=== PATIENT | male | born 1945 | race Caucasian/White ===

== ENCOUNTER 2020-08-28 08:05 | Outpatient (REF) | payer BC, SELFPAY ==
[2020-08-28 11:11] LABS: Hematocrit 40.6 % (42-52); Hemoglobin 13.2 g/dl (14.0-18.0); Mean Corpuscular HGB Conc 32.5 g/dl (31.0-36.0); Mean Corpuscular Hemoglobin 28.4 pg (27.0-33.0); Mean Corpuscular Volume 87.5 fL (80-98); Mean Platelet Volume 9.2 fL (9.4-12.4); Platelet Count 320 X10*3/uL (160-400); Red Blood Count 4.64 X10*6/uL (4.60-5.80); Red Cell Distribution Width 13.5 % (11.0-16.0); White Blood Count 12.2 X10*3/uL (4.8-10.8)
[2020-08-28 11:29] LABS: Alanine Aminotransferase 8 U/L (0-40); Alkaline Phosphatase 76 U/L (39-117); Anion Gap 18 (12-20); Aspartate Amino Transferase 10 U/L (5-37); Bilirubin Total 0.2 mg/dL (0.0-1.0); Blood Urea Nitrogen 17 mg/dL (9-16); Calcium 8.7 mg/dL (8.4-10.2); Carbon Dioxide 22 mmol/L (22-29); Chloride 105 mmol/L (96-108); Cholesterol 141 mg/dL; Estimated Glomerular Filt Rate > 60; Glucose Fasting 144 mg/dL (60-99); HDL Cholesterol 42 mg/dL; LDL Cholesterol Calculated 80 mg/dl; Potassium 4.3 mmol/L (3.3-5.1); Sodium 141 mmol/L (135-145); Total Protein 6.6 g/dL (6.5-8.0); Triglycerides 98 mg/dL
[2020-08-28 11:38] LABS: Estimated Average Glucose 117 mg/dL; Hemoglobin A1c % 5.7 %
[2020-08-28 12:14] LABS: Creatinine Urine 129.91 mg/dL; Microalbum/Creatinine Ratio Ur 17.7 ug/mg cr
== END 2020-08-28 08:06 | disposition home or self-care (01) ==
LOC: HO.HMGCLDS 08:05
PROVIDERS: PCP Internal Medicine; Visit Provider Internal Medicine
DX: I10 Essential (primary) hypertension (principal); E78.5 Hyperlipidemia, unspecified; E11.9 Type 2 diabetes mellitus without complications
CPT/HCPCS: 36415; 80053; 80061; 82043; 83036; 85027

== ENCOUNTER 2021-01-08 08:15 | Outpatient (REF) | payer BC, SELFPAY ==
[2021-01-08 11:36] LABS: Estimated Average Glucose 123 mg/dL; Hemoglobin A1c % 5.9 %
[2021-01-08 11:56] LABS: Creatinine Urine 60.65 mg/dL; Microalbum/Creatinine Ratio Ur 69.2 ug/mg cr
[2021-01-08 12:16] LABS: Erythrocyte Sedimentation Rate 3 MM/HR (0-15)
[2021-01-08 12:31] LABS: Alanine Aminotransferase 16 U/L (0-40); Albumin Level 4.2 g/dL (3.5-5.0); Alkaline Phosphatase 49 U/L (39-117); Anion Gap 14 (12-20); Aspartate Amino Transferase 14 U/L (5-37); Bilirubin Total < 0.2 mg/dL (0.0-1.0); Blood Urea Nitrogen 24 mg/dL (9-16); Calcium 9.2 mg/dL (8.4-10.2); Carbon Dioxide 23 mmol/L (22-29); Chloride 109 mmol/L (96-108); Estimated Glomerular Filt Rate 55; Glucose Fasting 112 mg/dL (60-99); Potassium 4.5 mmol/L (3.3-5.1); Sodium 141 mmol/L (135-145); Total Protein 6.7 g/dL (6.5-8.0)
== END 2021-01-08 08:16 | disposition home or self-care (01) ==
LOC: HO.HMGCLDS 08:15
PROVIDERS: PCP Internal Medicine; Visit Provider Internal Medicine
DX: E11.9 Type 2 diabetes mellitus without complications (principal); E78.5 Hyperlipidemia, unspecified; I10 Essential (primary) hypertension
CPT/HCPCS: 36415; 80053; 82043; 83036; 85652

== ENCOUNTER 2021-07-24 07:58 | Outpatient (REF) | payer BC, SELFPAY ==
[2021-07-24 11:44] LABS: Hematocrit 48.9 % (42.0-52.0); Mean Corpuscular HGB Conc 32.7 g/dl (31.0-36.0); Mean Corpuscular Volume 88.6 fL (80.0-98.0); Mean Platelet Volume 9.2 fL (9.4-12.4); Platelet Count 230 X10*3/uL (160-400); Red Blood Count 5.52 X10*6/uL (4.60-5.80); Red Cell Distribution Width 13.2 % (11.0-16.0); White Blood Count 8.2 X10*3/uL (4.8-10.8)
[2021-07-24 11:59] LABS: Estimated Average Glucose 120 mg/dL; Hemoglobin A1c % 5.8 %
[2021-07-24 12:12] LABS: Alanine Aminotransferase 12 U/L (0-40); Albumin Level 4.1 g/dL (3.5-5.0); Alkaline Phosphatase 55 U/L (39-117); Anion Gap 17 (12-20); Aspartate Amino Transferase 14 U/L (5-37); Bilirubin Total 0.5 mg/dL (0.0-1.0); Blood Urea Nitrogen 22 mg/dL (9-16); Carbon Dioxide 19 mmol/L (22-29); Chloride 108 mmol/L (96-108); Cholesterol 145 mg/dL; Estimated Glomerular Filt Rate > 60; Glucose Fasting 107 mg/dL (60-99); HDL Cholesterol 50 mg/dL; LDL Cholesterol Calculated 79 mg/dl; Potassium 4.5 mmol/L (3.3-5.1); Sodium 139 mmol/L (135-145); Total Protein 6.6 g/dL (6.5-8.0); Triglycerides 80 mg/dL
[2021-07-24 12:37] LABS: Creatinine Urine 113.54 mg/dL; Microalbum/Creatinine Ratio Ur 21.1 ug/mg cr
== END 2021-07-24 07:59 | disposition home or self-care (01) ==
LOC: HO.HMGCLDS 07:58
PROVIDERS: PCP Internal Medicine; Visit Provider Internal Medicine
DX: E11.9 Type 2 diabetes mellitus without complications (principal); E78.5 Hyperlipidemia, unspecified; I10 Essential (primary) hypertension
CPT/HCPCS: 36415; 80053; 80061; 82043; 83036; 85027

== ENCOUNTER 2022-01-07 08:46 | Outpatient (REF) | payer BC, SELFPAY ==
[2022-01-07 11:32] LABS: Estimated Average Glucose 117 mg/dL; Hemoglobin A1c % 5.7 %
[2022-01-07 11:43] LABS: Alanine Aminotransferase 15 U/L (0-40); Albumin Level 4.1 g/dL (3.5-5.0); Alkaline Phosphatase 57 U/L (39-117); Anion Gap 16 (12-20); Aspartate Amino Transferase 15 U/L (5-37); Bilirubin Total 0.3 mg/dL (0.0-1.0); Blood Urea Nitrogen 23 mg/dL (9-16); Carbon Dioxide 22 mmol/L (22-29); Chloride 107 mmol/L (96-108); Cholesterol 150 mg/dL; Estimated Glomerular Filt Rate > 60; Glucose Fasting 106 mg/dL (60-99); HDL Cholesterol 45 mg/dL; LDL Cholesterol Calculated 88 mg/dl; Potassium 4.6 mmol/L (3.3-5.1); Sodium 140 mmol/L (135-145); Total Protein 6.6 g/dL (6.5-8.0); Triglycerides 88 mg/dL
== END 2022-01-07 08:47 | disposition home or self-care (01) ==
LOC: HO.HMGCLDS 08:46
PROVIDERS: PCP Internal Medicine; Visit Provider Internal Medicine
DX: I10 Essential (primary) hypertension (principal); E78.5 Hyperlipidemia, unspecified; E11.9 Type 2 diabetes mellitus without complications
CPT/HCPCS: 36415; 80053; 80061; 83036

== ENCOUNTER 2022-07-01 08:35 | Outpatient (REF) | payer BC, SELFPAY ==
[2022-07-01 11:58] LABS: MANUAL DIFF FLAG NO
[2022-07-01 12:16] LABS: Basophils Absolute Auto 0.1 X10*3/uL (0.0-0.2); Eosinophils Absolute Auto 0.5 X10*3/uL (0.0-0.4); Eosinophils Percent Auto 6.6 % (0-4); Hematocrit 48.2 % (42.0-52.0); Imm Gran Abs Auto 0.01 X10*3/uL (0.00-0.03); Imm Gran Pct Auto 0.1 % (0.0-0.4); Lymphocytes Absolute Auto 2.4 X10*3/uL (1.2-4.9); Mean Corpuscular HGB Conc 33.2 g/dl (31.0-36.0); Mean Corpuscular Hemoglobin 29.5 pg (27.0-33.0); Mean Corpuscular Volume 88.9 fL (80.0-98.0); Mean Platelet Volume 9.1 fL (9.4-12.4); Monocytes Absolute Auto 0.7 X10*3/uL (0.1-1.2); Neutrophils Absolute Auto 3.7 x10*3/uL (2.0-8.3); Neutrophils Percent Auto 50.3 % (45-73); Platelet Count 228 X10*3/uL (160-400); Red Blood Count 5.42 X10*6/uL (4.60-5.80); Red Cell Distribution Width 13.1 % (11.0-16.0); White Blood Count 7.3 X10*3/uL (4.8-10.8)
[2022-07-01 12:21] LABS: Estimated Average Glucose 114 mg/dL; Hemoglobin A1c % 5.6 %
[2022-07-01 12:36] LABS: Creatinine Urine 69.43 mg/dL
[2022-07-01 12:49] LABS: Alanine Aminotransferase 13 U/L (0-40); Albumin Level 4.2 g/dL (3.5-5.0); Alkaline Phosphatase 55 U/L (39-117); Anion Gap 14 (12-20); Aspartate Amino Transferase 13 U/L (5-37); Bilirubin Total 0.4 mg/dL (0.0-1.0); Blood Urea Nitrogen 21 mg/dL (9-16); Calcium 9.1 mg/dL (8.4-10.2); Carbon Dioxide 21 mmol/L (22-29); Chloride 111 mmol/L (96-108); Cholesterol 140 mg/dL; Estimated Glomerular Filt Rate 57; Glucose Fasting 124 mg/dL (60-99); HDL Cholesterol 47 mg/dL; LDL Cholesterol Calculated 82 mg/dl; Potassium 4.4 mmol/L (3.3-5.1); Sodium 142 mmol/L (135-145); Total Protein 6.6 g/dL (6.5-8.0); Triglycerides 58 mg/dL
== END 2022-07-01 08:36 | disposition home or self-care (01) ==
LOC: HO.HMGCLDS 08:35
PROVIDERS: Visit Provider Internal Medicine
DX: E11.9 Type 2 diabetes mellitus without complications (principal); I10 Essential (primary) hypertension; E78.5 Hyperlipidemia, unspecified
CPT/HCPCS: 36415; 80053; 80061; 82043; 83036; 85025

== ENCOUNTER 2023-01-20 08:22 | Outpatient (REF) | payer BC, SELFPAY ==
[2023-01-20 12:23] LABS: Alanine Aminotransferase 15 U/L (0-40); Albumin Level 4.2 g/dL (3.5-5.0); Alkaline Phosphatase 54 U/L (39-117); Anion Gap 13 (12-20); Aspartate Amino Transferase 16 U/L (5-37); Bilirubin Total 0.4 mg/dL (0.0-1.0); Blood Urea Nitrogen 25 mg/dL (9-16); Calcium 9.8 mg/dL (8.4-10.2); Carbon Dioxide 24 mmol/L (22-29); Chloride 109 mmol/L (96-108); Cholesterol 127 mg/dL (<200); Estimated Glomerular Filt Rate 54; Glucose Fasting 111 mg/dL (60-99); HDL Cholesterol 48 mg/dL (>40); LDL Cholesterol Calculated 65 mg/dL (<100); Potassium 4.3 mmol/L (3.3-5.1); Sodium 142 mmol/L (135-145); Triglycerides 73 mg/dL (<150)
[2023-01-20 12:45] LABS: Estimated Average Glucose 103 mg/dL; Hemoglobin A1c % 5.2 % (<6.0)
[2023-01-20 12:51] LABS: Creatinine Urine 98.12 mg/dL; Microalbum/Creatinine Ratio Ur 15.2 ug/mg cr (<30)
== END 2023-01-20 08:23 | disposition home or self-care (01) ==
LOC: HO.HMGCLDS 08:22
PROVIDERS: PCP Internal Medicine; Visit Provider Internal Medicine
DX: E11.9 Type 2 diabetes mellitus without complications (principal); I10 Essential (primary) hypertension; E78.5 Hyperlipidemia, unspecified
CPT/HCPCS: 36415; 80053; 80061; 82043; 83036

== ENCOUNTER 2023-02-10 13:24 | Outpatient (AMB) | payer BC, SELFPAY ==
--- NOTE | 2023-02-10 13:28 | A.OFFPC_ITS ---
Vital Signs 02/10/23 13:29 Height 5 ft 11 in Weight 211 lb BMI 29.4 BP 120/62 Blood Pressure Location Lt brachial Position Sitting Pulse 88 Pulse Source Pulse Oximeter Pulse Oximetry (%) 96 Oxygen Delivery Method Room Air Intake Visit Reasons: 6 Month follow up Intake Note: Pt is here today for 6 months follow up visit. Allergies bupropion [From Wellbutrin] Allergy (Unknown, Verified 02/10/23 13:31) n/a hydroxychloroquine [From Plaquenil] Allergy (Unknown, Verified 02/10/23 13:31) n/a indomethacin [Indocin] Allergy (Unknown, Verified 02/10/23 13:31) Abdominal Pain meloxicam [Mobic] Allergy (Unknown, Verified 02/10/23 13:31) n/a Medication List - Last Reconciled 02/10/23 by Armida Canchola MD amlodipine 10 mg PO DAILY Anoro Ellipta 62.5-25 mcg/actuation (umeclidinium-vilanterol) 1 inh inhalation DAILY NS aspirin (Adult Low Dose Aspirin) 81 mg PO DAILY empagliflozin 25 mg PO DAILY golimumab mg subcut indapamide 1.25 mg PO DAILY lisinopril 40 mg PO DAILY metformin 500 mg PO DAILY omeprazole 20 mg PO DAILY oxycodone-acetaminophen 5-325 mg 1 tab PO Q6H pravastatin 10 mg PO BEDTIME varenicline (Chantix Starting Month Box) PO PER PKG DIR varenicline (Chantix Continuing Month Box) 1 mg PO BID Tobacco use date assessed: 02/10/23 Dental Screening Dental Screen Date: 02/10/23 Did you have a dental visit in the last 12 months?: Yes Did you have a dental problem in the last 6 months where you did not have access to dental care?: No Was dental information given to patient?: Patient has dentist HPI 6 Month follow up HPI Details Patient presents for the follow-up of hypertension hyperlipidemia type 2 diabetes stable on current medications. Patient reports intermittent cough and occasional wheezing. He has been smoking 2 packs a day but declined to attend tobacco cessation classes to get approved for lung cancer screening program. [facility] Medical History Foot pain Ear pain, left Colonoscopy refused Ex-smoker Psoriatic arthritis Hyperlipidemia HTN (hypertension) DM type 2 (diabetes mellitus, type 2) Surgical History No pertinent past surgical history Family History Father No problems noted. Mother No problems noted. Son No problems noted. Son No problems noted. Social History Housing: House Patient Tobacco Use Status: Current everyday Tobacco user Tobacco use type: Cigarette Cigarette Packs Per Day: 2 Cigarettes Per Day: 40 e-Cigarette/Vaping Use: Never Used Current occupational status: retired Cognitive needs: No Hearing needs: No Vision needs: Yes Questionnaire Thrive Questionnaire Date Thrive assessed: 07/29/22 MIKE-7 AMB Questionnaire MIKE-7 Date MIKE - 7 assessed: 07/29/22 Source: Developed by Drs. Alec Wade, Araseli Jolly, Loco De Leon and colleagues, with an educational saranya from [employer]. Review of Systems Const All systems reviewed & are unremarkable except as noted in HPI and below Reports no additional complaints Eyes Reports no additional complaints ENT Reports no additional complaints Card Reports no additional complaints Resp Reports no additional complaints GI Reports no additional complaints Reports no additional complaints Physical exam (Primary Care) Vital Signs: Last Vital Signs Pulse 88 02/10/23 13:29 BP 120/62 02/10/23 13:29 Pulse Ox 96 02/10/23 13:29 Oxygen Delivery Method Room Air 02/10/23 13:29 BMI result Body Mass Index 29.4 Tobacco/Smoking Status: Tobacco use Status Tobacco use date assessed 02/10/23 02/10/23 13:34 Patient Tobacco Use Status Current everyday Tobacco 02/10/23 13:28 Tobacco use type Cigarette 02/10/23 13:28 e-Cigarette/Vaping Use Never Used 02/10/23 13:28 Thrive Assessment: Date of Thrive Assessment Date Thrive assessed 07/29/22 02/10/23 13:28 Const General: no acute distress HENTN General nose exam: Normal external nose present Neck Neck: Yes supple Resp Effort & Inspection: normal respiratory effort Auscultation: wheezes and diminished lung sounds Cardio Rhythm: regular rhythm Heart sounds: S1 normal heart sound present and S2 normal heart sound present GI Inspection: Yes normal to inspection Palpation (GI): Soft to palpation Percussion: Yes normal to percussion Auscultation: normal bowel sounds Assessment and Plan Assessment & Plan (1) Cough: Code(s): R05.9 - Cough, unspecified Plan: Check chest x-ray start Anoro and tobacco quitting discussed with the patient he will try Chantix (2) Hyperlipidemia: Code(s): E78.5 - Hyperlipidemia, unspecified Plan: Continue statin (3) HTN (hypertension): Code(s): I10 - Essential (primary) hypertension Plan: Continue current medications (4) DM type 2 (diabetes mellitus, type 2): Code(s): E11.9 - Type 2 diabetes mellitus without complications Plan: A1c is down to 5.2, patient was advised to decrease metformin to 500 mg daily because of chronic kidney disease stage 3. He will continue Jardiance. Patient follow-up in 6 months with a fasting labs Orders: Orders Complete Blood Count Auto Diff 6 Months E11.9 - Type 2 diabetes mellitus without complications, E78.5 - Hyperlipidemia, unspecified, I10 - Essential (primary) hypertension Hemoglobin A1c 6 Months E11.9 - Type 2 diabetes mellitus without complications, E78.5 - Hyperlipidemia, unspecified, I10 - Essential (primary) hypertension Microalbumin, Random (w Creat) 6 Months E11.9 - Type 2 diabetes mellitus without complications, E78.5 - Hyperlipidemia, unspecified, I10 - Essential (primary) hypertension XR chest 1V Today R05.9 - Cough, unspecified Comprehensive [place]. Panel Fast 6 Months E11.9 - Type 2 diabetes mellitus without complications, E78.5 - Hyperlipidemia, unspecified, I10 - Essential (primary) hypertension Lipid Panel 6 Months E11.9 - Type 2 diabetes mellitus without complications, E78.5 - Hyperlipidemia, unspecified, I10 - Essential (primary) hypertension Medications: New varenicline (Chantix Starting Month Box) PO PER PKG DIR 53 ea 0RF varenicline (Chantix Continuing Month Box) 1 mg PO BID 60 tabs 2RF Anoro Ellipta 62.5-25 mcg/actuation (umeclidinium-vilanterol) 1 inh inhalation DAILY 60 ea 6RF NS Changed From metformin 500 mg PO TID 270 tabs 3RF To metformin 500 mg PO DAILY 270 tabs 3RF Coding Level of Care Code Est Pt Level 4 (24443) Diagnoses Cough R05.9 Hyperlipidemia E78.5 HTN (hypertension) I10 DM type 2 (diabetes mellitus, type 2) E11.9
[2023-02-10 13:29] VITALS: BP 120/62; PULSE 88; O2SAT 96; BMI 29.4
== END 2023-02-10 14:06 | disposition home or self-care (01) ==
PROVIDERS: Visit Provider Internal Medicine
DX: R05.9 Cough, unspecified (principal); E78.5 Hyperlipidemia, unspecified; I10 Essential (primary) hypertension; E11.9 Type 2 diabetes mellitus without complications
CPT/HCPCS: 99214

== ENCOUNTER 2023-02-10 14:06 | Outpatient (REF) | payer BC, SELFPAY ==
--- NOTE | ~2023-02-10 | XR_ITS ---
EXAMINATION: XR CHEST CLINICAL INFORMATION: Cough. COMPARISON: Chest x-rays of 04/05/2014, 08/13/2011. TECHNIQUE: 2 views of the chest were obtained. FINDINGS: Cardiomediastinal silhouette is stable and normal. The lungs are symmetrically adequately expanded. No focal consolidation, changes of congestion or pleural effusions are seen. No pneumothorax. Regional skeleton is intact. Visualized upper abdomen is unremarkable. XR/XR chest 2V IMPRESSION: No radiographic evidence of pneumonia. No acute pulmonary process.
== END 2023-02-10 14:07 | disposition home or self-care (01) ==
LOC: HO.HMGCX 14:06
PROVIDERS: PCP Internal Medicine; Visit Provider Internal Medicine
DX: R05.9 Cough, unspecified (principal)
CPT/HCPCS: 71046

== ENCOUNTER 2023-05-21 10:11 | Outpatient (AMB) | payer BC, SELFPAY ==
[2023-05-21 10:37] VITALS: BP 126/60; PULSE 74; O2SAT 96; BMI 27.9
--- NOTE | 2023-05-21 10:37 | A.OFFPC_ITS ---
Vital Signs 05/21/23 10:37 Height 5 ft 11 in Weight 200 lb BMI 27.9 BP 126/60 Blood Pressure Location Lt brachial Position Sitting Pulse 74 Pulse Source Pulse Oximeter Pulse Oximetry (%) 96 Oxygen Delivery Method Room Air Intake Visit Reasons: Cyst On Lower Back Intake Note: Pt is here today for a sick visit. Pt states that he has a cyst on a tailbone. Pt states that his L ear is blocked and hurts at time, pt states that he saw his arthritis doctor and they recommended MRI of his back and he would need open MRI due to being claustrophobic. Allergies bupropion [From Wellbutrin] Allergy (Unknown, Verified 05/21/23 10:42) n/a hydroxychloroquine [From Plaquenil] Allergy (Unknown, Verified 05/21/23 10:42) n/a indomethacin [Indocin] Allergy (Unknown, Verified 05/21/23 10:42) Abdominal Pain meloxicam [Mobic] Allergy (Unknown, Verified 05/21/23 10:42) n/a Medication List - Last Reconciled 05/21/23 by Armida Canchola MD amlodipine 10 mg PO DAILY aspirin (Adult Low Dose Aspirin) 81 mg PO DAILY empagliflozin 25 mg PO DAILY golimumab mg subcut indapamide 1.25 mg PO DAILY lisinopril 40 mg PO DAILY metformin 500 mg PO DAILY omeprazole 20 mg PO DAILY oxycodone-acetaminophen 5-325 mg 1 tab PO Q6H pravastatin 10 mg PO BEDTIME varenicline (Chantix Continuing Month Box) 1 mg PO BID Tobacco use date assessed: 02/10/23 Dental Screening Dental Screen Date: 05/21/23 Did you have a dental visit in the last 12 months?: Yes Did you have a dental problem in the last 6 months where you did not have access to dental care?: No Was dental information given to patient?: Patient has dentist HPI Cyst On Lower Back HPI Details Patient complains of chronic neck and lower back pain worse at the end of the day for a few years. He denies sciatica, lower or upper extremity weakness, change in bladder or bowel function. Patient follows up with baking assistant for psoriatric arthritis. He had a L-spine MRI about 5 years ago and no surgery was recommended. Patient complains of a painful sore between his buttocks with some yellow discharge on the wipe. PFSH Medical History (Updated 05/21/23 @ 11:47 by Armida Canchola MD) Foot pain Ear pain, left Colonoscopy refused Ex-smoker Psoriatic arthritis Hyperlipidemia HTN (hypertension) DM type 2 (diabetes mellitus, type 2) Surgical History No pertinent past surgical history Family History Father No problems noted. Mother No problems noted. Son No problems noted. Son No problems noted. Social History Housing: House Patient Tobacco Use Status: Current everyday Tobacco user Tobacco use type: Cigarette Cigarette Packs Per Day: 2 Cigarettes Per Day: 40 e-Cigarette/Vaping Use: Never Used Current occupational status: retired Cognitive needs: No Hearing needs: No Vision needs: Yes Questionnaire Thrive Questionnaire Date Thrive assessed: 07/29/22 MIKE-7 AMB Questionnaire MIKE-7 Date MIKE - 7 assessed: 07/29/22 Source: Developed by Drs. Alec Wade, Araseli Jolly, Loco De Leon and colleagues, with an educational saranya from [employer]. Review of Systems Const All systems reviewed & are unremarkable except as noted in HPI and below Reports no additional complaints Eyes Reports no additional complaints ENT Reports no additional complaints Card Reports no additional complaints Resp Reports no additional complaints GI Reports no additional complaints Reports no additional complaints Physical exam (Primary Care) Vital Signs: Last Vital Signs Pulse 74 05/21/23 10:37 BP 126/60 05/21/23 10:37 Pulse Ox 96 05/21/23 10:37 Oxygen Delivery Method Room Air 05/21/23 10:37 BMI result Body Mass Index 27.9 Tobacco/Smoking Status: Tobacco use Status Tobacco use date assessed 02/10/23 05/21/23 10:44 Patient Tobacco Use Status Current everyday Tobacco 05/21/23 10:44 Tobacco use type Cigarette 05/21/23 10:44 e-Cigarette/Vaping Use Never Used 05/21/23 10:44 Thrive Assessment: Date of Thrive Assessment Date Thrive assessed 07/29/22 05/21/23 10:44 Const General: no acute distress HENMT Ears: TM's normal bilaterally Neck Other: Decreased range of motion and cervical spine, paraspinal tenderness bilaterally Neck: Yes supple Resp Effort & Inspection: normal respiratory effort Auscultation: clear to auscultation bilaterally Cardio Rhythm: regular rhythm Heart sounds: S1 normal heart sound present and S2 normal heart sound present Assessment and Plan Assessment & Plan (1) Positive colorectal cancer screening using Cologuard test: Code(s): R19.5 - Other fecal abnormalities Plan: referred for colonoscopy (2) Hearing loss: Code(s): H91.90 - Unspecified hearing loss, unspecified ear Plan: check hearing test (3) Chronic neck pain: Code(s): M54.2 - Cervicalgia; G89.29 - Other chronic pain Plan: check XR (4) Chronic lower back pain: Code(s): M54.50 - Low back pain, unspecified; G89.29 - Other chronic pain Plan: check XR ,PT recommended but pt declined Orders: Orders XR cervical spine 2V Today G89.29 - Other chronic pain, M54.2 - Cervicalgia XR lumbar spine 2-3V Today G89.29 - Other chronic pain, M54.50 - Low back pain, unspecified Referrals Speech and Hearing Referral H91.90 - Unspecified hearing loss, unspecified ear Coding Level of Care Code Est Pt Level 4 (35007) Diagnoses Positive colorectal cancer screening using Cologuard test R19.5 Hearing loss H91.90 Chronic neck pain M54.2; G89.29 Chronic lower back pain M54.50; G89.29
== END 2023-05-21 11:52 | disposition home or self-care (01) ==
PROVIDERS: PCP Internal Medicine; Visit Provider Internal Medicine
DX: R19.5 Other fecal abnormalities (principal); H91.90 Unspecified hearing loss, unspecified ear; M54.2 Cervicalgia; G89.29 Other chronic pain; M54.50 Low back pain, unspecified
CPT/HCPCS: 99214

== ENCOUNTER 2023-05-21 11:36 | Outpatient (REF) | payer BC, SELFPAY ==
--- NOTE | ~2023-05-21 | XR_ITS ---
EXAMINATION: XR CERVICAL SPINE CLINICAL INFORMATION: Arthritis. COMPARISON: None available. TECHNIQUE: Frontal, lateral and odontoid views are obtained. FINDINGS: Vertebral body heights and alignment are normal. The disc spaces are well-maintained. No acute fracture or spondylolisthesis is seen. The posterior elements are intact. There is multi-level cervical spondylosis and facet arthropathy. Anterior cervical spondylosis is most pronounced at C4-C5 and C5-C6. Facet arthropathy is most pronounced at C3-C4 and C4-C5. There is no prevertebral soft tissue swelling. The dens and C7-T1 interface are normal. XR/XR lumbar spine 2-3V IMPRESSION: 1. No acute fracture or spondylolisthesis is seen. 2. The cervical disc spaces are well-maintained. 3. There is multi-level cervical spondylosis and facet arthropathy. EXAMINATION: XR LUMBOSACRAL SPINE CLINICAL INFORMATION: Arthritis. COMPARISON: None available. TECHNIQUE: AP and lateral views of the lumbar spine were obtained. Lateral views were obtained in flexion, extension, and neutral positions. FINDINGS: There is bony demineralization. At L2-L3, there is a 4 mm retrolisthesis. At L3-L4, there is a 4 mm retrolisthesis. The remaining disc spaces are relatively well-maintained. No acute fracture or spondylolisthesis is seen. There is multi-level mild to moderate spondylosis. The posterior elements are intact. There is facet arthropathy, most pronounced at L5-S1. There are aortoiliac atherosclerotic calcifications. IMPRESSION: There is multi-level lumbar degenerative disc disease, spondylosis and facet arthropathy. Degenerative disc disease is most pronounced at L2-L3 and L3-L4, where it is mild to moderate.
--- NOTE | ~2023-05-21 | XR_ITS ---
EXAMINATION: XR CERVICAL SPINE CLINICAL INFORMATION: Arthritis. COMPARISON: None available. TECHNIQUE: Frontal, lateral and odontoid views are obtained. FINDINGS: Vertebral body heights and alignment are normal. The disc spaces are well-maintained. No acute fracture or spondylolisthesis is seen. The posterior elements are intact. There is multi-level cervical spondylosis and facet arthropathy. Anterior cervical spondylosis is most pronounced at C4-C5 and C5-C6. Facet arthropathy is most pronounced at C3-C4 and C4-C5. There is no prevertebral soft tissue swelling. The dens and C7-T1 interface are normal. XR/XR cervical spine 2V IMPRESSION: 1. No acute fracture or spondylolisthesis is seen. 2. The cervical disc spaces are well-maintained. 3. There is multi-level cervical spondylosis and facet arthropathy. EXAMINATION: XR LUMBOSACRAL SPINE CLINICAL INFORMATION: Arthritis. COMPARISON: None available. TECHNIQUE: AP and lateral views of the lumbar spine were obtained. Lateral views were obtained in flexion, extension, and neutral positions. FINDINGS: There is bony demineralization. At L2-L3, there is a 4 mm retrolisthesis. At L3-L4, there is a 4 mm retrolisthesis. The remaining disc spaces are relatively well-maintained. No acute fracture or spondylolisthesis is seen. There is multi-level mild to moderate spondylosis. The posterior elements are intact. There is facet arthropathy, most pronounced at L5-S1. There are aortoiliac atherosclerotic calcifications. IMPRESSION: There is multi-level lumbar degenerative disc disease, spondylosis and facet arthropathy. Degenerative disc disease is most pronounced at L2-L3 and L3-L4, where it is mild to moderate.
== END 2023-05-21 11:37 | disposition home or self-care (01) ==
LOC: HO.HMGCX 11:36
PROVIDERS: PCP Internal Medicine; Visit Provider Internal Medicine
DX: M54.2 Cervicalgia (principal); M54.50 Low back pain, unspecified; G89.29 Other chronic pain; R19.5 Other fecal abnormalities
CPT/HCPCS: 72040; 72100

== ENCOUNTER 2023-06-09 07:48 | Outpatient (AMB) | payer BC, SELFPAY ==
--- NOTE | 2023-06-09 08:06 | MHC.OFFVIS ---
Intake Vital Signs 06/09/23 08:07 Height 5 ft 11 in Weight 205 lb BMI 28.6 BP 122/56 L Blood Pressure Location Lt brachial Position Sitting Pulse 80 Intake Visit Reasons: Colonoscopy Screening Intake Note: Patient new consult for 1st pre colonoscopy screening Patient cc: back pain radiating to his abdominal and the food taste lousy. College Tutor Required: No Accompanied by: Spouse Allergies bupropion [From Wellbutrin] Allergy (Unknown, Verified 05/21/23 10:42) n/a hydroxychloroquine [From Plaquenil] Allergy (Unknown, Verified 05/21/23 10:42) n/a indomethacin [Indocin] Allergy (Unknown, Verified 05/21/23 10:42) Abdominal Pain meloxicam [Mobic] Allergy (Unknown, Verified 05/21/23 10:42) n/a HPI Colonoscopy Screening HPI Details 77 year old? male here today for pre colonoscopy screening.? Patient was sent to us by his PCP.? Patient had positive Cologuard. This is his first colonoscopy screening.? Patient denies any gastrointestinal symptoms in the past or at present.? However patient reports that he takes MiraLax on as needed basis. Patient is taking medications for back pain Denies any personal or family history of gastrointestinal disease, colon polyps, or cancer.? Denies history of difficulty with sedation or anesthesia in the past.? Negative for history of sleep apnea.? Denies any history of cardiac, renal, pulmonary, or hepatic disease.?? No history of infectious? diseases like hepatitis A, B, C, HIV or tuberculosis.? Patient is on low-dose aspirin [facility] Medical History Foot pain Ear pain, left Colonoscopy refused Ex-smoker Psoriatic arthritis Hyperlipidemia HTN (hypertension) DM type 2 (diabetes mellitus, type 2) Surgical History No pertinent past surgical history Family History Father No problems noted. Mother No problems noted. Son No problems noted. Son No problems noted. Social History Housing: House Patient Tobacco Use Status: Current everyday Tobacco user Tobacco use type: Cigarette Cigarette Packs Per Day: 2 Cigarettes Per Day: 40 e-Cigarette/Vaping Use: Never Used Current occupational status: retired Cognitive needs: No Hearing needs: No Vision needs: Yes Review of Systems Const Denies weight gain and Denies weight loss ENT Reports no additional complaints, Denies dysphagia and Denies odynophagia Card Reports no additional complaints Resp Reports no additional complaints GI Denies abdominal pain, Denies belching, Denies melena, Denies bloating, Denies change in bowel habits, Reports constipation, Denies dysphagia, Denies excessive flatus, Denies dyspepsia, Denies heartburn, Denies diarrhea, Denies loose stools, Denies nausea, Denies odynophagia and Denies vomiting Reports no additional complaints Musc Reports no additional complaints Neuro Reports no additional complaints Psych Reports no additional complaints Endo Reports no additional complaints Physical Exam Vital Signs: Last Vital Signs Pulse 80 06/09/23 08:07 BP 122/56 L 06/09/23 08:07 BMI result Body Mass Index 28.6 Const General: healthy appearing, no acute distress and well developed Nutritional Appearance: well nourished Orientation/consciousness: patient oriented x3 HEENT Head: Yes normal to inspection, Yes normocephalic and Yes atraumatic Face and sinus: Yes normal facial exam Mouth: Normal oral and palatal mucosa present Throat: Yes posterior oropharynx normal, Yes tonsils normal and Yes uvula midline Eyes General: appearance normal, both eyes and all related structures Neck Neck: Yes normal visual inspection, Yes full ROM and Yes trachea midline Thyroid: Thyroid normal Resp Effort & Inspection: normal respiratory effort, able to speak in complete sentences, no tracheal deviation and symmetric chest movement Auscultation: clear to auscultation bilaterally Cardio Rate: regular rate GI Inspection: Yes normal to inspection and No distended Palpation (GI): Soft to palpation, not firm, nontender and No hepatosplenomegaly present Auscultation: normal bowel sounds General: Yes no CVA tenderness Back/Spine/Pelvis Back: no CVA tenderness Skin General skin exam: elasticity normal, turgor normal and dry skin Neuro General: patient oriented x3 Psych Appearance: grossly normal Mental Status: mental status grossly normal Assessment & Plan Assessment & Plan (1) Positive colorectal cancer screening using Cologuard test: Code(s): R19.5 - Other fecal abnormalities Plan: Patient denies any GI, cardiac or respiratory symptoms.? Patient had positive Cologuard. Reports constipation bowel movements every 2-3 days. Uses MiraLax. Patient was instructed to take MiraLax every day. He Denies any issues with anesthesia in the past.? Denies any history of sleep apnea.? No history infectious diseases in the past or present.? Patient is on low-dose aspirin. No family or personal history of colon cancer or polyps.? Patient denies melena, hematochezia, unintentional weight loss or ribbon like stools.? Discussed at length the pre-procedure,? prep, diet & medications as well as what to expect prior, during and after the procedure.?? Stressed the importance of good bowel prep. ?Recommended the use of Vaseline or Calmoseptine OTC & baby wipes with bowel movements to promote comfort.? ?Patient verbalizes understanding and agrees to plan of care.? He was given the opportunity to ask questions and all questions answered.? We will see him after the procedure.? Medications: New polyethylene glycol 3350 (Miralax) As directed by gastroenterology department at [facility] 238 grams PO ONCE 238 grams 0RF Z12.11 - Encounter for screening for malignant neoplasm of colon bisacodyl (Dulcolax (bisacodyl)) take 4 tabs at noon the day before your colonoscopy 20 mg (4 x 5 mg) PO ONCE 1 day 4 tabs 0RF Z12.11 - Encounter for screening for malignant neoplasm of colon Coding Level of Care Code New Pt Level 3 (43394) Diagnoses Positive colorectal cancer screening using Cologuard test R19.5 Time Spent (min) 40 Comment 30 minutes spent with patient and additional 10 minutes spent reviewing his records
[2023-06-09 08:07] VITALS: BP 122/56; PULSE 80; BMI 28.6
== END 2023-06-09 09:00 | disposition home or self-care (01) ==
PROVIDERS: PCP Internal Medicine; Referring Provider Internal Medicine; Visit Provider Nurse Practitioner Family
DX: R19.5 Other fecal abnormalities (principal)
CPT/HCPCS: 99203

== ENCOUNTER → 2023-06-09 07:48 | Outpatient (BNVA) | payer BC, SELFPAY | PROVIDERS: PCP Internal Medicine; Visit Provider Nurse Practitioner Family ==

== ENCOUNTER 2023-06-16 08:25 | Outpatient (REF) | payer BC, SELFPAY | END 2023-06-16 08:26 | disposition home or self-care (01) | LOC: HO.SH 08:25 | PROVIDERS: Visit Provider Internal Medicine | DX: Z01.118 Encounter for examination of ears and hearing with other abnormal findings (principal); H90.3 Sensorineural hearing loss, bilateral | CPT/HCPCS: 92557; 92567 ==

== ENCOUNTER 2023-07-21 06:04 | Outpatient (REF) | payer BC, SELFPAY ==
[2023-07-21 10:57] LABS: MANUAL DIFF FLAG NO
[2023-07-21 11:06] LABS: Basophils Percent Auto 0.5 % (0-2); Eosinophils Absolute Auto 0.7 X10*3/uL (0.0-0.4); Eosinophils Percent Auto 9.8 % (0-4); Hematocrit 40.2 % (42.0-52.0); Hemoglobin 13.8 g/dl (14.0-18.0); Imm Gran Abs Auto 0.02 X10*3/uL (0.00-0.03); Imm Gran Pct Auto 0.3 % (0.0-0.4); Lymphocytes Absolute Auto 2.2 X10*3/uL (1.2-4.9); Mean Corpuscular HGB Conc 34.3 g/dl (31.0-36.0); Mean Corpuscular Hemoglobin 31.1 pg (27.0-33.0); Mean Corpuscular Volume 90.5 fL (80.0-98.0); Mean Platelet Volume 9.4 fL (9.4-12.4); Monocytes Absolute Auto 0.7 X10*3/uL (0.1-1.2); Monocytes Percent Auto 9.4 % (2-11); Neutrophils Absolute Auto 3.8 x10*3/uL (2.0-8.3); Platelet Count 247 X10*3/uL (160-400); Red Blood Count 4.44 X10*6/uL (4.60-5.80); Red Cell Distribution Width 14.8 % (11.0-16.0); White Blood Count 7.4 X10*3/uL (4.8-10.8)
[2023-07-21 11:16] LABS: Estimated Average Glucose 103 mg/dL; Hemoglobin A1c % 5.2 % (<6.0)
[2023-07-21 11:23] LABS: Alanine Aminotransferase 17 U/L (0-40); Alkaline Phosphatase 52 U/L (39-117); Anion Gap 12 (12-20); Aspartate Amino Transferase 16 U/L (5-37); Bilirubin Total 0.4 mg/dL (0.0-1.0); Blood Urea Nitrogen 21 mg/dL (9-16); Calcium 8.9 mg/dL (8.4-10.2); Carbon Dioxide 23 mmol/L (22-29); Chloride 110 mmol/L (96-108); Cholesterol 134 mg/dL (<200); Estimated Glomerular Filt Rate 55; Glucose Fasting 117 mg/dL (60-99); HDL Cholesterol 46 mg/dL (>40); LDL Cholesterol Calculated 76 mg/dL (<100); Potassium 4.3 mmol/L (3.3-5.1); Sodium 141 mmol/L (135-145); Total Protein 6.6 g/dL (6.5-8.0); Triglycerides 60 mg/dL (<150)
[2023-07-21 11:40] LABS: Creatinine Urine 68.74 mg/dL; Microalbum/Creatinine Ratio Ur 58.1 ug/mg cr (<30)
== END 2023-07-21 06:05 | disposition home or self-care (01) ==
LOC: HO.HMGCLDS 06:04
PROVIDERS: PCP Internal Medicine; Visit Provider Internal Medicine
DX: E78.5 Hyperlipidemia, unspecified (principal); E11.9 Type 2 diabetes mellitus without complications; I10 Essential (primary) hypertension
CPT/HCPCS: 36415; 80053; 80061; 82043; 82570; 83036; 85025

== ENCOUNTER 2023-07-28 08:20 | Outpatient (AMB) | payer BC, SELFPAY ==
[2023-07-28 08:28] VITALS: BP 118/64; PULSE 88; O2SAT 97; BMI 27.3
--- NOTE | 2023-07-28 08:28 | A.OFFPC_ITS ---
Vital Signs 07/28/23 08:28 Height 5 ft 11 in Weight 196 lb BMI 27.3 BP 118/64 Blood Pressure Location Lt brachial Position Sitting Pulse 88 Pulse Source Pulse Oximeter Pulse Oximetry (%) 97 Oxygen Delivery Method Room Air Intake Visit Reasons: Annual PE Intake Note: Pt is here today for PE. Allergies bupropion [From Wellbutrin] Allergy (Unknown, Verified 07/28/23 08:30) n/a hydroxychloroquine [From Plaquenil] Allergy (Unknown, Verified 07/28/23 08:30) n/a indomethacin [Indocin] Allergy (Unknown, Verified 07/28/23 08:30) Abdominal Pain meloxicam [Mobic] Allergy (Unknown, Verified 07/28/23 08:30) n/a Tobacco use date assessed: 07/28/23 Fall risk assessment: No Falls in past year Last assessed Fall Risk: 07/28/23 Dental Screening Dental Screen Date: 07/28/23 Did you have a dental visit in the last 12 months?: Yes Did you have a dental problem in the last 6 months where you did not have access to dental care?: No Was dental information given to patient?: Patient has dentist HPI Annual PE HPI Details Pt presents for PE. DM 2, HTN, hypderlipid, stable on meds. 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 Patient has been taking up to 2 tablets of Percocet a day. He will have a colonoscopy for positive Cologuard. [facility] Medical History (Updated 07/28/23 @ 09:18 by Armida Canchola MD) Foot pain Ear pain, left Colonoscopy refused Ex-smoker Psoriatic arthritis Hyperlipidemia HTN (hypertension) DM type 2 (diabetes mellitus, type 2) Surgical History No pertinent past surgical history Family History Father No problems noted. Mother No problems noted. Son No problems noted. Son No problems noted. Social History Housing: House Patient Tobacco Use Status: Current everyday Tobacco user Tobacco use type: Cigarette Cigarette Packs Per Day: 2 Cigarettes Per Day: 40 e-Cigarette/Vaping Use: Never Used Current occupational status: retired Cognitive needs: No Hearing needs: No Vision needs: Yes Questionnaire PHQ-9 Over the last 2 weeks, how often have you been bothered by any of the following problems? 1. Little interest or pleasure in doing things: not at all 2. Feeling down, depressed, or hopeless: not at all 3. Trouble falling or staying asleep, or sleeping too much: not at all 4. Feeling tired or having little energy: not at all 5. Poor appetite or overeating: not at all 6. Feeling bad about yourself - or that you are a failure or have let yourself or your family down: not at all 7. Trouble concentrating on things, such as reading the newspaper or watching television: not at all 8. Moving or speaking so slowly that other people could have noticed. Or the opposite - being so fidgety or restless that you have been moving around a lot more than usual: not at all 9. Thoughts that you would be better off or of hurting yourself in some way: not at all Total score: 0 Depression Screening Interpretation: Negative Depression Screening Done: Yes Source: Developed by Drs. Alec Wade, Araseli Jolly, Loco De Leon and colleagues, with an educational saranya from [employer]. Thrive Questionnaire Date Thrive assessed: 07/28/23 I am a: Patient What is your living situation today?: I have a steady place to live Within the past 12 months, did the food you bought not last and you didn't have the money to get more?: Never true Within the past 12 months, did you worry whether your food would run out before you got money to buy more?: Never true Do you have trouble paying for medicines?: No Do you have trouble getting transportation to medical appointments?: No Do you have trouble paying your heating and electricity bill?: No Do you have trouble taking care of your child, family member or friend?: No Do you have trouble with day-to-day activities such as bathing, preparing meals, shopping, managing finances, etc.?: No Are you currently unemployed and looking for a job?: No Are you interested in more education?: No Please select the resources that you would like help with: None Currently or been in a relationship where the following occur: no concerns reported THRIVE Score: 0 AUDIT C Alcohol Use Questionnaire (AUDIT-C) 1. How often do you have a drink containing alcohol?: Monthly or less 2. How many drinks containing alcohol do you have on a typical day when you are drinking?: 1 or 2 3. How often do you have six or more drinks on one occasion?: Never Total Score: 1 MIKE-7 AMB Questionnaire MIKE-7 Date MIKE - 7 assessed: 07/28/23 Feeling nervous, anxious, or on edge: 0 = Not at all Not being able to stop or control worryin = Not at all Worrying too much about different things: 0 = Not at all Trouble relaxin = Not at all Being so restless that it is hard to sit still: 0 = Not at all Becoming easily annoyed or irritable: 0 = Not at all Feeling afraid as if something awful might happen: 0 = Not at all Total MIKE-7 score (0-4 normal; 5-9 mild; 10-14 moderate; 15-21 severe): 0 Source: Developed by Drs. Alec Wade, Araseli Jolly, Loco De Leon and colleagues, with an educational saranya from [employer]. Review of Systems Const All systems reviewed & are unremarkable except as noted in HPI and below Reports no additional complaints Eyes Reports no additional complaints ENT Reports no additional complaints Card Reports no additional complaints Resp Reports no additional complaints GI Reports no additional complaints Reports no additional complaints Physical exam (Primary Care) Vital Signs: Last Vital Signs Pulse 88 07/28/23 08:28 BP 118/64 07/28/23 08:28 Pulse Ox 97 07/28/23 08:28 Oxygen Delivery Method Room Air 07/28/23 08:28 BMI result Body Mass Index 27.3 Tobacco/Smoking Status: Tobacco use Status Tobacco use date assessed 07/28/23 07/28/23 08:33 Patient Tobacco Use Status Current everyday Tobacco 07/28/23 08:33 Tobacco use type Cigarette 07/28/23 08:33 e-Cigarette/Vaping Use Never Used 07/28/23 08:33 PHQ-9: PHQ-9 Score PHQ-9: Total score 0 07/28/23 08:33 Depression Screening Interpretation: Negative Thrive Assessment: Date of Thrive Assessment Date Thrive assessed 07/28/23 07/28/23 08:33 Currently or been in a relationship where the following occur: no concerns reported Const General: no acute distress HENMT Head: Yes normal to inspection Ears: hearing grossly normal bilaterally Face and sinus: Yes normal facial exam Mouth: Normal oral and palatal mucosa present Throat: Yes posterior oropharynx normal Eyes General: appearance normal, both eyes and all related structures Neck Neck: Yes no lymphadenopathy and Yes supple Resp Effort & Inspection: normal respiratory effort Auscultation: clear to auscultation bilaterally Cardio Rhythm: regular rhythm Heart sounds: S1 normal heart sound present and S2 normal heart sound present GI Inspection: Yes normal to inspection Palpation (GI): Soft to palpation Percussion: Yes normal to percussion Assessment and Plan Assessment & Plan (1) Anemia: Code(s): D64.9 - Anemia, unspecified Plan: Check iron studies and B12 level (2) Hyperlipidemia: Code(s): E78.5 - Hyperlipidemia, unspecified Plan: Continue statin (3) HTN (hypertension): Code(s): I10 - Essential (primary) hypertension Plan: Continue current medications (4) DM type 2 (diabetes mellitus, type 2): Code(s): E11.9 - Type 2 diabetes mellitus without complications Plan: A1c is 5.2, patient will stop metformin and continue Jardiance. Follow-up in 6 months with a fasting labs before (5) Psoriatic arthritis: Comment: f/u rheumatology Code(s): L40.50 - Arthropathic psoriasis, unspecified Plan: f/u with rheumatology on Golimumab (6) Annual physical exam: Code(s): Z00.00 - Encounter for general adult medical examination without abnormal findings Plan: Well-balanced diet regular physical activity discussed with the patient. He will have a colonoscopy for positive Cologuard Orders: Orders IRON PROFILE Today D64.9 - Anemia, unspecified Lipid Panel 6 Months D64.9 - Anemia, unspecified, E11.9 - Type 2 diabetes mellitus without complications, E78.5 - Hyperlipidemia, unspecified, I10 - Essential (primary) hypertension Vitamin B12 and Folate Today D64.9 - Anemia, unspecified Immunofixation Pnl, Serum Today D64.9 - Anemia, unspecified Complete Blood Count Auto Diff 6 Months D64.9 - Anemia, unspecified, E11.9 - Type 2 diabetes mellitus without complications, E78.5 - Hyperlipidemia, unspecified, I10 - Essential (primary) hypertension Hemoglobin A1c 6 Months D64.9 - Anemia, unspecified, E11.9 - Type 2 diabetes mellitus without complications, E78.5 - Hyperlipidemia, unspecified, I10 - Essential (primary) hypertension Microalbumin, Random (w Creat) 6 Months D64.9 - Anemia, unspecified, E11.9 - Type 2 diabetes mellitus without complications, E78.5 - Hyperlipidemia, unspecified, I10 - Essential (primary) hypertension Comprehensive [place]. Panel Fast 6 Months D64.9 - Anemia, unspecified, E11.9 - Type 2 diabetes mellitus without complications, E78.5 - Hyperlipidemia, unspecified, I10 - Essential (primary) hypertension Medications: Discontinued metformin Discontinued Reason: Doctor's Order 500 mg PO DAILY 270 tabs 3RF Coding Level of Care Code Est Pt Prev Care >65y(29825) Diagnoses Anemia D64.9 Hyperlipidemia E78.5 HTN (hypertension) I10 DM type 2 (diabetes mellitus, type 2) E11.9 Psoriatic arthritis L40.50 Annual physical exam Z00.00
== END 2023-07-28 09:21 | disposition home or self-care (01) ==
PROVIDERS: PCP Internal Medicine; Visit Provider Internal Medicine
DX: Z00.00 Encounter for general adult medical examination without abnormal findings (principal); E11.9 Type 2 diabetes mellitus without complications; L40.50 Arthropathic psoriasis, unspecified; D64.9 Anemia, unspecified; E78.5 Hyperlipidemia, unspecified; I10 Essential (primary) hypertension
CPT/HCPCS: 99397

== ENCOUNTER 2023-07-28 09:02 | Outpatient (REF) | payer BC, SELFPAY ==
[2023-07-28 12:07] LABS: Iron 70 mcg/dL (45-160); Percent Iron Saturation 25 % (15-50); Total Iron Binding Capacity 276 mcg/dL (228-428); Unsaturated Iron Binding 206 ug/dL
[2023-07-28 13:25] LABS: Folate 8.9 ng/mL (> or = 4.0); Vitamin B12 552 pg/mL (200-900)
[2023-07-31 08:29] LABS: IgA 114 mg/dL (70-320); IgG 801 mg/dL (600-1540); IgM 44 mg/dL (50-300)
== END 2023-07-28 09:03 | disposition home or self-care (01) ==
LOC: HO.HMGCLDS 09:02
PROVIDERS: PCP Internal Medicine; Visit Provider Internal Medicine
DX: D64.9 Anemia, unspecified (principal)
CPT/HCPCS: 36415; 82607; 82746; 82784; 83540; 86334

== ENCOUNTER 2023-10-20 07:26 | Day surgery (SDC) | payer BC, SELFPAY ==
--- NOTE | 2023-10-17 12:35 | HO.ANESPROP2 ---
Documented by User: Angie Alford NP 10/17/23 12:35 HPI - Anesthesia Eval Consult details Narrative: 77yo M for Colonoscopy Anesthesia Pre-Procedure Meds Is the patient on any of the following meds?: SGLT2 Inhib PMFSH Active Problems Active Problems: All Active Problems Annual physical exam (Acute) Anemia (Acute) Chronic neck pain (Acute) Chronic lower back pain (Acute) Hearing loss (Acute) Positive colorectal cancer screening using Cologuard test (Acute) Cough (Acute) Foot pain (Acute) Ear pain, left (Acute) Colonoscopy refused (Acute) Ex-smoker (Acute) Psoriatic arthritis (Acute) Hyperlipidemia (Acute) HTN (hypertension) (Acute) DM type 2 (diabetes mellitus, type 2) (Acute) Past Medical History Medical History (Updated 10/20/23 @ 09:03 by Melissa Osorio RN) History of rectal fissure Foot pain Ear pain, left Colonoscopy refused Ex-smoker Psoriatic arthritis Hyperlipidemia HTN (hypertension) DM type 2 (diabetes mellitus, type 2) Family History Family History (Updated 10/20/23 @ 09:02 by Melissa Osorio RN) Father No problems noted. Mother No problems noted. Son No problems noted. Son No problems noted. Other Hx of arthroscopic knee surgery Surgical History Surgical History (Updated 10/20/23 @ 09:02 by Melissa Osorio RN) Hx of arthroscopic knee surgery Social History Social History Housing: House Patient Tobacco Use Status: Current everyday Tobacco user Tobacco use type: Cigarette Cigarette Packs Per Day: 2 Cigarettes Per Day: 40 Smoked in Last 30 Days: Yes e-Cigarette/Vaping Use: Never Used Patient Interested in Nicotine Replacement: No Are you DNR?: No Advance Directives: No Advance Directives Information Provided: Yes Nutrition Risks: No Nutritional Risk Current occupational status: retired Cognitive needs: No Hearing needs: No Vision needs: Yes Meds Allergies Allergy/AdvReac Type Severity Reaction Status Date / Time bupropion [From Wellbutrin] Allergy Unknown n/a Verified 10/20/23 08:10 hydroxychloroquine Allergy Unknown n/a Verified 10/20/23 08:10 [From Plaquenil] indomethacin [Indocin] Allergy Unknown Abdominal Verified 10/20/23 08:10 Pain meloxicam [Mobic] Allergy Unknown n/a Verified 10/20/23 08:10 Home Medications ?Medication ?Instructions ?Recorded ?Confirmed ?Last Taken ?Type aspirin 81 mg tablet,delayed 81 mg PO DAILY 05/29/20 10/20/23 10/17/23 History release (Adult Low Dose Aspirin) omeprazole 20 mg capsule,delayed 20 mg PO DAILY 05/29/20 10/20/23 10/20/23 History release golimumab 50 mg/0.5 mL mg subcut 09/04/20 05/21/23 Unknown History subcutaneous pen injector oxycodone-acetaminophen 5 mg-325 1 tab PO Q6H pain 10/20/23 10/20/23 Unknown History mg tablet Assessment and Plan Assessment Anesthesia Assessment: Chart Reviewed Documented by User: Adi Miller MD 10/20/23 09:28 [facility] Past Medical History Medical History (Updated 10/20/23 @ 09:03 by Melissa Osorio RN) History of rectal fissure Foot pain Ear pain, left Colonoscopy refused Ex-smoker Psoriatic arthritis Hyperlipidemia HTN (hypertension) DM type 2 (diabetes mellitus, type 2) Family History Family History (Updated 10/20/23 @ 09:02 by Melissa Osorio, RN) Father No problems noted. Mother No problems noted. Son No problems noted. Son No problems noted. Other Hx of arthroscopic knee surgery Family history of problems with anesthesia: No Surgical History Surgical History (Updated 10/20/23 @ 09:02 by Melissa Osorio RN) Hx of arthroscopic knee surgery History of Problems with Anesthesia: No Social History Social History Housing: House Patient Tobacco Use Status: Current everyday Tobacco user Tobacco use type: Cigarette Cigarette Packs Per Day: 2 Cigarettes Per Day: 40 Smoked in Last 30 Days: Yes e-Cigarette/Vaping Use: Never Used Patient Interested in Nicotine Replacement: No Are you DNR?: No Advance Directives: No Advance Directives Information Provided: Yes Nutrition Risks: No Nutritional Risk Current occupational status: retired Cognitive needs: No Hearing needs: No Vision needs: Yes Meds Allergies Allergy/AdvReac Type Severity Reaction Status Date / Time bupropion [From Wellbutrin] Allergy Unknown n/a Verified 10/20/23 08:10 hydroxychloroquine Allergy Unknown n/a Verified 10/20/23 08:10 [From Plaquenil] indomethacin [Indocin] Allergy Unknown Abdominal Verified 10/20/23 08:10 Pain meloxicam [Mobic] Allergy Unknown n/a Verified 10/20/23 08:10 Home Medications ?Medication ?Instructions ?Recorded ?Confirmed ?Last Taken ?Type aspirin 81 mg tablet,delayed 81 mg PO DAILY 05/29/20 10/20/23 10/17/23 History release (Adult Low Dose Aspirin) omeprazole 20 mg capsule,delayed 20 mg PO DAILY 05/29/20 10/20/23 10/20/23 History release golimumab 50 mg/0.5 mL mg subcut 09/04/20 05/21/23 Unknown History subcutaneous pen injector oxycodone-acetaminophen 5 mg-325 1 tab PO Q6H pain 10/20/23 10/20/23 Unknown History mg tablet Exam Airway Mallampati Class: II TM Dist: >3cm Neck ROM: Full Loose/Missing/Broken Teeth: No Heart: rrr Lungs: cta Assessment and Plan Assessment Anesthesia Assessment: Anesthesia Plan Discussed Final Anesthetic Review Family History of Problems with Anesthesia: No History of Problems with Anesthesia: No NPO: Yes ASA Class: III Final Preanesthetic Review: No Changes in Pt Med Stat, Meds/Allgs Chart Reviewed, Consent Obtained/Reviewed and Anes Risks/Benef Reviewed Patient Risk: High Procedure Risk: Intermediate Anesthetic Plan Anesthetic Plan: GA Disposition: Standard PACU
--- NOTE | 2023-10-20 06:05 | MHC.SHP ---
Pre-Procedural Eval Section A - 24 Hr Update-Section A only Date of Service: 10/20/23 Section B - Complete if H&P > 30 days Chief Complaint: pos cologuard Relevant Family History (Specify if Yes): No Relevant Social History: Tobacco Use Present Medications: see Short Stay Collaborative assessment Medical History: Significant History (Foot pain Ear pain, left Colonoscopy refused Ex-smoker Psoriatic arthritis Hyperlipidemia HTN (hypertension) DM type 2 (diabetes mellitus, type 2)) History of Previous Operations: No relevant previous surgery Allergies: Allergies Allergy/AdvReac Type Severity Reaction Status Date / Time bupropion [From Wellbutrin] Allergy Unknown n/a Verified 07/28/23 08:30 hydroxychloroquine Allergy Unknown n/a Verified 07/28/23 08:30 [From Plaquenil] indomethacin [Indocin] Allergy Unknown Abdominal Verified 07/28/23 08:30 Pain meloxicam [Mobic] Allergy Unknown n/a Verified 07/28/23 08:30 Review of Systems Sugical H&P ROS: Negative: Constitution, Cardiovascular, Respiratory, Neurological, Psychiatric, Hem-Onc, Allergic/Immunologic, Gastrointestinal, Genitourinary, Musculoskeletal, Integumentary, Endocrine and Eyes/Ears/Nose/Throat Exam Surgical H&P Exam: Normal: HEENT, Normal: Heart, Normal: Lungs, Normal: Extremities, Normal: Abdomen, Normal: Skin and Normal: Neurological Plan Diagnosis/Plan: Unchanged I have reviewed the history and physical and performed a pertinent physical examination on my patient. No changes have occurred unless specified. Time Spent With Patient Time: Total time managing care of this patient today ____ minutes.
[2023-10-20 08:40] VITALS: BMI 27.9
[2023-10-20] MEDS: Lactated Ringers 1,000 ML 100 ML IVCONT (08:53)
[2023-10-20 09:01] VITALS: BP 149/64; PULSE 81; RESP 18; TEMP 36.6; O2SAT 97
[2023-10-20 09:03] LABS: Glucose, Whole Blood 99 mg/dL (60-115)
--- NOTE | 2023-10-20 10:14 | HO.OPN-COLON ---
Colonoscopy Operative Note Operative Note Date of Service: 10/20/23 Narrative: Operative Information Procedure Description: Colonoscopy Indication: pos cologuard Anesthesia: MAC COLONOSCOPY Instrument: Olympus variable stiffness pediatric scope 190L Colonoscopy Monitoring: Vital signs and clinical assessment, continuous EKG monitoring, Pulse oximetry, Carbon Dioxide monitoring and blood pressure monitoring were done throughout the procedure. Colon withdrawal time was 14 minutes. Procedure: The patient was placed in the left lateral decubitis position and pre-procedure medications were administered. After a digital rectal examination of the ano-rectum, the video colonoscope was inserted into the rectum and advanced through the colon to the cecum/TI. The colonoscope was slowly withdrawn in a retrograde panoramic fashion and the colon mucosa was carefully examined including a retroflexed view of the rectum. Findings and interventions are described below. Procedure Difficulty: easy Findings: Terminal Ileum-normal Cecum:normal Ascending Colon: 12 mm laterally spreading granular polyp injected with eleview and removed with cold snare Transverse Colon -normal Descending Colon:normal Sigmoid Colon: normal Rectum: Retroflexion with small internal hemorrhoids seen, grade I, 12 mm sessile polyp removed with cold snare Anorectum - normal Intervention: eleview injection, cold snare (EMR) Colon preparation: [place] Bowel Preparation Scale Right colon; 2 Transverse colon: 2 Left colon; 2 (0 = Unprepared colon segment with mucosa not seen due to solid stool that cannot be cleared. 1 = Portion of mucosa of the colon segment seen, but other areas of the colon segment not well seen due to staining, residual stool and/or opaque liquid. 2 = Minor amount of residual staining, small fragments of stool and/or opaque liquid, but mucosa of colon segment seen well. 3 = Entire mucosa of colon segment seen well with no residual staining, small fragments of stool or opaque liquid) Impression and Post Procedure Diagnosis: colon polyps internal hemorrhoids Plan: High fiber diet leaflet Avoid straining at stool, epsom salts and sitz bath, anusol supps or cream Repeat Colonoscopy in 3 years or earlier if clinically indicated avoid nsaids for 5 days, can restart baby aspirin tomorrow Above findings were reviewed with the patient and relevant handouts were provided if indicated.
[2023-10-20 10:16] VITALS: BP 114/60; PULSE 70; RESP 17; TEMP 36.3; O2SAT 96
[2023-10-20 10:31] VITALS: BP 118/64; PULSE 75; RESP 16; O2SAT 98
[2023-10-20 10:41] VITALS: BP 136/67; PULSE 76; RESP 15; TEMP 36.4; O2SAT 98
== END 2023-10-20 10:56 | disposition home or self-care (01) ==
PROVIDERS: PCP Internal Medicine; Visit Provider Internal Medicine Gastroenterology
PROC: 0DJD8ZZ Inspection of Lower Intestinal Tract, Via Natural or Artificial Opening Endoscopic (ICD-10-PCS; CPT 45378; principal; 2023-10-20 10:00)
DX: R19.5 Other fecal abnormalities (principal); D12.2 Benign neoplasm of ascending colon; K62.1 Rectal polyp; E11.9 Type 2 diabetes mellitus without complications; I10 Essential (primary) hypertension; Z88.8 Allergy status to other drugs, medicaments and biological substances
CPT/HCPCS: 45385; 45381; 82947; 88305; J2704

== ENCOUNTER → 2023-10-20 07:26 | Outpatient (BNV) | payer BC, SELFPAY | PROVIDERS: PCP Internal Medicine; Visit Provider Internal Medicine Gastroenterology | DX: Z12.11 Encounter for screening for malignant neoplasm of colon (principal); R19.5 Other fecal abnormalities; D12.2 Benign neoplasm of ascending colon; K62.1 Rectal polyp | CPT/HCPCS: 45381; 45385 ==

== ENCOUNTER 2023-11-03 07:42 | Outpatient (AMB) | payer BC, SELFPAY ==
--- NOTE | 2023-11-03 07:57 | MHC.OFFVIS ---
Vital Signs 11/03/23 08:00 Height 5 ft 11 in Weight 205 lb 0.478 oz BMI 28.6 BP 151/71 H Blood Pressure Location Lt brachial Position Sitting Pulse 77 Pulse Oximetry (%) 98 Oxygen Delivery Method Room Air Intake Visit Reasons: S/P [place] Intake Note: Benedicto presents in the office as a follow up colonoscopy. CC: He states that he is just here for the results. Technical Lead Required: No Allergies bupropion [From Wellbutrin] Allergy (Unknown, Verified 11/03/23 08:00) n/a hydroxychloroquine [From Plaquenil] Allergy (Unknown, Verified 11/03/23 08:00) n/a indomethacin [Indocin] Allergy (Unknown, Verified 11/03/23 08:00) Abdominal Pain meloxicam [Mobic] Allergy (Unknown, Verified 11/03/23 08:00) n/a HPI HPI S/P [place]: Details: LAST VISIT Positive colorectal cancer screening using Cologuard test Patient denies any GI, cardiac or respiratory symptoms.? Patient had positive Cologuard. Reports constipation bowel movements every 2-3 days. Uses MiraLax. Patient was instructed to take MiraLax every day. He Denies any issues with anesthesia in the past.? Denies any history of sleep apnea.? No history infectious diseases in the past or present.? Patient is on low-dose aspirin. No family or personal history of colon cancer or polyps.? Patient denies melena, hematochezia, unintentional weight loss or ribbon like stools.? Discussed at length the pre-procedure,? prep, diet & medications as well as what to expect prior, during and after the procedure.?? Stressed the importance of good bowel prep. ?Recommended the use of Vaseline or Calmoseptine OTC & baby wipes with bowel movements to promote comfort.? ?Patient verbalizes understanding and agrees to plan of care.? He was given the opportunity to ask questions and all questions answered.? We will see him after the procedure.? Plan Medications New polyethylene glycol 3350 (Miralax) As directed by gastroenterology department at [facility] 238 grams PO ONCE 238 grams 0RF Z12.11 bisacodyl (Dulcolax (bisacodyl)) take 4 tabs at noon the day before your colonoscopy 20 mg (4 x 5 mg) PO ONCE 1 day 4 tabs 0RF Z12.11 COLONOSCOPY Findings: Terminal Ileum-normal Cecum:normal Ascending Colon: 12 mm laterally spreading granular polyp injected with eleview and removed with cold snare Transverse Colon -normal Descending Colon:normal Sigmoid Colon: normal Rectum: Retroflexion with small internal hemorrhoids seen, grade I, 12 mm sessile polyp removed with cold snare Anorectum - normal Intervention: eleview injection, cold snare (EMR) Colon preparation: Pritchett Bowel Preparation Scale Right colon; 2 Transverse colon: 2 Left colon; 2 (0 = Unprepared colon segment with mucosa not seen due to solid stool that cannot be cleared. 1 = Portion of mucosa of the colon segment seen, but other areas of the colon segment not well seen due to staining, residual stool and/or opaque liquid. 2 = Minor amount of residual staining, small fragments of stool and/or opaque liquid, but mucosa of colon segment seen well. 3 = Entire mucosa of colon segment seen well with no residual staining, small fragments of stool or opaque liquid) Impression and Post Procedure Diagnosis: colon polyps internal hemorrhoids Plan: High fiber diet leaflet Avoid straining at stool, epsom salts and sitz bath, anusol supps or cream Repeat Colonoscopy in 3 years or earlier if clinically indicated avoid nsaids for 5 days, can restart baby aspirin tomorrow PATHOLOGY RESULTS Diagnosis A. Colon, ascending, polypectomy: Fragments of tubular adenoma; negative for high-grade dysplasia or carcinoma. B. Rectum, polypectomy: Hyperplastic mucosal polyp TODAY'S VISIT Patient is here for follow-up and to discuss colonoscopy results. Patient denies any ill effects from the prep, anesthesia or procedure itself. Patient reports that he has been feeling well. Denies any GI concerning symptoms at this time. Two polyps found 1 tubular adenoma without high-grade dysplasia or carcinoma was found in ascending colon and hyperplastic mucosal polyp was found in rectum. Colonoscopy was recommended to repeat in 3 years. Patient denies melena or hematochezia. Denies any other GI concerning symptoms. [facility] Medical History (Updated 11/03/23 @ 20:06 by Mirna Escalante [facility]) Tubular adenoma of colon History of rectal fissure Foot pain Ear pain, left Colonoscopy refused Ex-smoker Psoriatic arthritis Hyperlipidemia HTN (hypertension) DM type 2 (diabetes mellitus, type 2) Surgical History (Updated 11/03/23 @ 08:01 by NELI Hull) Hx of colonoscopy Hx of arthroscopic knee surgery Family History Father No problems noted. Mother No problems noted. Son No problems noted. Son No problems noted. Other Hx of arthroscopic knee surgery Social History Housing: House Patient Tobacco Use Status: Current everyday Tobacco user Tobacco use type: Cigarette Cigarette Packs Per Day: 2 Cigarettes Per Day: 40 e-Cigarette/Vaping Use: Never Used Current occupational status: retired Cognitive needs: No Hearing needs: No Vision needs: Yes Review of Systems Const Denies weight gain and Denies weight loss ENT Reports no additional complaints, Denies dysphagia and Denies odynophagia Card Reports no additional complaints Resp Reports no additional complaints GI Denies abdominal pain, Denies belching, Denies melena, Denies bloating, Denies change in bowel habits, Denies dysphagia, Denies excessive flatus, Denies dyspepsia, Denies heartburn, Denies diarrhea, Denies loose stools, Denies nausea, Denies odynophagia and Denies vomiting Reports no additional complaints Musc Reports no additional complaints Neuro Reports no additional complaints Psych Reports no additional complaints Endo Reports no additional complaints Physical Exam Vital Signs: Last Vital Signs Pulse 77 11/03/23 08:00 BP 151/71 H 11/03/23 08:00 Pulse Ox 98 11/03/23 08:00 Oxygen Delivery Method Room Air 11/03/23 08:00 BMI result Body Mass Index 28.6 Const General: healthy appearing, no acute distress and well developed Nutritional Appearance: well nourished Orientation/consciousness: patient oriented x3 Resp Effort & Inspection: normal respiratory effort, able to speak in complete sentences, no tracheal deviation and symmetric chest movement Auscultation: clear to auscultation bilaterally Cardio Rate: regular rate GI Inspection: Yes normal to inspection and No distended Palpation (GI): Soft to palpation, not firm, nontender and No hepatosplenomegaly present Auscultation: normal bowel sounds General: Yes no CVA tenderness Back/Spine/Pelvis Back: no CVA tenderness Skin General skin exam: elasticity normal, turgor normal and dry skin Neuro General: patient oriented x3 Psych Appearance: grossly normal Mental Status: mental status grossly normal Assessment & Plan Assessment & Plan (1) Tubular adenoma of colon: Code(s): D12.6 - Benign neoplasm of colon, unspecified Category: Medical (2) Status post colonoscopy: Code(s): Z98.890 - Other specified postprocedural states Plan Colorectal screening in 3 years, sooner if clinically necessary. As mentioned above in HPI tubular adenoma found in ascending colon without high-grade dysplasia or carcinoma. Hyperplastic polyp in the rectum. Small internal hemorrhoids. High-fiber diet recommended. Follow-up in the office on as needed basis. Patient will call if he will have any GI concerning symptoms. He is agreeable to this plan and verbalizes understanding of instructions. He was given the opportunity to ask questions and all questions answered. Thank you for allowing me to participate in his care Coding Level of Care Code Est Pt Level 3 (61251) Diagnoses Tubular adenoma of colon D12.6 Status post colonoscopy Z98.890 Time Spent (min) 25 Comment 15 minutes spent with patient and additional 10 minutes spent reviewing his records
[2023-11-03 08:00] VITALS: BP 151/71; PULSE 77; O2SAT 98; BMI 28.6
== END 2023-11-03 08:23 | disposition home or self-care (01) ==
PROVIDERS: PCP Internal Medicine; Visit Provider Nurse Practitioner Family
DX: D12.6 Benign neoplasm of colon, unspecified (principal); Z98.890 Other specified postprocedural states
CPT/HCPCS: 99213

== ENCOUNTER → 2023-11-03 07:42 | Outpatient (BNVA) | payer BC, SELFPAY | PROVIDERS: PCP Internal Medicine; Visit Provider Nurse Practitioner Family ==

== ENCOUNTER 2024-02-04 10:14 | Outpatient (REF) | payer BC, SELFPAY ==
[2024-02-04 13:21] LABS: MANUAL DIFF FLAG NO
[2024-02-04 13:36] LABS: Basophils Absolute Auto 0.1 X10*3/uL (0.0-0.2); Basophils Percent Auto 0.5 % (0-2); Eosinophils Absolute Auto 0.5 X10*3/uL (0.0-0.4); Eosinophils Percent Auto 3.9 % (0-4); Hematocrit 44.3 % (42.0-52.0); Hemoglobin 14.8 g/dl (14.0-18.0); Imm Gran Abs Auto 0.05 X10*3/uL (0.00-0.03); Imm Gran Pct Auto 0.4 % (0.0-0.4); Lymphocytes Absolute Auto 2.8 X10*3/uL (1.2-4.9); Lymphocytes Percent Auto 22.6 % (20-40); Mean Corpuscular HGB Conc 33.4 g/dl (31.0-36.0); Mean Corpuscular Hemoglobin 30.5 pg (27.0-33.0); Mean Corpuscular Volume 91.2 fL (80.0-98.0); Mean Platelet Volume 9.2 fL (9.4-12.4); Monocytes Absolute Auto 1.2 X10*3/uL (0.1-1.2); Monocytes Percent Auto 9.6 % (2-11); Neutrophils Absolute Auto 7.9 x10*3/uL (2.0-8.3); Platelet Count 213 X10*3/uL (160-400); Red Blood Count 4.86 X10*6/uL (4.60-5.80); Red Cell Distribution Width 13.3 % (11.0-16.0); White Blood Count 12.5 X10*3/uL (4.8-10.8)
[2024-02-04 13:43] LABS: Estimated Average Glucose 108 mg/dL; Hemoglobin A1c % 5.4 % (<6.0)
[2024-02-04 13:55] LABS: Creatinine Urine 79.73 mg/dL; Microalbum/Creatinine Ratio Ur 107.8 ug/mg cr (<30)
[2024-02-04 13:58] LABS: Alanine Aminotransferase 22 U/L (0-40); Albumin Level 4.1 g/dL (3.5-5.0); Alkaline Phosphatase 54 U/L (39-117); Anion Gap 14 (12-20); Aspartate Amino Transferase 18 U/L (5-37); Bilirubin Total 0.4 mg/dL (0.0-1.0); Blood Urea Nitrogen 33 mg/dL (9-16); Calcium 9.5 mg/dL (8.4-10.2); Carbon Dioxide 23 mmol/L (22-29); Chloride 109 mmol/L (96-108); Cholesterol 135 mg/dL (<200); Estimated Glomerular Filt Rate 50; Glucose Fasting 112 mg/dL (60-99); HDL Cholesterol 51 mg/dL (>40); LDL Cholesterol Calculated 66 mg/dL (<100); Potassium 4.5 mmol/L (3.3-5.1); Sodium 141 mmol/L (135-145); Total Protein 6.9 g/dL (6.5-8.0); Triglycerides 93 mg/dL (<150)
[2024-02-04 14:03] LABS: TSH reflex Free T4 3.14 uIU/mL (0.32-4.0)
== END 2024-02-04 10:15 | disposition home or self-care (01) ==
LOC: HO.HMGCLDS 10:14
PROVIDERS: PCP Internal Medicine; Visit Provider Internal Medicine
DX: E78.5 Hyperlipidemia, unspecified (principal); I10 Essential (primary) hypertension; E11.9 Type 2 diabetes mellitus without complications; D64.9 Anemia, unspecified
CPT/HCPCS: 36415; 80053; 80061; 82043; 82570; 83036; 84443; 85025

== ENCOUNTER 2024-02-09 08:07 | Outpatient (AMB) | payer BC, SELFPAY ==
[2024-02-09 08:09] VITALS: BP 124/66; PULSE 85; O2SAT 96; BMI 30.5
--- NOTE | 2024-02-09 08:09 | MHC.PC.OV ---
Vital Signs 02/09/24 08:09 Height 5 ft 11 in Weight 219 lb BMI 30.5 BP 124/66 Blood Pressure Location Rt brachial Position Sitting Pulse 85 Pulse Source Pulse Oximeter Pulse Oximetry (%) 96 Oxygen Delivery Method Room Air Intake Visit Reasons: 6 month follow up Intake Note: Pt is here today for 6 months follow up visit on labs. Allergies bupropion [From Wellbutrin] Allergy (Unknown, Verified 02/09/24 08:10) n/a hydroxychloroquine [From Plaquenil] Allergy (Unknown, Verified 02/09/24 08:10) n/a indomethacin [Indocin] Allergy (Unknown, Verified 02/09/24 08:10) Abdominal Pain meloxicam [Mobic] Allergy (Unknown, Verified 02/09/24 08:10) n/a Medication List - Last Reconciled 02/09/24 by Armida Canchola MD amlodipine 10 mg PO DAILY aspirin (Adult Low Dose Aspirin) 81 mg PO DAILY empagliflozin 25 mg PO DAILY golimumab mg subcut indapamide 1.25 mg PO DAILY lisinopril 40 mg PO DAILY omeprazole 20 mg PO DAILY oxycodone-acetaminophen 5-325 mg 1 tab PO Q6H pravastatin 10 mg PO BEDTIME Tobacco use date assessed: 02/09/24 Dental Screening Dental Screen Date: 07/28/23 HPI 6 month follow up HPI Details Patient presents for the follow-up on hypertension hyperlipidemia type 2 diabetes stable on current medications. 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 Mother No problems noted. Son No problems noted. Son No problems noted. Other Hx of arthroscopic knee surgery Social History Housing: House Patient Tobacco Use Status: Current everyday Tobacco user Tobacco use type: Cigarette Cigarette Packs Per Day: 2 Cigarettes Per Day: 40 e-Cigarette/Vaping Use: Never Used service: Yes Current occupational status: retired Cognitive needs: No Hearing needs: No Vision needs: Yes Questionnaire PHQ-9 Over the last 2 weeks, how often have you been bothered by any of the following problems? 1. Little interest or pleasure in doing things: not at all 2. Feeling down, depressed, or hopeless: not at all 3. Trouble falling or staying asleep, or sleeping too much: not at all 4. Feeling tired or having little energy: not at all 5. Poor appetite or overeating: not at all 6. Feeling bad about yourself - or that you are a failure or have let yourself or your family down: not at all 7. Trouble concentrating on things, such as reading the newspaper or watching television: not at all 8. Moving or speaking so slowly that other people could have noticed. Or the opposite - being so fidgety or restless that you have been moving around a lot more than usual: not at all 9. Thoughts that you would be better off or of hurting yourself in some way: not at all Total score: 0 Depression Screening Interpretation: Negative Depression Screening Done: Yes 66106 - PHQ-9 Billing: Yes Source: Developed by Drs. Alec Wade, Araseli Jolly, Loco De Leon and colleagues, with an educational saranya from [employer]. Thrive Questionnaire Date Thrive assessed: 02/04/24 I am a: Patient What is your living situation today?: I have a steady place to live Within the past 12 months, did the food you bought not last and you didn't have the money to get more?: Never true Within the past 12 months, did you worry whether your food would run out before you got money to buy more?: Never true Do you have trouble paying for medicines?: No Do you have trouble getting transportation to medical appointments?: No Do you have trouble paying your heating and electricity bill?: No Do you have trouble taking care of your child, family member or friend?: No Do you have trouble with day-to-day activities such as bathing, preparing meals, shopping, managing finances, etc.?: No Are you currently unemployed and looking for a job?: No Are you interested in more education?: No Please select the resources that you would like help with: None Currently or been in a relationship where the following occur: No concerns reported THRIVE Score: 0 AUDIT C Alcohol Use Questionnaire (AUDIT-C) 1. How often do you have a drink containing alcohol?: Never 3. How often do you have six or more drinks on one occasion?: Never Total Score: 0 MIKE-7 AMB Questionnaire MIKE-7 Date MIKE - 7 assessed: 02/09/24 Feeling nervous, anxious, or on edge: 0 = Not at all Not being able to stop or control worryin = Not at all Worrying too much about different things: 0 = Not at all Trouble relaxin = Not at all Being so restless that it is hard to sit still: 0 = Not at all Becoming easily annoyed or irritable: 0 = Not at all Feeling afraid as if something awful might happen: 0 = Not at all Total MIKE-7 score (0-4 normal; 5-9 mild; 10-14 moderate; 15-21 severe): 0 Source: Developed by Drs. Alec Wade, Araseli Jolly, Loco De Leon and colleagues, with an educational saranya from [employer]. MIKE-7 Assessment Billing MIKE-7 Assessment Tool: MIKE-7 Assessment 36553 Review of Systems Const All systems reviewed & are unremarkable except as noted in HPI and below Eyes Reports no additional complaints Card Reports no additional complaints Resp Reports no additional complaints GI Reports no additional complaints Reports no additional complaints Physical exam (Primary Care) Vital Signs: Last Vital Signs Pulse 85 02/09/24 08:09 BP 124/66 02/09/24 08:09 Pulse Ox 96 02/09/24 08:09 Oxygen Delivery Method Room Air 02/09/24 08:09 BMI result Body Mass Index 30.5 Tobacco/Smoking Status: Tobacco use Status Tobacco use date assessed 02/09/24 02/09/24 08:14 Patient Tobacco Use Status Current everyday Tobacco 02/09/24 08:14 Tobacco use type Cigarette 02/09/24 08:14 e-Cigarette/Vaping Use Never Used 02/09/24 08:14 PHQ-9: PHQ-9 Score PHQ-9: Total score 0 02/09/24 08:18 Depression Screening Interpretation: Negative Thrive Assessment: Date of Thrive Assessment Date Thrive assessed 02/04/24 02/09/24 08:14 Currently or been in a relationship where the following occur: No concerns reported Const General: no acute distress HENMT Head: Yes normal to inspection Eyes General: appearance normal, both eyes and all related structures Neck Neck: Yes no lymphadenopathy and Yes supple Resp Effort & Inspection: normal respiratory effort Auscultation: clear to auscultation bilaterally Cardio Rhythm: regular rhythm Heart sounds: S1 normal heart sound present and S2 normal heart sound present GI Inspection: Yes normal to inspection Palpation (GI): Soft to palpation Percussion: Yes normal to percussion Auscultation: normal bowel sounds Assessment and Plan Assessment & Plan (1) DM type 2 (diabetes mellitus, type 2): Code(s): E11.9 - Type 2 diabetes mellitus without complications Plan: A1c is 5.4, continue current medications ADA diet increase physical activity (2) HTN (hypertension): Code(s): I10 - Essential (primary) hypertension Plan: Continue current medications (3) Hyperlipidemia: Code(s): E78.5 - Hyperlipidemia, unspecified Plan: Continue statin (4) Tubular adenoma of colon: Comment: 3 small, colonoscopy 10/2023, repeat 3 yrs Code(s): D12.6 - Benign neoplasm of colon, unspecified Orders: Orders Comprehensive Ava. Panel Fast 6 Months D12.6 - Benign neoplasm of colon, unspecified, E11.9 - Type 2 diabetes mellitus without complications, E78.5 - Hyperlipidemia, unspecified, I10 - Essential (primary) hypertension Complete Blood Count Auto Diff 6 Months D12.6 - Benign neoplasm of colon, unspecified, E11.9 - Type 2 diabetes mellitus without complications, E78.5 - Hyperlipidemia, unspecified, I10 - Essential (primary) hypertension Hemoglobin A1c 6 Months D12.6 - Benign neoplasm of colon, unspecified, E11.9 - Type 2 diabetes mellitus without complications, E78.5 - Hyperlipidemia, unspecified, I10 - Essential (primary) hypertension Lipid Panel 6 Months D12.6 - Benign neoplasm of colon, unspecified, E11.9 - Type 2 diabetes mellitus without complications, E78.5 - Hyperlipidemia, unspecified, I10 - Essential (primary) hypertension Microalbumin, Random (w Creat) 6 Months D12.6 - Benign neoplasm of colon, unspecified, E11.9 - Type 2 diabetes mellitus without complications, E78.5 - Hyperlipidemia, unspecified, I10 - Essential (primary) hypertension Coding Level of Care Code Est Pt Level 4 (22120) Diagnoses DM type 2 (diabetes mellitus, type 2) E11.9 HTN (hypertension) I10 Hyperlipidemia E78.5 Tubular adenoma of colon D12.6 Additional Codes MIKE-7 Assessment Billing - MIKE-7 Assessment Tool: MIKE-7 Assessment 98372 ([id number])
== END 2024-02-09 08:48 | disposition home or self-care (01) ==
PROVIDERS: PCP Internal Medicine; Visit Provider Internal Medicine
DX: E11.69 Type 2 diabetes mellitus with other specified complication (principal); I10 Essential (primary) hypertension; E78.5 Hyperlipidemia, unspecified; D12.6 Benign neoplasm of colon, unspecified
CPT/HCPCS: 99214

== ENCOUNTER 2024-07-26 10:24 | Outpatient (REF) | payer BC, SELFPAY ==
--- OUTSIDE RECORDS SUMMARY | 2024-07-26 11:41 | XMS_ITS ---
Author Name [facility] [place] [facility] [place] Address [address] [place] [id number] Support Name Relationship Address Phone BEVERLY BROWN Next of Kin [address] [place] [address] BEVERLY BROWN Emergency Contact [address], [place] [id number] Insurance Providers: All historical and current Section Date Range: From patient's date of to the date document was created. This section includes the names of all active insurance providers for the patient. Insurance Provider Type of Coverage Plan Name Start of Policy Coverage End of Policy Coverage Group Number Member ID Insurance Provider's Telephone Number Policy Cornell's Name Patient's Relationship to Policy Cornell [facility] Nov 30, 2017 [id number] JAE DAMON PATIENT [place] Jul 28, 2023 DELMY ENCINAS [id number] JAE DAMON PATIENT [place] PRESCRIPT ION [facility] Jun 02, 2022 [id number] JAE DAMON PATIENT [employer] ([id number]) PRESCRIPT ION [id number]* Nov 01, 2007 [id number] JAE DAMON PATIENT Selected Encounter This section includes the information on record at [place] for the Encounter. Date/Time Encounter Type Encounter Description Reason Provider Source Jul 28, 2023 11:00 AM HEARING AID EXAM BOTH EARS AUDIOLOGY ICD-10-CM H90.3 Sensorineural hearing loss, bilateral FAITH MELENDEZ E Encounter Template Text not used by [place] Assessments - Encounter Diagnoses This section includes the primary and secondary diagnoses documented for the Encounter. Date/Time Primary/Secondary Diagnosis Diagnosis Name Provider Source Aug 09, 2023 05:58 AM PRIMARY Sensorineural hearing loss, bilateral FAITH MELENDEZ [facility] Aug 09, 2023 05:58 AM SECONDARY Tinnitus, bilateral FAITH MELENDEZ E [facility] Plan of Treatment: Future Appointments (+ 6 months) and Future Tests (+/- 45 days) The Plan of Treatment section includes future care activities for the patient from all [place] treatmentfacilities. This section includes future appointments and future orders which are active, pending or scheduled. Future Appointments This section includes appointments that were scheduled to occur 6 months from the date of the Encounter, up to a maximum of 20 appointments. The data comes from all [place] treatment facilities. Appointment Date/Time Appointment Type Appointme nt Facility Name Aug 18, 2023 11:00 AM AMBULATORY - REHAB MEDICIN E [facility] Encounter Notes: All associated encounter notes This section contains the clinical notes associated to the Encounter. Date/Time Encounter Note(s) Provider Source Jul 28, 2023 08:48 AM AUDIOLOGY E & M NO TE: [facility] TITLE: AUDIOLOGY CLINIC STANDARD TITLE: AUDIOLOGY E & M NOTE DATE OF NOTE: JUL 28, 2023@08:48 ENTRY DATE: JUL 28, 2023@08:48:25 AUTHOR: FAITH MELENDEZ EXP COSIGNER: URGENCY: STATUS: COMPLETED AUDIOLOGY CLINIC Has ADDENDA Wana was seen 07-28-23 for a hearing evaluation. He reports difficulty hearing conversation and TV at times. He reports intermittent aural fullness left ear for the last three months. He reports pain left ear on a recent trip to a high [facility]. He presents with an audiogram 06-16-23 from [facility] showing asymmetrical mixed hearing loss (worse left ear at 250 Hz and at 500 Hz). He states that hearing seems to be symmetric at this time, but he still feels fullness in the left ear. He has an appointment scheduled with [facility] soon. Wana reports longstanding bilateral tinnitus and denies vertigo. denies past/current hearing aid use. Significant otologic history is reportedly unremarkable. History is reportedly positive for (Mar[place]) noise exposure. Medical history includes: Active problems - Computerized Problem List is the source for the followin. Psoriasis 2. Arthropathy of left shoulder Results are as follow: Otoscopy is WNL for both ears. Pure tone audiometric testing with headphones revealed normal hearing, sloping to a moderately severe / severe sensorineural hearing loss bilaterally. Word recognition scores were good with 80% correct for the right ear and 84% correct for the left ear for recorded speech presented at 85 dB HL (masked). Normal tympanograms were obtained bilaterally. Left ear mixed component seems to have resolved as of today's test. Wana was counseled on today's test results. He will see the ENT as planned in [facility]. He is a candidate for amplification and is eligible for [place] hearing aid services. Binaural rechargeable RICs with domes will be ordered for him in his choice of [employer]. He states he does not have a pacemaker. He measured a 2. RTC order was placed for the fitting, scheduled on 08-18-23 at 11am. /evgeny/ Mayela GRAF, [facility] STAFF SILVER CLEANER Signed: 07/28/2023 16:25 Receipt Acknowledged By: 07/29/2023 07:46 /evgeny/ HOWARD LOPEZ ADVANCED SEAFOOD CLERK 08/06/2023 ADDENDUM STATUS: COMPLETED Hearing aids received and certified, upcoming appointment scheduled on 08/18/2023. /evgeny/ KALEN ROGEL Audiology Health Induction Machine Operator Signed: 08/06/2023 14:30 FAITH MELENDEZ [facility]
--- OUTSIDE RECORDS SUMMARY | 2024-07-26 11:41 | XMS_ITS ---
[facility] Address [address] [place] [address] Care Team Providers Care Shopper'S Aide Name Role Phone Armida Canchola MD Primary Care Provider Fabiana Grossman Unavailable [phone] Allergies Allergen (clinical drug ingredient) Drug/Non Drug Allergy documented on EMR Reaction Allergy Type Onset Date Status colchicine Colchicine can't remember Drug Allergy Active REASON FOR VISIT At Risk Footcare Medications Medication SIG (Take, Route, Frequency, Duration) Notes Start Date End Date Status Extra Depth Diabetic Shoes with 3 Pair Custom heat-molded multi-density innersoles for 1 year Dx: Active Indapamide 1.25 MG 1 tablet in the morn ing Orally Once a day for 30 day(s) Active Pravastatin Sodium 10 MG 2 tablets Orall y Once a day for 30 day(s) Active prednisoLONE Acetate Unknown Percocet 5-325 MG 1 tablet as needed O rally every 6 hrs Unknown Simponi 50 MG/0.5ML as directed Subcutaneous Unknown Chantix Unknown Enbrel 25 MG as directed Subcutaneous Unknown Chantix 1 MG 1 tablet Orally Twic e a day Unknown Nabumetone 750 MG 1 tablet Orally Twic e a day for 30 day(s) 09/02/2016 Unknown metFORMIN HCl 500 MG 1 tablet with meals Orally Twice a day Active Lisinopril Active oxyCODONE-Acetaminophen daily Unknown Jardiance 25 MG 1 tablet Orally Once a day for 30 day(s) Active amLODIPine Besylate Active Omeprazole 20 MG 1 capsule 30 minutes before morning meal Orally Once a day for 30 day(s) Active Social History Tobacco Use: Social History Observation Description Date Details (start date - stop date) Current Smoker NA - NA Tobacco use other than smoking: Question Answer Notes Are you an other tobacco user? No Tobacco Control (Standard) Question Answer Notes Tobacco use: Current smoker AUDIT-C (Standard) Question Answer Notes Did you have a drink contain ing alcohol in the past year? Yes How often did you have six o r more drinks on one occasion in the past year? Less than monthly (1 point) How many drinks did you have on a typical day when you were drinking in the past year? 1 or 2 drinks (0 point) How often did you have a dri nk containing alcohol in the past year? 2 to 4 times a month (2 points) Points 3 Interpretation Negative Vital Signs Height 5 ft 11 in in 06/14/2024 Weight 205 lbs 06/14/2024 BMI 28.59 kg/m2 06/14/2024 Blood pressure systolic 130 mm Hg 06/14/19 25 Blood pressure diastolic 70 mm Hg 025 Procedures Procedure Date Ordered Date Performed Result Body Sit e 89051-NJDFZVI NAIL, 6 OR MORE 06/14/2024 N/A 84950-HXSC SKIN LESIONS, 2 TO 4 06/14/2024 N/A Encounters Encounter Location Date Provider Diagnosis [facility] [address] [address] 06/14/2024 Fabiana Tan Type 2 diabetes mellitus with diabetic polyneuropathy E11.42 and Tinea unguium B35.1 Assessments Encounter Date Diagnosis (ICD Code) Assessment Notes Treatment Notes Treatment Clinical Notes Section Notes 06/14/2024 Type 2 diabetes mellitus with diabetic polyneuropathy (ICD-10 - E11.42) 06/14/2024 Tinea unguium (ICD-10 - B35.1) Plan Of Treatment Pending Test Test Name Order Date 10221-DGHPWMD NAIL, 6 OR MORE 06/14/2024 16864-RJDA SKIN LESIONS, 2 TO 4 06/14/19 25 Next Appt Details Follow Up: 3 Months, Reason: Provider Name:Fabiana kay, 09/06/2024 10:00:00 AM, [address] [place] [address], [id number], Provider Name:Fabiana kay, 11/08/2024 09:00:00 AM, [address] [place], [address], Procedure Notes * Category Sub-Category Detail Notes Debride Nail 6-10 Nail debridement Due to the cl inical pathology outlined in the exam findings, performance of this nail treatment is medically necessary as its management by an unskilled/untrained nonprofessional would put this patients foot and overall health at risk. Therefore, debridement to affected nail(s), as described in exam ( TA, T1, T2, T3, T4, T5, T6, T7, T8, T9, ), was performed exclusively by the physician of record to reduce/remove overall nail length, girth, thickness, subungual debris, and necrotic tissue, by manual and/or electrical means through the use of a nail nipper and/or dremel-type roll grinder, to a more viable healthy nail plate or bed tissue 6-10 nails in total. Silver nitrate was used for any petechial bleeding as necessary. Definitive antifungal treatment options, both pharmaceutical and surgical, have been reviewed and discussed with the patient. The patient solely prefers the use of intermittent/as needed professional debridement services for their nail condition and understands the need for additional periodic treatments to maintain effectiveness in symptomatic relief - 36218 Keratoma Treatment Parring or Cutting o f Benign Hyperkeratotic Lesion(s) (-56) 2-4 Lesions - Due to the at risk nature of the patients medical condition as documented in the exam findings, performance of this keratoderma treatment is medically necessary as its management by an unskilled/untrained nonprofessional would put this patients foot and overall health at risk. Therefore, the benign hyperkeratotic lesions, ( 2 ) in total, locations as stated and described in the exam ( _plantar heels B/L ), were pared, and/or cut utilizing a sterile 15 blade, tissue nippers, and/or power dremel instrumentation by the physician of record - 76264 Progress Notes * JAMIEBenedicto AUDOB: [birth year] (78 yo M)Acc No.[id number]:06/14/2024 Progress Note Patient:?Benedicto BROWN Provider:?Fabiana Tan DPM :1945???Age:78 Y???Sex:Male Juwan e:06/14/2024 Address:[address] [place], [place] [address], [id number] Pcp:Armida Canchola MD Subjective: * Chief Complaints: * ???At Risk Footcare * HPI: ???At Risk footcare:?Pt States Last PCP Visit:?Date?03/16/2024 * ROS:?General/Constitutional:?Nausea?denies.?Vomiting?denies.?Hunger Thirst?denies.?Loss appetite?denies.?Chills?denies.?Fatigue?denies.?Fever?denies.?Night Sweats?denies.?Unexplained weight loss?denies.?Unexplained weight gain?denies.?HEENTM:?Dentures?denies.?Dizziness?denies.?Glasses/contacts?admits.?Retinopathy?de nies.?Blurred/double vision?denies.?TMJ?denies.?Discharge/drainage?denies.?Implants?denies.?Sore throat?denies.?Dental implants?denies.?Hard of hearing ?denies.?Difficulty chewing/swallowing/speaking?denies.?Nose bleeds?denies.?Sore mouth?denies.?Respiratory:?On Oxygen?denies.?Pneumonia/pleurisy?denies.?Bronchitis?denies.?Emphysema?denies.?C oughing?denies.?Cough blood?denies.?Shortness of breath?denies.?Wheezing?denies.?Cardiovascular:?Pacemaker?denies.?MVP?denies.?WPW?denies.?CHF?denies.?Heart attack?denies.?Septal defect?denies.?Rapid beat?denies.?Chest pain ?denies.?Atrial Fib.?denies.?Murmur/Palpitations?denies.?Gastrointestinal:?Hemorrhoids?denies.?Stomach/Abdominal pain?denies.?Dark blood stool?denies.?Irritable bowel ?denies.?Constipation?denies.?Diarrhea?denies.?Hematology:?Swelling?denies.?Clots?denies.?Varicose Veins?denies.?Bruising?denies.?Bleeding problem?denies.?Genitourinary:?Blood urine?denies.?Frequent/Painfu/urination/bladder control?denies.?Kidney stones?denies.?Infection (UTI)?denies.?Nephropathy?denies.?sex trans dis (STD)?denies.?Prostate?denies.?Musculoskeletal:?Hammertoes?denies.?Bunions?denies.?Back Pain?denies.?Muscle Cramps/ Resting?denies.?Muscle cramps / walking?denies.?Generalized aches and pains?denies.?Weakness?denies.?Integ.:?Live?denies.?Scars?denies.?Corns/calluses?denies.?Ingrown nails?denies.?Painful nails?denies.?Open Sores?denies.?Rashes?denies.?Neurologic:?Difficulty sleeping?denies.?Brain disorder?denies.?Numbness?denies.?Balance trouble?denies.?Confusion?denies.?Fainting/blackouts?denies.?Tingling?denies.?Tr emors?denies.? * Medical History:? * Surgical History:?Denies Pas t Surgical History * Hospitalization/Major Diagno stic Procedure:?Denies Past Hospitalization * Family History:?Mother: dece ased, foot problems, diagnosed with Diabetic - NIDDM, Unspecified essential hypertension.?Father: , diagnosed with Unspecified heart disease.?Son(s): alive.? * Social History:?Tobacco Use:?Tobacco use other than smoking?Are you an other tobacco user??No ?Tobacco Control (Standard)?Tobacco use:?Current smoker ???Drugs/Alcohol:?Drugs?Have you used drugs other than those for medical reasons in the past 12 months??No ???Miscellaneous:?Caffeine: yes, frequency:, 2 cups per day. ?Children: yes. ?Exercise: yes, Camp. ?Marital status: . 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 ???Drug/Alcohol:?AUDIT-C (Standard)?Did you have a drink containing alcohol in the past year??Yes ?How often did you have six or more drinks on one occasion in the past year??Less than monthly (1 point) ?How many drinks did you have on a typical day when you were drinking in the past year??1 or 2 drinks (0 point) ?How often did you have a drink containing alcohol in the past year??2 to 4 times a month (2 points) ?Points?3 ?Interpretation?Negative * Medications:?TakingExtra Dep th Diabetic Shoes with 3 Pair Custom heat-molded multi-density innersoles for 1 year Dx: Pravastatin Sodium 10 MG Tablet 2 tablets Orally Once a day Indapamide 1.25 MG Tablet 1 tablet in the morning Orally Once a day Omeprazole 20 MG Capsule Delayed Release 1 capsule 30 minutes before morning meal Orally Once a day Jardiance 25 MG Tablet 1 tablet Orally Once a day amLODIPine Besylate Lisinopril metFORMIN HCl 500 MG Tablet 1 tablet with meals Orally Twice a day Taking Extra Depth Diabetic Shoes with 3 Pair Custom heat-molded multi- density innersoles for 1 year Dx: Taking Pravastatin Sodium 10 MG Tablet 2 tablets Orally Once a day Taking Indapamide 1.25 MG Tablet 1 tablet in the morning Orally Once a day Taking Omeprazole 20 MG Capsule Delayed Release 1 capsule 30 minutes before morning meal Orally Once a day Taking Jardiance 25 MG Tablet 1 tablet Orally Once a day Taking amLODIPine Besylate Taking Lisinopril Taking metFORMIN HCl 500 MG Tablet 1 tablet with meals Orally Twice a day UnknownoxyCODONE-Acetaminophen , Notes to Pharmacist: dailySimponi 50 MG/0.5ML Solution Auto-injector as directed Subcutaneous Enbrel 25 MG Kit as directed Subcutaneous Chantix Nabumetone 750 MG Tablet 1 tablet Orally Twice a day Chantix 1 MG Tablet 1 tablet Orally Twice a day Percocet 5- 325 MG Tablet 1 tablet as needed Orally every 6 hrs prednisoLONE Acetate Medication List reviewed and reconciled with the patientUnknown oxyCODONE-Acetaminophen , Notes to Pharmacist: dailyUnknown Simponi 50 MG/0.5ML Solution Auto-injector as directed Subcutaneous Unknown Enbrel 25 MG Kit as directed Subcutaneous Unknown Chantix Unknown Nabumetone 750 MG Tablet 1 tablet Orally Twice a day Unknown Chantix 1 MG Tablet 1 tablet Orally Twice a day Unknown Percocet 5-325 MG Tablet 1 tablet as needed Orally every 6 hrs Unknown prednisoLONE Acetate Medication List reviewed and reconciled with the patient * Allergies:?Colchicine: can't rememberyes[Allergies Verified] Objective: * Vitals:?Ht: 5 ft 11 in, Wt:2 05, BMI: 28.59, Shoe size:9EEE, BP:130/70mm Hg, BS:not taken, Wt-k.99 kg. * ???Past Orders: ???Lab:HEMOGLOBIN A1C (GLYCO HEMOGLOBIN) (Order Date - 06/23/2023) (Collection Date & Time - 04/02/2023) ? Value Reference Range ?HEMOGLOBIN A1C % (HH) 5.7 ?TOTAL HEMOGLOBIN (HGBA1C) 5.7 * Examination: ???Ophthalmology Referral: ?DIABETES EYE EXAM?Neurological: ?SENSORY:? Neurological exam demonstrates, reduced light touch sensation, reduced sharp/dull pin prick discrimination , B/L, 5.07 monofilament test performed at plantar aspects of 5 varied sites per foot shows sensation, reduced , B/L.?Nails: ?NAILS are:?Elongated, overgrown, dystrophic, lytic, greater than 3mm thick, discolored and friable with crumbly malodorous subungual debris, TA, T1, T2, T3, T4, T5, T6, T7, T8, T9.?Dermatologic: ?SKIN FINDINGS:?Skin exam reveals Keratotic lesion(s) located at plantar heels B/L,.?Vascular: ?DP PULSES (B):?06/05, B/L.?PT PULSES (B):?06/05, B/L.?CAPILLARY FILL TIME:?3 secs. per digit, B/L.?TROPHIC CONDITION-TEXTURE/ELASTICITY/TURGOR/HAIR GROWTH (B):?normal, B/L.?TEMPERTURE GRADIENT (C):?warm to cool, proximal to distal, B/L.?EDEMA (C):?no edema.?Orthopedic: ?MUSCLE STRENGTH:?5/5 all groups in a symmetrical fashion, B/L.?General Examination: ?GENERAL APPEARANCE:?Reveals a pleasant, alert, well nourished, well- developed, well hydrated individual, who demonstrates proper attention to hygiene/body habitus, and is in no acute distress, Pt serves as own historian for office visit today.?ORIENTED:?person, place, and time.? Assessment: * Assessment: 1.?Type 2 diabetes mellitus with diabetic polyneuropathy - E11.42 (Primary)???2.?Tinea unguium - B35.1??? Plan: * Treatment: * Procedures:?Debride Nail 6-10:?Nail debridement?Due to the clinical pathology outlined in the exam findings, performance of this nail treatment is medically necessary as its management by an unskilled/untrained nonprofessional would put this patients foot and overall health at risk. Therefore, debridement to affected nail(s), as described in exam ( TA, T1, T2, T3, T4, T5, T6, T7, T8, T9, ), was performed exclusively by the physician of record to reduce/remove overall nail length, girth, thickness, subungual debris, and necrotic tissue, by manual and/or electrical means through the use of a nail nipper and/or dremel-type roll grinder, to a more viable healthy nail plate or bed tissue 6- 10 nails in total. Silver nitrate was used for any petechial bleeding as necessary. Definitive antifungal treatment options, both pharmaceutical and surgical, have been reviewed and discussed with the patient. The patient solely prefers the use of intermittent/as needed professional debridement services for their nail condition and understands the need for additional periodic treatments to maintain effectiveness in symptomatic relief - 97031.?Keratoma Treatment:?Parring or Cutting of Benign Hyperkeratotic Lesion(s)?(-56) 2-4 Lesions - Due to the at risk nature of the patients medical condition as documented in the exam findings, performance of this keratoderma treatment is medically necessary as its management by an unskilled/untrained nonprofessional would put this patients foot and overall health at risk. Therefore, the benign hyperkeratotic lesions, ( 2 ) in total, locations as stated and described in the exam ( _plantar heels B/L ), were pared, and/or cut utilizing a sterile 15 blade, tissue nippers, and/or power dremel instrumentation by the physician of record - 57001.? * Procedure Codes:?30199 DEBRI DE NAIL, 6 OR MORE, Modifiers: XS 16411 TRIM SKIN LESIONS, 2 TO 4, Modifiers: XS * Follow Up:?3 Months * Images: * Sign off status: Completed true * Provider:?Fabiana Tan DPM Date:?0 06/14/2024 Generated for Kyle cotton/Salvador/Bakari on:?07/26/2024 11:41 AM EST History and Physical Notes * HPI (History of Present Illness) Category Sub-Category Detail Notes Category Not es At Risk footcare Pt States Last PCP Visit: Date: 4 Examination Category Sub-Category Detail Notes Category Not es Neurological SENSORY: Neurological exa m demonstrates, reduced light touch sensation, reduced sharp/dull pin prick discrimination , B/L, 5.07 monofilament test performed at plantar aspects of 5 varied sites per foot shows sensation, reduced , B/L Dermatologic SKIN FINDINGS: Skin exam reveal s Keratotic lesion(s) located at plantar heels B/L, Orthopedic MUSCLE STRENGTH: 5/5 all groups in a symmetrical fashion, B/L General Examination GENERAL APPEARANCE: Reveals a pleasant, alert, well nourished, well-developed, well hydrated individual, who demonstrates proper attention to hygiene/body habitus, and is in no acute distress, Pt serves as own historian for office visit today ORIENTED: person, place, and t mildred Ophthalmology Referral DIABETES EYE EXAM Procedure Perform ed:: No Eye Exam not performed:: No reason speci fied Vascular DP PULSES (B): 1/4, B/L PT PULSES (B): 1/4, B/L CAPILLARY FILL TIME: 3 secs. per digit, B/L TEMPERTURE GRADIENT (C): warm to cool, p roximal to distal, B/L TROPHIC CONDITION-TEXTURE/ELASTICITY/TURGOR/HAIR GROWTH (B): normal, B/L EDEMA (C): no edema Nails NAILS are: Elongated, overg rown, dystrophic, lytic, greater than 3mm thick, discolored and friable with crumbly malodorous subungual debris, TA, T1, T2, T3, T4, T5, T6, T7, T8, T9
--- OUTSIDE RECORDS SUMMARY | 2024-07-26 11:41 | XMS_ITS | Continuity of Care Document ---
Author Name [facility] Organization [facility] Care Team Providers Care Moss Picker Name Role Phone [facility] Unavailable Unavailable Problems Combined list of problems from Department of [facility] and [facility] facilities. It does not include entries that were removed or entered in error. Problem Status Onset Date Problem Type Date of Resolution Comments Source Arthropathy of left shoulder Active Condition [facility] [place] [facility]soriasis [facility] Diagnosis: ICD-10-CM Z46.1 Encounter for fitting and adjustment of hearing aid Active Diagnosis [facility] [place] [facility] Diagnosis: ICD-10-CM H90.3 Sensorineural hearing loss, bilateral Active Diagnosis [facility] Medications Combined list of outpatient medications from Department of Defense and Veterans Affairs facilities.Medications provided include 1) outpatient medications from the last 15 months, and 2) patient-reported medications. Medication Details Route Status Patient Instructions Prescription Expires Prescription Number Last Dispense Date Ordering Provider Order Date Order Qty Source ASPIRIN 81MG TAB,CHEWABL E CHEW ONE TABLET BY MOUTH EVERY DAY ORAL ACTIVE HERMINIACORY ROJAS 2016 [facility] [place] [facility] ETANERCEPT POWDER FOR RECONSTITUT ION INJ,PWDR INJECT 50MGS SUBCUTAN EOUSLY ONCE A WEEK ACTIVE HERMINIA -CORY GONZALEZ 2016 [facility] [place] [facility] [facility] LISINOPRIL 40MG TAB TAKE ONE TABLET BY MOUTH EVERY DAY ORAL ACTIVE HERMINIA -CORY GONZALEZ 2016 [facility] [place] [facility] METFORMIN HCL 500MG TAB TAKE ONE TABLET BY MOUTH TWICE DAILY ORAL ACTIVE HERMINIA -CORY GONZALEZ 2016 [facility] [place] [facility] OXYCODONE HCL 5MG/ACETAMI NOPHEN 325MG TAB TAKE TWO TABLETS BY MOUTH EVERY DAY NEEDED ORAL ACTIVE HERMINIA CORY NORTON 2016 [facility] VARENICLINE 1MG TAB TAKE ONE TABLET BY MOUTH EVERY DAY ORAL ACTIVE HERMINIA CORY [place] 2016 [facility] Immunizations Combined list of available immunizations from the Department of Defense and Veterans Affairs facilities. Immunization Series Date Given Administered By Site Reaction Lot Number CVX Code Drug Psychologist Industrial Organizational Status Comments Source FLU,3 YRS (HISTORICAL) 2015 88 complet ed [facility] Encounters Combined list of: 1) Encounters from Department of Veterans Affairs facilities going backup to the last 18 months, not all [place] inpatient encounters are included; 2) Encounters from the Department of Defense facilities going backup to 280 months. Location Location Details Encounter Type Encounter Number Reason For Visit Attending Provider ADM Date DC Date Status Disposition Source [facility] HEARING AID EXAM BOTH EARS [id number] Diagnos is: ICD-10- CM H90.3 Sensori neural hearing loss, bilater al Juan Antonio MELENDEZ 07[facility]28 [facility] [id number] Diagnos is: ICD-10- CM Z46.1 Encount er for fitting and adjustm ent of hearing aid SENIOR,PRIYANKA Ness 08/17 [facility] Outpatient Encounter [id number] 10/01 [facility] Social History Combined list of available smoking, tobacco, and other social history from Department of Defense and Veterans Affairs facilities. Social History Type Response Date Comment Sourc e Tobacco smoking status NHIS CURRENT SMOKER 08/02/2016 [place] History of tobacco use V1-PT RECEIVES TO BACCO CESS MEDS OUTSIDE 08/02/2016 [place]
--- OUTSIDE RECORDS SUMMARY | 2024-07-26 11:42 | XMS_ITS | Encounter Summary ---
Author Name [facility] Organization [facility] Address [address] [place] [id number] Support Name Relationship Address Phone NARABEVERLY DOTSON Next of Kin [address] [place] [address] BEVERLY BROWN Emergency Contact [address], [place] [phone] Insurance Providers: All historical and current Section Date Range: From patient's date of to the date document was created. This section includes the names of all active insurance providers for the patient. Insurance Provider Type of Coverage Plan Name Start of Policy Coverage End of Policy Coverage Group Number Member ID Insurance Provider's Telephone Number Policy Cornell's Name Patient's Relationship to Policy Cornell [facility] Nov 30, 2017 [id number] JAE DAMON PATIENT [place] [facility] [place] Jul 28, 2023 DELMY ENCINAS [id number] JAE DAMON PATIENT [place] PRESCRIPT ION [place] Jun 02, 2022 [id number] HIRO RosaJAE PATIENT [employer] ([id number]) PRESCRIPT ION L4TA* Nov 01, 2007 [id number] JAE DAMON PATIENT Selected Encounter This section includes the information on record at [place] for the Encounter. Date/Time Encounter Type Encounter Description Reason Provider Source Aug 18, 2023 11:00 AM HEARING SERVICE AUDIOLOGY ICD-10-CM Z46.1 Encounter for fitting and adjustment of hearing aid EV PALMA Grover [facility] Encounter Template Text not used by [place] Assessments - Encounter Diagnoses This section includes the primary and secondary diagnoses documented for the Encounter. Date/Time Primary/Secondary Diagnosis Diagnosis Name Provider Source Aug 18, 2023 11:50 AM PRIMARY Encounter for fitting and adjustment of hearing aid EV PALMA [facility] Aug 18, 2023 11:50 AM SECONDARY Sensorineural hearing loss, bilateral EV PALMA [facility] Encounter Notes: All associated encounter notes This section contains the clinical notes associated to the Encounter. Date/Time Encounter Note(s) Provider Source Aug 18, 2023 07:36 AM AUDIOLOGY E & M NO TE: [facility] TITLE: AUDIOLOGY CLINIC STANDARD TITLE: AUDIOLOGY E & M NOTE DATE OF NOTE: AUG 18, 2023@07:36 ENTRY DATE: AUG 18, 2023@07:36:19 AUTHOR: EV PALMA EXP COSIGNER: URGENCY: STATUS: COMPLETED AUDIOLOGY CLINIC Has ADDENDA Dx CODE: Z46.1- Encounter for Fitting/Programming Hearing Aid(s); H90.3- Sensorineural Hearing Loss, Bilateral APPOINTMENT TYPE: Hearing Aid Fitting SUBJECTIVE (S): The patient was seen for hearing aid fitting and issuance, unaccompanied. He had previously been evaluated and found to exhibit significant hearing loss for which amplification was recommended. [place] is a new hearing aid user. How does the patient best learn? Verbal instruction, demonstration Does the patient have any cultural and denominational beliefs, emotional barriers, physical or cognitive limitations, and communication barriers which may impact his ability to learn? No Desire and motivation to learn? Good OBJECTIVE (O): Physical fit of hearing aids was good. Patient verified comfort. Verification of an appropriate acoustic response was obtained using Real Ear measurements (speech mapping) and NAL-NL2 targets. The patient reported good subjective benefit as well. Feedback manager community development was run. Hearing aids were found to be meeting targets adequately and MPO was not exceeding estimated UCL. Settings stored in [facility]. ASSESSMENT (A): The following devices were issued: Make: OTICON Model: REAL 1 MINIRITE-R Right Serial Number: [id number] Left Serial Number: [id number] Battery size: Rechargeable Warranty ends: 08/28/26 Trial Period ends: 01/26/24 Domes/Wax guards: 8mm tsai double vent, Prowax minifit Annealing Torch Operator:Size 3 85 gain Program(s): Automatic Button(s): Short press= Synced VC via rocker switches Long press= Program Extra-long press= Power on/off Fitting Formula: NAL-NL2 Remote Programming: HAs are capable Bluetooth: [place] does not have a cell phone Counseling was completed throughout todays appointment using a standardized curriculum that includes but is not limited to; realistic expectations with amplification in adverse listening environments, acclimatization to own voice and environmental sounds (following real-ear measurements), the importance of consistent use of amplification, proper insertion/removal, care and maintenance (including wax guards/domes if applicable), signal and alerts of devices, and charging/batteries. The was provided the opportunity to practice in office and reports confidence/understanding in all items reviewed. Time Spent= 20 minutes The patient was informed of and signed/agreed to [place] policy on hearing aid issuance: Yes Users are responsible for the maintenance and security of their devices. Determination of need to replace a hearing aid is made by the [place] orchard hand. Hearing aids will not be replaced in cases of neglect, abuse, or excessive loss. Items issued are for personal use only. Prognosis for successful hearing aid use is good. PLAN (P): 1. Follow-up for programming/adjustments as needed. 2. The International Outcome Inventory-Hearing Aids (IOI-ROSSI) will be mailed to the in four weeks. He was asked to complete and mail back to clinic after completion. Patient Education Education provided on the following topics: Hearing aid use, care, maintenance Education provided to: P Response to Education: INOCENCIA TRIPATHI, PI Quinones Patient P Family F Significant Other SO Verbalizes Understanding VU Returns Demonstration RD Performs Independently PI Lacks Comprehension LC Refused Education RE Not Applicable NA /evgeny/ GIAN HENDERSON, [facility]-A STAFF INFORMATICA Signed: 08/18/2023 11:50 10/02/2023 ADDENDUM STATUS: COMPLETED [place] returned IOI-ROSSI Outcome Measure to the clinic via mail with an overall score of 25 Based on this score: i. No follow-up call is indicated _XX_ ii. Follow-up call is indicated and fitting clinician will be notified __ /evgeny/ KALEN ROGEL [facility] Tetryl Wringer Operator Signed: 10/02/2023 10:02 EV PALMA [facility]
--- OUTSIDE RECORDS SUMMARY | 2024-07-26 11:42 | XMS_ITS ---
Author Organization [facility] Address [address] [place] [address] Care Team Providers Care Director Software Development Name Role Phone Armida Canchola MD Primary Care Provider Fabiana Grossman Unavailable [phone] Neel Lyons [phone] Skelton Encounters Encounter Location Date Provider Diagnosis [address] [address] 03/29/2024 Neel Lyons Plan Of Treatment Next Appt Details Provider Name:Fabiana kay, 09/06/2024 10:00:00 AM, [address] [place] [address], [phone], Provider Name:Fabiana Crissymarie eliza, 11/08/2024 09:00:00 AM, [address] [place] [address], [phone], Progress Notes * Benedicto BROWNDOB: [birth year] (78 yo M)Acc No.[id number]:03/29/2024 Progress Note Patient:?Benedicto BROWN Provider:?Neel Lyons DPM :1945???Age:78 Y???Sex:Male Juwan e:03/29/2024 Address:[address] [place] [phone] Pcp:Armida Canchola MD Subjective: * Chief Complaints: * ???1. Dr Skelton. * Medical History:? Objective: * Vitals:? Assessment: Plan: * Treatment: * Images: * The named appointment provid er may or may not be the originator of this progress note, and it is not deemed complete until electronically signed by the appointment provider. Sign off status: Pending * Provider:Lana Lyons DPM Date:? 024 Generated for Kyle cotton/Salvador/Bakari on:?07/26/2024 11:41 AM EST
--- OUTSIDE RECORDS SUMMARY | 2024-07-26 11:42 | XMS_ITS ---
Author Organization [facility] Address [address] [place] [address] Care Team Providers Care Insurance Account Assistant Name Role Phone Armida Canchola MD Primary Care Provider Fabiana Grossman Unavailable [phone] Neel Lyons Unavailable [phone] Allergies Allergen (clinical drug ingredient) Drug/Non Drug Allergy documented on EMR Reaction Allergy Type Onset Date Status colchicine Colchicine can't remember Drug Allergy Active REASON FOR VISIT Painful nail(s) aggrevated by shoes and causing difficulty standing/walking., Wart(s) Medications Medication SIG (Take, Route, Frequency, Duration) Notes Start Date End Date Status prednisoLONE Acetate Unknown Percocet 5-325 MG 1 tablet as needed O rally every 6 hrs Unknown Chantix 1 MG 1 tablet Orally Twic e a day Unknown Pravastatin Sodium 10 MG 2 tablets Orall y Once a day for 30 day(s) Active Extra Depth Diabetic Shoes with 3 Pair Custom heat-molded multi-density innersoles for 1 year Dx: Active Simponi 50 MG/0.5ML as directed Subcutaneous Unknown oxyCODONE-Acetaminophen daily Unknown Nabumetone 750 MG 1 tablet Orally Twic e a day for 30 day(s) 09/02/2016 Unknown Chantix Unknown Enbrel 25 MG as directed Subcutaneous Unknown Lisinopril Active amLODIPine Besylate Active Jardiance 25 MG 1 tablet Orally Once a day for 30 day(s) Active Omeprazole 20 MG 1 capsule 30 minutes before morning meal Orally Once a day for 30 day(s) Active metFORMIN HCl 500 MG 1 tablet with meals Orally Twice a day Active Indapamide 1.25 MG 1 tablet in the morn ing Orally Once a day for 30 day(s) Active Social History Tobacco Use: Social History Observation Description Date Details (start date - stop date) Current Smoker NA - NA Tobacco Use/Smoking Question Answer Notes Are you a: current smoker How many cigarettes a day do you smoke? 31 or mo re Additional Findings: Tobacco Non-User Current no n-smoker Alcohol Screen Question Answer Notes Did you have a drink contain ing alcohol in the past year? Yes How often did you have a dri nk containing alcohol in the past year? 2 to 4 times a month (2 points) Points 2 Interpretation Negative Tobacco use other than smoking: Question Answer Notes Are you an other tobacco user? No Vital Signs Height 5 ft 11 in in 04/01/2024 Weight 205 lbs 04/01/2024 BMI 28.59 kg/m2 04/01/2024 Encounters Encounter Location Date Provider Diagnosis [facility] [address] [address] 04/01/2024 Neel Lyons Tinea unguium B35.1 ; Other viral warts B07.8 ; Pain in left foot M79.672 ; Pain in right foot M79.671 ; Type 2 diabetes mellitus with diabetic polyneuropathy E11.42 ; Pain in right toe(s) M79.674 and Pain in left toe(s) M79.675 Assessments Encounter Date Diagnosis (ICD Code) Assessment Notes Treatment Notes Treatment Clinical Notes Section Notes 04/01/2024 Tinea unguium (ICD-10 - B35.1) 04/01/2024 Other viral warts (ICD-10 - B07.8) 04/01/2024 Pain in left foot (ICD-10 - M79.672) 04/01/2024 Pain in right foot (ICD-10 - M79.671) 04/01/2024 Type 2 diabetes mellitus with diabetic polyneuropathy (ICD-10 - E11.42) 04/01/2024 Pain in right toe(s) (ICD-10 - M79.674) 04/01/2024 Pain in left toe(s) (ICD-10 - M79.675) Plan Of Treatment Next Appt Details Follow Up: 2 Months, Reason: Provider Name:Fabiana kay, 09/06/2024 10:00:00 AM, [address] [place] [address], [phone], Provider Name:Fabiana Pete eliza, 11/08/2024 09:00:00 AM, [address] [place] [address], [phone], Procedure Notes * Category Sub-Category Detail Notes Wart Treatment Procedure Verrucae(s) were debrided to pin-point bleeding with sterile surgical blade, silver nitrate chemocautery applied, DIABETES: Any more invasive procedure to wart deferred due to diabetes risk Debride Nail 6-10 Nail debridement Nail debridem ent performed extensively to reduce/remove overall nail length and girth, subungual debris, and necrotic tissue, by manual and electrical means with use of a nail nipper and/or dremel, to more viable healthy nail plate or bed tissue 6-10. Silver nitrate used for any petechial bleeding as necessary. Patient chooses, no pharmaceutical tx (73432) Keratoma Treatment Parring or Cutting o f Benign Hyperkeratotic Lesion(s) 35550 ( >4 Lesions) - The Benign hyperkeratotic lesions, as described above were pared, and/or cut utilizing a sterile #15 blade, tissue nippers, and/or dremel Progress Notes * NARABenedicto DOTSONDOB: [birth year] (78 yo M)Acc No.[id number]:04/01/2024 Progress Note Patient:?Benedicto BROWN Provider:?Neel Lyons DPM :1945???Age:78 Y???Sex:Male Juwan e:04/01/2024 Address:[address] [place], [place] [phone] Pcp:Armida Canchola MD Subjective: * Chief Complaints: * ??? Painful nail(s) aggrevat ed by shoes and causing difficulty standing/walking.Wart(s) * HPI: ???Painful Nails:?Pt States Last PCP Visit:?Date:?11/03/2023 ???Foot Pain:?Nature:?aching, tenderness, stiffness.?Location:?Forefoot, B/L.?Duration:?several years.?Onset:?arthritis.?Aggravated:?standing, walking.?Treatments:?change in shoes.?Severity/Quality:?moderate.? * ROS:?General/Constitutional:?Nausea?denies.?Vomiting?denies.?Hunger Thirst?denies.?Loss appetite?denies.?Chills?denies.?Fatigue?denies.?Fever?denies.?Night Sweats?denies.?Unexplained weight loss?denies.?Unexplained [...] heart disease.?Son(s): alive.? * Social History:?Tobacco Use:?Tobacco Use/Smoking?Are you a:?current smoker ?How many cigarettes a day do you smoke??31 or more ?Additional Findings: Tobacco Non-User?Current non-smoker ?Tobacco use other than smoking?Are you an other tobacco user??No ???Drugs/Alcohol:?Drugs?Have you used drugs other than those for medical reasons in the past 12 months??No ?Alcohol Screen?Did you have a drink containing alcohol in the past year??Yes ?How often did you have a drink containing alcohol in the past year??2 to 4 times a month (2 points) ?Points?2 ?Interpretation?Negative ???Miscellaneous:?Caffeine: yes, frequency:, 2 cups per day. ?Children: yes. ?Exercise: yes, Camp. ?Marital status: . 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 * Medications:?TakingExtra Dep th Diabetic Shoes with [...] Objective: * Vitals:?Ht: 5 ft 11 in, Wt: 205, BMI: 28.59, Shoe size: 9EEE, BS: not taken, Wt- k.99 kg. * ???Past Orders: ???Lab:HEMOGLOBIN A1C (GLYCO HEMOGLOBIN) (Order Date - 06/23/2023) (Collection Date & Time - 04/02/2023) ? Value Reference Range ?HEMOGLOBIN A1C % (HH) 5.7 ?TOTAL HEMOGLOBIN (HGBA1C) 5.7 * Examination: ???General Examination: ?GENERAL APPEARANCE:?pleasant, alert, well nourished, well developed, well hydrated, with good attention to hygene/body habitus, and in no acute distress.?ORIENTED:?person,place, and time.?FOOT EXAM:?Neurological: ?SENSORY:? Neurological exam demonstrates, reduced vibration sensation, B/L, at Forefoot, 5.07 monofilament test performed at plantar aspects of 5 varied sites per foot shows sensation, reduced , B/L.?TINEL'S COMPRESSION:?Negative tarsal tunnel, danielle pedis, and medial calcaneal nerves, B/L.?BABINSKI REFLEX:?Absent, B/L.?Vascular: ?DP PULSES (B):?06/05, B/L.?PT PULSES (B):?06/05, B/L.?CAPILLARY FILL TIME:?3 secs. per digit, B/L.?TROPHIC CONDITION-TEXTURE/ELASTICITY/TURGOR/HAIR GROWTH (B):?normal, B/L.?TEMPERTURE GRADIENT (C):?warm to cool, proximal to distal, B/L.?EDEMA (C):?no edema.?Dermatologic: ?SKIN FINDINGS:?Skin exam reveals Keratotic lesion(s) located at, Plantar, TA, T1, T5, T6, SUB MTH (s), 1, 5, B/L, Heel(s), B/L.?VERRUCA:?Reveals a Single , multi-loculated , mosaically patterned, round, raised, flat-topped, petechial bleeding papulae(s), with cauliflower appearance and interrruption of skin lines, pain to lateral compression, and size estimated at __3__ mm diameter, plantar Forefoot, RIGHT.?Orthopedic: ?MUSCLE STRENGTH:?5/5 all groups in a symmetrical fashion B/L.?GAIT ABNORMALITY:?pronated, abducted, B/L.?Nails: ?NAILS are:?Elongated, overgrown, dystrophic, lytic, greater than 3mm thick, discolored and friable with crumbly malodorous subungual debris, with dull to no pain on palpation due to neuropathy, 1-5 B/L.?Ophthalmology Referral: ?DIABETES EYE EXAM? Assessment: * Assessment: 1.?Tinea unguium - B35.1 (Pr imary)???2.?Other viral warts - B07.8???3.?Pain in left foot - M79.672???4.?Pain in right foot - M79.671???5.?Type 2 diabetes mellitus with diabetic polyneuropathy - E11.42?? 6.?Pain in right toe(s) - M79.674???7.?Pain in left toe(s) - M79.675??? Plan: * Treatment: * Procedures:?Debride Nail 6-10:?Nail debridement?Nail debridement performed extensively to reduce/remove overall nail length and girth, subungual debris, and necrotic tissue, by manual and electrical means with use of a nail nipper and/or dremel, to more viable healthy nail plate or bed tissue 6-10. Silver nitrate used for any petechial bleeding as necessary. Patient chooses, no pharmaceutical tx (91181).?Keratoma Treatment:?Parring or Cutting of Benign Hyperkeratotic Lesion(s)?17380 ( >4 Lesions) - The Benign hyperkeratotic lesions, as described above were pared, and/or cut utilizing a sterile #15 blade, tissue nippers, and/or dremel.?Wart Treatment:?Procedure?Verrucae(s) were debrided to pin-point bleeding with sterile surgical blade, silver nitrate chemocautery applied, DIABETES: Any more invasive procedure to wart deferred due to diabetes risk.? * Procedure Codes:?54292 DEBRI DE NAIL, 6 OR MORE, Modifiers: XS 45451 Wart Destruction, 1-14, Modifiers: XS 28713 TRIM SKIN LESIONS, OVER 4, Modifiers: XS * Follow Up:?2 Months * Images: * Sign off status: Completed true * Provider:?Neel Lyons DPM Date:? 024 Generated for Kyle cotton/Faxing/eTransmitting on:?07/26/2024 11:41 AM EST History and Physical Notes * HPI (History of Present Illness) Category Sub-Category Detail Notes Category Not es Painful Nails Pt States Last PCP Visit: Date:: 11/03/2023 Foot Pain Nature: aching, tenderness, stiffnes s Location: Forefoot, B/L Duration: several years Onset: arthritis Aggravated: standing, walking Treatments: change in shoes Severity/Quality: moderate Examination Category Sub-Category Detail Notes Category Not es Neurological SENSORY: Neurological exa m demonstrates, reduced vibration sensation, B/L, at Forefoot, 5.07 monofilament test performed at plantar aspects of 5 varied sites per foot shows sensation, reduced , B/L BABINSKI REFLEX: Absent, B/L TINEL'S COMPRESSION: Negative tarsal vandana rubina, danielle pedis, and medial calcaneal nerves, B/L Dermatologic SKIN FINDINGS: Skin exam reveal s Keratotic lesion(s) located at, Plantar, TA, T1, T5, T6, SUB MTH (s), 1, 5, B/L, Heel(s), B/L VERRUCA: Reveals a Single , m ulti-loculated , mosaically patterned, round, raised, flat-topped, petechial bleeding papulae(s), with cauliflower appearance and interrruption of skin lines, pain to lateral compression, and size estimated at __3__ mm diameter, plantar Forefoot, RIGHT Orthopedic GAIT ABNORMALITY: pronated, abducted, B/L MUSCLE STRENGTH: 5/5 all groups in a symmetrical fashion B/L General Examination GENERAL APPEARANCE: pleasant , alert, well nourished, well developed, well hydrated, with good attention to hygene/body habitus, and in no acute distress FOOT EXAM: Lower Extremity Neurological Exa m performed:: Yes Date: 04/01/2024 ORIENTED: person,place, and ti me Ophthalmology Referral DIABETES EYE EXAM Diabeti c Retinopathy Screening:: Yes 07/31/2021 Findings of Diabetic Eye Exam:: no retin opathy Vascular DP PULSES (B): 1/4, B/L PT PULSES (B): 1/4, B/L CAPILLARY FILL TIME: 3 secs. per digit, B/L TEMPERTURE GRADIENT (C): warm to cool, p roximal to distal, B/L TROPHIC CONDITION-TEXTURE/ELASTICITY/TURGOR/HAIR GROWTH (B): normal, B/L EDEMA (C): no edema Nails NAILS are: Elongated, overg rown, dystrophic, lytic, greater than 3mm thick, discolored and friable with crumbly malodorous subungual debris, with dull to no pain on palpation due to neuropathy, 1-5 B/L
[2024-07-26 13:46] LABS: MANUAL DIFF FLAG NO
[2024-07-26 13:58] LABS: Basophils Absolute Auto 0.1 X10*3/uL (0.0-0.2); Basophils Percent Auto 0.6 % (0-2); Eosinophils Absolute Auto 0.5 X10*3/uL (0.0-0.4); Hematocrit 44.4 % (42.0-52.0); Hemoglobin 14.8 g/dl (14.0-18.0); Imm Gran Abs Auto 0.02 X10*3/uL (0.00-0.03); Imm Gran Pct Auto 0.2 % (0.0-0.4); Lymphocytes Absolute Auto 2.4 X10*3/uL (1.2-4.9); Lymphocytes Percent Auto 25.7 % (20-40); Mean Corpuscular HGB Conc 33.3 g/dl (31.0-36.0); Mean Corpuscular Hemoglobin 29.9 pg (27.0-33.0); Mean Corpuscular Volume 89.7 fL (80.0-98.0); Mean Platelet Volume 9.6 fL (9.4-12.4); Monocytes Absolute Auto 0.8 X10*3/uL (0.1-1.2); Monocytes Percent Auto 8.6 % (2-11); Neutrophils Absolute Auto 5.7 x10*3/uL (2.0-8.3); Neutrophils Percent Auto 59.9 % (45-73); Platelet Count 233 X10*3/uL (160-400); Red Blood Count 4.95 X10*6/uL (4.60-5.80); Red Cell Distribution Width 13.6 % (11.0-16.0); White Blood Count 9.5 X10*3/uL (4.8-10.8)
[2024-07-26 14:02] LABS: Estimated Average Glucose 123 mg/dL; Hemoglobin A1C 157.9185 umol/L; Hemoglobin A1c % 5.9 % (<6.0); Total Hemoglobin (HGBA1C) 3860.6198 umol/L
[2024-07-26 14:10] LABS: Alanine Aminotransferase 23 U/L (0-40); Albumin Level 4.1 g/dL (3.5-5.0); Alkaline Phosphatase 57 U/L (39-117); Anion Gap 13 (12-20); Aspartate Amino Transferase 25 U/L (5-37); Bilirubin Total 0.4 mg/dL (0.0-1.0); Blood Urea Nitrogen 25 mg/dL (9-16); Calcium 9.4 mg/dL (8.4-10.2); Carbon Dioxide 21 mmol/L (22-29); Chloride 114 mmol/L (96-108); Cholesterol 152 mg/dL (<200); Estimated Glomerular Filt Rate 51; Glucose Fasting 142 mg/dL (60-99); HDL Cholesterol 55 mg/dL (>40); LDL Cholesterol Calculated 78 mg/dL (<100); Potassium 4.1 mmol/L (3.3-5.1); Sodium 144 mmol/L (135-145); Total Protein 7.3 g/dL (6.5-8.0); Triglycerides 96 mg/dL (<150)
[2024-07-26 14:48] LABS: Creatinine Urine 113.56 mg/dL; Microalbum/Creatinine Ratio Ur 854.1 ug/mg cr (<30)
== END 2024-07-26 10:25 | disposition home or self-care (01) ==
LOC: HO.HMGCLDS 10:24
PROVIDERS: PCP Internal Medicine; Visit Provider Internal Medicine
DX: D12.6 Benign neoplasm of colon, unspecified (principal); I10 Essential (primary) hypertension; E78.5 Hyperlipidemia, unspecified; E11.9 Type 2 diabetes mellitus without complications; R53.83 Other fatigue
CPT/HCPCS: 36415; 80053; 80061; 82043; 82570; 83036; 84443; 85025

== ENCOUNTER 2024-08-02 07:53 | Outpatient (AMB) | payer BC, SELFPAY ==
--- OUTSIDE RECORDS SUMMARY | 2024-08-02 07:56 | XMS_ITS ---
Author Organization [facility] Address [address] [place] [address] Care Team Providers Care Health Psychologist Name Role Phone Armida Canchola MD Primary Care Provider Fabiana Grossman Unavailable [phone] Allergies Allergen (clinical drug ingredient) Drug/Non Drug [...] Ordered Date Performed Result Body Sit e 24835-TDSTUUW NAIL, 6 OR MORE 06/14/2024 N/A 09358-YGPJ SKIN LESIONS, 2 TO 4 06/14/2024 N/A Encounters Encounter Location Date Provider Diagnosis [facility] [address] [address] 06/14/2024 Fabiana Tan Type 2 diabetes mellitus with diabetic polyneuropathy E11.42 and Tinea unguium B35.1 Assessments Encounter Date Diagnosis (ICD Code) Assessment Notes Treatment Notes Treatment Clinical Notes Section Notes 06/14/2024 Type 2 diabetes mellitus with diabetic polyneuropathy (ICD-10 - E11.42) 06/14/2024 Tinea unguium (ICD-10 - B35.1) Plan Of Treatment Pending Test Test Name Order Date 97939-VPSTPHF NAIL, 6 OR MORE 06/14/2024 67979-PWHM SKIN LESIONS, 2 TO 4 06/14/19 25 Next Appt Details Follow Up: 3 Months, Reason: Provider Name:Fabiana kay, 09/06/2024 10:00:00 AM, [address] [place] [address], [phone], Provider Name:Fabiana kay, 11/08/2024 09:00:00 AM, [address] [place], [address], Procedure Notes * Category Sub-Category Detail Notes [...] use of a nail nipper and/or dremel-type jig grinder set up operator, to a more viable healthy nail plate [...] to maintain effectiveness in symptomatic relief - 14207 Keratoma Treatment Parring or Cutting o f [...] instrumentation by the physician of record - 10559 Progress Notes * JAMIEBenedicto AUDOB: [birth year] (78 yo M)Acc No.[id number]:06/14/2024 Progress Note Patient:?Benedicto BROWN Provider:?Fabiana Tan DPM :1945???Age:78 Y???Sex:Male Juwan e:06/14/2024 Address:[address] [place], [place] [address], [phone] Pcp:Armida Canchola MD Subjective: * Chief Complaints: [...] ?Exercise: yes, Camp. ?Marital status: . 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 ???Drug/Alcohol:?AUDIT-C (Standard)?Did you have a drink containing [...] 5.7 * Examination: ???Ophthalmology Referral: ?DIABETES EYE EXAM?Procedure Performed:?No ?Eye Exam not performed:?No reason specified?Neurological: ?SENSORY:? Neurological exam demonstrates, reduced light touch [...] use of a nail nipper and/or dremel-type jig grinder set up operator, to a more viable healthy nail plate [...] to maintain effectiveness in symptomatic relief - 25762.?Keratoma Treatment:?Parring or Cutting of Benign Hyperkeratotic Lesion(s)?(-56) [...] instrumentation by the physician of record - 27599.? * Procedure Codes:?20601 DEBRI DE NAIL, 6 OR MORE, Modifiers: XS 25069 TRIM SKIN LESIONS, 2 TO 4, Modifiers: XS * Follow Up:?3 Months * Images: * Sign off status: Completed true * Provider:?Fabiana Tan DPM Date:?0 06/14/2024 Generated for Kyle cotton/Salvador/Bakari on:?08/02/2024 07:56 AM EST History and Physical Notes * [...]
--- OUTSIDE RECORDS SUMMARY | 2024-08-02 07:57 | XMS_ITS ---
[facility] Organization [facility] Address [address] [place] [address] Care Team Providers Care Sales Operations Consultant Name Role Phone Armida Canchola MD Primary Care Provider Fabiana Grossman Unavailable [phone] Neel Lyons Unavailable [phone] Allergies Allergen (clinical drug ingredient) Drug/Non Drug [...] 04/01/2024 Encounters Encounter Location Date Provider Diagnosis [facility] [address] [address] 04/01/2024 Neel Lyons Tinea unguium B35.1 ; [...] Reason: Provider Name:Fabiana kay, 09/06/2024 10:00:00 AM, [address] [place] [address], [phone], Provider Name:Fabiana Pete eliza, 11/08/2024 09:00:00 AM, [address] [place] [address], [phone], Procedure Notes * Category Sub-Category Detail Notes [...] as necessary. Patient chooses, no pharmaceutical tx (42542) Keratoma Treatment Parring or Cutting o f Benign Hyperkeratotic Lesion(s) 65950 ( >4 Lesions) - The Benign hyperkeratotic lesions, as described above were pared, and/or cut utilizing a sterile #15 blade, tissue nippers, and/or dremel Progress Notes * NARABenedicto DOTSONDOB: [birth year] (78 yo M)Acc No.[id number]:04/01/2024 Progress Note Patient:?Benedicto BROWN Provider:?Neel Lyons DPM :1945???Age:78 Y???Sex:Male Juwan e:04/01/2024 Address:[address] [place], [place] [phone] Pcp:Armida Canchola MD Subjective: * Chief Complaints: [...] ?Exercise: yes, Camp. ?Marital status: . 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 * Medications:?TakingExtra Dep th Diabetic Shoes with [...] and in no acute distress.?ORIENTED:?person,place, and time.?FOOT EXAM:?Lower Extremity Neurological Exam performed:?Yes ?Date?04/01/2024?Neurological: ?SENSORY:? Neurological exam demonstrates, reduced vibration sensation, [...] to neuropathy, 1-5 B/L.?Ophthalmology Referral: ?DIABETES EYE EXAM?Diabetic Retinopathy Screening:?Yes 07/31/2021 ?Findings of Diabetic Eye Exam:?no retinopathy??? Assessment: * Assessment: 1.?Tinea unguium - B35.1 [...] as necessary. Patient chooses, no pharmaceutical tx (75233).?Keratoma Treatment:?Parring or Cutting of Benign Hyperkeratotic Lesion(s)?55590 ( >4 Lesions) - The Benign hyperkeratotic lesions, as described above were pared, and/or cut utilizing a sterile #15 blade, tissue nippers, and/or dremel.?Wart Treatment:?Procedure?Verrucae(s) were debrided to pin-point bleeding with sterile surgical blade, silver nitrate chemocautery applied, DIABETES: Any more invasive procedure to wart deferred due to diabetes risk.? * Procedure Codes:?04616 DEBRI DE NAIL, 6 OR MORE, Modifiers: XS 43159 Wart Destruction, 1-14, Modifiers: XS 48363 TRIM SKIN LESIONS, OVER 4, Modifiers: XS * Follow Up:?2 Months * Images: * Sign off status: Completed true * Provider:?Neel Lyons DPM Date:? 024 Generated for Kyle cotton/Salvador/Bakari on:?08/02/2024 07:57 AM EST History and Physical Notes * [...]
--- OUTSIDE RECORDS SUMMARY | 2024-08-02 07:57 | XMS_ITS | Continuity of Care Document ---
Author Name [facility] Organization [facility] Care Team Providers Care Convention Worker Name Role Phone [facility] Unavailable Unavailable Problems Combined list of problems from Department of [facility] and [facility] facilities. It does not include entries that were removed or entered in error. Problem Status Onset Date Problem Type Date of Resolution Comments Source Arthropathy of left shoulder Active Condition [facility] [place] [place] [facility] Psoriasis [facility] Diagnosis: ICD-10-CM Z46.1 Encounter for fitting and adjustment of hearing aid Active Diagnosis [facility] [place] [facility] Diagnosis: ICD-10-CM H90.3 Sensorineural hearing loss, bilateral [facility] Medications Combined list of outpatient medications [...] EVERY DAY ORAL ACTIVE [facility] [place] [facility] ETANERCEPT POWDER FOR RECONSTITUT ION INJ,PWDR INJECT 50MGS SUBCUTAN EOUSLY ONCE A WEEK ACTIVE HERMINIA -[facility]ZALEZ [facility] [place] [facility] LISINOPRIL 40MG TAB TAKE ONE TABLET BY MOUTH EVERY DAY ORAL ACTIVE HERMINIA -C[facility]ZALEZ [facility] [place] [facility] METFORMIN HCL 500MG TAB TAKE ONE TABLET BY MOUTH TWICE DAILY ORAL ACTIVE HERMINIA -CORY GONZALEZ 2016 [facility] [place] [facility] OXYCODONE HCL 5MG/ACETAMI NOPHEN 325MG TAB TAKE TWO TABLETS BY MOUTH EVERY DAY NEEDED ORAL ACTIVE HERMINIA CORY NORTON 2016 [facility] VARENICLINE 1MG TAB TAKE ONE TABLET BY MOUTH EVERY DAY ORAL ACTIVE HERMINIA CORY [place] 2016 [facility] Immunizations Combined list of available immunizations from the Department of Defense and Veterans Affairs facilities. Immunization Series Date Given Administered By Site Reaction Lot Number CVX Code Drug Housing Property Manager Status Comments Source FLU,3 YRS (HISTORICAL) 2015 88 complet ed [facility] Encounters Combined list of: 1) Encounters from Department of Veterans Affairs facilities going backup to the last 18 months, not all [place] inpatient encounters are included; 2) Encounters from the Department of Defense facilities going backup to 280 months. Location Location Details Encounter Type Encounter Number Reason For Visit Attending Provider ADM Date DC Date Status Disposition Source [facility] HEARING AID EXAM BOTH EARS [id number] Diagnos is: ICD-10- CM H90.3 Sensori neural hearing loss, bilater al Juan Antonio MELENDEZ [facility] [id number] Diagnos is: ICD-10- CM Z46.1 Encount er for fitting and adjustm ent of hearing aid SENIOR,PRIYANKA Ness 08[facility]17 [facility] Outpatient Encounter [id number] 10/01 [facility] Social History Combined list of available smoking, tobacco, and other social history from Department of Defense and Veterans Affairs facilities. Social History Type Response Date Comment Sourc e Tobacco smoking status NHIS CURRENT SMOKER 08/02/2016 ANTIOCH History of tobacco use V1-PT RECEIVES TO [facility] OUTSIDE 08/02/2016 ANTIOCH
--- OUTSIDE RECORDS SUMMARY | 2024-08-02 07:57 | XMS_ITS ---
Author Organization [facility] Address [address] [place] [phone] Care Team Providers Care Drywall Contractor Name Role Phone Armida Canchola MD Primary Care Provider Fabiana Grossman Unavailable [phone] Neel Lyons [phone] [place] Encounters Encounter Location Date Provider Diagnosis [address] [phone] 03/29/2024 Neel Lyons Plan Of Treatment Next Appt Details Provider Name:Fabiana kay, 09/06/2024 10:00:00 AM, [address] [place] [address], [phone], Provider Name:Fabiana Crissymarie eliza, 11/08/2024 09:00:00 AM, [address] [place] [address], [phone], Progress Notes * Benedicto BROWNDOB: [birth year] (78 yo M)Acc No.[id number]:03/29/2024 Progress Note Patient:?Benedicto BROWN Provider:?Neel Lyons DPM :1945???Age:78 Y???Sex:Male Juwan e:03/29/2024 Address:[address] [place] [phone] Pcp:Armida Canchola MD Subjective: * Chief Complaints: [...]
[2024-08-02 08:07] VITALS: BP 128/66; PULSE 80; RESP 18; TEMP 36.6; O2SAT 95; BMI 34.0
--- NOTE | 2024-08-02 08:07 | MHC.PC.OV ---
Vital Signs 08/02/24 08:07 Height 5 ft 11 in Weight 244 lb BMI 34.0 BP 128/66 Blood Pressure Location Lt brachial Position Sitting Respiration 18 Pulse 80 Pulse Source Pulse Oximeter Temp 97.9 F Temp Source Oral Pulse Oximetry (%) 95 Oxygen Delivery Method Room Air Intake Visit Reasons: Annual PE Intake Note: Pt is here today for PE. Allergies bupropion [From Wellbutrin] Allergy (Unknown, Verified 08/02/24 08:10) n/a hydroxychloroquine [From Plaquenil] Allergy (Unknown, Verified 08/02/24 08:10) n/a indomethacin [Indocin] Allergy (Unknown, Verified 08/02/24 08:10) Abdominal Pain meloxicam [Mobic] Allergy (Unknown, Verified 08/02/24 08:10) n/a Medication List - Last Reconciled 08/02/24 by Armida Canchola MD amlodipine 10 mg PO DAILY aspirin (Adult Low Dose Aspirin) 81 mg PO DAILY empagliflozin 25 mg PO DAILY golimumab mg subcut indapamide 1.25 mg PO DAILY lisinopril 40 mg PO DAILY metformin ER 750 mg PO DAILY oxycodone-acetaminophen 5-325 mg 1 tab PO Q6H pravastatin 10 mg PO BEDTIME Tobacco use date assessed: 02/09/24 Fall risk assessment: No Falls in past year Last assessed Fall Risk: 08/02/24 Dental Screening Dental Screen Date: 08/02/24 Did you have a dental visit in the last 12 months?: Yes Did you have a dental problem in the last 6 months where you did not have access to dental care?: No Was dental information given to patient?: Patient has dentist HPI Annual PE HPI Details Pt presents for PE. He ago planes of increasing lower extremity swelling and gaining weight since trying to quit smoking. Patient has been eating more including sweets. He denies shortness or breath PND orthopnea. Patient has not been physically active because of arthritis. [facility] Medical History Wears hearing aid in both ears Tubular adenoma of colon History of rectal fissure Foot pain Ear pain, left Colonoscopy refused Ex-smoker Psoriatic arthritis Hyperlipidemia HTN (hypertension) DM type 2 (diabetes mellitus, type 2) Surgical History Hx of colonoscopy Hx of arthroscopic knee surgery Family History Father No problems noted. Mother No problems noted. Son No problems noted. Son No problems noted. Other Hx of arthroscopic knee surgery Social History Housing: House Patient Tobacco Use Status: Current everyday Tobacco user Tobacco use type: Cigarette Cigarette Packs Per Day: 2 Cigarettes Per Day: 40 e-Cigarette/Vaping Use: Never Used service: Yes Current occupational status: retired Cognitive needs: No Hearing needs: No Vision needs: Yes Questionnaire PHQ-9 Over the last 2 weeks, how often have you been bothered by any of the following problems? 1. Little interest or pleasure in doing things: several days 2. Feeling down, depressed, or hopeless: not at all 3. Trouble falling or staying asleep, or sleeping too much: not at all 4. Feeling tired or having little energy: not at all 5. Poor appetite or overeating: not at all 6. Feeling bad about yourself - or that you are a failure or have let yourself or your family down: not at all 7. Trouble concentrating on things, such as reading the newspaper or watching television: not at all 8. Moving or speaking so slowly that other people could have noticed. Or the opposite - being so fidgety or restless that you have been moving around a lot more than usual: not at all 9. Thoughts that you would be better off or of hurting yourself in some way: not at all Total score: 1 Depression Screening Interpretation: Negative Depression Screening Done: Yes 94062 - PHQ-9 Billing: Yes Source: Developed by Drs. Alec Wade, Araseli Jolly, Loco De Leon and colleagues, with an educational saranya from [employer]. Thrive Questionnaire Date Thrive assessed: 08/02/24 I am a: Patient What is your living situation today?: I have a steady place to live Within the past 12 months, did the food you bought not last and you didn't have the money to get more?: Never true Within the past 12 months, did you worry whether your food would run out before you got money to buy more?: Never true Do you have trouble paying for medicines?: No Do you have trouble getting transportation to medical appointments?: No Do you have trouble paying your heating and electricity bill?: No Do you have trouble taking care of your child, family member or friend?: No Do you have trouble with day-to-day activities such as bathing, preparing meals, shopping, managing finances, etc.?: No Are you currently unemployed and looking for a job?: No Are you interested in more education?: No Please select the resources that you would like help with: None Currently or been in a relationship where the following occur: No concerns reported THRIVE Score: 0 AUDIT C Alcohol Use Questionnaire (AUDIT-C) 1. How often do you have a drink containing alcohol?: Monthly or less 2. How many drinks containing alcohol do you have on a typical day when you are drinking?: 1 or 2 3. How often do you have six or more drinks on one occasion?: Never Total Score: 1 MIKE-7 AMB Questionnaire MIKE-7 Date MIKE - 7 assessed: 08/02/24 Feeling nervous, anxious, or on edge: 0 = Not at all Not being able to stop or control worryin = Not at all Worrying too much about different things: 0 = Not at all Trouble relaxin = Not at all Being so restless that it is hard to sit still: 0 = Not at all Becoming easily annoyed or irritable: 0 = Not at all Feeling afraid as if something awful might happen: 0 = Not at all Total MIKE-7 score (0-4 normal; 5-9 mild; 10-14 moderate; 15-21 severe): 0 Source: Developed by Drs. Alec Wade, Araseli Jolly, Loco De Leon and colleagues, with an educational saranya from [employer]. MIKE-7 Assessment Billing MIKE-7 Assessment Tool: MIKE-7 Assessment 38693 Review of Systems Const All systems reviewed & are unremarkable except as noted in HPI and below Eyes Reports no additional complaints ENT Reports no additional complaints Card Reports no additional complaints Resp Reports no additional complaints GI Reports no additional complaints Reports no additional complaints Physical exam (Primary Care) Vital Signs: Last Vital Signs Temp 97.9 F 08/02/24 08:07 Pulse 80 08/02/24 08:07 Resp 18 08/02/24 08:07 BP 128/66 08/02/24 08:07 Pulse Ox 95 08/02/24 08:07 Oxygen Delivery Method Room Air 08/02/24 08:07 BMI result Body Mass Index 34.0 Tobacco/Smoking Status: Tobacco use Status Tobacco use date assessed 02/09/24 08/02/24 08:09 Patient Tobacco Use Status Current everyday Tobacco 08/02/24 08:09 Tobacco use type Cigarette 08/02/24 08:09 e-Cigarette/Vaping Use Never Used 08/02/24 08:09 PHQ-9: PHQ-9 Score PHQ-9: Total score 1 08/02/24 08:16 Depression Screening Interpretation: Negative Thrive Assessment: Date of Thrive Assessment Date Thrive assessed 08/02/24 08/02/24 08:16 Currently or been in a relationship where the following occur: No concerns reported Const General: no acute distress HENMT Head: Yes normal to inspection Ears: hearing grossly normal bilaterally Face and sinus: Yes normal facial exam Mouth: Normal oral and palatal mucosa present Throat: Yes posterior oropharynx normal Eyes General: appearance normal, both eyes and all related structures Neck Neck: Yes no lymphadenopathy and Yes supple Resp Effort & Inspection: normal respiratory effort Auscultation: clear to auscultation bilaterally Cardio Rhythm: regular rhythm Heart sounds: S1 normal heart sound present and S2 normal heart sound present GI Inspection: Yes normal to inspection Palpation (GI): Soft to palpation Percussion: Yes normal to percussion Auscultation: normal bowel sounds Extrem Other: 3+ pitting edema bilaterally in lower extremities Coding Level of Care Code Est Pt Prev Care >65y(56545) Diagnoses DM type 2 (diabetes mellitus, type 2) E11.9 Positive colorectal cancer screening using Cologuard test R19.5 Annual physical exam Z00.00 Psoriatic arthritis L40.50 HTN (hypertension) I10 Edema R60.9 Additional Codes MIKE-7 Assessment Billing - MIKE-7 Assessment Tool: MIKE-7 Assessment 07676 ([id number]) PHQ-9 - 68395 - PHQ-9 Billing: Yes ([id number]) Assessment & Plan Assessment & Plan (1) DM type 2 (diabetes mellitus, type 2): Code(s): E11.9 - Type 2 diabetes mellitus without complications Category: Medical Plan: A1c is up to 5.9 since patient has stopped taking metformin. ADA diet regular physical activity discussed with the patient. he will restart 750 mg of metformin and continue Jardiance (2) Positive colorectal cancer screening using Cologuard test: Comment: colonoscopy 10/2023, 3 polyps, recheck 3 yrs Code(s): R19.5 - Other fecal abnormalities Category: Medical Plan: Follow-up with GI (3) Annual physical exam: Code(s): Z00.00 - Encounter for general adult medical examination without abnormal findings Category: Medical Plan: Well-balanced diet increase physical activity weight loss discussed with the patient. (4) Psoriatic arthritis: Comment: f/u rheumatology Code(s): L40.50 - Arthropathic psoriasis, unspecified Category: Medical Plan: Follow-up with rheumatology (5) HTN (hypertension): Code(s): I10 - Essential (primary) hypertension Category: Medical Plan: Continue current medications (6) Edema: Code(s): R60.9 - Edema, unspecified Category: Medical Plan: Start furosemide 40 mg daily for 1 week check basic metabolic panel in 1 week then continue furosemide every other day. Patient will follow-up in 1 month Orders: Orders Basic Metabolic Panel 1 Week I10 - Essential (primary) hypertension Comprehensive Met. Panel 1 Month E11.9 - Type 2 diabetes mellitus without complications Medications: New furosemide (Lasix) 1 tabl qd for 1 week then 1 qod 40 mg PO DAILY 30 tabs 0RF metformin ER 750 mg PO DAILY 90 tabs 2RF Refilled amlodipine 10 mg PO DAILY 90 tabs 3RF indapamide 1.25 mg PO DAILY 90 tabs 3RF empagliflozin 25 mg PO DAILY 90 tabs 3RF E11.9 - Type 2 diabetes mellitus without complications lisinopril 40 mg PO DAILY 90 tabs 3RF I10 - Essential (primary) hypertension
== END 2024-08-02 08:39 | disposition home or self-care (01) ==
PROVIDERS: PCP Internal Medicine; Visit Provider Internal Medicine
DX: E11.9 Type 2 diabetes mellitus without complications (principal); R19.5 Other fecal abnormalities; Z00.00 Encounter for general adult medical examination without abnormal findings; L40.50 Arthropathic psoriasis, unspecified; I10 Essential (primary) hypertension; R60.9 Edema, unspecified

== ENCOUNTER → 2024-08-02 07:53 | Outpatient (BNVA) | payer BC, SELFPAY | PROVIDERS: PCP Internal Medicine; Visit Provider Internal Medicine | DX: Z00.00 Encounter for general adult medical examination without abnormal findings (principal); E11.9 Type 2 diabetes mellitus without complications; R19.5 Other fecal abnormalities; L40.50 Arthropathic psoriasis, unspecified; I10 Essential (primary) hypertension; R60.9 Edema, unspecified | CPT/HCPCS: 96127 ==

== ENCOUNTER 2024-08-19 08:59 | Outpatient (AMB) | payer BC, SELFPAY ==
--- NOTE | 2024-08-19 09:00 | MHC.PC.OV ---
Vital Signs 08/19/24 09:01 Height 5 ft 11 in Weight 244 lb BMI 34.0 BP 106/56 L Blood Pressure Location Rt brachial Position Sitting Respiration 18 Pulse 93 Pulse Source Pulse Oximeter Temp 98.2 F Temp Source Oral Pulse Oximetry (%) 95 Oxygen Delivery Method Room Air Intake Visit Reasons: cough, mucus, headache Intake Note: Pt is here today for a sick visit. Pt c/o headaches, stomach pain, diarrhea cough for 3 weeks now. Allergies bupropion [From Wellbutrin] Allergy (Unknown, Verified 08/19/24 09:02) n/a hydroxychloroquine [From Plaquenil] Allergy (Unknown, Verified 08/19/24 09:02) n/a indomethacin [Indocin] Allergy (Unknown, Verified 08/19/24 09:02) Abdominal Pain meloxicam [Mobic] Allergy (Unknown, Verified 08/19/24 09:02) n/a Medication List - Last Reconciled 08/19/24 by Armida Canchola MD amlodipine 10 mg PO DAILY aspirin (Adult Low Dose Aspirin) 81 mg PO DAILY empagliflozin 25 mg PO DAILY furosemide (Lasix) 40 mg PO DAILY golimumab mg subcut indapamide 1.25 mg PO DAILY lisinopril 40 mg PO DAILY metformin ER 750 mg PO DAILY oxycodone-acetaminophen 5-325 mg 1 tab PO Q6H pravastatin 10 mg PO BEDTIME Tobacco use date assessed: 08/19/24 Fall risk assessment: No Falls in past year Last assessed Fall Risk: 08/19/24 Dental Screening Dental Screen Date: 08/02/24 HPI cough, mucus, headache HPI Details Patient complains of 3 weeks of sinus congestion postnasal drip productive cough with greenish sputum general body aches. he denies shortness or breath pleurisy fever chills night sweats. Type 2 diabetes hypertension and hyperlipidemia are controlled on current medications. [facility] Medical History Wears hearing aid in both ears Tubular adenoma of colon History of rectal fissure Foot pain Ear pain, left Colonoscopy refused Ex-smoker Psoriatic arthritis Hyperlipidemia HTN (hypertension) DM type 2 (diabetes mellitus, type 2) Surgical History Hx of colonoscopy Hx of arthroscopic knee surgery Family History Father No problems noted. Mother No problems noted. Son No problems noted. Son No problems noted. Other Hx of arthroscopic knee surgery Social History Housing: House Patient Tobacco Use Status: Former Tobacco user Tobacco use type: Cigarette Cigarette Packs Per Day: 2 Cigarettes Per Day: 40 e-Cigarette/Vaping Use: Never Used service: Yes Current occupational status: retired Cognitive needs: No Hearing needs: No Vision needs: Yes Questionnaire Thrive Questionnaire Date Thrive assessed: 07/26/24 I am a: Patient What is your living situation today?: I have a steady place to live Within the past 12 months, did the food you bought not last and you didn't have the money to get more?: Never true Within the past 12 months, did you worry whether your food would run out before you got money to buy more?: Never true Do you have trouble paying for medicines?: No Do you have trouble getting transportation to medical appointments?: No Do you have trouble paying your heating and electricity bill?: No Do you have trouble taking care of your child, family member or friend?: No Do you have trouble with day-to-day activities such as bathing, preparing meals, shopping, managing finances, etc.?: No Are you currently unemployed and looking for a job?: No Are you interested in more education?: No Please select the resources that you would like help with: None Currently or been in a relationship where the following occur: No concerns reported THRIVE Score: 0 MIKE-7 AMB Questionnaire MIKE-7 Date MIKE - 7 assessed: 08/02/24 Source: Developed by Drs. Alec Wade, Araseli Jolly, Loco De Leon and colleagues, with an educational saranya from [employer]. Review of Systems Const All systems reviewed & are unremarkable except as noted in HPI and below Eyes Reports no additional complaints ENT Reports no additional complaints Card Reports no additional complaints Resp Reports no additional complaints GI Reports no additional complaints Reports no additional complaints Physical exam (Primary Care) Vital Signs: Last Vital Signs Temp 98.2 F 08/19/24 09:01 Pulse 93 08/19/24 09:01 Resp 18 08/19/24 09:01 BP 106/56 L 08/19/24 09:01 Pulse Ox 95 08/19/24 09:01 Oxygen Delivery Method Room Air 08/19/24 09:01 BMI result Body Mass Index 34.0 Tobacco/Smoking Status: Tobacco use Status Tobacco use date assessed 08/19/24 08/19/24 09:05 Patient Tobacco Use Status Former Tobacco user 08/19/24 09:05 Tobacco use type Cigarette 08/19/24 09:05 e-Cigarette/Vaping Use Never Used 08/19/24 09:05 Thrive Assessment: Date of Thrive Assessment Date Thrive assessed 07/26/24 08/19/24 09:05 Currently or been in a relationship where the following occur: No concerns reported Const General: no acute distress HENMT Head: Yes normal to inspection General nose exam: Abnormal mucous membranes and turbinates present erythematous Face and sinus: Yes sinus tenderness Throat: Yes postnasal drainage Eyes General: appearance normal, both eyes and all related structures Neck Neck: Yes supple Resp Effort & Inspection: normal respiratory effort Auscultation: clear to auscultation bilaterally Cardio Rhythm: regular rhythm Heart sounds: S1 normal heart sound present and S2 normal heart sound present Extrem Other: 1+ pitting edema bilaterally Coding Level of Care Code Est Pt Level 4 (82804) Diagnoses HTN (hypertension) I10 DM type 2 (diabetes mellitus, type 2) E11.9 Hyperlipidemia E78.5 Sinusitis J32.9 Assessment & Plan Assessment & Plan (1) HTN (hypertension): Code(s): I10 - Essential (primary) hypertension Category: Medical Plan: Continue current medications (2) DM type 2 (diabetes mellitus, type 2): Code(s): E11.9 - Type 2 diabetes mellitus without complications Category: Medical Plan: ADA diet increase physical activity continue current medications discussed with the patient (3) Hyperlipidemia: Code(s): E78.5 - Hyperlipidemia, unspecified Category: Medical Plan: Continue statin (4) Sinusitis: Code(s): J32.9 - Chronic sinusitis, unspecified Category: Medical Plan: Z-Allan as prescribed and supportive care discussed with the patient Orders: Orders Basic Metabolic Panel Today I10 - Essential (primary) hypertension Lipid Panel 2 Months E11.9 - Type 2 diabetes mellitus without complications, E78.5 - Hyperlipidemia, unspecified, I10 - Essential (primary) hypertension Microalbumin, Random (w Creat) 2 Months E11.9 - Type 2 diabetes mellitus without complications, E78.5 - Hyperlipidemia, unspecified, I10 - Essential (primary) hypertension Comprehensive [place]. Panel Fast 2 Months E11.9 - Type 2 diabetes mellitus without complications, E78.5 - Hyperlipidemia, unspecified, I10 - Essential (primary) hypertension Hemoglobin A1c 2 Months E11.9 - Type 2 diabetes mellitus without complications, E78.5 - Hyperlipidemia, unspecified, I10 - Essential (primary) hypertension Complete Blood Count Auto Diff 2 Months E11.9 - Type 2 diabetes mellitus without complications, E78.5 - Hyperlipidemia, unspecified, I10 - Essential (primary) hypertension Medications: New azithromycin For 250 mg dose pack: take 500 mg today (day 1), then 250 mg for 4 days (days 2-5) PO 6 tabs 0RF
[2024-08-19 09:01] VITALS: BP 106/56; PULSE 93; RESP 18; TEMP 36.8; O2SAT 95; BMI 34.0
--- OUTSIDE RECORDS SUMMARY | 2024-08-19 09:31 | XMS_ITS ---
Author Name [facility] Organization [facility] Address [address] [place] [address] Support Name Relationship Address Phone NARABEVERLY DOTSONE Next of Kin [address] [place] [address] BEVERLY BROWN Emergency Contact [address] [place] [address] Insurance Providers: All historical and current Section Date Range: From patient's date of to the date document was created. This section includes the names of all active insurance providers for the patient. Insurance Provider Type of Coverage Plan Name Start of Policy Coverage End of Policy Coverage Group Number Member ID Insurance Provider's Telephone Number Policy Cornell's Name Patient's Relationship to Policy Cornell [facility]GAN[facility] Dec 01, 2023 [id number] JAE DAMON PATIENT [place] SPECIAL [place] Jul 28, 2023 DELMY ENCINAS [id number] JAE DAMON PATIENT [facility]RIST PRESCRIPT ION [facility] Jun 02, 2022 [id number] [phone] JAE DAMON PATIENT Selected Encounter This section includes the information on record at [place] for the Encounter. Date/Time Encounter Type Encounter Description Reason Provider Source Aug 09, 2024 09:00 AM HEARING AID REPAIR/MODIFYING AUDIOLOGY ICD-10-CM Z46.1 Encounter for fitting and adjustment of hearing aid JARVIS DECKER Encounter Template Text not used by [place] Assessments - Encounter Diagnoses This section includes the primary and secondary diagnoses documented for the Encounter. Date/Time Primary/Secondary Diagnosis Diagnosis Name Provider Source Aug 09, 2024 09:04 AM PRIMARY Encounter for fitting and adjustment of hearing aid [facility] Aug 09, 2024 09:04 AM SECONDARY Sensorineural hearing loss, bilateral JACEY ROGEL [facility] Encounter Notes: All associated encounter notes This section contains the clinical notes associated to the Encounter. Date/Time Encounter Note(s) Provider Source Aug 09, 2024 07:34 AM AUDIOLOGY NOTE: LOCAL TITLE: AUDIOLOGY HEALTH GEOGRAPHIC INFORMATION SYSTEMS DIRECTOR STANDARD TITLE: AUDIOLOGY NOTE DATE OF NOTE: AUG 09, 2024@07:34 ENTRY DATE: AUG 09, 2024@07:34:33 AUTHOR: KALEN ROGEL COSIGNER: JARVIS DECKER URGENCY: STATUS: COMPLETED August 09, 2024 History/Background: Fallentimber was seen for a hearing aid follow up, unaccompanied. The presented today requesting maintenance on his hearing aids. The stated he was replacing domes and wax guards at home and the retention lines came off, he was unable to replace them correctly. Hearing aids: Oticon REAL 1 MINIRITEs Serial Numbers: [id number] Battery size: Rechargeable Date Issued: 08/18/2023 Hearing aid check: Both hearing aids were cleaned and checked. Replaced wax guards, domes and retention lines. Biologic check was good. Otoscopy: Clear canals. Plan: Follow up as needed. Suicide Screen: C-SSRS Screening Reeves-Suicide Severity Rating Scale (C-SSRS Screener) 1. Over the past month, have you wished you were or wished you could go to sleep and not wake up? No 2. Over the past month, have you had any actual thoughts of killing yourself? No 3. Over the past month, have you been thinking about how you might do this? Response not required due to responses to other questions. 4. Over the past month, have you had these thoughts and had some intention of acting on them? Response not required due to responses to other questions. 5. Over the past month, have you started to work out or worked out the details of how to kill yourself? Response not required due to responses to other questions. 6. If yes, at any time in the past month did you intend to carry out this plan? Response not required due to responses to other questions. 7. In your lifetime, have you ever done anything, started to do anything, or prepared to do anything to end your life (for example, collected pills, obtained a gun, gave away valuables, went to the roof but didn't jump)? No 8. If YES, was this within the past 3 months? Response not required due to responses to other questions. /evgeny/ KALEN ROGEL Audiology Health Senior Quantity Surveyor Signed: 08/09/2024 09:05 /evgeny/ Michelle LOJA, [facility] Supervisor Smoke Control Chief, Audiology Cosigned: 08/09/2024 13:16 KALEN ROGEL CNTL [facility]
--- OUTSIDE RECORDS SUMMARY | 2024-08-19 09:31 | XMS_ITS ---
[facility] Organization [facility] Address [address] [place] [address] Care Team Providers Care Marketing Underwriter Name Role Phone Armida Canchola MD Primary Care Provider Fabiana Grossman Unavailable [phone] Allergies Allergen (clinical drug ingredient) Drug/Non Drug [...] Ordered Date Performed Result Body Sit e 38093-RPUOUVP NAIL, 6 OR MORE 06/14/2024 N/A 21264-NGSL SKIN LESIONS, 2 TO 4 06/14/2024 N/A Encounters Encounter Location Date Provider Diagnosis [facility] [address] [address] 06/14/2024 Fabiana Tan Type 2 diabetes mellitus with diabetic polyneuropathy E11.42 and Tinea unguium B35.1 Assessments Encounter Date Diagnosis (ICD Code) Assessment Notes Treatment Notes Treatment Clinical Notes Section Notes 06/14/2024 Type 2 diabetes mellitus with diabetic polyneuropathy (ICD-10 - E11.42) 06/14/2024 Tinea unguium (ICD-10 - B35.1) Plan Of Treatment Pending Test Test Name Order Date 21837-OKGQBRR NAIL, 6 OR MORE 06/14/2024 98243-NOGD SKIN LESIONS, 2 TO 4 06/14/19 25 Next Appt Details Follow Up: 3 Months, Reason: Provider Name:Fabiana kay, 09/06/2024 10:00:00 AM, [address] [place] [address], [phone], Provider Name:Fabiana kay, 11/08/2024 09:00:00 AM, [address] [place], [phone], Procedure Notes * Category Sub-Category Detail Notes [...] use of a nail nipper and/or dremel-type grinder dresser, to a more viable healthy nail plate [...] to maintain effectiveness in symptomatic relief - 83045 Keratoma Treatment Parring or Cutting o f [...] instrumentation by the physician of record - 89134 Progress Notes * JAMIEBenedicto AUDOB: [birth year] (78 yo M)Acc No.[id number]:06/14/2024 Progress Note Patient:?Benedicto BROWN Provider:?Fabiana Tan DPM :1945???Age:78 Y???Sex:Male Juwan e:06/14/2024 Address:[address] [place], [place] [address], [id number] Pcp:Armida Canchola MD Subjective: * Chief Complaints: [...] ?Exercise: yes, Camp. ?Marital status: . 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 ???Drug/Alcohol:?AUDIT-C (Standard)?Did you have a drink containing [...] use of a nail nipper and/or dremel-type grinder dresser, to a more viable healthy nail plate [...] to maintain effectiveness in symptomatic relief - 14249.?Keratoma Treatment:?Parring or Cutting of Benign Hyperkeratotic Lesion(s)?(-56) [...] instrumentation by the physician of record - 84138.? * Procedure Codes:?47963 DEBRI DE NAIL, 6 OR MORE, Modifiers: XS 44590 TRIM SKIN LESIONS, 2 TO 4, Modifiers: XS * Follow Up:?3 Months * Images: * Sign off status: Completed true * Provider:?Fabiana Tan DPM Date:?0 06/14/2024 Generated for Kyle cotton/Salvador/Bakari on:?08/19/2024 09:31 AM EDT History and Physical Notes * HPI (History [...]
--- OUTSIDE RECORDS SUMMARY | 2024-08-19 09:31 | XMS_ITS | Continuity of Care Document ---
Author Name [facility] Organization [facility] Care Team Providers Care Overnight Associate Name Role Phone [facility] Unavailable Unavailable Problems Combined list of problems from Department of [facility] and [facility] facilities. It does not include entries that were removed or entered in error. Problem Status Onset Date Problem Type Date of Resolution Comments Source Arthropathy of left shoulder Active Condition [facility] [place] [place] [facility] Psoriasis Active [facility] Diagnosis: ICD-10-CM Z46.1 Encounter for fitting and adjustment of hearing aid Active Diagnosis [facility] [place] [facility] Diagnosis: ICD-10-CM H90.3 Sensorineural hearing loss, bilateral [facility] Medications Combined list of outpatient medications [...] EVERY DAY ORAL ACTIVE HERMINIACORY ROJAS 2016 [facility] [place] [facility] ETANERCEPT POWDER FOR RECONSTITUT ION INJ,PWDR INJECT 50MGS SUBCUTAN EOUSLY ONCE A WEEK ACTIVE HERMINIA -CORY GONZALEZ 2016 [facility] [place] [facility] [facility] LISINOPRIL 40MG TAB TAKE ONE TABLET BY MOUTH EVERY DAY ORAL ACTIVE HERMINIA -CORY GONZALEZ 2016 [facility] [facility] METFORMIN HCL 500MG TAB TAKE ONE TABLET BY MOUTH TWICE DAILY ORAL ACTIVE HERMINIA -CORY GONZALEZ 2016 [facility] [place] [facility] OXYCODONE HCL 5MG/ACETAMI NOPHEN 325MG TAB TAKE TWO TABLETS BY MOUTH EVERY DAY NEEDED ORAL ACTIVE HERMINIA -CORY GONZALEZ 2016 [facility] VARENICLINE 1MG TAB TAKE ONE TABLET BY MOUTH EVERY DAY ORAL ACTIVE HERMINIA CORY NORTON 2016 [facility] Immunizations Combined list of available immunizations from the Department of Defense and Veterans Affairs facilities. Immunization Series Date Given Administered By Site Reaction Lot Number CVX Code Drug Distribution Warehouse Manager Status Comments Source FLU,3 YRS (HISTORICAL) 2015 88 complet ed r[facility]aid [facility] Encounters Combined list of: 1) Encounters from Department of Veterans Affairs facilities going backup to the last 18 months, not all [place] inpatient encounters are included; 2) Encounters from the Department of Defense facilities going backup to 280 months. Location Location Details Encounter Type Encounter Number Reason For Visit Attending Provider ADM Date DC Date Status [facility] HEARING AID EXAM BOTH EARS [id number] Diagnos is: ICD-10- CM H90.3 Sensori neural hearing loss, bilater Juan Antonio Gómez 07/28 [facility] [facility] [place] [facility] HE[facility]ING SERVICE [id number] Diagnos is: ICD-10- CM Z46.1 Encount er for fitting and adjustm ent of hearing aid PRIYANKA PALMA L 08/17 [facility] [place] [facility] Outpatient Encounter [id number] 10/01 [facility] [place] [facility] HEARING AID REPAIR/MOD IFYING [id number] Diagnos is: ICD-10- CM Z46.1 Encount er for fitting and adjustm ent of hearing aid RICO DECKER I 08/09 [facility] Social History Combined list of available smoking, tobacco, and other social history from Department of Defense and Veterans Affairs facilities. Social History Type Response Date Comment Sourc e Tobacco smoking status NHIS CURRENT SMOKER 08/02/2016 [place] History of tobacco use V1-PT RE[facility]IVES TO [facility] 08/02/2016 [place]
--- OUTSIDE RECORDS SUMMARY | 2024-08-19 09:32 | XMS_ITS ---
Author Organization [facility] Address [address] [place] [address] Care Team Providers Care Ruling Technician Name Role Phone Armida Canchola MD Primary Care Provider Fabiana Grossman Unavailable [phone] Neel Lyons Unavailable [phone] Allergies Allergen (clinical drug ingredient) Drug/Non Drug [...] 04/01/2024 Encounters Encounter Location Date Provider Diagnosis [facility] [address] [address] 04/01/2024 Neel Lyons Tinea unguium B35.1 ; [...] Reason: Provider Name:Fabiana kay, 09/06/2024 10:00:00 AM, [address] [place] [address], [address], Provider Name:Fabiana Pete eliza, 11/08/2024 09:00:00 AM, [address] [place] [address], [phone], Procedure Notes * Category Sub-Category Detail Notes [...] as necessary. Patient chooses, no pharmaceutical tx (62317) Keratoma Treatment Parring or Cutting o f Benign Hyperkeratotic Lesion(s) 69842 ( >4 Lesions) - The Benign hyperkeratotic lesions, as described above were pared, and/or cut utilizing a sterile #15 blade, tissue nippers, and/or dremel Progress Notes * NARABenedicto DOTSONDOB: [birth year] (78 yo M)Acc No.[id number]:04/01/2024 Progress Note Patient:?Benedicto BROWN Provider:?Neel Lyons DPM :1945???Age:78 Y???Sex:Male Juwan e:04/01/2024 Address:[address] [place], [place] [address] Pcp:Armida Canchola MD Subjective: * Chief Complaints: [...] ?Exercise: yes, Camp. ?Marital status: . 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 * Medications:?TakingExtra Dep th Diabetic Shoes with [...] as necessary. Patient chooses, no pharmaceutical tx (75739).?Keratoma Treatment:?Parring or Cutting of Benign Hyperkeratotic Lesion(s)?66368 ( >4 Lesions) - The Benign hyperkeratotic lesions, as described above were pared, and/or cut utilizing a sterile #15 blade, tissue nippers, and/or dremel.?Wart Treatment:?Procedure?Verrucae(s) were debrided to pin-point bleeding with sterile surgical blade, silver nitrate chemocautery applied, DIABETES: Any more invasive procedure to wart deferred due to diabetes risk.? * Procedure Codes:?98120 DEBRI DE NAIL, 6 OR MORE, Modifiers: XS 99747 Wart Destruction, 1-14, Modifiers: XS 04447 TRIM SKIN LESIONS, OVER 4, Modifiers: XS * Follow Up:?2 Months * Images: * Sign off status: Completed true * Provider:?Neel Lyons DPM Date:? 024 Generated for Kyle cotton/Salvador/Jyotiitting on:?08/19/2024 09:32 AM EDT History and Physical Notes * [...]
--- OUTSIDE RECORDS SUMMARY | 2024-08-19 09:32 | XMS_ITS ---
Author Organization [facility] Address [address] [place] [address] Care Team Providers Care Steward/Stewardess Room Name Role Phone Armida Canchola MD Primary Care Provider Fabiana Grossman Unavailable [phone] Neel Lyons [phone] Skelton Encounters Encounter Location Date Provider Diagnosis [address] [address] 03/29/2024 Neel Lyons Plan Of Treatment Next Appt Details Provider Name:Fabiana kay, 09/06/2024 10:00:00 AM, [address] [place] [address], [phone], Provider Name:Fabiana Crissymarie eliza, 11/08/2024 09:00:00 AM, [address] [place] [address], [address], Progress Notes * Benedicto BROWNDOB: [birth year] (78 yo M)Acc No.[id number]:03/29/2024 Progress Note Patient:?Benedicto BROWN Provider:?Neel Lyons DPM :1945???Age:78 Y???Sex:Male Juwan e:03/29/2024 Address:[address] [place] [phone] Pcp:Armida Canchola MD Subjective: * Chief Complaints: [...] DPM Date:? 024 Generated for Kyle cotton/Salvador/Bakari on:?08/19/2024 09:32 AM EDT
== END 2024-08-19 09:44 | disposition home or self-care (01) ==
LOC: HO.HMCC 08:59
PROVIDERS: PCP Internal Medicine; Visit Provider Internal Medicine
DX: I10 Essential (primary) hypertension (principal); E11.9 Type 2 diabetes mellitus without complications; E78.5 Hyperlipidemia, unspecified; J32.9 Chronic sinusitis, unspecified

== ENCOUNTER 2024-08-19 08:59 | Outpatient (REF) | payer BC, SELFPAY ==
[2024-08-19 13:47] LABS: Alanine Aminotransferase 25 U/L (0-40); Albumin Level 4.1 g/dL (3.5-5.0); Alkaline Phosphatase 56 U/L (39-117); Anion Gap 14 (12-20); Aspartate Amino Transferase 25 U/L (5-37); Bilirubin Total 0.5 mg/dL (0.0-1.0); Blood Urea Nitrogen 38 mg/dL (9-16); Calcium 9.4 mg/dL (8.4-10.2); Carbon Dioxide 25 mmol/L (22-29); Chloride 104 mmol/L (96-108); Estimated Glomerular Filt Rate 42; Glucose Random 147 mg/dL (60-115); Potassium 4.2 mmol/L (3.3-5.1); Sodium 139 mmol/L (135-145); Total Protein 7.5 g/dL (6.5-8.0)
== END 2024-08-19 09:00 | disposition home or self-care (01) ==
LOC: HO.HMGCLDS 08:59
PROVIDERS: PCP Internal Medicine; Visit Provider Internal Medicine
DX: I10 Essential (primary) hypertension (principal); E11.9 Type 2 diabetes mellitus without complications; E78.5 Hyperlipidemia, unspecified; J32.9 Chronic sinusitis, unspecified
CPT/HCPCS: 36415; 80053

== ENCOUNTER 2024-10-13 08:21 | Outpatient (REF) | payer BC, SELFPAY ==
--- OUTSIDE RECORDS SUMMARY | 2024-10-13 08:33 | XMS_ITS ---
Author Organization [facility] Address [address] [place] [address] Care Team Providers Care Studio Potter Name Role Phone Armida Canchola MD Primary Care Provider Fabiana Grossman Unavailable [phone] Allergies Allergen (clinical drug ingredient) Drug/Non Drug [...] Ordered Date Performed Result Body Sit e 38170-LNIOOXD NAIL, 6 OR MORE 06/14/2024 N/A 01187-XEKB SKIN LESIONS, 2 TO 4 06/14/2024 N/A Encounters Encounter Location Date Provider Diagnosis [facility] [address] [address] 06/14/2024 Fabiana Tan Type 2 diabetes mellitus with diabetic polyneuropathy E11.42 and Tinea unguium B35.1 Assessments Encounter Date Diagnosis (ICD Code) Assessment Notes Treatment Notes Treatment Clinical Notes Section Notes 06/14/2024 Type 2 diabetes mellitus with diabetic polyneuropathy (ICD-10 - E11.42) 06/14/2024 Tinea unguium (ICD-10 - B35.1) Plan Of Treatment Pending Test Test Name Order Date 28169-TSGHNCW NAIL, 6 OR MORE 06/14/2024 32771-SPGT SKIN LESIONS, 2 TO 4 06/14/19 25 Next Appt Details Follow Up: 3 Months, Reason: Provider Name:Fabiana kay, 11/08/2024 09:00:00 AM, [address] [place] [address], [phone], Provider Name:Fabiana kay, 01/10/2025 09:15:00 AM, [address] [place], [address], Procedure Notes * Category Sub-Category Detail Notes [...] use of a nail nipper and/or dremel-type horseradish grinder, to a more viable healthy nail [...] to maintain effectiveness in symptomatic relief - 34779 Keratoma Treatment Parring or Cutting o f [...] instrumentation by the physician of record - 71747 Progress Notes * JAMIEBenedicto AUDOB: [birth year] (78 yo M)Acc No.[id number]:06/14/2024 Progress Note Patient:?Benedicto BROWN Provider:?Fabiana Tan DPM :1945???Age:78 Y???Sex:Male Juwan e:06/14/2024 Address:[address] [place], [place] [phone] Pcp:Armida Canchola MD Subjective: * Chief Complaints: [...] ?Exercise: yes, Camp. ?Marital status: . 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 ???Drug/Alcohol:?AUDIT-C (Standard)?Did you have a drink containing [...] use of a nail nipper and/or dremel-type horseradish grinder, to a more viable healthy nail [...] to maintain effectiveness in symptomatic relief - 28205.?Keratoma Treatment:?Parring or Cutting of Benign Hyperkeratotic Lesion(s)?(-56) [...] instrumentation by the physician of record - 45206.? * Procedure Codes:?36517 DEBRI DE NAIL, 6 OR MORE, Modifiers: XS 53985 TRIM SKIN LESIONS, 2 TO 4, Modifiers: XS * Follow Up:?3 Months * Images: * Sign off status: Completed true * Provider:?Fabiana Tan DPM Date:?0 06/14/2024 Generated for Kyle cotton/Salvador/Bakari on:?10/13/2024 08:33 AM EDT History and Physical Notes * [...]
--- OUTSIDE RECORDS SUMMARY | 2024-10-13 08:33 | XMS_ITS | Continuity of Care Document ---
Author Name [facility] Organization [facility] Care Team Providers Care Creel Cleaner Name Role Phone [facility] Unavailable Unavailable Problems Combined list of problems from Department of [facility] and [facility] facilities. It does not include entries that were removed or entered in error. Problem Status Onset Date Problem Type Date of Resolution Comments Source Arthropathy of left shoulder Active Condition [facility] [place] [facility] Psoriasis Active Condition [facility] Diagnosis: ICD-10-CM Z46.1 Encounter for fitting and adjustment of hearing aid Active Diagnosis [facility] [place] [facility] Diagnosis: ICD-10-CM H90.3 Sensorineural hearing loss, bilateral [facility] Medications Combined list of outpatient medications [...] EVERY DAY ORAL ACTIVE HERMINIACORY ROJAS [facility] [place] [facility] ETANERCEPT POWDER FOR RECONSTITUT ION INJ,PWDR INJECT 50MGS SUBCUTAN EOUSLY ONCE A WEEK ACTIVE HERMINIA -CORY GONZALEZ [facility] [place] [facility] LISINOPRIL 40MG TAB TAKE ONE TABLET BY MOUTH EVERY DAY ORAL ACTIVE HERMINIA -CORY GONZALEZ 2016 [facility] [place] [facility] METFORMIN HCL 500MG TAB TAKE ONE TABLET BY MOUTH TWICE DAILY ORAL ACTIVE HERMINIA -CORY GONZALEZ 2016 [facility] [place] [facility] OXYCODONE HCL 5MG/ACETAMI NOPHEN 325MG TAB TAKE TWO TABLETS BY MOUTH EVERY DAY NEEDED ORAL ACTIVE HERMINIA -CORY GONZALEZ 2016 [facility] VARENICLINE 1MG TAB TAKE ONE TABLET BY MOUTH EVERY DAY ORAL ACTIVE HERMINIA CORY NORTON 2016 [facility] Immunizations Combined list of available immunizations from the Department of Defense and Veterans Affairs facilities. Immunization Series Date Given Administered By Site Reaction Lot Number CVX Code Drug Design Eng Status Comments Source FLU,3 YRS (HISTORICAL) 2015 88 complet ed [facility] Encounters Combined list of: 1) Encounters from Department of Veterans Affairs facilities going backup to the last 18 months, not all [place] inpatient encounters are included; 2) Encounters from the Department of Defense facilities going backup to 280 months. Location Location Details Encounter Type Encounter Number Reason For Visit Attending Provider ADM Date DC Date Status Disposition Source [facility] HEARING AID EXAM BOTH EARS [id number] Diagnos is: ICD-10- CM H90.3 Sensori neural hearing loss, bilater Juan Antonio Gómez 07/28 [facility] [place] [facility] [place] [facility] HEARING SERVICE [id number] Diagnos is: ICD-10- CM Z46.1 Encount er for fitting and adjustm ent of hearing aid PRIYANKA PALMA L 08/17 [facility] [place] [facility] Outpatient Encounter [id number] 10/01 [facility] [place] [facility] HEARING AID REPAIR/MOD IFYING [id number] Diagnos is: ICD-10- CM Z46.1 Encount er for fitting and adjustm ent of hearing aid RICO DECKER I 08/09 [facility] Social History Combined list of available smoking, tobacco, and other social history from Department of Defense and Veterans Affairs facilities. Social History Type Response Date Comment Sourc e Tobacco smoking status NHIS CURRENT SMOKER 08/02/2016 [facility] History of tobacco use V1-PT RECEIVES TO [facility] OUT[facility] 08/02/2016 [facility]
--- OUTSIDE RECORDS SUMMARY | 2024-10-13 08:33 | XMS_ITS ---
Author Organization [facility] Address [address] [place] [address] Care Team Providers Care Recreation Worker Name Role Phone Armida Canchola MD Primary Care Provider Fabiana Grossman Unavailable [phone] Allergies Allergen (clinical drug ingredient) Drug/Non Drug Allergy documented on EMR Reaction Allergy Type Onset Date Status colchicine Colchicine can't remember Drug Allergy Active REASON FOR VISIT At Risk Footcare Medications Medication SIG (Take, Route, Frequency, Duration) Notes Start Date End Date Status oxyCODONE-Acetaminophen daily Unknown metFORMIN HCl 500 MG 1 tablet with meals Orally Twice a day Active Lisinopril Active amLODIPine Besylate Active Jardiance 25 MG 1 tablet Orally Once a day for 30 day(s) Active Indapamide 1.25 MG 1 tablet in the morn ing Orally Once a day for 30 day(s) Active Pravastatin Sodium 10 MG 2 tablets Orall y Once a day for 30 day(s) Active Extra Depth Diabetic Shoes with 3 Pair Custom heat-molded multi-density innersoles for 1 year Dx: Active prednisoLONE Acetate Unknown Omeprazole 20 MG 1 capsule 30 minutes before morning meal Orally Once a day for 30 day(s) Active Chantix 1 MG 1 tablet Orally Twic e a day Unknown Nabumetone 750 MG 1 tablet Orally Twic e a day for 30 day(s) 09/02/2016 Unknown Chantix Unknown Enbrel 25 MG as directed Subcutaneous Unknown Percocet 5-325 MG 1 tablet as needed O rally every 6 hrs Unknown Simponi 50 MG/0.5ML as directed Subcutaneous Unknown Social History Tobacco Use: Social History Observation [...] Signs Height 5 ft 11 in in 09/06/2024 Weight 205 lbs 09/06/2024 BMI 28.59 kg/m2 09/06/2024 Blood pressure systolic 130 mm Hg 09/07/19 25 Blood pressure diastolic 70 mm Hg 025 Procedures Procedure Date Ordered Date Performed Result Body Sit e 30891-FYHUYOS NAIL, 6 OR MORE 09/06/2024 N/A 02322-DIWZ SKIN LESIONS, 2 TO 4 09/06/2024 N/A Encounters Encounter Location Date Provider Diagnosis [facility] [address] [address] 09/06/2024 Fabiana Tan Type 2 diabetes mellitus with diabetic polyneuropathy E11.42 and Tinea unguium B35.1 Assessments Encounter Date Diagnosis (ICD Code) Assessment Notes Treatment Notes Treatment Clinical Notes Section Notes 09/06/2024 Type 2 diabetes mellitus with diabetic polyneuropathy (ICD-10 - E11.42) 09/06/2024 Tinea unguium (ICD-10 - B35.1) Plan Of Treatment Pending Test Test Name Order Date 77576-MFDQMBD NAIL, 6 OR MORE 09/06/2024 43416-KIPI SKIN LESIONS, 2 TO 4 09/07/19 25 Next Appt Details Follow Up: 3 Months, Reason: Provider Name:Fabiana kay, 11/08/2024 09:00:00 AM, [address] [place] [address], [address], Provider Name:Fabiana kay, 01/10/2025 09:15:00 AM, [address] [place], [address], Procedure Notes * Category Sub-Category Detail Notes [...] use of a nail nipper and/or dremel-type gold nib grinder, to a more viable healthy nail [...] to maintain effectiveness in symptomatic relief - 73678 Keratoma Treatment Parring or Cutting o f [...] instrumentation by the physician of record - 65574 Progress Notes * JAMIEBenedicto AUDOB: [birth year] (78 yo M)Acc No.[id number]:09/06/2024 Progress Note Patient:?Benedicto BROWN Provider:?Fabiana Tan DPM :1945???Age:78 Y???Sex:Male Juwan e:09/06/2024 Address:[address] [place], [place] [address], [phone] Pcp:Armida Canchola MD Subjective: * Chief Complaints: [...] ?Exercise: yes, Camp. ?Marital status: . 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 ???Drug/Alcohol:?AUDIT-C (Standard)?Did you have a drink containing [...] ???Lab:HEMOGLOBIN A1C (GLYCO HEMOGLOBIN) (Order Date - 06/04/2024) (Collection Date & Time - 09/06/2024 10:06 AM) ? Value Reference Range ?HEMOGLOBIN A1C % (HH) 5.7 * Examination: ???Ophthalmology Referral: ?DIABETES EYE [...] use of a nail nipper and/or dremel-type gold nib grinder, to a more viable healthy nail [...] to maintain effectiveness in symptomatic relief - 06246.?Keratoma Treatment:?Parring or Cutting of Benign Hyperkeratotic Lesion(s)?(-56) [...] instrumentation by the physician of record - 69658.? * Procedure Codes:?59899 DEBRI DE NAIL, 6 OR MORE, Modifiers: XS 40852 TRIM SKIN LESIONS, 2 TO 4, Modifiers: XS * Preventive Medicine:? ??Screening/Special Tests:?Fall Risk?Screening:?No falls in the past year ?FALLS: Screening for Future Fall Risk?Have you had any falls with injury in the past year??No * Follow Up:?3 Months * Images: * Sign off status: Completed true * Provider:?Fabiana Tan DPM Date:?0 09/06/2024 Generated for Kyle cotton/Salvador/eTransmitting on:?10/13/2024 08:33 AM EDT History and Physical [...]
--- OUTSIDE RECORDS SUMMARY | 2024-10-13 08:33 | XMS_ITS ---
Author Name [facility] Organization [facility] Address [address] [place] [address] Support Name Relationship Address Phone NARABEVERLY DOTSON Next of Kin [address] [place] [address] BEVERLY BROWN Emergency Contact [address] [place] [address] Insurance Providers: All historical and current Section Date Range: From patient's date of to the date document was created. This section includes the names of all active insurance providers for the patient. Insurance Provider Type of Coverage Plan Name Start of Policy Coverage End of Policy Coverage Group Number Member ID Insurance Provider's Telephone Number Policy Cornell's Name Patient's Relationship to Policy Cornell [facility] Dec 01, 2023 [id number] JAE DAMON PATIENT [place] SPECIAL [place] Jul 28, 2023 DELMY ENCINAS [id number] JAE DAMON PATIENT [facility] Jun 02, 2022 [id number] JAE DAMON PATIENT Selected Encounter This section includes the information on record at [place] for the Encounter. Date/Time Encounter Type Encounter Description Reason Provider Source Aug 09, 2024 09:00 AM HEARING AID REPAIR/MODIFYING AUDIOLOGY ICD-10-CM Z46.1 Encounter for fitting and adjustment of hearing aid JARVIS DECKER Encounter Template Text not used by [place] Assessments - Encounter Diagnoses This section includes the primary and secondary diagnoses documented for the Encounter. Date/Time Primary/Secondary Diagnosis Diagnosis Name Provider Source Aug 09, 2024 09:04 AM PRIMARY Encounter for fitting and adjustment of hearing aid [facility] Aug 09, 2024 09:04 AM SECONDARY Sensorineural hearing loss, bilateral [facility] ROGEL [facility] Encounter Notes: All associated encounter notes This section contains the clinical notes associated to the Encounter. Date/Time Encounter Note(s) Provider Source Aug 09, 2024 07:34 AM AUDIOLOGY NOTE: LOCAL TITLE: AUDIOLOGY HEALTH BIAS CUTTER HELPER STANDARD TITLE: AUDIOLOGY NOTE DATE OF NOTE: AUG 09, 2024@07:34 ENTRY DATE: AUG 09, 2024@07:34:33 AUTHOR: KALEN ROGEL COSIGNER: JARVIS DECKER URGENCY: STATUS: COMPLETED August 09, 2024 History/Background: [employer] was seen for a hearing aid follow up, unaccompanied. The [employer] presented today requesting maintenance on his hearing aids. The [employer] stated he was replacing domes and wax [...] up as needed. Suicide Screen: C-SSRS Screening Kleberg-Suicide Severity Rating Scale (C-SSRS Screener) 1. Over [...] other questions. /evgeny/ KALEN ROGEL Audiology Health Surgical Rn Signed: 08/09/2024 09:05 /evgeny/ Michelle LOJA, [facility] [place] Machine Operator Helper Chief, Audiology Cosigned: 08/09/2024 13:16 KALEN ROGEL [facility]
--- OUTSIDE RECORDS SUMMARY | 2024-10-13 08:34 | XMS_ITS | Patient Health Record ---
Author Organization [facility] Haley Mccloudley Address [address] [place] [address] Care Team Providers Care Machine Hoop Maker Name Role Phone Armida Canchola MD Primary Care Provider Fabiana Grossman Unavailable [phone] Neel Lyons Unavailable [phone] Allergies Allergen (clinical drug ingredient) Drug/Non Drug Allergy documented on EMR Reaction Allergy Type Onset Date Status colchicine Colchicine can't remember Drug Allergy Active Results Component Value Reference Range Notes HEMOGLOBIN A1C (GLYCOHEMOGLO BIN) Reviewed date:09/06/2024 10:07:10 AM Interpretation: Performing Lab: Notes/Report: HEMOGLOBIN A1C % (HH) 5.7 Reason For Referral Diagnosis 1 Other viral warts (B 07.8) Diagnosis 2 Pain in right foot ( M79.671) Diagnosis 3 Pain in left foot (M 79.672) Diagnosis 4 Pain in right toe(s) (M79.674) Diagnosis 5 Pain in left toe(s) (M79.675) Diagnosis 6 Tinea unguium (B35.1 ) Diagnosis 7 Type 2 diabetes judah itus with diabetic polyneuropathy (E11.42) Referring Provider First Name Armida Referring Provider Last Name Sushant [facility] Referred Provider Neel Lyons Referred Address [address] [facility],[place],[address], Referred Provider Specialty Podiatry Referral Priority Routine Diagnosis 1 Pain in right foot ( M79.671) Diagnosis 2 Pain in left foot (M 79.672) Diagnosis 3 Type 2 diabetes judah itus with diabetic polyneuropathy (E11.42) Diagnosis 4 Other viral warts (B 07.8) Diagnosis 5 Pain in right toe(s) (M79.674) Diagnosis 6 Pain in left toe(s) (M79.675) Diagnosis 7 Tinea unguium (B35.1 ) Diagnosis 8 Pain in Limb (729.5) Diagnosis 9 Joint disorder, unsp ecified (M25.9) Diagnosis 10 Hammer toe (735.4) Referring Provider First Name Armida Referring Provider Last Name Sushant Referred [facility] Referred Provider Fabiana Tan [facility] Address [address] [facility] [place],[address] Referred Provider Specialty Podiatry Referral Priority Routine Medications Medication SIG (Take, Route, Frequency, Duration) Notes Start Date End Date Status Indapamide 1.25 MG 1 tablet in the morn ing Orally Once a day for 30 day(s) Active Chantix 1 MG 1 tablet Orally Twic e a day Unknown Pravastatin Sodium 10 MG 2 tablets Orall y Once a day for 30 day(s) Active Nabumetone 750 MG 1 tablet Orally Twic e a day for 30 day(s) 09/02/2016 Unknown Extra Depth Diabetic Shoes with 3 Pair Custom heat-molded multi-density innersoles for 1 year Dx: Active Chantix Unknown Enbrel 25 MG as directed Subcutaneous Unknown Simponi 50 MG/0.5ML as directed Subcutaneous Unknown oxyCODONE-Acetaminophen daily Unknown metFORMIN HCl 500 MG 1 tablet with meals Orally Twice a day Active Lisinopril Active amLODIPine Besylate Active Jardiance 25 MG 1 tablet Orally Once a day for 30 day(s) Active prednisoLONE Acetate Unknown Omeprazole 20 MG 1 capsule 30 minutes before morning meal Orally Once a day for 30 day(s) Active Percocet 5-325 MG 1 tablet as needed O rally every 6 hrs Unknown Immunizations Vaccine Route Administration Date Status Comme nts COVID-19 Pfizer BioNTech Vaccine Unknown 03/02/2022 Administered 08/24/20, 01/21/21 09/15/20, 2021 Influenza Unknown 03/03/2017 Administered Influenza Unknown 03/16/2018 Administered Influenza Unknown 03/02/2022 Administered Social History Tobacco Use: Social History Observation [...] month (2 points) Points 3 Interpretation Negative Section Notes: She smokes 2 packs per day. She smokes 2 packs per day. She smokes 2 packs per day. She smokes 2 packs per day. She smokes 2 packs per day. She smokes 2 packs per day. She smokes 2 packs per day. She smokes 2 packs per day. She smokes 2 packs per day. She smokes 2 packs per day. She smokes 2 packs per day. She smokes 2 packs per day. She smokes 2 packs per day. She smokes 2 packs per day. She smokes 2 packs per day. She smokes 2 packs per day. She smokes 2 packs per day. She smokes 2 packs per day. She smokes 2 packs per day. She smokes 2 packs per day. She smokes 2 packs per day. She smokes 2 packs per day. She smokes 2 packs per day. She smokes 2 packs per day. She smokes 2 packs per day. She smokes 2 packs per day. She smokes 2 packs per day. She smokes 2 packs per day. She smokes 2 packs per day. She smokes 2 packs per day. She smokes 2 packs per day. She smokes 2 packs per day. She smokes 2 packs per day. She smokes 2 packs per day. She smokes 2 packs per day. She smokes 2 packs per day. She smokes 2 packs per day. She smokes 2 packs per day. She smokes 2 packs per day. She smokes 2 packs per day. She smokes 2 packs per day. She smokes 2 packs per day. he smokes 2 packs per day. he smokes 2 packs per day. he smokes 2 packs per day. he smokes 2 packs per day. he smokes 2 packs per day. he smokes 2 packs per day. he smokes 2 packs per day. he smokes 2 packs per day. he smokes 2 packs per day. he smokes 2 packs per day. he smokes 2 packs per day. he smokes 2 packs per day. he smokes 2 packs per day. he smokes 2 packs per day. he smokes 2 packs per day. She smokes 2 packs per day. She smokes 2 packs per day. She smokes 2 packs per day. She smokes 2 packs per day. She smokes 2 packs per day. She smokes 2 packs per day. She smokes 2 packs per day. She smokes 2 packs per day. She smokes 2 packs per day. She smokes 2 packs per day. She smokes 2 packs per day. She smokes 2 packs per day. he smokes 2 packs per day. he smokes 2 packs per day. he smokes 2 packs per day. he smokes 2 packs per day. he smokes 2 packs per day. he smokes 2 packs per day. he smokes 2 packs per day. he smokes 2 packs per day. he smokes 2 packs per day. he smokes 2 packs per day. he smokes 2 packs per day. he smokes 2 packs per day. he smokes 2 packs per day. he smokes 2 packs per day. he smokes 2 packs per day. he smokes 2 packs per day. he smokes 2 packs per day. he smokes 2 packs per day. he smokes 2 packs per day. he smokes 2 packs per day. he smokes 2 packs per day. he smokes 2 packs per day. he smokes 2 packs per day. he smokes 2 packs per day. he smokes 2 packs per day. he smokes 2 packs per day. he smokes 2 packs per day. he smokes 2 packs per day. he smokes 2 packs per day. he smokes 2 packs per day. he smokes 2 packs per day. he smokes 2 packs per day. he smokes 2 packs per day. he smokes 2 packs per day. he smokes 2 packs per day. he smokes 2 packs per day. She smokes 2 packs per day. Problems Problem Type SNOMED Code ICD Code Onset Dates Problem Status W/U Status Risk Notes Problem Pain in right foot (260536911331705) Pain in right foot (M79.671) Active confirmed Problem Pain in left foot (853610969276138) Pain in left foot (M79.672) Active confirmed Problem Polyneuropathy due to type 2 diabetes mellitus (221884286) Type 2 diabetes mellitus with diabetic polyneuropathy (E11.42) Active confirmed Vital Signs Blood pressure diastolic 70 mm Hg 09/06/2024 Height 5 ft 11 in in 09/06/2024 Blood pressure systolic 130 mm Hg 09/06/2024 Weight 205 lbs 09/06/2024 BMI 28.59 kg/m2 09/06/2024 Procedures Procedure Date Ordered Date Performed Result Body Sit e 80984-KIIKKLC NAIL, 6 OR MORE 06/14/2024 N/A 37310-JFSY SKIN LESIONS, 2 TO 4 06/14/2024 N/A 94189-EUPWUVG NAIL, 6 OR MORE 09/06/2024 N/A 28135-FGCQ SKIN LESIONS, 2 TO 4 09/06/2024 N/A Encounters Encounter Location Date Provider Diagnosis [facility] [address] [address] 11/10/2023 Neel Lyons Tinea unguium B35.1 ; Other viral warts B07.8 ; Pain in left foot M79.672 ; Pain in right foot M79.671 ; Type 2 diabetes mellitus with diabetic polyneuropathy E11.42 ; Pain in right toe(s) M79.674 and Pain in left toe(s) M79.675 [facility] [address] 01/19/2024 Neel Lyons Tinea unguium B35.1 ; Other viral warts B07.8 ; Pain in left foot M79.672 ; Pain in right foot M79.671 ; Type 2 diabetes mellitus with diabetic polyneuropathy E11.42 ; Pain in right toe(s) M79.674 and Pain in left toe(s) M79.[address] [address] 04/01/2024 Neel Lyons Tinea unguium B35.1 ; Other viral warts B07.8 ; Pain in left foot M79.672 ; Pain in right foot M79.671 ; Type 2 diabetes mellitus with diabetic polyneuropathy E11.42 ; Pain in right toe(s) M79.674 and Pain in left toe(s) M79.[address] [address] 06/14/2024 Fabiana Tan Type 2 diabetes mellitus with diabetic polyneuropathy E11.42 and Tinea unguium B35.[address] [address] 09/06/2024 Fabiana Tan Type 2 diabetes mellitus with diabetic polyneuropathy E11.42 and Tinea unguium B35.1 Assessments Encounter Date Diagnosis (ICD Code) Assessment Notes Treatment Notes Treatment Clinical Notes Section Notes 11/10/2023 Tinea unguium (ICD-10 - B35.1) 01/19/2024 Tinea unguium (ICD-10 - B35.1) 04/01/2024 Tinea unguium (ICD-10 - B35.1) 06/14/2024 Type 2 diabetes mellitus with diabetic polyneuropathy (ICD-10 - E11.42) 06/14/2024 Tinea unguium (ICD-10 - B35.1) 09/06/2024 Type 2 diabetes mellitus with diabetic polyneuropathy (ICD-10 - E11.42) 09/06/2024 Tinea unguium (ICD-10 - B35.1) 04/01/2024 Other viral warts (ICD-10 - B07.8) 01/19/2024 Other viral warts (ICD-10 - B07.8) 11/10/2023 Other viral warts (ICD-10 - B07.8) 11/10/2023 Pain in left foot (ICD-10 - M79.672) 01/19/2024 Pain in left foot (ICD-10 - M79.672) 04/01/2024 Pain in left foot (ICD-10 - M79.672) 01/19/2024 Pain in right foot (ICD-10 - M79.671) 11/10/2023 Pain in right foot (ICD-10 - M79.671) 04/01/2024 Pain in right foot (ICD-10 - M79.671) 11/10/2023 Type 2 diabetes mellitus with diabetic polyneuropathy (ICD-10 - E11.42) 01/19/2024 Type 2 diabetes mellitus with diabetic polyneuropathy (ICD-10 - E11.42) 04/01/2024 Type 2 diabetes mellitus with diabetic polyneuropathy (ICD-10 - E11.42) 04/01/2024 Pain in right toe(s) (ICD-10 - M79.674) 11/10/2023 Pain in right toe(s) (ICD-10 - M79.674) 01/19/2024 Pain in right toe(s) (ICD-10 - M79.674) 01/19/2024 Pain in left toe(s) (ICD-10 - M79.675) 11/10/2023 Pain in left toe(s) (ICD-10 - M79.675) 04/01/2024 Pain in left toe(s) (ICD-10 - M79.675) Plan Of Treatment Pending Test Test Name Order Date X ray : Foot, left 2V 09/02/2016 X ray : Foot, right 3V 09/15/2013 55060-PRUBNTO NAIL, 6 OR MORE 12/13/2013 90888-PNUZJIA NAIL, 6 OR MORE 03/07/2014 41555-PBOYAET NAIL, 6 OR MORE 05/09/2014 11840-PUBVWQN NAIL, 6 OR MORE 08/01/2014 49762-SJYGWIH NAIL, 6 OR MORE 11/28/2014 41228-BVJTKJT NAIL, 6 OR MORE 12/09/2016 26776-NAUKATA NAIL, 6 OR MORE 05/20/2016 03127-MNKWGER NAIL, 6 OR MORE 08/05/2016 86707-KGKHQDM NAIL, 6 OR MORE 02/17/2017 45384-XUBHLXN NAIL, 6 OR MORE 04/21/2017 65461-XOQLLBQ NAIL, 6 OR MORE 02/20/2015 80361-JXMTMWF NAIL, 6 OR MORE 05/22/2015 56645-MAERQCQ NAIL, 6 OR MORE 08/07/2015 88836-ZOAWFAN NAIL, 6 OR MORE 10/16/2015 39731-CPOXZFA NAIL, 6 OR MORE 12/18/2015 07705-JQJRGYE NAIL, 6 OR MORE 02/19/2016 72290-PLFGLUA NAIL, 6 OR MORE 02/18/2011 13135-MWNJSTD NAIL, 6 OR MORE 05/20/2011 96111-MOSFKDR NAIL, 6 OR MORE 06/19/2011 13632-GIKQEYB NAIL, 6 OR MORE 07/29/2011 41166-CHJMONM NAIL, 6 OR MORE 08/26/2011 05530-NRUCDBM NAIL, 6 OR MORE 11/06/2011 32296-SDOOCCQ NAIL, 6 OR MORE 01/27/2012 41238-DCGYXNO NAIL, 6 OR MORE 04/20/2012 84310-FMKFYKP NAIL, 6 OR MORE 06/24/2012 64228-YDHHTTL NAIL, 6 OR MORE 08/31/2012 06742-JTYNEBZ NAIL, 6 OR MORE 01/13/2013 90721-YXLVHGS NAIL, 6 OR MORE 03/08/2013 90230-CXEGETG NAIL, 6 OR MORE 06/16/2013 90468-UZVKIGQ NAIL, 6 OR MORE 09/15/2013 08097-GEWDZVS NAIL, 6 OR MORE 04/20/2018 84465-UIVLLHF NAIL, 6 OR MORE 06/23/2017 46093-BWINDSR NAIL, 6 OR MORE 08/25/2017 62289-SEKOJMX NAIL, 6 OR MORE 11/10/2017 11891-XSMEUDE NAIL, 6 OR MORE 01/26/2018 76832-OKHAGFH NAIL, 6 OR MORE 06/14/2024 18687-OHVRWSN NAIL, 6 OR MORE 09/06/2024 54436-Sggx Destruction, 1-14 01/23/2015 19033-Lfzt Destruction, -14 01/26/2018 13785-Mfvf Destruction, -14 11/10/2017 03084-Knml Destruction, -14 12/08/2017 75219-Xclq Destruction, 06-1508/25/2017 53935-Ckhj Destruction, 06-1510/06/2017 48903-Ynlb Destruction, 06-1506/23/2017 42248-Fsol Destruction, 06-1507/28/2017 84045-Cgkj Destruction, 06-1504/20/2018 44056-Hltt Destruction, 06-1509/15/2013 08171-Imix Destruction, 06-1508/09/2013 95392-Bdzx Destruction, 06-1506/16/2013 22187-Lyhc Destruction, 06-1507/12/2013 29742-Euoq Destruction, 06-1502/15/2013 54292-Jyjj Destruction, 06-1503/08/2013 51645-Tuos Destruction, 06-1504/07/2013 10161-Nkzs Destruction, 06-1504/26/2013 49523-Wbkb Destruction, 06-1501/13/2013 71390-Ieot Destruction, 06-1512/16/2012 25185-Ivbf Destruction, 06-1510/21/2012 33353-Khgn Destruction, 06-1511/18/2012 35571-Ztnl Destruction, 06-1508/31/2012 55789-Qqbf Destruction, 06-1509/21/2012 33579-Ysis Destruction, 06-1506/24/2012 18693-Ojye Destruction, 06-1507/27/2012 71384-Uflu Destruction, 06-1504/20/2012 47753-Lcnl Destruction, 06-1505/18/2012 14144-Cnvy Destruction, 06-1502/24/2012 38830-Dmrn Destruction, 06-1503/23/2012 71603-Imqg Destruction, 06-1501/27/2012 93855-Xihs Destruction, 06-1512/30/2011 97632-Hyqv Destruction, 06-1511/06/2011 87713-Jlwi Destruction, 06-1512/02/2011 22173-Axre Destruction, 06-1509/25/2011 15458-Ayzs Destruction, 06-1508/26/2011 65364-Vpuy Destruction, 06-1507/29/2011 15255-Biin Destruction, 06-1506/19/2011 09044-Zvlu Destruction, 06-1505/20/2011 60157-Hfze Destruction, 06-1504/17/2011 95904-Talm Destruction, 06-1502/18/2011 28667-Vfcs Destruction, 06-1503/18/2011 95739-Bfgk Destruction, 06-1502/19/2016 25691-Uwos Destruction, 06-1503/25/2016 01426-Rqxh Destruction, 06-1512/18/2015 03390-Dtjq Destruction, 06-1501/08/2016 37086-Hebv Destruction, 06-1510/16/2015 87274-Gpew Destruction, 06-1508/07/2015 23281-Wsqk Destruction, 06-1509/11/2015 38597-Osyq Destruction, 06-1505/22/2015 19718-Azwj Destruction, 06-1507/03/2015 07840-Msoy Destruction, 06-1503/20/2015 91779-Uegx Destruction, 06-1504/17/2015 81854-Zzup Destruction, 06-1502/20/2015 48168-Itja Destruction, 06-1504/21/2017 31217-Hlsh Destruction, 06-1505/19/2017 59388-Imew Destruction, 06-1502/17/2017 04328-Tluq Destruction, 06-1503/24/2017 32039-Merj Destruction, 06-1508/05/2016 72769-Hqji Destruction, 06-1509/02/2016 07150-Ikgr Destruction, 06-1505/20/2016 33086-Nqng Destruction, 06-1506/24/2016 66357-Uncj Destruction, 06-1512/09/2016 09958-Zdll Destruction, 06-1511/28/2014 37475-Svfj Destruction, 06-1512/26/2014 25239-Ogpg Destruction, 06-1508/29/2014 39022-Rwyw Destruction, 06-1509/26/2014 08308-Ubjy Destruction, 06-1510/31/2014 32140-Jyus Destruction, 06-1508/01/2014 97813-Jzqs Destruction, 06-1506/06/2014 51778-Npvd Destruction, 06-1507/04/2014 81712-Fadm Destruction, 06-1505/09/2014 08069-Sgqt Destruction, -04/04/2014 89654-Vzjp Destruction, -03/07/2014 73211-Bihg Destruction, -02/07/2014 91457-Iqfu Destruction, -12/13/2013 34986-Kioq Destruction, -01/10/2014 16805-Jqsu Destruction, -10/04/2013 23275-Ooln Destruction, -11/08/2013 43223- Debride <25 sq cm 11/08/2013 16783- Debride <25 sq cm 10/04/2013 21613- Debride <25 sq cm 01/10/2014 63429- Debride <25 sq cm 12/13/2013 45856- Debride <25 sq cm 02/07/2014 54000- Debride <25 sq cm 03/07/2014 32889- Debride <25 sq cm 04/04/2014 91193- Debride <25 sq cm 05/09/2014 51152- Debride <25 sq cm 07/04/2014 30573- Debride <25 sq cm 06/06/2014 83971- Debride <25 sq cm 08/01/2014 04073- Debride <25 sq cm 08/29/2014 85580- Debride <25 sq cm 10/31/2014 07921- Debride <25 sq cm 09/26/2014 80567- Debride <25 sq cm 12/26/2014 15754- Debride <25 sq cm 01/23/2015 81127- Debride <25 sq cm 11/28/2014 18478- Debride <25 sq cm 02/20/2015 90233- Debride <25 sq cm 03/20/2015 78980- Debride <25 sq cm 03/18/2011 90674- Debride <25 sq cm 02/18/2011 94375- Debride <25 sq cm 04/17/2011 33700- Debride <25 sq cm 05/20/2011 05552- Debride <25 sq cm 06/19/2011 63341- Debride <25 sq cm 07/29/2011 91294- Debride <25 sq cm 08/26/2011 41632- Debride <25 sq cm 09/25/2011 16703- Debride <25 sq cm 12/02/2011 56020- Debride <25 sq cm 11/06/2011 12549- Debride <25 sq cm 12/30/2011 11598- Debride <25 sq cm 01/27/2012 73111- Debride <25 sq cm 03/23/2012 61023- Debride <25 sq cm 02/24/2012 24499- Debride <25 sq cm 05/18/2012 81214- Debride <25 sq cm 04/20/2012 97387- Debride <25 sq cm 07/27/2012 21212- Debride <25 sq cm 06/24/2012 40463- Debride <25 sq cm 09/21/2012 08422- Debride <25 sq cm 08/31/2012 24804- Debride <25 sq cm 11/18/2012 88798- Debride <25 sq cm 10/21/2012 79397- Debride <25 sq cm 12/16/2012 04636- Debride <25 sq cm 01/13/2013 58353- Debride <25 sq cm 04/26/2013 08288- Debride <25 sq cm 04/07/2013 22465- Debride <25 sq cm 02/15/2013 23598- Debride <25 sq cm 03/08/2013 26215- Debride <25 sq cm 07/12/2013 29561- Debride <25 sq cm 08/09/2013 90058- Debride <25 sq cm 06/16/2013 60187- Debride <25 sq cm 09/15/2013 76825-FSOE SKIN LESIONS, OVER 4 02/18/20 17 06869-HKCQ SKIN LESIONS, OVER 4 10/08/19 17 02592-HSST SKIN LESIONS, OVER 4 12/10/19 17 23088-FBJI SKIN LESIONS, OVER 4 04/21/20 17 94301-UHZL SKIN LESIONS, OVER 4 06/23/19 18 75380-GWNH SKIN LESIONS, OVER 4 06/29/19 19 34500-QXPT SKIN LESIONS, OVER 4 09/01/19 19 23671-BPKP SKIN LESIONS, OVER 4 11/03/19 19 67030-VLCL SKIN LESIONS, OVER 4 01/05/20 19 14375-QXPL SKIN LESIONS, OVER 4 03/29/20 19 20456-JFAZ SKIN LESIONS, OVER 4 06/14/19 94440-AVUE SKIN LESIONS, OVER 4 08/16/19 80985-DSOI SKIN LESIONS, OVER 4 11/01/19 36375-DZRC SKIN LESIONS, OVER 4 01/24/20 62574-JXGH SKIN LESIONS, OVER 4 04/24/20 56285-SSBU SKIN LESIONS, OVER 4 07/10/19 47067-PGYE SKIN LESIONS, OVER 4 09/19/19 15753-EVRM SKIN LESIONS, OVER 4 11/28/19 05624-RAKV SKIN LESIONS, OVER 4 02/23/20 86830-FMLB SKIN LESIONS, OVER 4 07/02/19 29843-SRCB SKIN LESIONS, OVER 4 09/04/19 00296-GFTC SKIN LESIONS, OVER 4 08/26/19 18 72100-IWNI SKIN LESIONS, OVER 4 11/11/19 18 60971-KSPG SKIN LESIONS, OVER 4 01/27/20 18 56887-UXGW SKIN LESIONS, OVER 4 04/20/20 18 56080-JZUW SKIN LESIONS, 2 TO 4 06/14/19 45166-JXOU SKIN LESIONS, 2 TO 4 09/07/19 Next Appt Details Provider Name:Fabiana kay, 11/08/2024 09:00:00 AM, [address] [place] [address], [phone], Provider Name:Fabiana kay, 01/10/2025 09:15:00 AM, [address] [place] [address], [phone], Insurance Providers Payer Name Payer Address Payer Phone Subscriber Number Group Number Insured Name Patient Relationship to Insured Coverage Start Date Coverage End Date [facility] [address] [place] [address] [phone] [id number] Benedicto Ramirez Self - patient is the insured Medical (General) History Medical History History ICD Code psoriasis high blood pressure Arthritis type II diabetes Surgical History Surgery Date(Month/Year) Hospitalization History Reason Date(Month/Year)
--- OUTSIDE RECORDS SUMMARY | 2024-10-13 08:34 | XMS_ITS ---
[facility] Address [address] [place] [address] Care Team Providers Care Bank Teller Machine Mechanic Name Role Phone Armida Canchola MD Primary Care Provider Fabiana Grossman Unavailable [phone] Neel Lyons Unavailable [phone] Allergies Allergen (clinical drug ingredient) Drug/Non Drug [...] 04/01/2024 Encounters Encounter Location Date Provider Diagnosis [facility] [address] [address] 04/01/2024 Neel Lyons Tinea unguium B35.1 ; [...] Up: 2 Months, Reason: Provider Name:Fabiana kay, 11/08/2024 09:00:00 AM, [address] [place] [address], [phone], Provider Name:Fabiana Pete eliza, 01/10/2025 09:15:00 AM, [address] [place] [address], [phone], Procedure Notes * Category Sub-Category Detail Notes [...] as necessary. Patient chooses, no pharmaceutical tx (85798) Keratoma Treatment Parring or Cutting o f Benign Hyperkeratotic Lesion(s) 28071 ( >4 Lesions) - The Benign hyperkeratotic lesions, as described above were pared, and/or cut utilizing a sterile #15 blade, tissue nippers, and/or dremel Progress Notes * NARABenedicto DOTSONDOB: [birth year] (78 yo M)Acc No.[id number]:04/01/2024 Progress Note Patient:?Benedicto BROWN Provider:?Neel Lyons DPM :1945???Age:78 Y???Sex:Male Juwan e:04/01/2024 Address:[address] [place], [place] [id number] Pcp:Armida Canchola MD Subjective: * Chief Complaints: [...] ?Exercise: yes, Camp. ?Marital status: . 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 * Medications:?TakingExtra Dep th Diabetic Shoes with [...] as necessary. Patient chooses, no pharmaceutical tx (40239).?Keratoma Treatment:?Parring or Cutting of Benign Hyperkeratotic Lesion(s)?28381 ( >4 Lesions) - The Benign hyperkeratotic lesions, as described above were pared, and/or cut utilizing a sterile #15 blade, tissue nippers, and/or dremel.?Wart Treatment:?Procedure?Verrucae(s) were debrided to pin-point bleeding with sterile surgical blade, silver nitrate chemocautery applied, DIABETES: Any more invasive procedure to wart deferred due to diabetes risk.? * Procedure Codes:?85992 DEBRI DE NAIL, 6 OR MORE, Modifiers: XS 51180 Wart Destruction, 1-14, Modifiers: XS 81161 TRIM SKIN LESIONS, OVER 4, Modifiers: XS * Follow Up:?2 Months * Images: * Sign off status: Completed true * Provider:?Neel Lyons DPM Date:? 024 Generated for Kyle cotton/Salvador/Jyotiitting on:?10/13/2024 08:33 AM EDT History and Physical [...]
[2024-10-13 09:52] LABS: MANUAL DIFF FLAG NO
[2024-10-13 10:02] LABS: Basophils Absolute Auto 0.1 X10*3/uL (0.0-0.2); Basophils Percent Auto 0.8 % (0-2); Eosinophils Absolute Auto 0.6 X10*3/uL (0.0-0.4); Eosinophils Percent Auto 8.9 % (0-4); Hematocrit 41.5 % (42.0-52.0); Hemoglobin 14.3 g/dl (14.0-18.0); Imm Gran Abs Auto 0.01 X10*3/uL (0.00-0.03); Imm Gran Pct Auto 0.1 % (0.0-0.4); Lymphocytes Absolute Auto 2.8 X10*3/uL (1.2-4.9); Lymphocytes Percent Auto 39.2 % (20-40); Mean Corpuscular HGB Conc 34.5 g/dl (31.0-36.0); Mean Corpuscular Hemoglobin 30.4 pg (27.0-33.0); Mean Corpuscular Volume 88.1 fL (80.0-98.0); Mean Platelet Volume 9.2 fL (9.4-12.4); Monocytes Absolute Auto 0.7 X10*3/uL (0.1-1.2); Monocytes Percent Auto 9.7 % (2-11); Neutrophils Absolute Auto 2.9 x10*3/uL (2.0-8.3); Neutrophils Percent Auto 41.3 % (45-73); Platelet Count 233 X10*3/uL (160-400); Red Blood Count 4.71 X10*6/uL (4.60-5.80); Red Cell Distribution Width 12.9 % (11.0-16.0); White Blood Count 7.1 X10*3/uL (4.8-10.8)
[2024-10-13 10:14] LABS: Estimated Average Glucose 134 mg/dL; Hemoglobin A1C 167.9959 umol/L; Hemoglobin A1c % 6.3 % (<6.0); Total Hemoglobin (HGBA1C) 3727.2247 umol/L
[2024-10-13 10:25] LABS: Creatinine Urine 81.97 mg/dL; Microalbum/Creatinine Ratio Ur 59.7 ug/mg cr (<30)
[2024-10-13 10:44] LABS: Alanine Aminotransferase 19 U/L (0-40); Alkaline Phosphatase 53 U/L (39-117); Anion Gap 17 (12-20); Aspartate Amino Transferase 26 U/L (5-37); Bilirubin Total 0.3 mg/dL (0.0-1.0); Blood Urea Nitrogen 51 mg/dL (9-16); Calcium 8.9 mg/dL (8.4-10.2); Carbon Dioxide 21 mmol/L (22-29); Chloride 107 mmol/L (96-108); Cholesterol 162 mg/dL (<200); Estimated Glomerular Filt Rate 34; Glucose Fasting 157 mg/dL (60-99); HDL Cholesterol 42 mg/dL (>40); LDL Cholesterol Calculated 80 mg/dL (<100); Potassium 4.3 mmol/L (3.3-5.1); Sodium 141 mmol/L (135-145); Total Protein 6.9 g/dL (6.5-8.0); Triglycerides 201 mg/dL (<150)
== END 2024-10-13 08:22 | disposition home or self-care (01) ==
LOC: HO.HMGCLDS 08:21
PROVIDERS: PCP Internal Medicine; Visit Provider Internal Medicine
DX: E11.9 Type 2 diabetes mellitus without complications (principal); E78.5 Hyperlipidemia, unspecified; I10 Essential (primary) hypertension
CPT/HCPCS: 36415; 80053; 80061; 82043; 82570; 83036; 85025

== ENCOUNTER 2024-10-20 12:10 | Outpatient (AMB) | payer BC, SELFPAY ==
[2024-10-20 12:19] VITALS: BP 138/66; PULSE 92; RESP 18; O2SAT 96; BMI 33.9
--- NOTE | 2024-10-20 12:19 | MHC.PC.OV ---
Vital Signs 10/20/24 12:19 Height 5 ft 11 in Weight 243 lb BMI 33.9 BP 138/66 Blood Pressure Location Lt brachial Position Sitting Respiration 18 Pulse 92 Pulse Source Pulse Oximeter Pulse Oximetry (%) 96 Oxygen Delivery Method Room Air Intake Visit Reasons: 2 months f/u Intake Note: Pt is here today for 2 months follow up visit. Pt states that he has been having lower back pain and its getting worst. Allergies bupropion [From Wellbutrin] Allergy (Unknown, Verified 10/20/24 12:33) n/a hydroxychloroquine [From Plaquenil] Allergy (Unknown, Verified 10/20/24 12:33) n/a indomethacin [Indocin] Allergy (Unknown, Verified 10/20/24 12:33) Abdominal Pain meloxicam [Mobic] Allergy (Unknown, Verified 10/20/24 12:33) n/a Medication List - Last Reconciled 10/20/24 by Armida Canchola MD amlodipine 10 mg PO DAILY aspirin (Adult Low Dose Aspirin) 81 mg PO DAILY empagliflozin 25 mg PO DAILY furosemide (Lasix) 40 mg PO DAILY golimumab mg subcut indapamide 1.25 mg PO DAILY lisinopril 40 mg PO DAILY oxycodone-acetaminophen 5-325 mg 1 tab PO Q6H pravastatin 10 mg PO BEDTIME Tobacco use date assessed: 10/20/24 Fall risk assessment: No Falls in past year Last assessed Fall Risk: 10/20/24 Dental Screening Dental Screen Date: 08/02/24 HPI 2 months f/u HPI Details Pt presents for f/u HTN, DM 2, hyperlipid. Pt c/o worsening of lower back pain radiating to both lower extremities. Patient has difficulty walking and had to sell his summer house. Patient is able to walk mainly to the bathroom but otherwise sits in the chair most of his days. Patient denies any change in bowel or bladder function. Lower extremity swelling improved on furosemide PFSH Medical History Wears hearing aid in both ears Tubular adenoma of colon History of rectal fissure Foot pain Ear pain, left Colonoscopy refused Ex-smoker Psoriatic arthritis Hyperlipidemia HTN (hypertension) DM type 2 (diabetes mellitus, type 2) Surgical History Hx of colonoscopy Hx of arthroscopic knee surgery Family History Father No problems noted. Mother No problems noted. Son No problems noted. Son No problems noted. Other Hx of arthroscopic knee surgery Social History Housing: House Patient Tobacco Use Status: Former Tobacco user Tobacco use type: Cigarette Cigarette Packs Per Day: 2 Cigarettes Per Day: 40 e-Cigarette/Vaping Use: Never Used service: Yes Current occupational status: retired Cognitive needs: No Hearing needs: No Vision needs: Yes Questionnaire PHQ-9 Over the last 2 weeks, how often have you been bothered by any of the following problems? 1. Little interest or pleasure in doing things: not at all 2. Feeling down, depressed, or hopeless: not at all 3. Trouble falling or staying asleep, or sleeping too much: more than half the days 4. Feeling tired or having little energy: more than half the days 5. Poor appetite or overeating: several days 6. Feeling bad about yourself - or that you are a failure or have let yourself or your family down: not at all 7. Trouble concentrating on things, such as reading the newspaper or watching television: not at all 8. Moving or speaking so slowly that other people could have noticed. Or the opposite - being so fidgety or restless that you have been moving around a lot more than usual: not at all 9. Thoughts that you would be better off or of hurting yourself in some way: not at all Total score: 5 Depression Screening Interpretation: Negative Depression Screening Done: Yes 95603 - PHQ-9 Billing: Yes Source: Developed by Drs. Alec Wade, Araseli Jolly, Loco De Leon and colleagues, with an educational saranya from [employer]. Thrive Questionnaire Date Thrive assessed: 07/26/24 I am a: Patient What is your living situation today?: I have a steady place to live Within the past 12 months, did the food you bought not last and you didn't have the money to get more?: Never true Within the past 12 months, did you worry whether your food would run out before you got money to buy more?: Never true Do you have trouble paying for medicines?: No Do you have trouble getting transportation to medical appointments?: No Do you have trouble paying your heating and electricity bill?: No Do you have trouble taking care of your child, family member or friend?: No Do you have trouble with day-to-day activities such as bathing, preparing meals, shopping, managing finances, etc.?: No Are you currently unemployed and looking for a job?: No Are you interested in more education?: No Please select the resources that you would like help with: None Currently or been in a relationship where the following occur: No concerns reported THRIVE Score: 0 MIKE-7 AMB Questionnaire MIKE-7 Date MIKE - 7 assessed: 08/02/24 Source: Developed by Drs. Alec Wade, Araseli Jolly, Loco De Leon and colleagues, with an educational saranya from [employer]. Review of Systems Const All systems reviewed & are unremarkable except as noted in HPI and below Eyes Reports no additional complaints ENT Reports no additional complaints GI Reports no additional complaints Reports no additional complaints Physical exam (Primary Care) Vital Signs: Last Vital Signs Pulse 92 10/20/24 12:19 Resp 18 10/20/24 12:19 BP 138/66 10/20/24 12:19 Pulse Ox 96 10/20/24 12:19 Oxygen Delivery Method Room Air 10/20/24 12:19 BMI result Body Mass Index 33.9 Tobacco/Smoking Status: Tobacco use Status Tobacco use date assessed 10/20/24 10/20/24 12:40 Patient Tobacco Use Status Former Tobacco user 10/20/24 12:19 Tobacco use type Cigarette 10/20/24 12:19 e-Cigarette/Vaping Use Never Used 10/20/24 12:19 Depression Screening Interpretation: Negative Thrive Assessment: Date of Thrive Assessment Date Thrive assessed 07/26/24 10/20/24 12:19 Currently or been in a relationship where the following occur: No concerns reported Const General: no acute distress HENMT Head: Yes normal to inspection Mouth: Normal oral and palatal mucosa present Eyes General: appearance normal, both eyes and all related structures Resp Effort & Inspection: normal respiratory effort Auscultation: clear to auscultation bilaterally Cardio Rhythm: regular rhythm Heart sounds: S1 normal heart sound present and S2 normal heart sound present GI Inspection: Yes normal to inspection Palpation (GI): Soft to palpation Back/Spine/Pelvis Other: Decreased range of motion lumbar spine paraspinal tenderness left more than right, Extrem Other: 1+ pitting edema bilaterally Coding Level of Care Code Est Pt Level 4 (17476) Complex EM visit Add On G2211 Diagnoses Lumbar spinal stenosis M48.061 CKD stage 3a, GFR 45-59 ml/min N18.31 HTN (hypertension) I10 DM type 2 (diabetes mellitus, type 2) E11.9 Hyperlipidemia E78.5 Psoriatic arthritis L40.50 Additional Codes PHQ-9 - 01137 - PHQ-9 Billing: Yes ([id number]) Assessment & Plan Assessment & Plan (1) Lumbar spinal stenosis: Code(s): M48.061 - Spinal stenosis, lumbar region without neurogenic claudication Category: Medical Plan: For worsening pseudoclaudication and lower back pain due to spinal stenosis obtain a right lower back. Patient has been prescribed oxycodone by matrix inspector (2) CKD stage 3a, GFR 45-59 ml/min: Code(s): N18.31 - Chronic kidney disease, stage 3a Category: Medical Plan: Obtain renal ultrasound to rule out obstruction, patient was advised to avoid NSAIDs and indapamide will be discontinued. Basic metabolic panel will be checked in 1 week. Patient will follow-up in 1 month (3) HTN (hypertension): Code(s): I10 - Essential (primary) hypertension Category: Medical Plan: Continue amlodipine lisinopril and stop indapamide (4) DM type 2 (diabetes mellitus, type 2): Code(s): E11.9 - Type 2 diabetes mellitus without complications Category: Medical Plan: A1c is 6.3, continue ADA diet and empagliflozin (5) Hyperlipidemia: Code(s): E78.5 - Hyperlipidemia, unspecified Category: Medical Plan: Continue statin (6) Psoriatic arthritis: Comment: f/u rheumatology Code(s): L40.50 - Arthropathic psoriasis, unspecified Category: Medical Plan: Follow-up rheumatology Orders: Orders MR lumbar spine wo con Today M48.061 - Spinal stenosis, lumbar region without neurogenic claudication US renal BI Today N18.31 - Chronic kidney disease, stage 3a Basic Metabolic Panel 1 Week N18.31 - Chronic kidney disease, stage 3a
--- OUTSIDE RECORDS SUMMARY | 2024-10-20 13:08 | XMS_ITS | Continuity of Care Document ---
Author Name [facility] Organization [facility] Care Team Providers Care Business Operations Director Name Role Phone [facility] Unavailable Unavailable Problems Combined list of problems from Department of [facility] and [facility] facilities. It does not include entries that were removed or entered in error. Problem Status Onset Date Problem Type Date of Resolution Comments Source Arthropathy of left shoulder Active Condition [facility] [place] [place] [facility] Psoriasis Active [facility] Diagnosis: ICD-10-CM Z46.1 Encounter for fitting and adjustment of hearing aid Active Diagnosis [facility] [place] [facility] Diagnosis: ICD-10-CM H90.3 Sensorineural hearing loss, bilateral Active Diagnosis [facility] Medications Combined list of outpatient [...] EVERY DAY ORAL ACTIVE HERMINIACORY ROJAS 2016 [facility] [place] [facility] ETANERCEPT POWDER FOR RECONSTITUT ION INJ,PWDR INJECT 50MGS SUBCUTAN EOUSLY ONCE A WEEK ACTIVE HERMINIA -CORY GONZALEZ 2016 [facility] [place] [facility] LISINOPRIL 40MG TAB TAKE ONE TABLET BY MOUTH EVERY DAY ORAL ACTIVE HERMINIA -CORY GONZALEZ 2016 [facility] [place] [facility] METFORMIN HCL 500MG TAB TAKE ONE TABLET BY MOUTH TWICE DAILY ORAL ACTIVE HERMINIA -CORY GONZALEZ 2016 [facility] [place] [facility] OXYCODONE HCL 5MG/ACETAMI NOPHEN 325MG TAB TAKE TWO TABLETS BY MOUTH EVERY DAY NEEDED ORAL ACTIVE HERMINIA -CORY GONZALEZ 2016 [facility] VARENICLINE 1MG TAB TAKE ONE TABLET BY MOUTH EVERY DAY ORAL ACTIVE HERMINIA CORY NORTON 2016 [facility] Immunizations Combined list of available immunizations from the Department of Defense and Veterans Affairs facilities. Immunization Series Date Given Administered By Site Reaction Lot Number CVX Code Drug Electrotyper Helper Status Comments Source FLU,3 YRS (HISTORICAL) 2015 88 complet ed [facility] Encounters Combined list of: 1) Encounters from Department of Veterans Affairs facilities going backup to the last 18 months, not all [place] inpatient encounters are included; 2) Encounters from the Department of Defense facilities going backup to 280 months. Location Location Details Encounter Type Encounter Number Reason For Visit Attending Provider ADM Date DC Date Status Disposition Source [facility] HEARING AID EXAM BOTH EARS [id number] Diagnos is: ICD-10- CM H90.3 Sensori neural hearing loss, bilater Juan Antonio Gómez 07[facility]28 [facility] [place] [facility] [place] [facility] HEARING SERVICE [id number] Diagnos is: ICD-10- CM Z46.1 Encount er for fitting and adjustm ent of hearing aid PRIYANKA PALMA L 08[facility] [place] [facility] [place] [facility] Outpatient Encounter [id number] 10/01 [facility] [place] [facility] [place] [facility] HEARING AID REPAIR/MOD IFYING [id number] Diagnos is: ICD-10- CM Z46.1 Encount er for fitting and adjustm ent of hearing aid RICO DECKRE I 08/09 [facility] [place] [facility] Social History Combined list of available smoking, tobacco, and other social history from Department of Defense and Veterans Affairs facilities. Social History Type Response Date Comment Sourc e Tobacco smoking status NHIS CURRENT SMOKER 08/02/2016 [facility] History of tobacco use V1-PT RE[facility]IVES TO [facility] 08/02/2016 [facility]NAN[facility]
--- OUTSIDE RECORDS SUMMARY | 2024-10-20 13:08 | XMS_ITS ---
[facility] Organization [facility] Address [address] [place] [address] Care Team Providers Care Lock Technician Name Role Phone Armida Canchola MD Primary Care Provider Fabiana Grossman Unavailable [phone] Allergies Allergen (clinical drug ingredient) Drug/Non Drug [...] Ordered Date Performed Result Body Sit e 79271-WPWOXXZ NAIL, 6 OR MORE 09/06/2024 N/A 97952-CQEL SKIN LESIONS, 2 TO 4 09/06/2024 N/A Encounters Encounter Location Date Provider Diagnosis [facility] [address] [address] 09/06/2024 Fabiana Tan Type 2 diabetes mellitus with diabetic polyneuropathy E11.42 and Tinea unguium B35.1 Assessments Encounter Date Diagnosis (ICD Code) Assessment Notes Treatment Notes Treatment Clinical Notes Section Notes 09/06/2024 Type 2 diabetes mellitus with diabetic polyneuropathy (ICD-10 - E11.42) 09/06/2024 Tinea unguium (ICD-10 - B35.1) Plan Of Treatment Pending Test Test Name Order Date 71995-AEHQOVS NAIL, 6 OR MORE 09/06/2024 94548-TSRF SKIN LESIONS, 2 TO 4 09/07/19 25 Next Appt Details Follow Up: 3 Months, Reason: Provider Name:Fabiana kay, 11/08/2024 09:00:00 AM, [address] [place] [address], [phone], Provider Name:Fabiana kay, 01/10/2025 09:15:00 AM, [address] [place], [address], Procedure Notes * Category Sub-Category Detail Notes [...] use of a nail nipper and/or dremel-type lens edge grinder machine, to a more viable healthy nail plate [...] to maintain effectiveness in symptomatic relief - 55493 Keratoma Treatment Parring or Cutting o f [...] instrumentation by the physician of record - 97637 Progress Notes * JAMIEBenedicto AUDOB: [birth year] (78 yo M)Acc No.[id number]:09/06/2024 Progress Note Patient:?Benedicto BROWN Provider:?Fabiana Tan DPM :1945???Age:78 Y???Sex:Male Juwan e:09/06/2024 Address:[address] [place], [place] [address], [id number] Pcp:Armida Canchola MD Subjective: * Chief Complaints: [...] ?Exercise: yes, Camp. ?Marital status: . 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 ???Drug/Alcohol:?AUDIT-C (Standard)?Did you have a drink containing [...] use of a nail nipper and/or dremel-type lens edge grinder machine, to a more viable healthy nail plate [...] to maintain effectiveness in symptomatic relief - 27600.?Keratoma Treatment:?Parring or Cutting of Benign Hyperkeratotic Lesion(s)?(-56) [...] instrumentation by the physician of record - 91599.? * Procedure Codes:?54409 DEBRI DE NAIL, 6 OR MORE, Modifiers: XS 97447 TRIM SKIN LESIONS, 2 TO 4, Modifiers: XS * Preventive Medicine:? ??Screening/Special Tests:?Fall Risk?Screening:?No falls in the past year ?FALLS: Screening for Future Fall Risk?Have you had any falls with injury in the past year??No * Follow Up:?3 Months * Images: * Sign off status: Completed true * Provider:?Fabiana Tan DPM Date:?0 09/06/2024 Generated for Kyle cotton/Salvador/eTransmitting on:?10/20/2024 01:08 PM EDT History and Physical Notes * HPI [...]
--- OUTSIDE RECORDS SUMMARY | 2024-10-20 13:09 | XMS_ITS ---
Author Organization [facility] Address [address] [place] [address] Care Team Providers Care Tag Maker Name Role Phone Armida Canchola MD Primary Care Provider Fabiana Grossman Unavailable [phone] Neel Lyons Unavailable [phone] Allergies Allergen (clinical drug ingredient) Drug/Non Drug [...] 04/01/2024 Encounters Encounter Location Date Provider Diagnosis [facility] [address] [address] 04/01/2024 Neel Lyons Tinea unguium B35.1 ; [...] Follow Up: 2 Months, Reason: Provider Name:Fabiana aky, 11/08/2024 09:00:00 AM, [address] [place] [address], [phone], Provider Name:Fabiana Pete eliza, 01/10/2025 09:15:00 AM, [address] [place] [address], [phone], Procedure Notes * Category Sub-Category Detail Notes [...] as necessary. Patient chooses, no pharmaceutical tx (38775) Keratoma Treatment Parring or Cutting o f Benign Hyperkeratotic Lesion(s) 34524 ( >4 Lesions) - The Benign hyperkeratotic lesions, as described above were pared, and/or cut utilizing a sterile #15 blade, tissue nippers, and/or dremel Progress Notes * NARABenedicto DOTSONDOB: [birth year] (78 yo M)Acc No.[id number]:04/01/2024 Progress Note Patient:?Benedicto BROWN Provider:?Neel Lyons DPM :1945???Age:78 Y???Sex:Male Juwan e:04/01/2024 Address:[address] [place], [place] [id number] Pcp:Armida Canchola MD Subjective: * Chief Complaints: [...] ?Exercise: yes, Camp. ?Marital status: . 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 * Medications:?TakingExtra Dep th Diabetic Shoes with [...] as necessary. Patient chooses, no pharmaceutical tx (72245).?Keratoma Treatment:?Parring or Cutting of Benign Hyperkeratotic Lesion(s)?13140 ( >4 Lesions) - The Benign hyperkeratotic lesions, as described above were pared, and/or cut utilizing a sterile #15 blade, tissue nippers, and/or dremel.?Wart Treatment:?Procedure?Verrucae(s) were debrided to pin-point bleeding with sterile surgical blade, silver nitrate chemocautery applied, DIABETES: Any more invasive procedure to wart deferred due to diabetes risk.? * Procedure Codes:?07035 DEBRI DE NAIL, 6 OR MORE, Modifiers: XS 64001 Wart Destruction, 1-14, Modifiers: XS 32763 TRIM SKIN LESIONS, OVER 4, Modifiers: XS * Follow Up:?2 Months * Images: * Sign off status: Completed true * Provider:?Neel Lyons DPM Date:? 024 Generated for Eladiocortes cotton/Salvador/Jyotiitting on:?10/20/2024 01:08 PM EDT History and Physical [...]
--- OUTSIDE RECORDS SUMMARY | 2024-10-20 13:09 | XMS_ITS ---
Author Organization [facility] Address [address] [place] [address] Care Team Providers Care Coal Feeder Operator Name Role Phone Armida Canchola MD Primary Care Provider Fabiana Grossman Unavailable [phone] Allergies Allergen (clinical drug ingredient) Drug/Non Drug [...] Ordered Date Performed Result Body Sit e 75598-OZGEIQF NAIL, 6 OR MORE 06/14/2024 N/A 17950-XYYD SKIN LESIONS, 2 TO 4 06/14/2024 N/A Encounters Encounter Location Date Provider Diagnosis [facility] [address] [address] 06/14/2024 Fabiana Tan Type 2 diabetes mellitus with diabetic polyneuropathy E11.42 and Tinea unguium B35.1 Assessments Encounter Date Diagnosis (ICD Code) Assessment Notes Treatment Notes Treatment Clinical Notes Section Notes 06/14/2024 Type 2 diabetes mellitus with diabetic polyneuropathy (ICD-10 - E11.42) 06/14/2024 Tinea unguium (ICD-10 - B35.1) Plan Of Treatment Pending Test Test Name Order Date 91271-LFWHKYK NAIL, 6 OR MORE 06/14/2024 34629-TKPD SKIN LESIONS, 2 TO 4 06/14/19 25 Next Appt Details Follow Up: 3 Months, Reason: Provider Name:Fabiana kay, 11/08/2024 09:00:00 AM, [address] [place] [address], [address], Provider Name:Fabiana kay, 01/10/2025 09:15:00 AM, [address] [place], [address], Procedure Notes * Category Sub-Category Detail Notes [...] use of a nail nipper and/or dremel-type wheel grinder, to a more viable healthy nail [...] to maintain effectiveness in symptomatic relief - 56937 Keratoma Treatment Parring or Cutting o f [...] instrumentation by the physician of record - 86334 Progress Notes * JAMIEBenedicto AUDOB: [birth year] (78 yo M)Acc No.[id number]:06/14/2024 Progress Note Patient:?Benedicto BROWN Provider:?Fabiana Tan DPM :1945???Age:78 Y???Sex:Male Juwan e:06/14/2024 Address:[address] [place], [place] [address], [phone] Pcp:Armida Canchola MD Subjective: * Chief Complaints: [...] ?Exercise: yes, Camp. ?Marital status: . 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 ???Drug/Alcohol:?AUDIT-C (Standard)?Did you have a drink containing [...] use of a nail nipper and/or dremel-type wheel grinder, to a more viable healthy nail [...] to maintain effectiveness in symptomatic relief - 85718.?Keratoma Treatment:?Parring or Cutting of Benign Hyperkeratotic Lesion(s)?(-56) [...] instrumentation by the physician of record - 82902.? * Procedure Codes:?99475 DEBRI DE NAIL, 6 OR MORE, Modifiers: XS 93631 TRIM SKIN LESIONS, 2 TO 4, Modifiers: XS * Follow Up:?3 Months * Images: * Sign off status: Completed true * Provider:?Fabiana Tan DPM Date:?0 06/14/2024 Generated for Kyle cotton/Salvador/Bakari on:?10/20/2024 01:08 PM EDT History and Physical [...]
--- OUTSIDE RECORDS SUMMARY | 2024-10-20 13:09 | XMS_ITS | Patient Health Record ---
Author Organization [facility] Address [address] [place] [address] Care Team Providers Care Engraver Jewelry Name Role Phone Armida Canchola MD Primary Care Provider Fabiana Grossman Unavailable [phone] Neel Lyons Unavailable [phone] Allergies Allergen (clinical drug ingredient) Drug/Non Drug [...] Referring Provider Last Name Sushant [facility] Referred Provider Neel Lyons Referred Address [address] [facility],[place], [place],[address], Referred Provider Specialty Podiatry Referral Priority Routine [...] Armida Referring Provider Last Name Sushant Referred [facility] Referred Provider Fabiana Tan [place] [address] [facility] [place] Referred Provider Specialty Podiatry Referral Priority Routine [...] Risk Notes Problem Pain in right foot (175421023170292) Pain in right foot (M79.671) Active confirmed Problem Pain in left foot ([id number]) Pain in left foot (M79.672) Active confirmed Problem Polyneuropathy due to type 2 diabetes mellitus (316317610) Type 2 diabetes mellitus with diabetic polyneuropathy (E11.42) Active confirmed Vital Signs Blood pressure diastolic 70 mm Hg 09/06/2024 Height 5 ft 11 in in 09/06/2024 Blood pressure systolic 130 mm Hg 09/06/2024 Weight 205 lbs 09/06/2024 BMI 28.59 kg/m2 09/06/2024 Procedures Procedure Date Ordered Date Performed Result Body Sit e 11990-STVWWEN NAIL, 6 OR MORE 06/14/2024 N/A 14101-ZNAB SKIN LESIONS, 2 TO 4 06/14/2024 N/A 97244-CKMGEGR NAIL, 6 OR MORE 09/06/2024 N/A 79040-EXQP SKIN LESIONS, 2 TO 4 09/06/2024 N/A Encounters Encounter Location Date Provider Diagnosis [facility] [address] [address] 11/10/2023 Neel Lyons Tinea unguium B35.1 ; Other viral warts B07.8 ; Pain in left foot M79.672 ; Pain in right foot M79.671 ; Type 2 diabetes mellitus with diabetic polyneuropathy E11.42 ; Pain in right toe(s) M79.674 and Pain in left toe(s) M79.[address] [address] 01/19/2024 Neel Lyons Tinea unguium B35.1 ; Other viral warts B07.8 ; Pain in left foot M79.672 ; Pain in right foot M79.671 ; Type 2 diabetes mellitus with diabetic polyneuropathy E11.42 ; Pain in right toe(s) M79.674 and Pain in left toe(s) M79.[address] [address] 04/01/2024 Neel Lyons Tinea unguium B35.1 ; Other viral warts B07.8 ; Pain in left foot M79.672 ; Pain in right foot M79.671 ; Type 2 diabetes mellitus with diabetic polyneuropathy E11.42 ; Pain in right toe(s) M79.674 and Pain in left toe(s) M79.[address] [address] 06/14/2024 Fabiana Tan Type 2 diabetes mellitus with diabetic polyneuropathy E11.42 and Tinea unguium B35.[address] [address] 09/06/2024 Fabiana Tan Type 2 diabetes mellitus [...] X ray : Foot, right 3V 09/15/2013 19116-XQENJDF NAIL, 6 OR MORE 12/13/2013 82767-GHUTYQL NAIL, 6 OR MORE 03/07/2014 82717-BDQSDJU NAIL, 6 OR MORE 05/09/2014 13143-PBHBUVM NAIL, 6 OR MORE 08/01/2014 66452-WEOAPZS NAIL, 6 OR MORE 11/28/2014 91494-MOUEUQZ NAIL, 6 OR MORE 12/09/2016 26944-VFEKDIL NAIL, 6 OR MORE 05/20/2016 92619-CESPAHD NAIL, 6 OR MORE 08/05/2016 11784-SJKZEFN NAIL, 6 OR MORE 02/17/2017 21257-APUDERK NAIL, 6 OR MORE 04/21/2017 89373-VOQJKKO NAIL, 6 OR MORE 02/20/2015 18383-FNPMYTU NAIL, 6 OR MORE 05/22/2015 33542-TUCWQSE NAIL, 6 OR MORE 08/07/2015 45308-AFVSSHP NAIL, 6 OR MORE 10/16/2015 05783-GOYKEIW NAIL, 6 OR MORE 12/18/2015 58901-WYEEFLL NAIL, 6 OR MORE 02/19/2016 37039-KYXREEA NAIL, 6 OR MORE 02/18/2011 87259-IJODPFF NAIL, 6 OR MORE 05/20/2011 28073-TUNTYUA NAIL, 6 OR MORE 06/19/2011 96979-ZDYJSWC NAIL, 6 OR MORE 07/29/2011 81409-KATNYKO NAIL, 6 OR MORE 08/26/2011 49522-UCEIIBF NAIL, 6 OR MORE 11/06/2011 35266-AUZFDHI NAIL, 6 OR MORE 01/27/2012 20479-VZLCJIB NAIL, 6 OR MORE 04/20/2012 77687-LUVQUQF NAIL, 6 OR MORE 06/24/2012 30721-COQYEDD NAIL, 6 OR MORE 08/31/2012 11877-XEJGUGR NAIL, 6 OR MORE 01/13/2013 25833-GDRKFDD NAIL, 6 OR MORE 03/08/2013 70978-ZZSNJUI NAIL, 6 OR MORE 06/16/2013 64363-RISPYBZ NAIL, 6 OR MORE 09/15/2013 04438-SIQJWSF NAIL, 6 OR MORE 04/20/2018 65907-FLERLHU NAIL, 6 OR MORE 06/23/2017 08408-BBGBHYB NAIL, 6 OR MORE 08/25/2017 37767-ZRXCSWN NAIL, 6 OR MORE 11/10/2017 29790-QIVBWMF NAIL, 6 OR MORE 01/26/2018 22456-SNJUYNF NAIL, 6 OR MORE 06/14/2024 68997-YBNSNGW NAIL, 6 OR MORE 09/06/2024 37331-Kzzo Destruction, 1-14 01/23/2015 95168-Ngad Destruction, -14 01/26/2018 12163-Squw Destruction, -14 11/10/2017 07569-Rtix Destruction, -14 12/08/2017 38964-Gsgo Destruction, 06-1508/25/2017 92332-Zokw Destruction, 06-1510/06/2017 17051-Tonq Destruction, 06-1506/23/2017 45328-Ghis Destruction, 06-1507/28/2017 36891-Yilt Destruction, 06-1504/20/2018 50142-Aung Destruction, 06-1509/15/2013 79407-Jbvl Destruction, 06-1508/09/2013 31546-Duva Destruction, 06-1506/16/2013 43372-Pxqm Destruction, 06-1507/12/2013 26387-Skka Destruction, 06-1502/15/2013 50303-Mnum Destruction, 06-1503/08/2013 47879-Fkoj Destruction, 06-1504/07/2013 30897-Mxbe Destruction, 06-1504/26/2013 52845-Gxfo Destruction, 06-1501/13/2013 93878-Cxbx Destruction, 06-1512/16/2012 83041-Iihb Destruction, 06-1510/21/2012 22951-Udbs Destruction, 06-1511/18/2012 55319-Gvpb Destruction, 06-1508/31/2012 04097-Vaeb Destruction, 06-1509/21/2012 77936-Uyfs Destruction, 06-1506/24/2012 70572-Nivu Destruction, 06-1507/27/2012 43857-Wwbn Destruction, 06-1504/20/2012 24077-Gbnq Destruction, 06-1505/18/2012 87440-Tcxh Destruction, 06-1502/24/2012 93927-Iwlr Destruction, 06-1503/23/2012 62889-Fgro Destruction, 06-1501/27/2012 13466-Mutf Destruction, 06-1512/30/2011 53303-Tgtq Destruction, 06-1511/06/2011 35359-Stiw Destruction, 06-1512/02/2011 13412-Ajmf Destruction, 06-1509/25/2011 33769-Kpvy Destruction, 06-1508/26/2011 24740-Hrbe Destruction, 06-1507/29/2011 85728-Abea Destruction, 06-1506/19/2011 84344-Duwp Destruction, 06-1505/20/2011 53611-Zjpb Destruction, 06-1504/17/2011 03143-Uxsu Destruction, 06-1502/18/2011 54740-Depr Destruction, 06-1503/18/2011 53252-Lknb Destruction, 06-1502/19/2016 27079-Lhuh Destruction, 06-1503/25/2016 22860-Aryc Destruction, 06-1512/18/2015 85437-Pvej Destruction, 06-1501/08/2016 64935-Pbsi Destruction, 06-1510/16/2015 50827-Fulr Destruction, 06-1508/07/2015 37197-Uwst Destruction, 06-1509/11/2015 73992-Whme Destruction, 06-1505/22/2015 69700-Kqxa Destruction, 06-1507/03/2015 91080-Xnan Destruction, 06-1503/20/2015 96135-Qlhe Destruction, 06-1504/17/2015 53071-Ilox Destruction, 06-1502/20/2015 02124-Vmyu Destruction, 06-1504/21/2017 82888-Snqv Destruction, 06-1505/19/2017 30245-Xzbc Destruction, 06-1502/17/2017 02453-Plfx Destruction, 06-1503/24/2017 35420-Qdcn Destruction, 06-1508/05/2016 87346-Ukiw Destruction, 06-1509/02/2016 04034-Yahz Destruction, 06-1505/20/2016 08410-Cgxb Destruction, 06-1506/24/2016 70081-Jxcx Destruction, 06-1512/09/2016 96639-Gsyw Destruction, 06-1511/28/2014 33318-Ujgs Destruction, 06-1512/26/2014 56657-Gedn Destruction, 06-1508/29/2014 84647-Ciwc Destruction, 06-1509/26/2014 12162-Hlas Destruction, 06-1510/31/2014 70300-Swid Destruction, 06-1508/01/2014 79882-Oqsp Destruction, 06-1506/06/2014 27696-Awjr Destruction, 06-1507/04/2014 59362-Naam Destruction, 06-1505/09/2014 70776-Jfrm Destruction, -04/04/2014 18488-Vejj Destruction, -03/07/2014 25347-Noka Destruction, -02/07/2014 72345-Jpqu Destruction, -12/13/2013 00996-Bcqb Destruction, -01/10/2014 00917-Yvdq Destruction, -10/04/2013 46465-Kwnb Destruction, -11/08/2013 19427- Debride <25 sq cm 11/08/2013 31277- Debride <25 sq cm 10/04/2013 11794- Debride <25 sq cm 01/10/2014 39699- Debride <25 sq cm 12/13/2013 46516- Debride <25 sq cm 02/07/2014 50394- Debride <25 sq cm 03/07/2014 04696- Debride <25 sq cm 04/04/2014 34807- Debride <25 sq cm 05/09/2014 42663- Debride <25 sq cm 07/04/2014 11213- Debride <25 sq cm 06/06/2014 56666- Debride <25 sq cm 08/01/2014 39639- Debride <25 sq cm 08/29/2014 72652- Debride <25 sq cm 10/31/2014 83207- Debride <25 sq cm 09/26/2014 72287- Debride <25 sq cm 12/26/2014 99848- Debride <25 sq cm 01/23/2015 27922- Debride <25 sq cm 11/28/2014 86761- Debride <25 sq cm 02/20/2015 40519- Debride <25 sq cm 03/20/2015 82208- Debride <25 sq cm 03/18/2011 41057- Debride <25 sq cm 02/18/2011 38024- Debride <25 sq cm 04/17/2011 28678- Debride <25 sq cm 05/20/2011 74472- Debride <25 sq cm 06/19/2011 93523- Debride <25 sq cm 07/29/2011 15903- Debride <25 sq cm 08/26/2011 52918- Debride <25 sq cm 09/25/2011 10706- Debride <25 sq cm 12/02/2011 02393- Debride <25 sq cm 11/06/2011 08616- Debride <25 sq cm 12/30/2011 45944- Debride <25 sq cm 01/27/2012 54540- Debride <25 sq cm 03/23/2012 85224- Debride <25 sq cm 02/24/2012 40837- Debride <25 sq cm 05/18/2012 55100- Debride <25 sq cm 04/20/2012 71509- Debride <25 sq cm 07/27/2012 11102- Debride <25 sq cm 06/24/2012 02738- Debride <25 sq cm 09/21/2012 02769- Debride <25 sq cm 08/31/2012 73714- Debride <25 sq cm 11/18/2012 45587- Debride <25 sq cm 10/21/2012 70586- Debride <25 sq cm 12/16/2012 97171- Debride <25 sq cm 01/13/2013 30891- Debride <25 sq cm 04/26/2013 18511- Debride <25 sq cm 04/07/2013 48532- Debride <25 sq cm 02/15/2013 17662- Debride <25 sq cm 03/08/2013 63503- Debride <25 sq cm 07/12/2013 46055- Debride <25 sq cm 08/09/2013 19480- Debride <25 sq cm 06/16/2013 35468- Debride <25 sq cm 09/15/2013 06959-YRZU SKIN LESIONS, OVER 4 02/18/20 17 67462-JUXX SKIN LESIONS, OVER 4 10/08/19 17 04206-QQEO SKIN LESIONS, OVER 4 12/10/19 17 56108-RWQB SKIN LESIONS, OVER 4 04/21/20 17 92128-ISHW SKIN LESIONS, OVER 4 06/23/19 18 47182-TPVW SKIN LESIONS, OVER 4 06/29/19 19 91498-YXYF SKIN LESIONS, OVER 4 09/01/19 19 24206-KNOZ SKIN LESIONS, OVER 4 11/03/19 19 95862-EMNQ SKIN LESIONS, OVER 4 01/05/20 19 85967-FUUL SKIN LESIONS, OVER 4 03/29/20 19 23734-RWLZ SKIN LESIONS, OVER 4 06/14/19 31622-EZGA SKIN LESIONS, OVER 4 08/16/19 02357-QJYA SKIN LESIONS, OVER 4 11/01/19 72394-YKQR SKIN LESIONS, OVER 4 01/24/20 46360-EDEJ SKIN LESIONS, OVER 4 04/24/20 69287-JPBT SKIN LESIONS, OVER 4 07/10/19 96538-QQFM SKIN LESIONS, OVER 4 09/19/19 65099-ZMNB SKIN LESIONS, OVER 4 11/28/19 61736-VOYT SKIN LESIONS, OVER 4 02/23/20 08170-UECK SKIN LESIONS, OVER 4 07/02/19 87987-QUZS SKIN LESIONS, OVER 4 09/04/19 45405-RLOB SKIN LESIONS, OVER 4 08/26/19 18 19956-QHGC SKIN LESIONS, OVER 4 11/11/19 18 07386-EDQW SKIN LESIONS, OVER 4 01/27/20 18 68809-CIFB SKIN LESIONS, OVER 4 04/20/20 18 52120-HCYP SKIN LESIONS, 2 TO 4 06/14/19 07571-QLUY SKIN LESIONS, 2 TO 4 09/07/19 Next Appt Details Provider Name:Fabiana kay, 11/08/2024 09:00:00 AM, [address] [place] [address], [phone], Provider Name:Fabiana kay, 01/10/2025 09:15:00 AM, [address] [place] [address], [phone], Insurance Providers Payer Name Payer Address Payer Phone Subscriber Number Group Number Insured Name Patient Relationship to Insured Coverage Start Date Coverage End Date [facility] [address] [address] [place] [address] [id number] Benedicto Ramirez Self - patient is the insured Medical (General) History Medical History History ICD Code psoriasis high blood pressure Arthritis type II diabetes Surgical History Surgery Date(Month/Year) Hospitalization History Reason Date(Month/Year)
== END 2024-10-20 13:18 | disposition home or self-care (01) ==
LOC: HO.HMCC 12:11
PROVIDERS: PCP Internal Medicine; Visit Provider Internal Medicine
DX: I12.9 Hypertensive chronic kidney disease with stage 1 through stage 4 chronic kidney disease, or unspecified chronic kidney disease (principal); N18.31 Chronic kidney disease, stage 3a; E11.9 Type 2 diabetes mellitus without complications; L40.50 Arthropathic psoriasis, unspecified; M48.061 Spinal stenosis, lumbar region without neurogenic claudication; E78.5 Hyperlipidemia, unspecified

== ENCOUNTER → 2024-10-20 12:10 | Outpatient (BNVA) | payer BC, SELFPAY | PROVIDERS: PCP Internal Medicine; Visit Provider Internal Medicine | DX: I12.9 Hypertensive chronic kidney disease with stage 1 through stage 4 chronic kidney disease, or unspecified chronic kidney disease (principal); E11.22 Type 2 diabetes mellitus with diabetic chronic kidney disease; N18.31 Chronic kidney disease, stage 3a; E78.5 Hyperlipidemia, unspecified; L40.50 Arthropathic psoriasis, unspecified; M48.061 Spinal stenosis, lumbar region without neurogenic claudication | CPT/HCPCS: 96127 ==

== ENCOUNTER 2024-10-27 11:06 | Outpatient (REF) | payer BC, SELFPAY ==
--- OUTSIDE RECORDS SUMMARY | 2024-10-27 12:08 | XMS_ITS ---
[facility] Address [address] [place] [address] Care Team Providers Care Investment Advisor Name Role Phone Armida Canchola MD Primary Care Provider Fabiana Grossman Unavailable [phone] Allergies Allergen (clinical drug ingredient) Drug/Non Drug [...] Ordered Date Performed Result Body Sit e 53721-XVYAAQR NAIL, 6 OR MORE 09/06/2024 N/A 10438-LNLB SKIN LESIONS, 2 TO 4 09/06/2024 N/A Encounters Encounter Location Date Provider Diagnosis [facility] [address] [address] 09/06/2024 Fabiana Tan Type 2 diabetes mellitus with diabetic polyneuropathy E11.42 and Tinea unguium B35.1 Assessments Encounter Date Diagnosis (ICD Code) Assessment Notes Treatment Notes Treatment Clinical Notes Section Notes 09/06/2024 Type 2 diabetes mellitus with diabetic polyneuropathy (ICD-10 - E11.42) 09/06/2024 Tinea unguium (ICD-10 - B35.1) Plan Of Treatment Pending Test Test Name Order Date 41452-EACWCYV NAIL, 6 OR MORE 09/06/2024 08312-IYCD SKIN LESIONS, 2 TO 4 09/07/19 25 Next Appt Details Follow Up: 3 Months, Reason: Provider Name:Fabiana kay, 11/08/2024 09:00:00 AM, [address] [place] [address], [phone], Provider Name:Fabiana kay, 01/10/2025 09:15:00 AM, [address] [place], [address], Procedure Notes * Category Sub-Category Detail Notes [...] use of a nail nipper and/or dremel-type emery grinder, to a more viable healthy nail [...] to maintain effectiveness in symptomatic relief - 12196 Keratoma Treatment Parring or Cutting o f [...] instrumentation by the physician of record - 72291 Progress Notes * JAMIEBenedicto AUDOB: [birth year] (78 yo M)Acc No.[id number]:09/06/2024 Progress Note Patient:?Benedicto BROWN Provider:?Fabiana Tan DPM :1945???Age:78 Y???Sex:Male Juwan e:09/06/2024 Address:[address] [place], [place] [address], [id number] Pcp:Armida Canchola MD Subjective: * Chief Complaints: [...] ?Exercise: yes, Camp. ?Marital status: . 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 ???Drug/Alcohol:?AUDIT-C (Standard)?Did you have a drink [...] use of a nail nipper and/or dremel-type emery grinder, to a more viable healthy nail [...] to maintain effectiveness in symptomatic relief - 38966.?Keratoma Treatment:?Parring or Cutting of Benign Hyperkeratotic Lesion(s)?(-56) [...] instrumentation by the physician of record - 88362.? * Procedure Codes:?82789 DEBRI DE NAIL, 6 OR MORE, Modifiers: XS 20483 TRIM SKIN LESIONS, 2 TO 4, Modifiers: XS * Preventive Medicine:? ??Screening/Special Tests:?Fall Risk?Screening:?No falls in the past year ?FALLS: Screening for Future Fall Risk?Have you had any falls with injury in the past year??No * Follow Up:?3 Months * Images: * Sign off status: Completed true * Provider:?Fabiana Tan DPM Date:?0 09/06/2024 Generated for Kyle cotton/Salvador/eTransmitting on:?10/27/2024 12:07 PM EDT History and Physical Notes * [...]
[2024-10-27 13:52] LABS: Anion Gap 16 (12-20); Blood Urea Nitrogen 36 mg/dL (9-16); Calcium 9.1 mg/dL (8.4-10.2); Carbon Dioxide 22 mmol/L (22-29); Chloride 107 mmol/L (96-108); Estimated Glomerular Filt Rate 33; Glucose Random 148 mg/dL (60-115); Potassium 4.6 mmol/L (3.3-5.1); Sodium 140 mmol/L (135-145)
== END 2024-10-27 11:07 | disposition home or self-care (01) ==
LOC: HO.HMGCLDS 11:06
PROVIDERS: PCP Internal Medicine; Visit Provider Internal Medicine
DX: N18.31 Chronic kidney disease, stage 3a (principal)
CPT/HCPCS: 36415; 80048

== ENCOUNTER 2024-11-22 11:20 | Outpatient (REF) | payer BC, SELFPAY ==
--- OUTSIDE RECORDS SUMMARY | 2024-08-09 05:00 | XMS_ITS | Continuity of Care Document ---
Author Name [facility] Organization [facility] Care Team Providers Care Laborer Construction Or Leak Gang Name Role Phone [facility] Unavailable Unavailable Problems Combined list of problems from Department of [facility] and [facility] facilities. It does not include entries that were removed or entered in error. Problem Status Onset Date Problem Type Date of Resolution Comments Source Arthropathy of left shoulder Active Condition [facility] [place] [place] [facility] Psoriasis Active Condition [facility] Diagnosis: ICD-10-CM Z46.1 Encounter for fitting and adjustment of hearing aid Active Diagnosis [facility] [place] [facility] Diagnosis: ICD-10-CM H90.3 Sensorineural hearing loss, bilateral Active [facility] Medications Combined list of outpatient medications [...] EVERY DAY ORAL ACTIVE HERMINIACORY ROJAS 2016 [facility] [place] [facility] ETANERCEPT POWDER FOR RECONSTITUT ION INJ,PWDR INJECT 50MGS SUBCUTAN EOUSLY ONCE A WEEK ACTIVE HERMINIA -CORY GONZALEZ 2016 [facility] [place] [facility] [facility] LISINOPRIL 40MG TAB TAKE ONE TABLET BY MOUTH EVERY DAY ORAL ACTIVE HERMINIA -CORY GONZALEZ 2016 [facility] [place] [facility] METFORMIN HCL 500MG TAB TAKE ONE TABLET BY MOUTH TWICE DAILY ORAL ACTIVE HERMINIA -CORY GONZALEZ 2016 [facility] [place] [facility] OXYCODONE HCL 5MG/ACETAMI NOPHEN 325MG TAB TAKE TWO TABLETS BY MOUTH EVERY DAY NEEDED ORAL ACTIVE HERMINIA -CORY GONZALEZ 2016 [facility] VARENICLINE 1MG TAB TAKE ONE TABLET BY MOUTH EVERY DAY ORAL ACTIVE HERMINIA CORY [place] 2016 [facility] Immunizations Combined list of available immunizations from the Department of Defense and Veterans Affairs facilities. Immunization Series Date Given Administered By Site Reaction Lot Number CVX Code Drug Sales Associate Fishing Status Comments Source FLU,3 YRS (HISTORICAL) 2015 88 complet ed [facility] Encounters Combined list of: 1) Encounters from Department of Veterans Affairs facilities going backup to the last 18 months, not all [place] inpatient encounters are included; 2) Encounters from the Department of Defense facilities going backup to 280 months. Location Location Details Encounter Type Encounter Number Reason For Visit Attending Provider ADM Date DC Date Status Disposition Source [facility] HEAR[facility] A[facility] EXAM BOTH EARS [id number] Diagnos is: ICD-10- CM H90.3 Sensori neural hearing loss, bilater Juan Antonio Gómez 07/28 [facility] [place] [facility]ICE [id number] Diagnos is: ICD-10- CM Z46.1 Encount er for fitting and adjustm ent of hearing aid PRIYANKA PALMA L 08/17 [facility] [place] [place] [facility] Outpatient Encounter [id number] 10/01 [facility] [place] [facility] [place] [facility] HEARING AID REPAIR/MOD IFYING [id number] Diagnos is: ICD-10- CM Z46.1 Encount er for fitting and adjustm ent of hearing aid RICO DECKER I 08/09 [facility] [place] [facility] Social History Combined list of available smoking, tobacco, and other social history from Department of Defense and Veterans Affairs facilities. Social History Type Response Date Comment Sourc e Tobacco smoking status NHIS CURRENT SMOKER 08/02/2016 BOLT History of tobacco use V1-PT [facility] 08/02/2016 B[place]
--- NOTE | ~2024-11-22 | US_ITS ---
CLINICAL HISTORY: N18.31 - Chronic kidney disease, stage 3a US renal Comparison: None Findings: Study is very limited by body habitus. Renal parenchymal detail considerably suboptimal. Right kidney 11.3 cm length. Left kidney 11.9 cm length. Small bilateral renal cysts noted. No definite significant abnormality. No bilateral hydronephrosis. Normal bilateral renal echogenicity. Impression: Limited study as above Renal cysts, otherwise unremarkable This document has been electronically signed by: Jaciel Benites MD on 11/22/2024 22:04:18
== END 2024-11-22 11:21 | disposition home or self-care (01) ==
LOC: HO.HMGCX 11:20
PROVIDERS: PCP Internal Medicine; Visit Provider Internal Medicine
DX: N18.31 Chronic kidney disease, stage 3a (principal)
CPT/HCPCS: 76775

== ENCOUNTER → 2024-11-22 11:36 | Outpatient (BNV) | payer BC, SELFPAY | PROVIDERS: PCP Internal Medicine; Visit Provider Radiology Diagnostic Radiology | DX: N18.31 Chronic kidney disease, stage 3a (principal); N28.1 Cyst of kidney, acquired | CPT/HCPCS: 76775 ==

== ENCOUNTER 2024-11-23 09:22 | Outpatient (REF) | payer BC, SELFPAY ==
[2024-11-23 13:27] LABS: Anion Gap 14 (12-20); Blood Urea Nitrogen 26 mg/dL (9-16); Calcium 9.1 mg/dL (8.4-10.2); Carbon Dioxide 22 mmol/L (22-29); Chloride 112 mmol/L (96-108); Estimated Glomerular Filt Rate 42; Glucose Random 140 mg/dL (60-115); Potassium 4.4 mmol/L (3.3-5.1); Sodium 144 mmol/L (135-145)
== END 2024-11-23 09:23 | disposition home or self-care (01) ==
LOC: HO.HMGCLDS 09:22
PROVIDERS: PCP Internal Medicine; Visit Provider Internal Medicine
DX: I12.9 Hypertensive chronic kidney disease with stage 1 through stage 4 chronic kidney disease, or unspecified chronic kidney disease (principal); E11.22 Type 2 diabetes mellitus with diabetic chronic kidney disease; N18.31 Chronic kidney disease, stage 3a; M48.061 Spinal stenosis, lumbar region without neurogenic claudication; R60.9 Edema, unspecified
CPT/HCPCS: 36415; 80048

== ENCOUNTER 2024-11-23 09:22 | Outpatient (AMB) | payer BC, SELFPAY ==
--- OUTSIDE RECORDS SUMMARY | 2024-08-09 05:00 | XMS_ITS | Continuity of Care Document ---
Author Name [facility] Organization [facility] Care Team Providers Care Dough Mixer Name Role Phone [facility] Unavailable Unavailable Problems Combined list of problems from Department of [facility] and [facility] facilities. It does not include entries that were removed or entered in error. Problem Status Onset Date Problem Type Date of Resolution Comments Source Arthropathy of left shoulder Active Condition [facility] [place] [place] [facility]iasis [facility] Diagnosis: ICD-10-CM Z46.1 Encounter for fitting and adjustment of hearing aid Active Diagnosis [facility] [place] [facility] Diagnosis: ICD-10-CM H90.3 Sensorineural hearing loss, bilateral Active [facility] Medications Combined list of outpatient medications [...] EVERY DAY ORAL ACTIVE HERMINIACORY ROJAS 2016 [facility] [place] [facility] ETANERCEPT POWDER FOR RECONSTITUT ION INJ,PWDR INJECT 50MGS SUBCUTAN EOUSLY ONCE A WEEK ACTIVE HERMINIA -CORY GONZALEZ 2016 [facility] [place] [facility] LISINOPRIL 40MG TAB TAKE ONE TABLET BY MOUTH EVERY DAY ORAL ACTIVE HERMINIA -CORY GONZALEZ 2016 [facility] [place] [facility] [facility] METFORMIN HCL 500MG TAB TAKE ONE TABLET BY MOUTH TWICE DAILY ORAL ACTIVE HERMINIA -CORY GONZALEZ [address] [facility] [place] [facility] OXYCODONE HCL 5MG/ACETAMI NOPHEN 325MG TAB TAKE TWO TABLETS BY MOUTH EVERY DAY NEEDED ORAL ACTIVE HERMINIA -CORY GONZALEZ 2016 [facility] VARENICLINE 1MG TAB TAKE ONE TABLET BY MOUTH EVERY DAY ORAL ACTIVE HERMINIA CORY NORTON 2016 [facility] Immunizations Combined list of available immunizations from the Department of Defense and Veterans Affairs facilities. Immunization Series Date Given Administered By Site Reaction Lot Number CVX Code Drug Clinical Pharmacist Status Comments Source FLU,3 YRS (HISTORICAL) 2015 88 complet ed r[facility]aid [facility] Encounters Combined list of: 1) Encounters from Department of Veterans Affairs facilities going backup to the last 18 months, not all [place] inpatient encounters are included; 2) Encounters from the Department of Defense facilities going backup to 280 months. Location Location Details Encounter Type Encounter Number Reason For Visit Attending Provider ADM Date DC Date Status Disposition Source [facility] HEARING AID EXAM BOTH EARS [id number] Diagnos is: ICD-10- CM H90.3 Sensori neural hearing loss, bilater Juan Antonio Gómez 07/28 [facility] [place] [facility] [place] [facility] [id number] Diagnos is: ICD-10- CM Z46.1 Encount er for fitting and adjustm ent of hearing aid PRIYANKA PALMA L 08/17 [facility] [place] [facility] [facility] Outpatient Encounter [id number] 10/01 [facility] [place] [facility] [place] [facility] HEARING AID REPAIR/MOD IFYING [id number] Diagnos is: ICD-10- CM Z46.1 Encount er for fitting and adjustm ent of hearing aid RICO DECKER I 08/09 [facility] [facility] Social History Combined list of available smoking, tobacco, and other social history from Department of Defense and Veterans Affairs facilities. Social History Type Response Date Comment Sourc e Tobacco smoking status NHIS CURRENT SMOKER 08/02/2016 [place] History of tobacco use V1-PT RECEIVES TO [facility] OUT[facility]IDE 08/02/2016 [place]
[2024-11-23 09:23] VITALS: BP 120/58; PULSE 92; RESP 18; TEMP 36.7; O2SAT 95; BMI 34.9
--- NOTE | 2024-11-23 09:23 | A.OFFPC_ITS ---
Vital Signs 11/23/24 09:23 Height 5 ft 11 in Weight 250 lb BMI 34.9 BP 120/58 L Blood Pressure Location Rt brachial Position Sitting Respiration 18 Pulse 92 Pulse Source Pulse Oximeter Temp 98.1 F Temp Source Oral Pulse Oximetry (%) 95 Oxygen Delivery Method Room Air Intake Visit Reasons: 1 months f/u Intake Note: Pt is here today for 1 month follow up visit. Pt states that he needs a refill on Furosemide. Allergies bupropion (From Wellbutrin) Allergy (Unknown, Verified 11/23/24 09:26) n/a hydroxychloroquine (From Plaquenil) Allergy (Unknown, Verified 11/23/24 09:26) n/a indomethacin (Indocin) Allergy (Unknown, Verified 11/23/24 09:26) Abdominal Pain meloxicam (Mobic) Allergy (Unknown, Verified 11/23/24 09:26) n/a Medication List - Last Reconciled 11/23/24 by Armida Canchola MD amlodipine 10 mg PO DAILY aspirin (Adult Low Dose Aspirin) 81 mg PO DAILY empagliflozin 25 mg PO DAILY furosemide (Lasix) 40 mg PO DAILY golimumab mg subcut indapamide 1.25 mg PO DAILY lisinopril 40 mg PO DAILY oxycodone-acetaminophen 5-325 mg 1 tab PO Q6H pravastatin 10 mg PO BEDTIME Tobacco use date assessed: 11/23/24 Fall risk assessment: No Falls in past year Last assessed Fall Risk: 11/23/24 Dental Screening Dental Screen Date: 08/02/24 HPI 1 months f/u HPI Details Patient presents for the follow-up hypertension chronic kidney disease stage 3. He reports worsening lower back pain when standing or walking. he denies weakness or numbness in extremities. change in bladder or bowel function. The lumbar spine MRI was ordered last month but not scheduled yet. Patient has been prescribed oxycodone prn by software test developer [facility] Medical History (Updated 11/23/24 @ 10:09 by Armida Canchola MD) Wears hearing aid in both ears Tubular adenoma of colon History of rectal fissure Foot pain Ear pain, left Ex-smoker Psoriatic arthritis Hyperlipidemia HTN (hypertension) DM type 2 (diabetes mellitus, type 2) Surgical History Hx of colonoscopy Hx of arthroscopic knee surgery Family History Father No problems noted. Mother No problems noted. Son No problems noted. Son No problems noted. Other Hx of arthroscopic knee surgery Social History Housing: House Patient Tobacco Use Status: Former Tobacco user Tobacco use type: Cigarette Cigarette Packs Per Day: 2 Cigarettes Per Day: 40 e-Cigarette/Vaping Use: Never Used service: Yes Current occupational status: retired Cognitive needs: No Hearing needs: No Vision needs: Yes Questionnaire Thrive Questionnaire Date Thrive assessed: 07/26/24 I am a: Patient What is your living situation today?: I have a steady place to live Within the past 12 months, did the food you bought not last and you didn't have the money to get more?: Never true Within the past 12 months, did you worry whether your food would run out before you got money to buy more?: Never true Do you have trouble paying for medicines?: No Do you have trouble getting transportation to medical appointments?: No Do you have trouble paying your heating and electricity bill?: No Do you have trouble taking care of your child, family member or friend?: No Do you have trouble with day-to-day activities such as bathing, preparing meals, shopping, managing finances, etc.?: No Are you currently unemployed and looking for a job?: No Are you interested in more education?: No Please select the resources that you would like help with: None Currently or been in a relationship where the following occur: No concerns reported THRIVE Score: 0 MIKE-7 AMB Questionnaire MIKE-7 Date MIKE - 7 assessed: 08/02/24 Source: Developed by Drs. Alec Wade, Araseli Jolly, Loco De Leon and colleagues, with an educational saranya from [employer]. Review of Systems Const All systems reviewed & are unremarkable except as noted in HPI and below Eyes Reports no additional complaints ENT Reports no additional complaints Card Reports no additional complaints Resp Reports no additional complaints GI Reports no additional complaints Reports no additional complaints Physical exam (Primary Care) Vital Signs: Last Vital Signs Temp 98.1 F 11/23/24 09:23 Pulse 92 11/23/24 09:23 Resp 18 11/23/24 09:23 BP 120/58 L 11/23/24 09:23 Pulse Ox 95 11/23/24 09:23 Oxygen Delivery Method Room Air 11/23/24 09:23 BMI result Body Mass Index 34.9 Tobacco/Smoking Status: Tobacco use Status Tobacco use date assessed 11/23/24 11/23/24 09:29 Patient Tobacco Use Status Former Tobacco user 11/23/24 09:23 Tobacco use type Cigarette 11/23/24 09:23 e-Cigarette/Vaping Use Never Used 11/23/24 09:23 Thrive Assessment: Date of Thrive Assessment Date Thrive assessed 07/26/24 11/23/24 09:23 Currently or been in a relationship where the following occur: No concerns reported Const General: no acute distress HENMT Head: Yes normal to inspection Neck Neck: Yes supple Resp Effort & Inspection: normal respiratory effort Auscultation: clear to auscultation bilaterally Cardio Rhythm: regular rhythm Heart sounds: S1 normal heart sound present and S2 normal heart sound present GI Inspection: Yes normal to inspection Palpation (GI): Soft to palpation Extrem Other: 1+ pitting edema bilaterally Coding Level of Care Code Est Pt Level 4 (34842) Complex EM visit Add On G2211 Diagnoses HTN (hypertension) I10 Edema R60.9 CKD stage 3a, GFR 45-59 ml/min N18.31 DM type 2 (diabetes mellitus, type 2) E11.9 Lumbar spinal stenosis M48.061 Assessment & Plan Assessment & Plan (1) HTN (hypertension): Code(s): I10 - Essential (primary) hypertension Category: Medical Plan: Blood pressure is low, lisinopril will be decreased to 30 mg a day patient will continue current medications follow-up in 3 months with a fasting labs before (2) Edema: Code(s): R60.9 - Edema, unspecified Category: Medical Plan: Continue furosemide and compression knee highs (3) CKD stage 3a, GFR 45-59 ml/min: Comment: Renal ultrasound bilateral cysts no obstruction 10/2024 Code(s): N18.31 - Chronic kidney disease, stage 3a Category: Medical Plan: Avoid nephrotoxins monitor renal function (4) DM type 2 (diabetes mellitus, type 2): Comment: A1c is 6.3, 10/24 on Jardiance Code(s): E11.9 - Type 2 diabetes mellitus without complications Category: Medical Plan: ADA diet increase physical activity continue Jardiance follow-up in 3 months (5) Lumbar spinal stenosis: Code(s): M48.061 - Spinal stenosis, lumbar region without neurogenic claudication Category: Medical Plan: Patient is waiting for the lumbar spine MRI. Referred to pain management Orders: Orders Basic Metabolic Panel Today N18.31 - Chronic kidney disease, stage 3a, R60.9 - Edema, unspecified Comprehensive [place]. Panel Fast 3 Months E11.9 - Type 2 diabetes mellitus without complications, E78.5 - Hyperlipidemia, unspecified, I10 - Essential (primary) hypertension Hemoglobin A1c 3 Months E11.9 - Type 2 diabetes mellitus without complications, E78.5 - Hyperlipidemia, unspecified, I10 - Essential (primary) hypertension Complete Blood Count Auto Diff 3 Months E11.9 - Type 2 diabetes mellitus without complications, E78.5 - Hyperlipidemia, unspecified, I10 - Essential (primary) hypertension Lipid Panel 3 Months E11.9 - Type 2 diabetes mellitus without complications, E78.5 - Hyperlipidemia, unspecified, I10 - Essential (primary) hypertension Referrals Pain Management Referral E11.9 - Type 2 diabetes mellitus without complications, E78.5 - Hyperlipidemia, unspecified, I10 - Essential (primary) hypertension, M48.061 - Spinal stenosis, lumbar region without neurogenic claudication Medications: New lisinopril 30 mg PO DAILY 90 tabs 0RF lisinopril 30 mg PO DAILY 90 tabs 0RF Refilled furosemide (Lasix) 40 mg PO DAILY 90 tabs 3RF furosemide (Lasix) 40 mg PO DAILY 90 tabs 3RF Discontinued lisinopril Discontinued Reason: Doctor's Order 40 mg PO DAILY 90 tabs 3RF I10 - Essential (primary) hypertension
== END 2024-11-23 10:03 | disposition home or self-care (01) ==
LOC: HO.HMCC 09:22
PROVIDERS: PCP Internal Medicine; Visit Provider Internal Medicine
DX: I10 Essential (primary) hypertension (principal); R60.9 Edema, unspecified; N18.31 Chronic kidney disease, stage 3a; E11.9 Type 2 diabetes mellitus without complications; M48.061 Spinal stenosis, lumbar region without neurogenic claudication

== ENCOUNTER 2025-02-14 07:52 | Outpatient (REF) | payer BC, SELFPAY ==
--- OUTSIDE RECORDS SUMMARY | 2025-01-10 05:15 | XMS_ITS ---
Author Organization [facility] Address [address] [place] [address] Care Team Providers Care Sales Representative Business Courses Name Role Phone Armida Canchola MD Primary Care Provider Fabiana Grossman Unavailable [phone] Allergies Allergen (clinical drug ingredient) Drug/Non Drug [...] 01/10/2025 Encounters Encounter Location Date Provider Diagnosis [facility] [address] [address] 01/10/2025 Fabiana Tan Plan Of Treatment Next Appt Details Provider Name:Fabiana kay, 03/21/2025 09:00:00 AM, [address] [place] [address], [phone], Progress Notes * NARANILABenedictoDOB: [birth year] (79 yo M)Acc No.[id number]:01/10/2025 Progress Note Patient: Benedicto CARBALLO Provider: Juan Antonio Tan DPM :1945 A ge:79 Y S ex:Male Date:01/10/2025 Address:[address] [place], [place] [phone] Pcp:Armida Canchola MD Subjective: * Chief Complaints: [...] enies. C ardiovascular: Pacemaker d enies. M DEVELOPMENT TRAINER d enies. W PW d enies. C [...] Exercise: yes, Camp. Marital status: . 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 D rug/Alcohol: A DEEPAK-C (Standard) D id [...] 01/10/2025 Generated for Kyle cotton/Salvador/Bakari on: 0 02/14/2025 07:54 AM EDT History and Physical Notes * [...]
--- OUTSIDE RECORDS SUMMARY | 2025-02-10 11:21 | XMS_ITS | Encounter Summary ---
Author Organization [facility] Address [address] [place] [address] [address] [place] [address] Phone Care Team Providers Care Lightning Rod Installer Name Role Phone Armida Canchola MD Primary Care Provider [phone] Encounter Details Date Type Department Care Team (Latest Contact Info) Description 02/10/2025 11:21 AM EDT - 02/10/2025 11:59 PM EDT Hospital Encounter [facility] [address] [place] [address] Nickie Maria MD [address] [facility], [address] [place] [address] [email or web address] Discharge Disposition: Home or Self Care Social History Tobacco Use Types Packs/Day Years Used Date Smoking Tobacco: Former Cigarettes 0.3 55 0 06/16/1963 - 06/16/2018 Smokeless Tobacco: Never Comments:.50 pack a week Alcohol Use Standard Drinks/Week Comments Yes 12 (1 standard drink = 0.6 oz pu re alcohol) once a week Education Answer Date Recorded Are you interested in more education? Not on dena e 09/27/2022 Are you concerned about learning? Not on file 09/27/2022 No 09/27/2022 No 09/27/2022 Digital Access Answer Date Recorded No 10/26/2022 No 10/26/2022 Reliable internet access at home? Not on file 10/26/2022 Device with a working camera? Not on file Sex and Gender Information Value Date Recorded Sex Assigned at Not on file Legal Sex Male 10:37 PM EDT Gender Identity Not on file Sexual Orientation Not on file documented as of this encounter Medications at Time of Discharge ADULT LOW DOSE ASPIRIN ORAL Take 1 tablet by mouth daily. amLODIPine (NORVASC) 10 MG tablet Take 1 tablet by mouth daily. golimumab (SIMPONI) 50 mg/0.5 mL penIndications:Psori atic arthritis Inject 0.5 mL (50 mg total) under the skin every 30 (thirty) days. 0.5 mL 11 06/07/2024 indapamide (LOZOL) 1.25 mg tablet Take 1.25 mg by mouth every morning. JARDIANCE 25 mg tablet Take 1 tablet by mouth daily. 07/07/2021 lisinopril (PRINIVIL,ZESTRIL) 40 MG tablet Take 40 mg by mouth daily. oxyCODONE-acetaminop hen (PERCOCET) 5-325 mg per tabletIndications:Pr imary osteoarthritis involving multiple joints,Chronic midline low back pain without sciatica Take 1 tab every 6 hrs for pain 112 tablet 01/21/2025 pravastatin (PRAVACHOL) 10 MG tablet Take 10 mg by mouth daily. documented as of this encounter Plan of Treatment Upcoming Encounters Date Type Department Care Team (Late st Contact Info) Description 02/21/2025 9:30 AM EDT Office Visit [facility] Rheumatology [address] [place] [address] Nickie Maria MD [address] [place] [address], [address] [place] [address] [email or web address] documented as of this encounter Procedures Procedure Name Priority Date/Time Associated Diagnosis Comments COMPREHENSIVE METABOLIC PANEL Routine 02/10/2025 11:33 AM EDT Psoriatic arthritis Encounter for monitoring golimumab therapy SEDIMENTATION RATE (ESR) Routine 02/10/2025 11:33 AM EDT Psoriatic arthritis Encounter for monitoring golimumab therapy CBC AND DIFFERENTIAL Routine 02/10/2025 11:33 AM EDT Psoriatic arthritis Encounter for monitoring golimumab therapy C-REACTIVE PROTEIN Routine 02/10/2025 11 :33 AM EDT Psoriatic arthritis Encounter for monitoring golimumab therapy documented in this encounter Results * (ABNORMAL) Comprehensive metabolic panel (02/10/2025 11:33 AM EDT) SODIUM 143 133 - 146 mmol/L [facility] POTASSIUM 4.8 3.3 - 5.1 mmol/L [facility] CHLORIDE 106 96 - 108 mmol/L [facility] CO2 23 21 - 35 mmol/L [facility] BUN 26(H) 6 - 19 mg/dL [facility] CREATININE 1.60(H) 0.5 - 1.5 mg/dL [facility] GLUCOSE 172(H) 70 - 99 mg/dL [facility] ALBUMIN 4.1 3.9 - 4.8 g/dL [facility] TOTAL PROTEIN 7.0 6.5 - 8.0 g/dL [facility] CALCIUM 9.4 8.4 - 10.3 mg/dL [facility] ALKALINE PHOSPHATASE 69 39 - 117 U/L [facility] TOTAL BILIRUBIN 0.3 0.0 - 1.2 mg/dL [facility] AST 15 0 - 37 U/L [facility] ALT 19 0 - 40 U/L [facility] GLOBULIN 2.9 1 - 4.8 g/dL [facility] EGFR 44(L) >59 mL/min/1.7 3m2 [facility] Comment:Estimated glomerular filtration rate calculated using the CKD-EPI refit equation. ANION GAP 19 10 - 20 mmol/L [facility] Blood 02/10/2025 11:3 3 AM EDT 02/10/2025 11:39 AM EDT us Nickie Maria MD LAB BLOOD ORDERABLES Fin al Result [facility] [address] [place] [address] * C-Reactive Protein (02/10/2025 11:33 AM EDT) C REACTIVE PROTEIN <3.0 0.0 - 4.0 mg/L [facility] Blood 02/10/2025 11:3 3 AM EDT 02/10/2025 11:39 AM EDT us Nickie Maria MD LAB BLOOD ORDERABLES Fin al Result Performing Organization Address City/[facility]/ZIP Co de Phone Number [address] [address] * Sedimentation rate (ESR) (02/10/2025 11:33 AM EDT) ESR 16 0 - 20 mm/h [facility] Blood 02/10/2025 11:3 3 AM EDT 02/10/2025 11:39 AM EDT us Nickie Maria MD LAB BLOOD ORDERABLES Fin al Result Performing Organization Address [facility] Co de Phone Number [address] [address] * (ABNORMAL) CBC and differential (02/10/2025 11:33 AM EDT) WBC 6.80 4.00 - 11.00 K/uL [facility] RBC 4.93 4.50 - 5.90 M/uL [facility] HGB 15.0 13.5 - 17.5 g/dL [facility] HCT 44.3 41.0 - 53.0 % [facility] PLT 243 150 - 450 K/uL [facility] MCV 89.9 80.0 - 100.0 fL [facility] MCH 30.4 27.0 - 31.0 pg [facility] MCHC 33.9 32.0 - 36.0 g/dL [facility] RDW 12.9 11.5 - 14.5 % [facility] MPV 9.6 8.4 - 12.0 fL [facility] NRBC 0.00 0.00 /100 WBCs [facility] ABSOLUTE NRBC 0.00 0.00 K/uL [facility] DIFF METHOD Auto [facility] NEUTS 45.4(L) 48.0 - 76.0 % [facility] LYMPHS 32.8 18.0 - 41.0 % [facility] MONOS 12.4(H) 4.0 - 11.0 % [facility] EOS 7.8(H) 0.0 - 5.0 % [facility] BASOS 1.0 0.0 - 1.5 % [facility] Granulocytes, immature (%) 0.6 0.0 - 0.9 % [facility] ABSOLUTE NEUTS 3.09 1.92 - 7.60 K/uL [facility] ABSOLUTE LYMPHS 2.23 0.72 - 4.10 K/uL [facility] ABSOLUTE MONOS 0.84 0.16 - 1.10 K/uL [facility] ABSOLUTE EOS 0.53(H) 0.00 - 0.50 K/uL [facility] ABSOLUTE BASOS 0.07 0.00 - 0.15 K/uL [facility] Granulocytes, immature 0.04 0.00 - 0.09 K/uL [facility] Blood 02/10/2025 11:3 3 AM EDT 02/10/2025 11:39 AM EDT us Nickie Maria MD LAB BLOOD ORDERABLES Fin al Result [facility] [address] [place] [address] documented in this encounter Visit Diagnoses Diagnosis Psoriatic arthritis Psoriatic arthropathy Encounter for monitoring golimumab therapy documented in this encounter Care Teams Lightning Rod Installer Relationship Specialty Start Date End Date Armida Canchola MD [address] [facility] [place] [address] PCP - General Internal Medicine 06/07/24 documented as of this encounter Additional Source Comments The information contained in this document represents components of the legal health record. It is not the complete legal health record.[facility]
--- OUTSIDE RECORDS SUMMARY | 2025-02-14 07:54 | XMS_ITS | Clinical Summary ---
Author Organization [facility] Address [address] [place] [id number] Phone Care Team Providers Care Wardrobe Assistant Name Role Phone Armida Canchola MD Primary Care Provider [phone] Allergies No known active allergies Medications amLODIPine (NORVASC) 10 MG tablet Take 1 tablet by mouth daily. Active lisinopril (PRINIVIL,ZESTRIL) 40 MG tablet Take 40 mg by mouth daily. Active ADULT LOW DOSE ASPIRIN ORAL Take 1 tablet by mouth daily. Active pravastatin (PRAVACHOL) 10 MG tablet Take 10 mg by mouth daily. Active indapamide (LOZOL) 1.25 mg tablet Take 1.25 mg by mouth every morning. Active JARDIANCE 25 mg tablet Take 1 tablet by mouth daily. 2 Active golimumab (SIMPONI) 50 mg/0.5 mL penIndications:Psor iatic arthritis Inject 0.5 mL (50 mg total) under the skin every 30 (thirty) days. 0.5 mL 11 5 Active oxyCODONE-acetamino phen (PERCOCET) 5-325 mg per tabletIndications:P rimary osteoarthritis involving multiple joints,Chronic midline low back pain without sciatica Take 1 tab every 6 hrs for pain 112 tablet 5 Active Active Problems Problem Noted Date Diagnosed Date Encounter for monitoring golimumab therapy 06/07 Assessment & Plan (10/11/2024 9:01 AM EDT): Carefully continue subcutaneous Simponi injections once every month as he continues the first day of each month. Hold the injection if running fever, feeling sick or taking antibiotics. Complete entire course of antibiotics and wait at least 48 hours after the last dose of antibiotic before getting monthly Simponi injection. Make sure to inform any new CONSTANCE BAKER, [employer]ACLE ENGINEER about chronic immunosuppression particularly in emergency situations Assessment & Plan (06/07/2024 8:40 AM EST): Carefully continue subcutaneous Simponi injections once every month as he continues the first day of each month. Hold the injection if running fever, feeling sick or taking antibiotics. Complete entire course of antibiotics and wait at least 48 hours after the last dose of antibiotic before getting monthly Simponi injection. Make sure to inform any new CONSTANCE BAKER, ORACLE ENGINEER about chronic immunosuppression particularly in emergency situations Class 1 obesity due to exces s calories with serious comorbidity and body mass index (BMI) of 33.0 to 33.9 in adult 06/07/2024 Assessment & Plan (10/11/2024 9:21 AM EDT): Continue diligent portion control to bring his body weight as close as possible to ideal range for his height Limit concentrated sugars, saturated fats and calories in the diet. Keep well-hydrated. If unable to achieve expected goal consider formal dietary/nutritional support. Assessment & Plan (06/07/2024 9:04 AM EST): Continue diligent portion control particularly in view of gaining 17 pounds from 215 on 01/26/2024 up to 242 today.. Limit concentrated sugars, saturated fats and calories in the diet. Keep well-hydrated. If unable to achieve expected goal consider formal dietary/nutritional support. Cold sensitivity 06/07/2024 Overweight (BMI 25.0-29.9) 01/26/2024 Assessment & Plan (01/26/2024 9:39 AM EDT): Continue diligent portion control particularly in view of gaining 8 pounds from 207 in late September 2023 up to 215 today. Limit concentrated sugars, saturated fats and calories in the diet. Keep well-hydrated. If unable to achieve expected goal consider formal dietary/nutritional support. Long-term use of immunosuppressant medication Assessment & Plan (01/26/2024 9:13 AM EDT): Carefully continue subcutaneous Simponi injections once every month as he continues the first day of each month. Hold the injection if running fever, feeling sick or taking antibiotics. Complete entire course of antibiotics and wait at least 48 hours after the last dose of antibiotic before getting monthly Simponi injection. Make sure to inform any new CONSTANCE BAKER NP about chronic immunosuppression particularly in emergency situations. Assessment & Plan (09/22/2023 9:57 AM EDT): Carefully continue subcutaneous Simponi injections once every month as he continues the first day of each month. Hold the injection if running fever, feeling sick or taking antibiotics. Complete entire course of antibiotics and wait at least 48 hours after the last dose of antibiotic before getting monthly Simponi injection. Make sure to inform any new CONSTANCE BAKER NP about chronic immunosuppression particularly in emergency situations. Assessment & Plan (05/19/2023 9:30 AM EST): Carefully continue subcutaneous Simponi injections once every month as he continues the first day of each month. Hold the injection if running fever, feeling sick or taking antibiotics. Complete entire course of antibiotics and wait at least 48 hours after the last dose of antibiotic before getting monthly Simponi injection. Make sure to inform any new CONSTANCE BAKER NP about chronic immunosuppression particularly in emergency situations. Assessment & Plan (01/13/2023 8:52 AM EDT): Carefully continue subcutaneous Simponi injections once every month as he continues the first day of each month. Hold the injection if running fever, feeling sick or taking antibiotics. Complete entire course of antibiotics and wait at least 48 hours after the last dose of antibiotic before getting monthly Simponi injection. Make sure to inform any new CONSTANCE BAKER NP about chronic immunosuppression particularly in emergency situations. Assessment & Plan (09/30/2022 4:38 PM EDT): Carefully continue subcutaneous Simponi injections once every month as he continues the first day of each month. Hold the injection if running fever, feeling sick or taking antibiotics. Complete entire course of antibiotics and wait at least 48 hours after the last dose of antibiotic before getting monthly Simponi injection. Make sure to inform any new CONSTANCE BAKER NP about chronic immunosuppression particularly in emergency situations. Assessment & Plan (01/21/2022 8:39 AM EDT): Carefully continue subcutaneous Simponi injections once every month as he continues the first day of each month. Hold the injection if running fever, feeling sick or taking antibiotics. Complete entire course of antibiotics and wait at least 48 hours after the last dose of antibiotic before getting monthly Simponi injection. Make sure to inform any new CONSTANCE BAKER NP about chronic immunosuppression particularly in emergency situations. Assessment & Plan (10/08/2021 8:07 AM EDT): Carefully continue subcutaneous Simponi injections once every month as he continues the first day of each month. Hold the injection if running fever, feeling sick or taking antibiotics. Complete entire course of antibiotics and wait at least 48 hours after the last dose of antibiotic before getting monthly Simponi injection. Make sure to inform any new CONSTANCE BAKER NP about chronic immunosuppression particularly in emergency situations. Assessment & Plan (07/30/2021 8:27 AM EST): Carefully continue subcutaneous Simponi injections once every month as he continues the first day of each month. Hold the injection if running fever, feeling sick or taking antibiotics. Complete entire course of antibiotics and wait at least 48 hours after the last dose of antibiotic before getting monthly Simponi injection. Make sure to inform any new CONSTANCE BAKER NP about chronic immunosuppression particularly in emergency situations. Assessment & Plan (04/23/2021 8:25 AM EST): Carefully continue subcutaneous Simponi injections once every month as he continues the first day of each month. Hold the injection if running fever, feeling sick or taking antibiotics. Complete entire course of antibiotics and wait at least 48 hours after the last dose of antibiotic before getting monthly Simponi injection. Make sure to inform any new CONSTANCE BAKER NP about chronic immunosuppression particularly in emergency situations. Assessment & Plan (01/15/2021 8:51 AM EDT): Carefully continue subcutaneous Simponi injections once every month as he continues the first day of each month. Hold the injection if running fever, feeling sick or taking antibiotics. Complete entire course of antibiotics and wait at least 48 hours after the last dose of antibiotic before getting monthly Simponi injection. Make sure to inform any new MD, PA, ORACLE ENGINEER about chronic immunosuppression particularly in emergency situations. Gastroesophageal reflux disease without esophagi tis 05/18/2018 Assessment & Plan (01/26/2024 9:12 AM EDT): Avoid late, large, spicy meals. Keep headboard elevated at 45 angle for nighttime. Continue daily Prilosec as prescribed. Assessment & Plan (09/22/2023 9:57 AM EDT): Avoid late, large, spicy meals. Keep headboard elevated at 45 angle for nighttime. Continue daily Prilosec as prescribed. Assessment & Plan (01/13/2023 8:51 AM EDT): Avoid late, large, spicy meals. Keep headboard elevated at 45 angle for nighttime. Assessment & Plan (09/09/2022 8:36 AM EDT): Avoid late, large, spicy meals. Keep headboard elevated at 45 angle for nighttime. Assessment & Plan (01/21/2022 8:38 AM EDT): Avoid late, large, spicy meals. Keep headboard elevated at 45 angle for nighttime. Assessment & Plan (10/08/2021 8:06 AM EDT): Avoid late, large, spicy meals. Keep headboard elevated at 45 angle for nighttime. Assessment & Plan (01/15/2021 8:42 AM EDT): Avoid late, large, spicy meals. Keep headboard elevated at 45 angle for nighttime. Assessment & Plan (10/09/2020 8:46 AM EDT): Avoid late, large, spicy meals. Keep headboard elevated at 45 angle for nighttime. Assessment & Plan (08/07/2020 8:46 AM EST): Avoid late, large, spicy meals. Keep headboard elevated at 45 angle for nighttime. Assessment & Plan (06/19/2020 9:17 AM EST): Avoid late, large, spicy meals. Keep headboard elevated at 45 angle for nighttime. Assessment & Plan (12/15/2018 12:58 PM EDT): Avoid late, large, spicy meals. Keep headboard elevated at 45 angle for nighttime. On statin therapy 05/18/2018 Assessment & Plan (10/11/2024 9:04 AM EDT): Monitor for muscle tenderness, swelling and weakness Assessment & Plan (01/26/2024 9:12 AM EDT): Monitor for muscle tenderness, swelling and weakness Assessment & Plan (01/21/2022 8:39 AM EDT): Monitor for muscle tenderness, swelling and weakness Assessment & Plan (10/08/2021 8:07 AM EDT): Monitor for muscle tenderness, swelling and weakness Assessment & Plan (07/30/2021 8:28 AM EST): Monitor for muscle tenderness, swelling and weakness Assessment & Plan (04/23/2021 8:08 AM EST): Monitor for muscle tenderness, swelling and weakness Assessment & Plan (01/15/2021 8:41 AM EDT): Monitor for muscle tenderness, swelling and weakness Assessment & Plan (10/09/2020 8:45 AM EDT): Monitor for muscle tenderness, swelling and weakness Assessment & Plan (08/07/2020 8:44 AM EST): Monitor for muscle tenderness, swelling and weakness Assessment & Plan (06/19/2020 9:15 AM EST): Monitor for muscle tenderness, swelling and weakness Assessment & Plan (03/20/2020 8:13 AM EDT): Monitor for muscle tenderness, swelling and weakness Assessment & Plan (09/20/2019 8:26 AM EDT): Monitor for muscle tenderness, swelling and weakness Assessment & Plan (06/14/2019 8:29 AM EST): Monitor for muscle tenderness, swelling and weakness Assessment & Plan (03/15/2019 8:34 AM EDT): Monitor for muscle tenderness, swelling and weakness Assessment & Plan (12/15/2018 1:00 PM EDT): Monitor for muscle tenderness, swelling and weakness Hypertension 05/19/2017 Psoriatic arthritis 05/19/2017 Assessment & Plan (10/11/2024 9:00 AM EDT): Monitoring labs stable as is his skin though joints stiff and sore particularly within the lumbosacral region. Carefully continue every 30 days subcutaneous Simponi. Joint protection, energy conservation. Avoid falls, injuries, overuse. Work on reducing body weight closer to ideal range for his height. Gentle, regular exercise. Topical cream versus patch as needed. Consider local steroid injection if not better or worse. Call if problems or questions otherwise return in 4 months with prior labs monitoring safety and efficacy of therapy - standing orders in [facility]. Assessment & Plan (06/07/2024 8:39 AM EST): Monitoring labs stable as is his skin though joints stiff and sore particularly within the lumbosacral region. Carefully continue every 30 days subcutaneous Simponi. Joint protection, energy conservation. Avoid falls, injuries, overuse. Work on reducing body weight closer to ideal range for his height. Gentle, regular exercise. Topical cream versus patch as needed. Consider local steroid injection if not better or worse. Call if problems or questions otherwise return in 4 months with prior labs monitoring safety and efficacy of therapy - standing orders in [facility]. Assessment & Plan (01/26/2024 9:35 AM EDT): Monitoring labs stable as is his skin though joints stiff and sore particularly within the lumbosacral region. Carefully continue every 30 days subcutaneous Simponi. Joint protection, energy conservation. Avoid falls, injuries, overuse. Work on reducing body weight closer to ideal range for his height. Gentle, regular exercise. Topical cream versus patch as needed. Consider local steroid injection if not better or worse. Get yearly influenza and COVID-19 newest booster vaccine dose preferably between mid to end of March 2024. Call if problems or questions otherwise return in 4 months with prior labs monitoring safety and efficacy of therapy - standing orders in [facility]. Assessment & Plan (09/22/2023 9:55 AM EDT): Monitoring labs stable as is his skin though joints stiff and sore particularly within the lumbosacral region. Carefully continue every 30 days subcutaneous Simponi. Joint protection, energy conservation. Avoid falls, injuries, overuse. Work on reducing body weight closer to ideal range for his height. Gentle, regular exercise. Topical cream versus patch as needed. Consider local steroid injection if not better or worse. Call if problems or questions otherwise return in 4 months with prior labs monitoring safety and efficacy of therapy - standing orders in [facility].Monitoring labs stable as is his skin though joints stiff and sore particularly within the lumbosacral region. Carefully continue every 30 days subcutaneous Simponi. Joint protection, energy conservation. Avoid falls, injuries, overuse. Work on reducing body weight closer to ideal range for his height. Gentle, regular exercise. Topical cream versus patch as needed. Consider local steroid injection if not better or worse. Call if problems or questions otherwise return in 4 months with prior labs monitoring safety and efficacy of therapy - standing orders in [facility]. Assessment & Plan (05/20/2023 12:04 PM EST): Monitoring labs stable as is his skin though joints stiff and sore particularly within the lumbosacral region. Carefully continue every 30 days subcutaneous Simponi. Joint protection, energy conservation. Avoid falls, injuries, overuse. Work on reducing body weight closer to ideal range for his height. Gentle, regular exercise. Topical cream versus patch as needed. Consider local steroid injection if not better or worse. Call if problems or questions otherwise return in 4 months with prior labs monitoring safety and efficacy of therapy - standing orders in [facility]. Assessment & Plan (01/13/2023 8:50 AM EDT): Carefully continue every 30 days subcutaneous Simponi. Joint protection, energy conservation. Avoid falls, injuries, overuse. Work on reducing body weight closer to ideal range for his height. Gentle, regular exercise. Topical cream versus patch as needed. Consider local steroid injection if not better or worse. Call if problems or questions otherwise return in 3 months with prior labs monitoring safety and efficacy of therapy - standing orders in [facility]. Assessment & Plan (09/09/2022 8:35 AM EDT): Carefully continue every 30 days subcutaneous Simponi. Joint protection, energy conservation. Avoid falls, injuries, overuse. Work on reducing body weight closer to ideal range for his height. Gentle, regular exercise. Topical cream versus patch as needed. Consider local steroid injection if not better or worse. Call if problems or questions otherwise return in 3 months with prior labs monitoring safety and efficacy of therapy - standing orders in [facility]. Assessment & Plan (02/12/2022 11:16 AM EDT): Carefully continue every 30 days subcutaneous Simponi. Joint protection, energy conservation. Avoid falls, injuries, overuse. Work on reducing body weight closer to ideal range for his height. Gentle, regular exercise. Topical cream versus patch as needed. Consider local steroid injection if not better or worse. Get yearly influenza vaccine by March 2022 preferably 2 weeks after monthly subcutaneous Simponi dose. Call if problems or questions otherwise return in 3 months with prior labs monitoring safety and efficacy of therapy - standing orders in [facility]. Assessment & Plan (10/08/2021 8:05 AM EDT): Carefully continue every 30 days subcutaneous Simponi. Joint protection, energy conservation. Avoid falls, injuries, overuse. Work on reducing body weight closer to ideal range for his height. Gentle, regular exercise. Topical cream versus patch as needed. Consider local steroid injection if not better or worse. Call if problems or questions otherwise return in 3 months with prior labs monitoring safety and efficacy of therapy - standing orders in [facility]. Assessment & Plan (07/31/2021 1:02 PM EST): Carefully continue every 30 days subcutaneous Simponi. Joint protection, energy conservation. Avoid falls, injuries, overuse. Work on reducing body weight closer to ideal range for his height. Gentle, regular exercise. Topical cream versus patch as needed. Consider local steroid injection if not better or worse. Call if problems or questions otherwise return in 3 months with prior labs monitoring safety and efficacy of therapy - standing orders in [facility]. Assessment & Plan (05/13/2021 8:42 PM EST): Carefully continue every 4 weeks subcutaneous Simponi. Joint protection, energy conservation. Avoid falls, injuries, overuse. Work on reducing body weight closer to ideal range for his height. Gentle, regular exercise. Topical cream versus patch as needed. Consider local steroid injection if not better or worse. Call if problems or questions otherwise return in 3 months with prior labs monitoring safety and efficacy of therapy - standing orders in [facility]. Assessment & Plan (01/15/2021 8:50 AM EDT): He qualifies to get COVID-19 booster vaccine dose and is planning to do it in the nearest future. Carefully continue every 4 weeks subcutaneous Simponi. Joint protection, energy conservation. Avoid falls, injuries, overuse. Work on reducing body weight closer to ideal range for his height. Gentle, regular exercise. Topical cream versus patch as needed. Consider local steroid injection if not better or worse. Call if problems or questions otherwise return in 3 months with prior labs monitoring safety and efficacy of therapy. Assessment & Plan (10/17/2020 8:24 AM EDT): Carefully continue every 4 weeks subcutaneous Simponi. Joint protection, energy conservation. Avoid falls, injuries, overuse. Work on reducing body weight closer to ideal range for his height. Gentle, regular exercise. Topical cream versus patch as needed. Consider local steroid injection if not better or worse. Call if problems or questions otherwise return in 3 months with prior labs monitoring safety and efficacy of therapy. Assessment & Plan (08/07/2020 9:02 AM EST): Joint protection, energy conservation. Avoid falls, injuries, overuse. Work on reducing body weight closer to ideal range for his height. Gentle, regular exercise. Topical cream versus patch as needed. Consider local steroid injection if not better or worse. Due to increased ESR and CRP I agreed to switch his disease modifying antirheumatic Otezla into injectable Simponi pen every month. Assessment & Plan (06/22/2020 10:42 PM EST): Get labs monitoring safety and efficacy of therapy prior to next visit in 2 months. Continue oral Otezla 30 mg twice daily. We plan to continue Otezla for at least full 3-4 months as long as he tolerates it and does not get worse but since he does not find it very helpful I reprinted pamphlet on Humira and ask him to review it as an alternative option should she continue with poor response to Otezla. Gentle, regular exercise routine. Avoid sick contacts. Call with questions or problems. Assessment & Plan (03/20/2020 9:05 AM EDT): Get labs monitoring safety and efficacy of therapy today and prior to next visit in 3 months. Continue weekly subcutaneous Enbrel injections. Hold Enbrel whenever running fever, feeling sick or taking antibiotics. Wait 48 hours after the last dose of antibiotic to make sure that infection does not recur prior to restarting regular Enbrel dosing. On his request due to ongoing and worsening skin psoriasis I offered him an oral equivalent that may be controlling his skin disease better = Otezla. He was provided with list of possible side effects to monitor for. Prescription was sent to his pharmacy and insurance prior approval. He is instructed to call once medication approved and received by him for further instructions. Gentle, regular exercise routine. Avoid sick contacts. Call with questions or problems. Assessment & Plan (12/21/2019 3:33 PM EDT): Get labs monitoring safety and efficacy of therapy prior to next visit in 3 months. Continue weekly subcutaneous Enbrel injections. Hold Enbrel whenever running fever, feeling sick or taking antibiotics. Wait 48 hours after the last dose of antibiotic to make sure that infection does not recur prior to restarting regular Enbrel dosing. On his request due to ongoing and worsening skin psoriasis I offered him an oral equivalent that may be controlling his skin disease better = Otezla. He was provided with list of possible side effects to monitor for. Prescription was sent to his pharmacy and insurance prior approval. He is instructed to call once medication approved and received by him for further instructions. Gentle, regular exercise routine. Avoid sick contacts. Call with questions or problems. Assessment & Plan (09/20/2019 8:22 AM EDT): Get labs monitoring safety and efficacy of therapy prior to next visit in 3 months. Continue weekly subcutaneous Enbrel injections. Hold Enbrel whenever running fever, feeling sick or taking antibiotics. Wait 48 hours after the last dose of antibiotic to make sure that infection does not recur prior to restarting regular Enbrel dosing. Gentle, regular exercise routine. Avoid sick contacts. Call with questions or problems. Assessment & Plan (06/14/2019 8:27 AM EST): Get labs monitoring safety and efficacy of therapy prior to next visit in 3 months. Continue weekly subcutaneous Enbrel injections. Hold Enbrel whenever running fever, feeling sick or taking antibiotics. Wait 48 hours after the last dose of antibiotic to make sure that infection does not recur prior to restarting regular Enbrel dosing. Gentle, regular exercise routine. Avoid sick contacts. Call with questions or problems. Assessment & Plan (03/15/2019 8:44 AM EDT): Get labs monitoring safety and efficacy of therapy prior to next visit in 3 months. Continue weekly subcutaneous Enbrel injections. Hold Enbrel whenever running fever, feeling sick or taking antibiotics. Wait 48 hours after the last dose of antibiotic to make sure that infection does not recur prior to restarting regular Enbrel dosing. Gentle, regular exercise routine. Avoid sick contacts. Call with questions or problems. Assessment & Plan (12/15/2018 12:57 PM EDT): Get labs monitoring safety and efficacy of therapy today. Continue weekly subcutaneous Enbrel injections. Hold Enbrel whenever running fever, feeling sick or taking antibiotics. Gentle, regular exercise routine. Avoid sick contacts. Call with questions or problems. Get labs monitoring safety and efficacy of therapy prior to next visit in 3 months. 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 Avoid falls, injuries, overuse. Work on reducing body weight closer to ideal range for his height. Gentle, regular exercise. Topical cream versus patch as needed. Consider local steroid injection if not better or worse. He reports poor response to injectable steroid in the past and is interested to consider intra-articular Synvisc injection into his left knee-pamphlet provided- he did not have the chance to check insurance coverage . Most troublesome is progressive low back pain for which he considers interval imaging and subsequent neurosurgical consultation. Assessment & Plan (06/07/2024 8:39 AM EST): Joint protection, energy conservation. Avoid falls, injuries, overuse. Work on reducing body weight closer to ideal range for his height. Gentle, regular exercise. Topical cream versus patch as needed. Consider local steroid injection if not better or worse. He reports poor response to injectable steroid in the past and is interested to consider intra-articular Synvisc injection into his left knee-pamphlet provided- he did not have the chance to check insurance coverage . Most troublesome is progressive low back pain for which he considers interval imaging and subsequent neurosurgical consultation. Assessment & Plan (01/26/2024 9:12 AM EDT): Joint protection, energy conservation. Avoid falls, injuries, overuse. Work on reducing body weight closer to ideal range for his height. Gentle, regular exercise. Topical cream versus patch as needed. Consider local steroid injection if not better or worse. He reports poor response to injectable steroid in the past and is interested to consider intra-articular Synvisc injection into his left knee-pamphlet provided- he did not have the chance to check insurance coverage . Most troublesome is progressive low back pain for which he considers interval imaging and subsequent neurosurgical consultation. Assessment & Plan (09/22/2023 9:56 AM EDT): Joint protection, energy conservation. Avoid falls, injuries, overuse. Work on reducing body weight closer to ideal range for his height. Gentle, regular exercise. Topical cream versus patch as needed. Consider local steroid injection if not better or worse. He reports poor response to injectable steroid in the past and is interested to consider intra-articular Synvisc injection into his left knee-pamphlet provided- he did not have the chance to check insurance coverage . Most troublesome is progressive low back pain for which he considers interval imaging and subsequent neurosurgical consultation. Assessment & Plan (05/20/2023 12:05 PM EST): Joint protection, energy conservation. Avoid falls, injuries, overuse. Work on reducing body weight closer to ideal range for his height. Gentle, regular exercise. Topical cream versus patch as needed. Consider local steroid injection if not better or worse. He reports poor response to injectable steroid in the past and is interested to consider intra-articular Synvisc injection into his left knee-pamphlet provided- he did not have the chance to check insurance coverage . Most troublesome is progressive low back pain for which he considers interval imaging and subsequent neurosurgical consultation. Assessment & Plan (01/13/2023 8:50 AM EDT): Joint protection, energy conservation. Avoid falls, injuries, overuse. Work on reducing body weight closer to ideal range for his height. Gentle, regular exercise. Topical cream versus patch as needed. Consider local steroid injection if not better or worse. He admits to poor response to injectable steroid in the past and is interested to consider intra-articular Synvisc injection into his left knee-pamphlet provided- he did not have the chance to check insurance coverage . Assessment & Plan (09/09/2022 8:31 AM EDT): Joint protection, energy conservation. Avoid falls, injuries, overuse. Work on reducing body weight closer to ideal range for his height. Gentle, regular exercise. Topical cream versus patch as needed. Consider local steroid injection if not better or worse. He admits to poor response to injectable steroid in the past and is interested to consider intra-articular Synvisc injection into his left knee-pamphlet provided- he did not have the chance to check insurance coverage . Assessment & Plan (01/21/2022 8:37 AM EDT): Joint protection, energy conservation. Avoid falls, injuries, overuse. Work on reducing body weight closer to ideal range for his height. Gentle, regular exercise. Topical cream versus patch as needed. Consider local steroid injection if not better or worse. He admits to poor response to injectable steroid in the past and is interested to consider intra-articular Synvisc injection into his left knee-pamphlet provided- he did not have the chance to check insurance coverage . Assessment & Plan (10/08/2021 8:04 AM EDT): Joint protection, energy conservation. Avoid falls, injuries, overuse. Work on reducing body weight closer to ideal range for his height. Gentle, regular exercise. Topical cream versus patch as needed. Consider local steroid injection if not better or worse. He admits to poor response to injectable steroid in the past and is interested to consider intra-articular Synvisc injection into his left knee-pamphlet provided- he did not have the chance to check insurance coverage . Assessment & Plan (07/31/2021 1:03 PM EST): Joint protection, energy conservation. Avoid falls, injuries, overuse. Work on reducing body weight closer to ideal range for his height. Gentle, regular exercise. Topical cream versus patch as needed. Consider local steroid injection if not better or worse. He admits to poor response to injectable steroid in the past and is interested to consider intra-articular Synvisc injection into his left knee-pamphlet provided- he did not have the chance to check insurance coverage . Assessment & Plan (04/23/2021 8:08 AM EST): Joint protection, energy conservation. Avoid falls, injuries, overuse. Work on reducing body weight closer to ideal range for his height. Gentle, regular exercise. Topical cream versus patch as needed. Consider local steroid injection if not better or worse. He admits to poor response to injectable steroid in the past and is interested to consider intra-articular Synvisc injection into his left knee-pamphlet provided. Assessment & Plan (01/15/2021 8:33 AM EDT): Joint protection, energy conservation. Avoid falls, injuries, overuse. Work on reducing body weight closer to ideal range for his height. Gentle, regular exercise. Topical cream versus patch as needed. Consider local steroid injection if not better or worse. He admits to poor response to injectable steroid in the past and is interested to consider intra-articular Synvisc injection into his left knee-pamphlet provided. Assessment & Plan (10/09/2020 8:45 AM EDT): Joint protection, energy conservation. Avoid falls, injuries, overuse. Work on reducing body weight closer to ideal range for his height. Gentle, regular exercise. Topical cream versus patch as needed. Consider local steroid injection if not better or worse. He admits to poor response to injectable steroid in the past and is interested to consider intra-articular Synvisc injection into his left knee-pamphlet provided. Assessment & Plan (08/07/2020 8:43 AM EST): Joint protection, energy conservation. Avoid falls, injuries, overuse. Work on reducing body weight closer to ideal range for his height. Gentle, regular exercise. Topical cream versus patch as needed. Consider local steroid injection if not better or worse. He admits to poor response to injectable steroid in the past and is interested to consider intra-articular Synvisc injection into his left knee-pamphlet provided. Assessment & Plan (06/22/2020 10:44 PM EST): Joint protection, energy conservation. Avoid falls, injuries, overuse. Work on reducing body weight closer to ideal range for his height. Gentle, regular exercise. Topical cream versus patch as needed. Consider local steroid injection if not better or worse. He admits to poor response to injectable steroid in the past and is interested to consider intra-articular Synvisc injection into his left knee-pamphlet provided. Assessment & Plan (03/20/2020 8:04 AM EDT): Joint protection, energy conservation. Avoid falls, injuries, overuse. Work on reducing body weight closer to ideal range for his height. Gentle, regular exercise. Topical cream versus patch as needed. Consider local steroid injection if not better or worse. Assessment & Plan (12/20/2019 8:09 AM EDT): Joint protection, energy conservation. Avoid falls, injuries, overuse. Work on reducing body weight closer to ideal range for his height. Gentle, regular exercise. Topical cream versus patch as needed. Consider local steroid injection if not better or worse. Assessment & Plan (09/20/2019 8:23 AM EDT): Joint protection, energy conservation. Avoid falls, injuries, overuse. Work on reducing body weight closer to ideal range for his height. Gentle, regular exercise. Topical cream versus patch as needed. Consider local steroid injection if not better or worse. Assessment & Plan (06/14/2019 8:27 AM EST): Joint protection, energy conservation. Avoid falls, injuries, overuse. Work on reducing body weight closer to ideal range for his height. Gentle, regular exercise. Topical cream versus patch as needed. Consider local steroid injection if not better or worse. Assessment & Plan (03/15/2019 8:31 AM EDT): Joint protection, energy conservation. Avoid falls, injuries, overuse. Work on reducing body weight closer to ideal range for his height. Gentle, regular exercise. Topical cream versus patch as needed. Consider local steroid injection if not better or worse. Assessment & Plan (12/15/2018 12:58 PM EDT): Joint protection, energy conservation. Avoid falls, injuries, overuse. Work on reducing body weight closer to ideal range for his height. Gentle, regular exercise. Topical cream versus patch as needed. Consider local steroid injection if not better or worse. Chronic midline low back pain without sciatica 1 07/20/2016 Assessment & Plan (10/11/2024 9:00 AM EDT): Avoid bending, stooping, heavy lifting, sudden turns. Regular core muscle strengthening exercises. Warm pack, topical cream versus patch as needed. Consider formal physical therapy, chiropractic manipulations versus acupuncture versus craniosacral therapy etc. Watchful diet to bring weight closer into ideal range for his height. He is ready to get interval lower back imaging in an open MRI machine and consider surgical consultation due to progressive limitations and severe pain despite losing almost 70 pounds within the last couple of years. Assessment & Plan (06/07/2024 8:40 AM EST): Avoid bending, stooping, heavy lifting, sudden turns. Regular core muscle strengthening exercises. Warm pack, topical cream versus patch as needed. Consider formal physical therapy, chiropractic manipulations versus acupuncture versus craniosacral therapy etc. Watchful diet to bring weight closer into ideal range for his height. He is ready to get interval lower back imaging in an open MRI machine and consider surgical consultation due to progressive limitations and severe pain despite losing almost 70 pounds within the last couple of years. Assessment & Plan (01/26/2024 9:36 AM EDT): Avoid bending, stooping, heavy lifting, sudden turns. Regular core muscle strengthening exercises. Warm pack, topical cream versus patch as needed. Consider formal physical therapy, chiropractic manipulations versus acupuncture versus craniosacral therapy etc. Watchful diet to bring weight closer into ideal range for his height. He is ready to get interval lower back imaging in an open MRI machine and consider surgical consultation due to progressive limitations and severe pain despite losing almost 70 pounds within the last couple of years. Assessment & Plan (09/22/2023 9:56 AM EDT): Avoid bending, stooping, heavy lifting, sudden turns. Regular core muscle strengthening exercises. Warm pack, topical cream versus patch as needed. Consider formal physical therapy, chiropractic manipulations versus acupuncture versus craniosacral therapy etc. Watchful diet to bring weight closer into ideal range for his height. He is ready to get interval lower back imaging in an open MRI machine and consider surgical consultation due to progressive limitations and severe pain despite losing almost 70 pounds within the last couple of years.. Assessment & Plan (05/20/2023 12:07 PM EST): Avoid bending, stooping, heavy lifting, sudden turns. Regular core muscle strengthening exercises. Warm pack, topical cream versus patch as needed. Consider formal physical therapy, chiropractic manipulations versus acupuncture versus craniosacral therapy etc. Watchful diet to bring weight closer into ideal range for his height. He is ready to get interval lower back imaging in an open MRI machine and consider surgical consultation due to progressive limitations and severe pain despite losing almost 70 pounds within the last couple of years.. Assessment & Plan (01/13/2023 8:51 AM EDT): Avoid bending, stooping, heavy lifting, sudden turns. Regular core muscle strengthening exercises. Warm pack, topical cream versus patch as needed. Consider formal physical therapy, chiropractic manipulations versus acupuncture versus craniosacral therapy etc. Watchful diet to bring weight closer into ideal range for his height Assessment & Plan (09/09/2022 8:36 AM EDT): Avoid bending, stooping, heavy lifting, sudden turns. Regular core muscle strengthening exercises. Warm pack, topical cream versus patch as needed. Consider formal physical therapy, chiropractic manipulations versus acupuncture versus craniosacral therapy etc. Watchful diet to bring weight closer into ideal range for his height Assessment & Plan (01/21/2022 8:37 AM EDT): Avoid bending, stooping, heavy lifting, sudden turns. Regular core muscle strengthening exercises. Warm pack, topical cream versus patch as needed. Consider formal physical therapy, chiropractic manipulations versus acupuncture versus craniosacral therapy etc. Watchful diet to bring weight closer into ideal range for his height Assessment & Plan (10/08/2021 8:20 AM EDT): Avoid bending, stooping, heavy lifting, sudden turns. Regular core muscle strengthening exercises. Warm pack, topical cream versus patch as needed. Consider formal physical therapy, chiropractic manipulations versus acupuncture versus craniosacral therapy etc. Watchful diet to bring weight closer into ideal range for his height Assessment & Plan (07/30/2021 8:20 AM EST): Avoid bending, stooping, heavy lifting, sudden turns. Regular core muscle strengthening exercises. Warm pack, topical cream versus patch as needed. Consider formal physical therapy, chiropractic manipulations versus acupuncture versus craniosacral therapy etc. Watchful diet to bring weight closer into ideal range for his height Assessment & Plan (04/23/2021 8:26 AM EST): Avoid bending, stooping, heavy lifting, sudden turns. Regular core muscle strengthening exercises. Warm pack, topical cream versus patch as needed. Consider formal physical therapy, chiropractic manipulations versus acupuncture versus craniosacral therapy etc. Watchful diet to bring weight closer into ideal range for his height Assessment & Plan (01/15/2021 8:43 AM EDT): Avoid bending, stooping, heavy lifting, sudden turns. Regular core muscle strengthening exercises. Warm pack, topical cream versus patch as needed. Consider formal physical therapy, chiropractic manipulations versus acupuncture versus craniosacral therapy etc. Watchful diet to bring weight closer into ideal range for his height Assessment & Plan (10/17/2020 8:26 AM EDT): Avoid bending, stooping, heavy lifting, sudden turns. Regular core muscle strengthening exercises. Warm pack, topical cream versus patch as needed. Consider formal physical therapy, chiropractic manipulations versus acupuncture versus craniosacral therapy etc. Watchful diet to bring weight closer into ideal range for his height Assessment & Plan (08/07/2020 8:46 AM EST): Avoid bending, stooping, heavy lifting, sudden turns. Regular core muscle strengthening exercises. Warm pack, topical cream versus patch as needed. Consider formal physical therapy, chiropractic manipulations versus acupuncture versus craniosacral therapy etc. Watchful diet to bring weight closer into range for his height Assessment & Plan (06/19/2020 9:17 AM EST): Avoid bending, stooping, heavy lifting, sudden turns. Regular core muscle strengthening exercises. Warm pack, topical cream versus patch as needed. Consider formal physical therapy, chiropractic manipulations versus acupuncture versus craniosacral therapy etc. Watchful diet to bring weight closer into range for his height Assessment & Plan (03/20/2020 8:05 AM EDT): Avoid bending, stooping, heavy lifting, sudden turns. Regular core muscle strengthening exercises. Warm pack, topical cream versus patch as needed. Consider formal physical therapy, chiropractic manipulations versus acupuncture versus craniosacral therapy etc. Watchful diet to bring weight closer into range for his height Assessment & Plan (12/20/2019 8:10 AM EDT): Avoid bending, stooping, heavy lifting, sudden turns. Regular core muscle strengthening exercises. Warm pack, topical cream versus patch as needed. Consider formal physical therapy, chiropractic manipulations versus acupuncture versus craniosacral therapy etc. Watchful diet to bring weight closer into range for his height Assessment & Plan (09/20/2019 8:37 AM EDT): Avoid bending, stooping, heavy lifting, sudden turns. Regular core muscle strengthening exercises. Warm pack, topical cream versus patch as needed. Consider formal physical therapy, chiropractic manipulations versus acupuncture versus craniosacral therapy etc. Watchful diet to bring weight closer into range for his height Assessment & Plan (06/14/2019 8:28 AM EST): Avoid bending, stooping, heavy lifting, sudden turns. Regular core muscle strengthening exercises. Warm pack, topical cream versus patch as needed. Consider formal physical therapy, chiropractic manipulations versus acupuncture versus craniosacral therapy etc. Watchful diet to bring weight closer into range for his height Assessment & Plan (03/15/2019 8:32 AM EDT): Avoid bending, stooping, heavy lifting, sudden turns. Regular core muscle strengthening exercises. Warm pack, topical cream versus patch as needed. Consider formal physical therapy, chiropractic manipulations versus acupuncture versus craniosacral therapy etc. Watchful diet to bring weight closer into range for his height Assessment & Plan (12/15/2018 12:59 PM EDT): Avoid bending, stooping, heavy lifting, sudden turns. Regular core muscle strengthening exercises. Warm pack, topical cream versus patch as needed. Consider formal physical therapy, chiropractic manipulations versus acupuncture versus craniosacral therapy etc. Watchful diet to bring weight closer into range for his height Tobacco dependence 05/19/2017 Assessment & Plan (01/26/2024 9:37 AM EDT): I have spent at least 3 minutes on encouraging him to work on complete smoking cessation by reducing number of cigarettes smoked daily by 1 cigarette every week and be ready for dealing with cravings by stocking finger size healthy snacks such as small carrots, cucumbers, celery sticks etc. We reviewed the multiple ill effects of ongoing cigarette smoking habit including but not limited to increased risk of lung cancer, bladder cancer, stroke, heart attack. 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 I provided him with [phone]-FWXA-NOW phone number to help him keep on track in the process of quitting for good. He admits that he hopes to quit for good this time though admits to difficulty= repeatedly failing to stay cigarette smoke free. Assessment & Plan (09/22/2023 10:34 AM EDT): I have spent at least 3 minutes on encouraging him to work on complete smoking cessation by reducing number of cigarettes smoked daily by 1 cigarette every week and be ready for dealing with cravings by stocking finger size healthy snacks such as small carrots, cucumbers, celery sticks etc. We reviewed the multiple ill effects of ongoing cigarette smoking habit including but not limited to increased risk of lung cancer, bladder cancer, stroke, heart attack. 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 I provided him with [phone]-NOW phone number to help him keep on track in the process of quitting for good. He admits that he hopes to quit sooon for good this time though admits to difficulty= repeatedly failing to stay cigarette smoke free. Assessment & Plan (05/20/2023 12:06 PM EST): I have spent at least 3 minutes on encouraging him to work on complete smoking cessation by reducing number of cigarettes smoked daily by 1 cigarette every week and be ready for dealing with cravings by stocking finger size healthy snacks such as small carrots, cucumbers, celery sticks etc. We reviewed the multiple ill effects of ongoing cigarette smoking habit including but not limited to increased risk of lung cancer, bladder cancer, stroke, heart attack. 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 I provided him with [phone]-NOW phone number to help him keep on track in the process of quitting for good. He admits that he hopes to quit sooon for good this time. Assessment & Plan (09/30/2022 4:43 PM EDT): I have spent at least 3 minutes on encouraging him to work on complete smoking cessation by reducing number of cigarettes smoked daily by 1 cigarette every week and be ready for dealing with cravings by stocking finger size healthy snacks such as small carrots, cucumbers, celery sticks etc. We reviewed the multiple ill effects of ongoing cigarette smoking habit including but not limited to increased risk of lung cancer, bladder cancer, stroke, heart attack. 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 He admits that he hopes to quit sooon for good this time. Assessment & Plan (02/12/2022 11:17 AM EDT): I have spent at least 3 minutes on encouraging him to work on complete smoking cessation by reducing number of cigarettes smoked daily by 1 cigarette every week and be ready for dealing with cravings by stocking finger size healthy snacks such as small carrots, cucumbers, celery sticks etc. We reviewed the multiple ill effects of ongoing cigarette smoking habit including but not limited to increased risk of lung cancer, bladder cancer, stroke, heart attack. 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 He admits that he hopes to quit at for good this time. Assessment & Plan (10/08/2021 8:08 AM EDT): I have spent at least 3 minutes on encouraging him to work on complete smoking cessation by reducing number of cigarettes smoked daily by 1 cigarette every week and be ready for dealing with cravings by stocking finger size healthy snacks such as small carrots, cucumbers, celery sticks etc. We reviewed the multiple ill effects of ongoing cigarette smoking habit including but not limited to increased risk of lung cancer, bladder cancer, stroke, heart attack. 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 He admits that at this point he is not really committed to work on quitting. Assessment & Plan (07/31/2021 1:04 PM EST): Unfortunately restarted again in November 2020 after 13 months of not smoking. I have spent at least 3 minutes on encouraging him to work on complete smoking cessation by reducing number of cigarettes smoked daily by 1 cigarette every week and be ready for dealing with cravings by stocking finger size healthy snacks such as small carrots, cucumbers, celery sticks etc. We reviewed the multiple ill effects of ongoing cigarette smoking habit including but not limited to increased risk of lung cancer, bladder cancer, stroke, heart attack. 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 He admits that at this point he is not really committed to work on quitting. Assessment & Plan (05/13/2021 9:04 PM EST): Unfortunately restarted again recently. I have spent at least 3 minutes on encouraging him to work on complete smoking cessation by reducing number of cigarettes smoked daily by 1 cigarette every week and be ready for dealing with cravings by stocking finger size healthy snacks such as small carrots, cucumbers, celery sticks etc. We reviewed the multiple ill effects of ongoing cigarette smoking habit including but not limited to increased risk of lung cancer, bladder cancer, stroke, heart attack. 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 Assessment & Plan (03/20/2020 9:06 AM EDT): Congratulations on quitting cigarette smoking habit of over 55 years on November 25, 2019! He is encouraged to remain cigarette smoke free for the rest of his life. Assessment & Plan (12/21/2019 3:36 PM EDT): I have spent at least 3 minutes on encouraging him to work on complete smoking cessation by reducing number of cigarettes smoked daily by 1 cigarette every week and be ready for dealing with cravings by stocking finger size healthy snacks such as small carrots, cucumbers, celery sticks etc. I reviewed with him multiple benefits of complete smoking cessation including but not limited to decreased risk of developing lung cancer, bladder cancer, stroke and heart attack. Additional benefits include return of smell and taste sensation. He hopes to quit completely this time as he is already over a month without any single cigarette and does not attend weekly meetings with his colleagues that he used to enjoy cigarette smoking and company due to COVID-19 restrictions. Assessment & Plan (09/20/2019 8:49 AM EDT): I have spent at least 3 minutes on encouraging him to work on complete smoking cessation by reducing number of cigarettes smoked daily by 1 cigarette every week and be ready for dealing with cravings by stocking finger size healthy snacks such as small carrots, cucumbers, celery sticks etc. I reviewed with him multiple benefits of complete smoking cessation including but not limited to decreased risk of developing lung cancer, bladder cancer, stroke and heart attack. Additional benefits include return of smell and taste sensation. He is interested in working on complete smoking cessation with the help of his primary doctor. Assessment & Plan (06/14/2019 8:30 AM EST): I have spent at least 3 minutes on encouraging him to work on complete smoking cessation by reducing number of cigarettes smoked daily by 1 cigarette every week and be ready for dealing with cravings by stocking finger size healthy snacks such as small carrots, cucumbers, celery sticks etc. senior care current use of opiate analgesic 2016 Assessment & Plan (10/11/2024 9:00 AM EDT): Take exactly as prescribed, try to limit frequency by employing non-for pharmacologic measures such as topical creams, warm packs, patches, regular relaxation/mediation/positive imagery sessions etc. Build up regular exercise routine up to the goal of 30-45 minutes daily. Monitor for increasing shortness of breath, reduced respiratory drive, increasing constipation No signs of abuse or diversion. Assessment & Plan (06/07/2024 8:40 AM EST): Take exactly as prescribed, try to limit frequency by employing non-for pharmacologic measures such as topical creams, warm packs, patches, regular relaxation/mediation/positive imagery sessions etc. Build up regular exercise routine up to the goal of 30-45 minutes daily. Monitor for increasing shortness of breath, reduced respiratory drive, increasing constipation No signs of abuse or diversion. Assessment & Plan (01/26/2024 9:37 AM EDT): Take exactly as prescribed, try to limit frequency by employing non-for pharmacologic measures such as topical creams, warm packs, patches, regular relaxation/mediation/positive imagery sessions etc. Build up regular exercise routine up to the goal of 30-45 minutes daily. Monitor for increasing shortness of breath, reduced respiratory drive, increasing constipation No signs of abuse or diversion. Assessment & Plan (09/22/2023 9:56 AM EDT): Take exactly as prescribed, try to limit frequency by employing non-for pharmacologic measures such as topical creams, warm packs, patches, regular relaxation/mediation/positive imagery sessions etc. Build up regular exercise routine up to the goal of 30-45 minutes daily. Monitor for increasing shortness of breath, reduced respiratory drive, increasing constipation He is due for urinary tox screen. No signs of abuse or diversion. Assessment & Plan (05/19/2023 9:30 AM EST): Take exactly as prescribed, try to limit frequency by employing non-for pharmacologic measures such as topical creams, warm packs, patches, regular relaxation/mediation/positive imagery sessions etc. Build up regular exercise routine up to the goal of 30-45 minutes daily. Monitor for increasing shortness of breath, reduced respiratory drive, increasing constipation Assessment & Plan (01/13/2023 8:51 AM EDT): Take exactly as prescribed, try to limit frequency by employing non-for pharmacologic measures such as topical creams, warm packs, patches, regular relaxation/mediation/positive imagery sessions etc. Build up regular exercise routine up to the goal of 30-45 minutes daily. Monitor for increasing shortness of breath, reduced respiratory drive, increasing constipation Assessment & Plan (09/09/2022 8:37 AM EDT): Take exactly as prescribed, try to limit frequency by employing non-for pharmacologic measures such as topical creams, warm packs, patches, regular relaxation/mediation/positive imagery sessions etc. Build up regular exercise routine up to the goal of 30-45 minutes daily. Monitor for increasing shortness of breath, reduced respiratory drive, increasing constipation Assessment & Plan (01/21/2022 8:38 AM EDT): Take exactly as prescribed, try to limit frequency by employing non-for pharmacologic measures such as topical creams, warm packs, patches, regular relaxation/mediation/positive imagery sessions etc. Build up regular exercise routine up to the goal of 30-45 minutes daily. Monitor for increasing shortness of breath, reduced respiratory drive, increasing constipation Assessment & Plan (10/08/2021 8:06 AM EDT): Take exactly as prescribed, try to limit frequency by employing non-for pharmacologic measures such as topical creams, warm packs, patches, regular relaxation/mediation/positive imagery sessions etc. Build up regular exercise routine up to the goal of 30-45 minutes daily. Monitor for increasing shortness of breath, reduced respiratory drive, increasing constipation Assessment & Plan (07/31/2021 1:07 PM EST): Take exactly as prescribed, try to limit frequency by employing non-for pharmacologic measures such as topical creams, warm packs, patches, regular relaxation/mediation/positive imagery sessions etc. Build up regular exercise routine up to the goal of 30-45 minutes daily. Monitor for increasing shortness of breath, reduced respiratory drive, increasing constipation. I reviewed with him need for keeping it in a safe place and preventing it from theft or other destruction. We reviewed details of narcotic pain dispensation agreement and he is asked to get a yearly urine toxicology today. Assessment & Plan (04/23/2021 8:25 AM EST): Take exactly as prescribed, try to limit frequency by employing non-for pharmacologic measures such as topical creams, warm packs, patches, regular relaxation/mediation/positive imagery sessions etc. Build up regular exercise routine up to the goal of 30-45 minutes daily. Monitor for increasing shortness of breath, reduced respiratory drive, increasing constipation Assessment & Plan (01/15/2021 8:42 AM EDT): Take exactly as prescribed, try to limit frequency by employing non-for pharmacologic measures such as topical creams, warm packs, patches, regular relaxation/mediation/positive imagery sessions etc. Build up regular exercise routine up to the goal of 30-45 minutes daily. Monitor for increasing shortness of breath, reduced respiratory drive, increasing constipation Assessment & Plan (10/09/2020 8:45 AM EDT): Take exactly as prescribed, try to limit frequency by employing non-for pharmacologic measures such as topical creams, warm packs, patches, regular relaxation/mediation/positive imagery sessions etc. Build up regular exercise routine up to the goal of 30-45 minutes daily. Monitor for increasing shortness of breath, reduced respiratory drive, increasing constipation Assessment & Plan (08/07/2020 8:44 AM EST): Take exactly as prescribed, try to limit frequency by employing non-for pharmacologic measures such as topical creams, warm packs, patches, regular relaxation/mediation/positive imagery sessions etc. Build up regular exercise routine up to the goal of 30-45 minutes daily. Monitor for increasing shortness of breath, reduced respiratory drive, increasing constipation Assessment & Plan (03/20/2020 8:06 AM EDT): Take exactly as prescribed, try to limit frequency by employing non-for pharmacologic measures such as topical creams, warm packs, patches, regular relaxation/mediation/positive imagery sessions etc. Build up regular exercise routine up to the goal of 30-45 minutes daily. Monitor for increasing shortness of breath, reduced respiratory drive, increasing constipation Assessment & Plan (12/20/2019 8:11 AM EDT): Take exactly as prescribed, try to limit frequency by employing non-for pharmacologic measures such as topical creams, warm packs, patches, regular relaxation/mediation/positive imagery sessions etc. Build up regular exercise routine up to the goal of 30-45 minutes daily. Monitor for increasing shortness of breath, reduced respiratory drive, increasing constipation Assessment & Plan (09/20/2019 8:25 AM EDT): Take exactly as prescribed, try to limit frequency by employing non-for pharmacologic measures such as topical creams, warm packs, patches, regular relaxation/mediation/positive imagery sessions etc. Build up regular exercise routine up to the goal of 30-45 minutes daily. Monitor for increasing shortness of breath, reduced respiratory drive, increasing constipation Assessment & Plan (06/14/2019 8:28 AM EST): Take exactly as prescribed, try to limit frequency by employing non-for pharmacologic measures such as topical creams, warm packs, patches, regular relaxation/mediation/positive imagery sessions etc. Build up regular exercise routine up to the goal of 30-45 minutes daily. Monitor for increasing shortness of breath, reduced respiratory drive, increasing constipation Assessment & Plan (03/15/2019 8:33 AM EDT): Take exactly as prescribed, monitor for increased sleepiness, reduced respiratory drive or constipation. Keep medication in a safe place to prevent it from losing or being stolen Assessment & Plan (12/15/2018 1:00 PM EDT): Take exactly as prescribed, monitor for increased sleepiness, reduced respiratory drive or constipation. Keep medication in a safe place to prevent it from losing or being stolen senior care (current) use of oral hypoglycemic niall gs 05/19/2017 Assessment & Plan (01/26/2024 9:12 AM EDT): Continue taking exactly as prescribed. Aim at BS= 90-120 mg % Follow closely with prescribing physician as scheduled. Assessment & Plan (07/30/2021 8:22 AM EST): Continue taking exactly as prescribed. Aim at BS= 90-120 mg % Follow closely with prescribing physician as scheduled. Assessment & Plan (05/13/2021 9:05 PM EST): Continue taking exactly as prescribed. Aim at BS= 90-120 mg % Follow closely with prescribing physician as scheduled. Assessment & Plan (08/07/2020 8:45 AM EST): Avoid falls, injuries and cuts. Monitor for excessive bruising and bleeding. Assessment & Plan (06/19/2020 9:16 AM EST): Avoid falls, injuries and cuts. Monitor for excessive bruising and bleeding. Assessment & Plan (03/20/2020 8:05 AM EDT): Avoid falls, injuries and cuts. Monitor for excessive bruising and bleeding. Assessment & Plan (12/20/2019 8:10 AM EDT): Avoid falls, injuries and cuts. Monitor for excessive bruising and bleeding. Assessment & Plan (09/20/2019 8:26 AM EDT): Take exactly as prescribed, monitor for increased sleepiness, reduced respiratory drive or constipation. Keep medication in a safe place to prevent it from losing or being stolen Assessment & Plan (06/14/2019 8:28 AM EST): Take exactly as prescribed, monitor for increased sleepiness, reduced respiratory drive or constipation. Keep medication in a safe place to prevent it from losing or being stolen Assessment & Plan (03/15/2019 8:33 AM EDT): Aim at blood glucose 90-110 mg % Close follow-up with PCP versus diabetic nurse educator versus software developer manager Assessment & Plan (12/15/2018 1:00 PM EDT): Aim at blood glucose 90-110 mg % Close follow-up with PCP versus diabetic nurse educator versus software developer manager Resolved Problems Problem Noted Date Diagnosed Date Resolved Date Class 1 obesity due to exces s calories with serious comorbidity and body mass index (BMI) of 30.0 to 30.9 in adult 04/23/2021 01/13/2023 Assessment & Plan (02/12/2022 11:15 AM EDT): Continue diligent portion control. Limit concentrated sugars, saturated fats and calories in the diet. Keep well-hydrated. If unable to achieve expected goal consider formal dietary/nutritional support. Assessment & Plan (10/08/2021 8:20 AM EDT): Portion control. Limit concentrated sugars, saturated fats and calories in the diet. Keep well-hydrated. If unable to achieve expected goal consider formal dietary/nutritional support. Assessment & Plan (07/30/2021 8:21 AM EST): Portion control. Limit concentrated sugars, saturated fats and calories in the diet. Keep well-hydrated. If unable to achieve expected goal consider formal dietary/nutritional support. Assessment & Plan (04/23/2021 8:26 AM EST): Portion control. Limit concentrated sugars, saturated fats and calories in the diet. Keep well-hydrated. If unable to achieve expected goal consider formal dietary/nutritional support. senior care (current) use of aspirin 09/20/2019 10/11/2024 Assessment & Plan (06/07/2024 8:40 AM EST): Avoid falls, injuries and cuts. Monitor for excessive bruising and bleeding. Assessment & Plan (09/22/2023 9:57 AM EDT): Avoid falls, injuries and cuts. Monitor for excessive bruising and bleeding. Assessment & Plan (05/19/2023 9:30 AM EST): Avoid falls, injuries and cuts. Monitor for excessive bruising and bleeding. Assessment & Plan (01/13/2023 8:51 AM EDT): Avoid falls, injuries and cuts. Monitor for excessive bruising and bleeding. Assessment & Plan (09/09/2022 8:37 AM EDT): Avoid falls, injuries and cuts. Monitor for excessive bruising and bleeding. Assessment & Plan (10/08/2021 8:06 AM EDT): Avoid falls, injuries and cuts. Monitor for excessive bruising and bleeding. Assessment & Plan (07/30/2021 8:21 AM EST): Avoid falls, injuries and cuts. Monitor for excessive bruising and bleeding. Assessment & Plan (04/23/2021 8:26 AM EST): Avoid falls, injuries and cuts. Monitor for excessive bruising and bleeding. Assessment & Plan (01/15/2021 8:42 AM EDT): Avoid falls, injuries and cuts. Monitor for excessive bruising and bleeding. Assessment & Plan (10/09/2020 8:45 AM EDT): Avoid falls, injuries and cuts. Monitor for excessive bruising and bleeding. Assessment & Plan (08/07/2020 8:46 AM EST): Avoid falls, injuries and cuts. Monitor for excessive bruising and bleeding. Assessment & Plan (06/19/2020 9:16 AM EST): Avoid falls, injuries and cuts. Monitor for excessive bruising and bleeding. Assessment & Plan (09/20/2019 8:40 AM EDT): Avoid falls, injuries and cuts. Monitor for excessive bruising and bleeding. On etanercept therapy 05/19/20172020 Assessment & Plan (03/20/2020 8:06 AM EDT): Hold Enbrel whenever running fever, feeling sick or taking antibiotic. Complete the antibiotic course wait at least 48 hours after last dose of antibiotic to make sure that symptoms do not return before restarting Enbrel on its usual weekly schedule. Inform any new doctor about chronic immunosuppression with Enbrel (etanercept) especially in emergency situations Assessment & Plan (12/21/2019 3:36 PM EDT): Hold Enbrel whenever running fever, feeling sick or taking antibiotic. Complete the antibiotic course wait at least 48 hours after last dose of antibiotic to make sure that symptoms do not return before restarting Enbrel on its usual weekly schedule. Inform any new doctor about chronic immunosuppression with Enbrel (etanercept) especially in emergency situations Assessment & Plan (09/20/2019 8:24 AM EDT): Hold Enbrel whenever running fever, feeling sick or taking antibiotic. Inform any new doctor about chronic immunosuppression with Enbrel (etanercept) especially in emergency situations Assessment & Plan (06/14/2019 8:29 AM EST): Hold Enbrel whenever running fever, feeling sick or taking antibiotic. Inform any new doctor about chronic immunosuppression with Enbrel (etanercept) especially in emergency situations Assessment & Plan (03/15/2019 8:34 AM EDT): Hold Enbrel whenever running fever, feeling sick or taking antibiotic. Inform any new doctor about chronic immunosuppression with Enbrel (etanercept) especially in emergency situations Assessment & Plan (12/15/2018 1:00 PM EDT): Hold Enbrel whenever running fever, feeling sick or taking antibiotic. Inform any new doctor about chronic immunosuppression with Enbrel (etanercept) especially in emergency situations Encounters Date Type Department Care Team Description 02/11/2025 Refill [facility] Rheumatology [address] [place] [address] Jeri Burgos CMA 02/10/2025 11:21 AM EDT - 02/10/2025 11:59 PM EDT Hospital Encounter [facility] [address] [place] [address] Nickie Maria MD Discharge Disposition: Home or Self Care 01/06/2025 Refill [facility] [address] [place] [address] Jeri Burgos CMA 12/10/2024 Refill [facility] Rheumatology [address] [place] [address] Nickie Maria MD Medication Refill 11/15/2024 Telephone [facility] [address] [place] [address] Jeri Burgos CMA Medication Prior Authorization (Oxycodone) from Last 3 Months Social History Tobacco Use Types Packs/Day Years Used Date Smoking Tobacco: Former Cigarettes 0.3 55 0 06/16/1963 - 06/16/2018 Smokeless Tobacco: Never Tobacco Cessation:Counseling Given: Not Answered Comments:.50 pack a week Alcohol Use Standard [...] on file Sexual Orientation Not on file Last Filed Vital Signs Vital Sign Reading Time Taken Comments Blood Pressure 130/64 10/11/2024 8:37 AM EDT Pulse 83 10/11/2024 8:37 AM EDT Temperature 36.6 C (97.8 F) 08/07/2020 8:11 AM EST Respiratory Rate - - Oxygen Saturation 96% 10/11/2024 8:37 AM EDT Inhaled Oxygen Concentration - - Weight 109.8 kg (242 lb) 10/11/2024 8:37 AM EDT Height 180.3 cm (5' 11 ) 10/11/2024 8:37 AM EDT Body Mass Index 33.75 10/11/2024 8:37 AM EDT Plan of Treatment Upcoming Encounters Date Type Department Care Team (Late st Contact Info) Description 02/21/2025 9:30 AM EDT Office Visit [facility] Rheumatology [address] [place] [address] [place] [address] Nickie Maria MD [address] [facility], [address] [place] [address] [email or web address] Health Maintenance Due Date Last Done Comments DEPRESSION SCREENING 1957 HEPATITIS C SCREENING 12/16/1965 ZOSTER VACCINES (2 of 2) 04/18/2019 02/21/2019, 03/02 RSV VACCINE (1 - 1-dose 75+ series) 12/16/2022 LIPID PANEL 06/07/2024 06/07/2019 INFLUENZA VACCINE (#1) 2024 4, 02/02/2023, 01/28/2022, Additional history exists COVID-19 VACCINE (9 - Pfizer risk season) 2025 02/12/2024, 03/18/2023, 10/13/2022, Additional history exists BLOOD PRESSURE 04/13/2025 10/11/2024 CREATININE LEVEL 02/10/2026 02/10/2025, 07/2024, 01/19/2024, Additional history exists POTASSIUM LEVEL 02/10/2026 02/10/2025, 07/2024, 01/19/2024, Additional history exists Adult Td,Tdap Booster 02/17/2028 02/16/2018 SMOKING STATUS SCREENING (Every 5 Years) 10/11/2029 10/11/2024 PNEUMOCOCCAL VACCINES (50+ years) Completed 03/17/2017, 03/11/2016, 03/11/2016, Additional history exists HEPATITIS A VACCINES Aged Out No long er eligible based on patient's age to complete this topic HIB VACCINES Aged Out No longer eligi ble based on patient's age to complete this topic MENINGOCOCCAL VACCINES (ACWY) Aged Out No longer eligible based on patient's age to complete this topic MENINGOCOCCAL VACCINES (B) Aged Out N o longer eligible based on patient's age to complete this topic Medical Devices Not on file Procedures Procedure Name Priority Date/Time Associated Diagnosis [...] Psoriatic arthritis Encounter for monitoring golimumab therapy LIPID PANEL Routine 06/07/2019 10:22 AM EST Screening for cancer Dyslipidemia from Last 3 Months or Most Recently Relevant to Health Maintenance Results * (ABNORMAL) Comprehensive metabolic panel (02/10/2025 11:33 AM EDT) SODIUM 143 133 - 146 mmol/L [facility] POTASSIUM 4.8 3.3 - 5.1 mmol/L [facility] CHLORIDE 106 96 - 108 mmol/L [facility] CO2 23 21 - 35 mmol/L [facility] BUN 26(H) 6 - 19 mg/dL [facility] CREATININE 1.60(H) 0.5 - 1.5 mg/dL [facility] GLUCOSE 172(H) 70 - 99 mg/dL [facility] ALBUMIN 4.1 3.9 - 4.8 g/dL [facility] TOTAL PROTEIN 7.0 6.5 - 8.0 g/dL [facility] CALCIUM 9.4 8.4 - 10.3 mg/dL [facility] ALKALINE PHOSPHATASE 69 39 - 117 U/L [facility] TOTAL BILIRUBIN 0.3 0.0 - 1.2 mg/dL [facility] AST 15 0 - 37 U/L [facility] ALT 19 0 - 40 U/L [facility] GLOBULIN 2.9 1 - 4.8 g/dL [facility] EGFR 44(L) >59 mL/min/1.7 3m2 [facility] Comment:Estimated glomerular filtration rate calculated using the CKD-EPI refit equation. ANION GAP 19 10 - 20 mmol/L [facility] Blood 02/10/2025 11:3 3 AM EDT 02/10/2025 11:39 AM EDT us Nickie Maria MD LAB BLOOD ORDERABLES Fin al Result [facility] [address] [place] [address] * Sedimentation rate (ESR) (02/10/2025 11:33 AM EDT) ESR 16 0 - 20 mm/h [facility] Blood 02/10/2025 11:3 3 AM EDT 02/10/2025 11:39 AM EDT us Nickie Maria MD LAB BLOOD ORDERABLES Fin al Result [facility] [address] [place] [address] * (ABNORMAL) CBC and differential (02/10/2025 11:33 AM EDT) WBC 6.80 4.00 - 11.00 K/uL [facility] RBC 4.93 4.50 - 5.90 M/uL [facility] HGB 15.0 13.5 - 17.5 g/dL [facility] HCT 44.3 41.0 - 53.0 % [facility] PLT 243 150 - 450 K/uL [facility] MCV 89.9 80.0 - 100.0 fL [facility] MCH 30.4 27.0 - 31.0 pg [facility] MCHC 33.9 32.0 - 36.0 g/dL [facility] RDW 12.9 11.5 - 14.5 % [facility] MPV 9.6 8.4 - 12.0 fL [facility] NRBC 0.00 0.00 /100 WBCs [facility] ABSOLUTE NRBC 0.00 0.00 K/uL [facility] DIFF METHOD Auto [facility] NEUTS 45.4(L) 48.0 - 76.0 % [facility] LYMPHS 32.8 18.0 - 41.0 % [facility] MONOS 12.4(H) 4.0 - 11.0 % [facility] EOS 7.8(H) 0.0 - 5.0 % [facility] BASOS 1.0 0.0 - 1.5 % [facility] Granulocytes, immature (%) 0.6 0.0 - 0.9 % [facility] ABSOLUTE NEUTS 3.09 1.92 - 7.60 K/uL [facility] ABSOLUTE LYMPHS 2.23 0.72 - 4.10 K/uL [facility] ABSOLUTE MONOS 0.84 0.16 - 1.10 K/uL [facility] ABSOLUTE EOS 0.53(H) 0.00 - 0.50 K/uL [facility] ABSOLUTE BASOS 0.07 0.00 - 0.15 K/uL [facility] Granulocytes, immature 0.04 0.00 - 0.09 K/uL [facility] Blood 02/10/2025 11:3 3 AM EDT 02/10/2025 11:39 AM EDT Nickie Maria MD LAB BLOOD ORDERABLES Fin al Result Performing Organization Address City/[facility]/ZIP Co de Phone Number [address] [address] * C-Reactive Protein (02/10/2025 11:33 AM EDT) C REACTIVE PROTEIN <3.0 0.0 - 4.0 mg/L [facility] Blood 02/10/2025 11:3 3 AM EDT 02/10/2025 11:39 AM EDT Nickie Maria MD LAB BLOOD ORDERABLES Fin al Result Performing Organization Address [facility] Co de Phone Number [address] [address] * (ABNORMAL) Lipid panel (06/07/2019 10:22 AM EST) HDL 48 mg/dL [facility] Comment: Interpretation <40 mg/dL: Low HDL cholesterol (major risk factor for CHD) Greater than or equal to 60 mg/dL: High HDL cholesterol ( negative risk factor for CHD) HDL - cholesterol is affected by a number of factors, e.g. smoking, excerise, hormones, sex and age. CHOLESTEROL 148 0 - 240 mg/dL [facility] TRIGLYCERIDES 120 30 - 160 mg/dL [facility] LDL 76 50 - 129 mg/dL [facility] Comment: LDL levels in terms of risk for coronary heart disease: <100 mg/dL: Optimal 100-129 mg/dL: Near or above optimal 130-159 mg/dL: Borderline high 160-189 mg/dL: High >190 mg/dL: Very High CARDIAC RISK RATIO 3.1(L) 3.4 - 5.0 C [facility] Blood 06/07/2019 10:2 2 AM EST 06/07/2019 10:23 AM EST Donny Calabrese MD LAB BLOOD ORDERABLES Final Result [address] [address] from Last 3 Months or Most Recently Relevant to Health Maintenance Insurance [place] [address] [place] [address] [place] [address] [place] [address] [place] [address] Care Teams Wardrobe Assistant Relationship Specialty Start Date End Date Armida Canchola MD [address] [place] [address] PCP - General Internal Medicine 06/07/24 Additional Source Comments The information contained in this document represents components of the legal health record. It is not the complete legal health record.[facility]
--- OUTSIDE RECORDS SUMMARY | 2025-02-14 07:54 | XMS_ITS | Encounter Summary ---
Author Organization [facility] Address [address] [place] [address] [address] [place] [address] Phone Care Team Providers Care Sheet Rock Taper Helper Name Role Phone Donny Calabrese MD Primary Care Provider [phone] Armida Canchola MD Primary Care Provider [phone] Encounter Details Date Type Department Care Team (Latest Contact Info) Description 09/15/2023 Transcribe Orders [facility] [address] [place] [address] [place] [address] Nickie Maria MD [address] [facility], [address] [place] [address] [email or web address] Psoriatic arthritis (Primary Dx); Long-term use of immunosuppressant medication Social History Tobacco Use Types Packs/Day Years [...] on file documented as of this encounter Plan of Treatment Upcoming Encounters Date Type Department Care Team (Late st Contact Info) Description 02/21/2025 9:30 AM EDT Office Visit [facility] Rheumatology [address] [place] [address] Nickie Maria MD [address] [facility], [address] [place] [address] [email or web address] documented as of this encounter Results * C-Reactive Protein (09/15/2023 11:28 AM EDT) C REACTIVE PROTEIN <3.0 0.0 - 4.0 mg/L [facility] Blood 09/15/2023 11:2 8 AM EDT 09/15/2023 11:30 AM EDT us Nickie Maria MD LAB BLOOD ORDERABLES Fin al Result [address] [address] * Sedimentation rate (ESR) (09/15/2023 11:28 AM EDT) ESR 9 0 - 20 mm/h [facility] Blood 09/15/2023 11:2 8 AM EDT 09/15/2023 11:30 AM EDT us Nickie Maria MD LAB BLOOD ORDERABLES Fin al Result [address] [address] * (ABNORMAL) CBC and differential (09/15/2023 11:28 AM EDT) WBC 10.33 4.00 - 11.00 K/uL [facility] RBC 4.87 3.90 - 5.69 M/uL [facility] HGB 14.8 12.4 - 17.3 g/dL [facility] HCT 44.6 37.0 - 51.0 % [facility] PLT 214 140 - 430 K/uL [facility] MCV 91.6 78.0 - 97.0 fL [facility] MCH 30.4 25.0 - 33.0 pg [facility] MCHC 33.2 32.0 - 36.0 g/dL [facility] RDW 13.1 11.0 - 15.0 % [facility] MPV 9.3 8.4 - 12.8 fl [facility] DIFF METHOD Auto [facility] NEUTS 61.8 43.0 - 75.0 % [facility] LYMPHS 25.9 18.2 - 47.4 % [facility] MONOS 9.1 4.00 - 11.00 % [facility] EOS 2.4 0.0 - 8.0 % [facility] BASOS 0.5 0.0 - 2.0 % [facility] Granulocytes, immature (%) 0.3 0.0 - 0.9 % [facility] ABSOLUTE NEUTS 6.38 1.80 - 7.70 K/uL [facility] ABSOLUTE LYMPHS 2.68 1.00 - 3.10 K/uL [facility] ABSOLUTE MONOS 0.94(H) 0.20 - 0.80 K/uL [facility] ABSOLUTE EOS 0.25 0.00 - 0.80 K/uL [facility] ABSOLUTE BASOS 0.05 0.00 - 0.09 K/uL [facility] Granulocytes, immature 0.03 0.00 - 0.05 K/uL [facility] Blood 09/15/2023 11:2 8 AM EDT 09/15/2023 11:30 AM EDT us Nickie Maria MD LAB BLOOD ORDERABLES Fin al Result [facility] [address], [place] [id number] * (ABNORMAL) Comprehensive metabolic panel (09/15/2023 11:28 AM EDT) SODIUM 141 133 - 146 mmol/L [facility] POTASSIUM 4.3 3.3 - 5.1 mmol/L [facility] CHLORIDE 107 96 - 108 mmol/L [facility] CO2 20(L) 21 - 35 mmol/L [facility] BUN 29(H) 6 - 19 mg/dL [facility] CREATININE 1.40 0.5 - 1.5 mg/dL [facility] GLUCOSE 111(H) 70 - 99 mg/dL [facility] ALBUMIN 4.3 3.9 - 4.8 g/dL [facility] TOTAL PROTEIN 6.8 6.5 - 8.0 g/dL [facility] CALCIUM 9.1 8.4 - 10.3 mg/dL [facility] ALKALINE PHOSPHATASE 56 39 - 117 U/L [facility] TOTAL BILIRUBIN <0.2 0.0 - 1.2 mg/dL [facility] AST 24 0 - 37 U/L [facility] ALT 30 0 - 40 U/L [facility] GLOBULIN 2.5 1 - 4.8 g/dL [facility] EGFR 52(L) >59 mL/min/1.7 3m2 [facility] Comment:Estimated glomerular filtration rate calculated using the CKD-EPI refit equation. ANION GAP 18 10 - 20 mmol/L [facility] Blood 09/15/2023 11:2 8 AM EDT 09/15/2023 11:30 AM EDT us Nickie Maria MD LAB BLOOD ORDERABLES Fin al Result [facility] [address] [place] [address] documented in this encounter Visit Diagnoses Diagnosis Psoriatic arthritis- Primary Psoriatic arthropathy Long-term use of immunosuppressant medication documented in this encounter Care Teams Sheet Rock Taper Helper Relationship Specialty Start Date End Date Donny Calabrese MD PCP - General Internal Medicine 05/12/23 06/06/24 Armida Canchola MD [facility] [address] [place], [place] [address] PCP - General Internal Medicine 06/07/24 documented as of this encounter Additional Source Comments The information contained in this document represents components of the legal health record. It is not the complete legal health record.[facility]
--- OUTSIDE RECORDS SUMMARY | 2025-02-14 07:54 | XMS_ITS | Patient Health Record ---
Author Organization [facility] Haley Mccloudley Address [address] [place] [address] Care Team Providers Care Developer Relations Manager Name Role Phone Armida Canchola MD Primary Care Provider Fabiana Grossman Unavailable [phone] Neel Lyons Unavailable [phone] Allergies Allergen (clinical drug ingredient) Drug/Non Drug Allergy documented on EMR Reaction Allergy Type Onset Date Status colchicine Colchicine can't remember Drug Allergy Active Results Component Value Reference Range Notes HEMOGLOBIN A1C (GLYCOHEMOGLO BIN) Reviewed date:09/06/2024 10:07:10 AM Interpretation: Performing Lab: Notes/Report: HEMOGLOBIN A1C % (HH) 5.7 Reason For Referral Diagnosis 1 Pain in right foot ( [...] Referring Provider Last Name Sushant Referred Organization [facility] Referred Provider Fabiana Tan Referred Address [address] [facility],[place], [place],[address], Referred Provider Specialty Podiatry Referral Priority Routine Medications Medication SIG (Take, Route, Frequency, Duration) Notes Start Date End Date Status Simponi 50 MG/0.5ML as directed Subcutaneous Not-Taking Enbrel 25 MG as directed Subcutaneous Not-Taking metFORMIN HCl 500 MG 1 tablet with meals Orally Twice a day Active oxyCODONE-Acetaminophen daily Not-Taking amLODIPine Besylate Active Lisinopril Active prednisoLONE Acetate Not-Taking Jardiance 25 MG 1 tablet Orally Once a day; Duration: 30 day(s) Active Indapamide 1.25 MG 1 tablet in the morn ing Orally Once a day; Duration: 30 day(s) Active Chantix 1 MG 1 tablet Orally Twic e a day Not-Taking Omeprazole 20 MG 1 capsule 30 minutes before morning meal Orally Once a day; Duration: 30 day(s) Active Percocet 5-325 MG 1 tablet as needed Orally every 6 hrs Not-Taking Extra Depth Diabetic Shoes with 3 Pair Custom heat-molded multi-density innersoles for 1 year Dx: A ctive Chantix Not-Taking Pravastatin Sodium 10 MG 2 tablets Orall y Once a day; Duration: 30 day(s) Active Nabumetone 750 MG 1 tablet Orally Twic e a day; Duration: 30 day(s) 09/02/2016 Not-Gualberto ing Immunizations Vaccine Route Administration Date Status Comme nts Influenza Unknown 03/03/2017 Administered Influenza Unknown 03/16/2018 Administered Influenza Unknown 03/02/2022 Administered Influenza Unknown 03/02/2024 Administered COVID-19 Pfizer BioNTech Vaccine Unknown 03/02/2022 Administered 08/24/20, 01/21/21 09/15/20, 2021 Social History Tobacco Use: Social History Observation [...] day. he smokes 2 packs per day. Problems Problem Type SNOMED Code ICD Code Onset Dates Problem Status W/U Status Risk Notes Problem Pain in right foot (682996706768163) Pain in right foot (M79.671) Active confirmed Problem Pain in left foot ([id number]) Pain in left foot (M79.672) Active confirmed Problem Polyneuropathy due to type 2 diabetes mellitus (494735195) Type 2 diabetes mellitus with diabetic polyneuropathy (E11.42) Active confirmed Vital Signs Blood pressure diastolic 70 mm Hg 11/08/2024 Height 5 ft 11 in in 11/08/2024 Blood pressure systolic 120 mm Hg 11/08/2024 Weight 205 lbs 11/08/2024 BMI 28.59 kg/m2 11/08/2024 Procedures Procedure Date Ordered Date Performed Result Body Sit e 59382-ZCNPTGS NAIL, 6 OR MORE 06/14/2024 N/A 53723-ZFPR SKIN LESIONS, 2 TO 4 06/14/2024 N/A 52131-ECQAIUD NAIL, 6 OR MORE 09/06/2024 N/A 68259-HYCA SKIN LESIONS, 2 TO 4 09/06/2024 N/A 95491-TRLAMPT NAIL, 6 OR MORE 11/08/2024 N/A 29558-TCHF SKIN LESIONS, 2 TO 4 11/08/2024 N/A Encounters Encounter Location Date Provider Diagnosis [address] [address] 04/01/2024 Neel Lyons Tinea unguium B35.1 ; Other viral warts B07.8 ; Pain in left foot M79.672 ; Pain in right foot M79.671 ; Type 2 diabetes mellitus with diabetic polyneuropathy E11.42 ; Pain in right toe(s) M79.674 and Pain in left toe(s) M79.[address] [address] 06/14/2024 Fabiana Tan Type 2 diabetes mellitus with diabetic polyneuropathy E11.42 and Tinea unguium B35.[address] [address] 09/06/2024 Fabiana Tan Type 2 diabetes mellitus with diabetic polyneuropathy E11.42 and Tinea unguium B35.[address] [address] 11/08/2024 Fabiana Tan Type 2 diabetes mellitus with diabetic polyneuropathy E11.42 and Tinea unguium B35.1 [facility] [address] [place] [address] 01/10/2025 Fabiana Tan Assessments Encounter Date Diagnosis (ICD Code) Assessment Notes Treatment Notes Treatment Clinical Notes Section Notes 06/14/2024 Type 2 diabetes mellitus with diabetic polyneuropathy (ICD-10 - E11.42) 06/14/2024 Tinea unguium (ICD-10 - B35.1) 09/06/2024 Type 2 diabetes mellitus with diabetic polyneuropathy (ICD-10 - E11.42) 09/06/2024 Tinea unguium (ICD-10 - B35.1) 11/08/2024 Type 2 diabetes mellitus with diabetic polyneuropathy (ICD-10 - E11.42) 11/08/2024 Tinea unguium (ICD-10 - B35.1) 04/01/2024 Tinea unguium (ICD-10 - B35.1) 04/01/2024 [...] X ray : Foot, right 3V 09/15/2013 59906-PCYJVXL NAIL, 6 OR MORE 09/15/2013 60321-CUDYABC NAIL, 6 OR MORE 12/13/2013 35632-UEMIZIO NAIL, 6 OR MORE 08/26/2011 69406-DYRCIKR NAIL, 6 OR MORE 04/20/2018 94449-EUEEAZQ NAIL, 6 OR MORE 02/17/2017 97918-RTMJWKG NAIL, 6 OR MORE 12/09/2016 53310-NDVZDHA NAIL, 6 OR MORE 08/05/2016 40657-KOTMLDR NAIL, 6 OR MORE 03/07/2014 05467-OGXGAGS NAIL, 6 OR MORE 05/20/2011 31920-VHUUSJD NAIL, 6 OR MORE 06/24/2012 79849-WUBZJCT NAIL, 6 OR MORE 06/16/2013 55393-VISTBNQ NAIL, 6 OR MORE 05/09/2014 43893-CFCMOWT NAIL, 6 OR MORE 11/28/2014 97865-VOZBUGE NAIL, 6 OR MORE 02/20/2015 05061-ZEDLASM NAIL, 6 OR MORE 08/07/2015 05702-VXUTUFD NAIL, 6 OR MORE 12/18/2015 64581-PHOQCJJ NAIL, 6 OR MORE 02/19/2016 32907-JRBJAJG NAIL, 6 OR MORE 05/20/2016 99078-HRDNXSC NAIL, 6 OR MORE 04/21/2017 03166-KCQXJVC NAIL, 6 OR MORE 01/26/2018 86983-QXKJHPF NAIL, 6 OR MORE 11/10/2017 37738-KOZFEJN NAIL, 6 OR MORE 06/14/2024 54534-APQNQNE NAIL, 6 OR MORE 09/06/2024 99272-AIEFQPM NAIL, 6 OR MORE 11/08/2024 43013-ROYWFND NAIL, 6 OR MORE 05/22/2015 77297-ZYBZGKE NAIL, 6 OR MORE 10/16/2015 47512-XFXGUFE NAIL, 6 OR MORE 08/01/2014 06623-URXIGSM NAIL, 6 OR MORE 03/08/2013 29691-VVOZUEN NAIL, 6 OR MORE 01/13/2013 61917-ZPILVFP NAIL, 6 OR MORE 08/31/2012 32962-RKZPZVF NAIL, 6 OR MORE 04/20/2012 65418-CPVLYIB NAIL, 6 OR MORE 01/27/2012 08215-GQLNNRD NAIL, 6 OR MORE 11/06/2011 72312-CGSORAR NAIL, 6 OR MORE 07/29/2011 92720-MDMUERY NAIL, 6 OR MORE 06/19/2011 85052-TETKASZ NAIL, 6 OR MORE 02/18/2011 77249-KYYOIQO NAIL, 6 OR MORE 08/25/2017 74108-JEYPMSQ NAIL, 6 OR MORE 06/23/2017 52106-Kwlx Destruction, 1-14 06/23/2017 63744-Wxmz Destruction, 1-14 05/19/2017 91098-Ewry Destruction, 1-14 08/25/2017 82107-Aqlr Destruction, 06-1507/28/2017 97031-Mphb Destruction, 06-1503/18/2011 32329-Srhh Destruction, 06-1502/18/2011 04692-Bdtf Destruction, 06-1506/19/2011 32161-Xggl Destruction, 06-1507/29/2011 16984-Xpxf Destruction, 06-1512/02/2011 55926-Paoz Destruction, 06-1501/27/2012 80156-Zeia Destruction, 06-1512/30/2011 28138-Nmgk Destruction, 06-1504/20/2012 13454-Fdjz Destruction, 06-1503/23/2012 72526-Wtku Destruction, 06-1502/24/2012 22008-Nyhh Destruction, 06-1505/18/2012 56661-Eiux Destruction, 06-1508/31/2012 45608-Ccau Destruction, 06-1510/21/2012 39330-Tvja Destruction, 06-1501/13/2013 81965-Nuba Destruction, 06-1503/08/2013 78554-Ycyd Destruction, 06-1502/15/2013 82358-Ttiu Destruction, 06-1512/16/2012 62490-Brjg Destruction, 06-1511/18/2012 60667-Lkjm Destruction, 06-1510/04/2013 04646-Tlbs Destruction, 06-1508/01/2014 01769-Dnxq Destruction, 06-1507/04/2014 23189-Lzzx Destruction, 06-1510/16/2015 38196-Bpww Destruction, 06-1501/23/2015 08247-Fjbe Destruction, 06-1508/29/2014 53694-Ejrp Destruction, 06-1505/22/2015 69485-Spyz Destruction, 06-1509/26/2014 26380-Lbqz Destruction, 06-1511/10/2017 20141-Mpyu Destruction, 06-1501/26/2018 50326-Zqun Destruction, 06-1504/21/2017 56584-Bscm Destruction, 06-1510/06/2017 05507-Ogai Destruction, 06-1505/20/2016 24887-Czew Destruction, 06-1503/24/2017 38212-Igoy Destruction, 06-1502/19/2016 27739-Rpzk Destruction, 06-1503/25/2016 28172-Fsgo Destruction, 06-1512/18/2015 53113-Qako Destruction, 06-1501/08/2016 53233-Aure Destruction, 06-1508/07/2015 73189-Rwug Destruction, 06-1509/11/2015 19416-Tnhg Destruction, 06-1503/20/2015 84308-Vkku Destruction, 06-1504/17/2015 15405-Bxxj Destruction, 06-1507/03/2015 65874-Wxbt Destruction, 06-1502/20/2015 84151-Gfgf Destruction, 06-1511/28/2014 65268-Afsn Destruction, 06-1512/26/2014 56836-Bmac Destruction, 06-1505/09/2014 89644-Djpw Destruction, 06-1504/04/2014 88299-Ghpk Destruction, 06-1506/06/2014 02667-Esqx Destruction, 06-1510/31/2014 53954-Bqbf Destruction, 06-1506/16/2013 22837-Fkbo Destruction, 06-1504/26/2013 21497-Wegi Destruction, 06-1509/21/2012 65092-Bqxt Destruction, 06-1504/07/2013 80975-Scqt Destruction, 06-1506/24/2012 83547-Vrxw Destruction, 06-1507/27/2012 95954-Uere Destruction, 06-1505/20/2011 83082-Mbvn Destruction, 06-1504/17/2011 78102-Wetk Destruction, 06-1503/07/2014 00222-Ajgp Destruction, 06-1508/05/2016 42453-Ayuo Destruction, 06-1506/24/2016 78104-Zdss Destruction, 06-1502/07/2014 59432-Hqgf Destruction, 06-1501/10/2014 63056-Ngqg Destruction, 06-1512/09/2016 44054-Sptn Destruction, 06-1511/06/2011 63725-Rznv Destruction, 06-1509/02/2016 21012-Hbwu Destruction, 06-1502/17/2017 61374-Tvgt Destruction, -04/20/2018 81127-Mfzw Destruction, -08/26/2011 67160-Yyby Destruction, -08/09/2013 11231-Pyxx Destruction, -07/12/2013 38238-Kmpu Destruction, -09/25/2011 15100-Lhqn Destruction, -12/13/2013 41668-Vpvc Destruction, -11/08/2013 57064-Yoqb Destruction, -09/15/2013 50315-Rvro Destruction, -12/08/2017 65008- Debride <25 sq cm 09/15/2013 25236- Debride <25 sq cm 08/09/2013 65913- Debride <25 sq cm 11/08/2013 55808- Debride <25 sq cm 12/13/2013 00316- Debride <25 sq cm 09/25/2011 15498- Debride <25 sq cm 07/12/2013 15644- Debride <25 sq cm 08/26/2011 10690- Debride <25 sq cm 01/10/2014 53968- Debride <25 sq cm 02/07/2014 39897- Debride <25 sq cm 03/07/2014 55755- Debride <25 sq cm 04/17/2011 19539- Debride <25 sq cm 05/20/2011 95012- Debride <25 sq cm 07/27/2012 31387- Debride <25 sq cm 06/24/2012 60444- Debride <25 sq cm 04/07/2013 06493- Debride <25 sq cm 09/21/2012 18626- Debride <25 sq cm 04/26/2013 71529- Debride <25 sq cm 06/16/2013 62556- Debride <25 sq cm 10/31/2014 48376- Debride <25 sq cm 06/06/2014 81891- Debride <25 sq cm 04/04/2014 59866- Debride <25 sq cm 05/09/2014 80794- Debride <25 sq cm 12/26/2014 42284- Debride <25 sq cm 01/23/2015 61340- Debride <25 sq cm 11/28/2014 96311- Debride <25 sq cm 02/20/2015 62956- Debride <25 sq cm 03/20/2015 23710- Debride <25 sq cm 09/26/2014 56194- Debride <25 sq cm 08/29/2014 06412- Debride <25 sq cm 07/04/2014 39794- Debride <25 sq cm 08/01/2014 21563- Debride <25 sq cm 10/04/2013 79929- Debride <25 sq cm 03/08/2013 84147- Debride <25 sq cm 11/18/2012 42989- Debride <25 sq cm 12/16/2012 93587- Debride <25 sq cm 02/15/2013 80318- Debride <25 sq cm 01/13/2013 00833- Debride <25 sq cm 10/21/2012 78798- Debride <25 sq cm 08/31/2012 44337- Debride <25 sq cm 05/18/2012 57367- Debride <25 sq cm 04/20/2012 29965- Debride <25 sq cm 02/24/2012 29580- Debride <25 sq cm 03/23/2012 31892- Debride <25 sq cm 12/30/2011 13685- Debride <25 sq cm 01/27/2012 25023- Debride <25 sq cm 12/02/2011 02536- Debride <25 sq cm 11/06/2011 51395- Debride <25 sq cm 07/29/2011 07454- Debride <25 sq cm 06/19/2011 32273- Debride <25 sq cm 03/18/2011 91628- Debride <25 sq cm 02/18/2011 50705-DIRI SKIN LESIONS, OVER 4 08/16/19 20 06523-LOKW SKIN LESIONS, OVER 4 01/05/20 19 94869-JBZT SKIN LESIONS, OVER 4 11/03/19 19 32227-TPQZ SKIN LESIONS, OVER 4 06/29/19 19 70811-BHHM SKIN LESIONS, OVER 4 04/20/20 18 47469-CDYR SKIN LESIONS, OVER 4 06/23/19 18 52094-JLVA SKIN LESIONS, OVER 4 02/18/20 17 94229-WOOG SKIN LESIONS, OVER 4 04/21/20 17 62663-SNXV SKIN LESIONS, OVER 4 11/11/19 18 40587-CVUG SKIN LESIONS, OVER 4 09/01/19 54297-XUTO SKIN LESIONS, OVER 4 06/14/19 26960-FLVU SKIN LESIONS, OVER 4 11/01/19 26188-OKJG SKIN LESIONS, OVER 4 01/24/20 63091-OSQP SKIN LESIONS, OVER 4 04/24/20 83958-OXHQ SKIN LESIONS, OVER 4 07/10/19 14420-VNLK SKIN LESIONS, OVER 4 09/19/19 36364-ENVK SKIN LESIONS, OVER 4 11/28/19 70273-NLXX SKIN LESIONS, OVER 4 02/23/20 07945-QUCY SKIN LESIONS, OVER 4 07/02/19 07403-NZYY SKIN LESIONS, OVER 4 09/04/19 73972-IZBA SKIN LESIONS, OVER 4 01/27/20 18 84953-AAWK SKIN LESIONS, OVER 4 08/26/19 18 73697-SCZT SKIN LESIONS, OVER 4 12/10/19 17 27598-DQFD SKIN LESIONS, OVER 4 10/08/19 15144-GDTX SKIN LESIONS, OVER 4 03/29/20 87774-OGEW SKIN LESIONS, 2 TO 4 06/14/19 61697-ZROL SKIN LESIONS, 2 TO 4 11/09/19 34451-SSXV SKIN LESIONS, 2 TO 4 09/07/19 Next Appt Details Provider Name:Fabiana Woodwardmarie kay, 03/21/2025 09:00:00 AM, [address] [place], [address], Insurance Providers Payer Name Payer Address Payer Phone Subscriber Number Group Number Insured Name Patient Relationship to Insured Coverage Start Date Coverage End Date [facility] [address] [place] [address] [id number] Benedicto Ramirez Self - patient is the insured Medical (General) History Medical History History ICD Code psoriasis high blood pressure Arthritis type II diabetes Surgical History Surgery Date(Month/Year) Hospitalization History Reason Date(Month/Year)
--- OUTSIDE RECORDS SUMMARY | 2025-02-14 07:55 | XMS_ITS | Encounter Summary ---
Author Organization [facility] Address [address] [place] [address] Phone Care Team Providers Care Manager Power Name Role Phone Armida Canchola MD Primary Care Provider [phone] Encounter Details Date Type Department Care Team (Late st Contact Info) Description 02/11/2025 Refill [facility] Rheumatology [address] [place] [address] Jeri Burgos CMA [address] [place] [address] Social History Tobacco Use Types Packs/Day Years [...] on file documented as of this encounter Progress Notes * Jeri Burgos CMA - 02/11/2025 8:44 AM EDT Can wait for Dr Johns CSRP Auto-Refill RN NICU checked and last filled on: 01/26/25, 28 day supply , due 02/25/25 Last office visit: 10/11/2024 Next office visit:02/21/2025 Date of last urine toxicology screen: 10/11/24 Controlled Substance Agreement completed on: 10/11/24 documented in this encounter Plan of Treatment Upcoming Encounters Date Type Department Care Team (Late st Contact Info) Description 02/21/2025 9:30 AM EDT Office Visit [facility] Rheumatology [address] [place] [address] Nickie Maria MD [address] [facility], [address] [place] [address] [email or web address] documented as of this encounter Visit Diagnoses Diagnosis Primary osteoarthritis involving multiple joints Chronic midline low back pain without sciatica documented in this encounter Care Teams Manager Power Relationship Specialty Start Date End Date Armida Canchola MD [address] [place] [address] PCP - General Internal Medicine 06/07/24 documented as of this encounter Additional Source Comments The information contained in this document represents components of the legal health record. It is not the complete legal health record.[facility]
[2025-02-14 10:07] LABS: MANUAL DIFF FLAG NO
[2025-02-14 10:08] LABS: Hematocrit 39.4 % (42.0-52.0); Hemoglobin 13.4 g/dl (14.0-18.0); Imm Gran Abs Auto 0.02 X10*3/uL (0.00-0.03); Imm Gran Pct Auto 0.4 % (0.0-0.4); Lymphocytes Absolute Auto 2.3 X10*3/uL (1.2-4.9); Mean Corpuscular HGB Conc 34.0 g/dl (31.0-36.0); Mean Corpuscular Hemoglobin 30.2 pg (27.0-33.0); Mean Corpuscular Volume 88.7 fL (80.0-98.0); NRBC Abs Auto 0.000 X10*3/uL (0.0-0.012); NRBC Pct Auto 0.0 /100WBC (0.0-0.2); Platelet Count 209 X10*3/uL (160-400); Red Blood Count 4.44 X10*6/uL (4.60-5.80); White Blood Count 5.6 X10*3/uL (4.8-10.8)
[2025-02-14 10:30] LABS: Hemoglobin A1C 175.7105 umol/L; Total Hemoglobin (HGBA1C) 3508.5385 umol/L
[2025-02-14 10:33] LABS: Alanine Aminotransferase 25 U/L (0-40); Albumin Level 4.1 g/dL (3.5-5.0); Alkaline Phosphatase 64 U/L (39-117); Anion Gap 14 (12-20); Aspartate Amino Transferase 25 U/L (5-37); Blood Urea Nitrogen 30 mg/dL (9-16); Calcium 8.6 mg/dL (8.4-10.2); Carbon Dioxide 23 mmol/L (22-29); Chloride 109 mmol/L (96-108); Cholesterol 165 mg/dL (<200); Estimated Glomerular Filt Rate 38; HDL Cholesterol 41 mg/dL (>40); Potassium 4.5 mmol/L (3.3-5.1); Sodium 141 mmol/L (135-145); Total Protein 6.5 g/dL (6.5-8.0); Triglycerides 150 mg/dL (<150)
== END 2025-02-14 07:53 | disposition home or self-care (01) ==
LOC: HO.HMGCLDS 07:52
PROVIDERS: PCP Internal Medicine; Visit Provider Internal Medicine
DX: I10 Essential (primary) hypertension (principal); E78.5 Hyperlipidemia, unspecified; E11.9 Type 2 diabetes mellitus without complications
CPT/HCPCS: 36415; 80053; 80061; 83036; 85025

== ENCOUNTER 2025-02-21 11:34 | Outpatient (AMB) | payer BC, SELFPAY ==
--- OUTSIDE RECORDS SUMMARY | 2025-01-10 05:15 | XMS_ITS ---
[facility] Organization [facility] Address [address] [place] [address] Care Team Providers Care Retail Manager In Training Name Role Phone Armida Canchola MD Primary Care Provider Fabiana Grossman Unavailable [phone] Allergies Allergen (clinical drug ingredient) Drug/Non Drug Allergy documented on EMR Reaction Allergy Type Onset Date Status colchicine Colchicine can't remember Drug Allergy Active Medications Medication SIG (Take, Route, Frequency, Duration) Notes Start Date End Date Status prednisoLONE Acetate Not-Taking Chantix 1 MG 1 tablet Orally Twic e a day Not-Taking Percocet 5-325 MG 1 tablet as needed Orally every 6 hrs Not-Taking Extra Depth Diabetic Shoes with 3 Pair Custom heat-molded multi-density innersoles for 1 year Dx: A ctive Pravastatin Sodium 10 MG 2 tablets Orall y Once a day; Duration: 30 day(s) Active Simponi 50 MG/0.5ML as directed Subcutaneous Not-Taking Enbrel 25 MG as directed Subcutaneous Not-Taking oxyCODONE-Acetaminophen daily Not-Taking Chantix Not-Taking Nabumetone 750 MG 1 tablet Orally Twic e a day; Duration: 30 day(s) 09/02/2016 Not-Gualberto ing metFORMIN HCl 500 MG 1 tablet with meals Orally Twice a day Active amLODIPine Besylate Active Lisinopril Active Jardiance 25 MG 1 tablet Orally Once a day; Duration: 30 day(s) Active Omeprazole 20 MG 1 capsule 30 minutes before morning meal Orally Once a day; Duration: 30 day(s) Active Indapamide 1.25 MG 1 tablet in the morn ing Orally Once a day; Duration: 30 day(s) Active Social History Tobacco Use: [...] Signs Height 5 ft 11 in in 01/10/2025 Encounters Encounter Location Date Provider Diagnosis [facility] [address] [address] 01/10/2025 Fabiana Tan Plan Of Treatment Next Appt Details Provider Name:Fabiana kay, 03/21/2025 09:00:00 AM, [address] [place] [address], [phone], Progress Notes * NARANILABenedictoDOB: [birth year] (79 yo M)Acc No.[id number]:01/10/2025 Progress Note Patient: Benedicto CARBALLO Provider: Juan Antonio Tan DPM :1945 A ge:79 Y S ex:Male Date:01/10/2025 Address:[address] [place], [place] [id number] Pcp:Armida Canchola MD Subjective: * Chief Complaints: * * HPI: A t Risk footcare: Pt States Last PCP Visit: D ate 0 09/30/2024 * ROS: G eneral/Constitutional: Nausea d enies. V omiting d enies. H gray Thirst d enies. L oss appetite d enies. C hills d enies. F atigue d enies.?Fever d enies. N ight Sweats d enies. U nexplained weight loss d enies. U nexplained weight gain d enies. H EENTM: Dentures d enies. D izziness d enies. G lasses/contacts a dmits. R etinopathy d enies. B lurred/double vision d enies. T MJ?denies. D ischarge/drainage d enies. I mplants d enies. S ore throat d enies. D ental implants d enies. H kecia of hearing d enies. D ifficulty chewing/swallowing/speaking d enies. N ose bleeds d enies. S ore mouth d enies. ? R espiratory: On Oxygen d enies. P neumonia/pleurisy d enies.?Bronchitis d enies. E mphysema d enies. C oughing d enies. C ough blood?denies. S hortness of breath d enies. W heezing d enies. C ardiovascular: Pacemaker d enies. M ENTRY LEVEL MARKETING ASSISTANT d enies. W PW d enies. C HF d enies. H eart attack d enies. S eptal defect d enies. R apid beat d enies. C hest pain d enies. A trial Fib. d enies. M urmur/Palpitations d enies. G astrointestinal: Hemorrhoids d enies. S tomach/Abdominal pain d enies. D ark blood stool d enies. I rritable bowel d enies. C onstipation d enies. D iarrhea d enies. H ematology: Swelling d enies. C lots d enies. V aricose Veins d enies. B ruising d enies. B leeding problem d enies. G enitourinary: Blood urine d enies. F requent/Painfu/urination/bladder control d enies. K idney stones d enies. I nfection (UTI) d enies. N ephropathy d enies. s ex trans dis (STD) d enies. P rostate d enies. M usculoskeletal: Hammertoes d enies. B unions d enies. B ack Pain d enies. M uscle Cramps/ Resting d enies. M uscle cramps / walking d enies.?Generalized aches and pains d enies. W eakness d enies. I nteg.: Live d enies. S cars d enies. C orns/calluses?denies. I ngrown nails d enies. P ainful nails d enies. O pen Sores d enies. R ashes d enies. N eurologic: Difficulty sleeping d enies. B rain disorder d enies. N umbness d enies. B alance trouble d enies. C onfusion d enies. F ainting/blackouts d enies. T ingling d enies. T remors d enies. * Medical History: P soriasis, High blood pressure, Arthritis, type II diabetes. * Surgical History: D enies Past Surgical History. * Hospitalization/Major Diagno stic Procedure: D enies Past Hospitalization. * Family History: M other: , foot problems, diagnosed with Diabetic - NIDDM, Unspecified essential hypertension. F ather: , diagnosed with Unspecified heart disease. S on(s): alive. * Social History: T obacco Use: T obacco use other than smoking A re you an other tobacco user? N o Tobacco Control (Standard) T obacco use: C urrent smoker D rugs/Alcohol: D rugs H ave you used drugs other than those for medical reasons in the past 12 months? N o M iscellaneous: C affeine: yes, frequency:, 2 cups per day. Children: yes. Exercise: yes, Camp. Marital status: . 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 D rug/Alcohol: A DEEPAK-C (Standard) D id you have a drink containing alcohol in the past year? Y es H ow often did you have six or more drinks on one occasion in the past year? L ess than monthly (1 point) H ow many drinks did you have on a typical day when you were drinking in the past year? 1 or 2 drinks (0 point) H ow often did you have a drink containing alcohol in the past year? 2 to 4 times a month (2 points) P oints 3 I nterpretation N egative * Medications: T aking Extra Depth Diabetic Shoes with 3 Pair Custom heat-molded multi-density innersoles for 1 year Dx: , Taking Pravastatin Sodium 10 MG Tablet 2 tablets Orally Once a day , Taking Indapamide 1.25 MG Tablet 1 tablet in the morning Orally Once a day , Taking Omeprazole 20 MG Capsule Delayed Release 1 capsule 30 minutes before morning meal Orally Once a day , Taking Jardiance 25 MG Tablet 1 tablet Orally Once a day , Taking amLODIPine Besylate , Taking Lisinopril , Taking metFORMIN HCl 500 MG Tablet 1 tablet with meals Orally Twice a day , Not-Taking/PRN oxyCODONE-Acetaminophen , Notes to Pharmacist: daily, Not-Taking/PRN Simponi 50 MG/0.5ML Solution Auto-injector as directed Subcutaneous , Not-Taking/PRN Enbrel 25 MG Kit as directed Subcutaneous , Not-Taking/PRN Chantix , Not-Taking/PRN Nabumetone 750 MG Tablet 1 tablet Orally Twice a day , Not-Taking/PRN Chantix 1 MG Tablet 1 tablet Orally Twice a day , Not-Taking/PRN Percocet 5-325 MG Tablet 1 tablet as needed Orally every 6 hrs , Not-Taking/PRN prednisoLONE Acetate , Medication List reviewed and reconciled with the patient * Allergies: C olchicine: can't remember. Objective: * Vitals: H t: 5 ft 11 in. * P ast Orders: L ab:HEMOGLOBIN A1C (GLYCOHEMOGLOBIN) (Order Date - 06/04/2024) (Collection Date & Time - 09/06/2024 10:06 AM) Value Reference Range HEMOGLOBIN A1C % (HH) 5.7 * Examination: O phthalmology Referral: DIABETES EYE EXAM P rocedure Performed: Alexandrea Cesar ate of Exam Performed 0 06/04/2024 D iabetic Retinopathy Screening: Y evgeny R etinal Screening Performed: Alexandrea Mari indings of Diabetic Eye Exam: n o retinopathy Assessment: Plan: * Treatment: * Images: * The named appointment provid er may or may not be the originator of this progress note, and it is not deemed complete until electronically signed by the appointment provider. Sign off status: Pending * Provider: Juan Antonio Tan DPM Date: 0 01/10/2025 Generated for Kyle cotton/Salvador/Bakari on: 0 02/21/2025 02:16 PM EDT History and Physical Notes * HPI (History of Present Illness) Category Sub-Category Detail Notes Category Not es At Risk footcare Pt States Last PCP Visit: Date: Examination Category Sub-Category Detail Notes Category Not es Ophthalmology Referral DIABETES EYE EXAM Procedu re Performed:: Yes Date of Exam Performed: 06/04/2024 Diabetic Retinopathy Screening:: Yes Retinal Screening Performed:: Yes Findings of Diabetic Eye Exam:: no retin opathy
--- OUTSIDE RECORDS SUMMARY | 2025-02-21 09:30 | XMS_ITS | Encounter Summary ---
Author Organization [facility] Address [address] [place] [address] [place] [id number] Phone Care Team Providers Care Yardage Estimator Name Role Phone Armida Canchola MD Primary Care Provider [phone] Reason for Visit * Reason Comments Follow-up Psoriatic arthritis, pain B/L hips knees and low back * Consultation (Routine) - Authorized Specialty Diagnoses / Procedures Referred By Blank alejandre Referred To Contact Rheumatology Diagnoses Return in about 4 months (around 05/27/2024). Procedures FOLLOW UP Donny Calabrese MD Phone: tel: fax: mailto:[email or web address] Nickie Maria MD [address] [place] [address], [address] [place] [address] Phone: tel: fax: mailto:[email or web address] Referral ID Status Reason Start Date Expiration Date V isits Requested Visits Authorized [id number] Authorized 06/07/2024 06/07/2025 6 6 Encounter Details Date Type Department Care Team (Latest Contact Info) Description 02/21/2025 9:30 AM EDT Office Visit [facility] Rheumatology [address] [place] [address] [place] [address] Nickie Maria MD [address] [place] [address], [address] [place] [address] [email or web address] Psoriatic arthritis (Primary Dx); Primary osteoarthritis involving multiple joints; Chronic midline low back pain without sciatica; Encounter for monitoring golimumab therapy; residential current use of opiate analgesic; On statin therapy; Tobacco dependence; Arthritis of both hips; Class 2 severe obesity due to excess calories with serious comorbidity and body mass index (BMI) of 35.0 to 35.9 in adult; Trochanteric bursitis of both hips Social History Tobacco Use Types Packs/Day Years [...] on file documented as of this encounter Last Filed Vital Signs Vital Sign Reading Time Taken Comments Blood Pressure 130/62 02/21/2025 9:29 AM EDT Pulse 84 02/21/2025 9:29 AM EDT Temperature - - Respiratory Rate - - Oxygen Saturation 97% 02/21/2025 9:29 AM EDT Inhaled Oxygen Concentration - - Weight 115.2 kg (254 lb) 02/21/2025 9:29 AM EDT Height 180.3 cm (5' 11 ) 02/21/2025 9:29 AM EDT Body Mass Index 35.43 02/21/2025 9:29 AM EDT documented in this encounter Patient Instructions * Patient Instructions* Nickie Maria MD - 02/21/2025 9:30 AM EDT PLAN TO GET NEWEST COVID-19 BOOSTER 2 WKS AFTER EVERY 4 WKS SIMPONI INJECTION * Attachments The following attachments cannot be sent through Care Everywhere. 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 Since last visit on Benedicto went to visit his older son family to [place] and returned about 3 weeks ago but reports having a lot of difficulty while in [place] walking because of back and hip pains. There were no falls or injuries but walking makes it very difficult to tolerate the pain in his lower back and both hips. He has increasing difficulty walking small distances. There is difficulty getting out of the chair to stand. Even bending over the sink to brush the teeth triggers severe bout of lower back pain. He enjoyed watching his 13-year-old grandson playing football though only for few minutes but he was able to watch him score. He received yearly influenza vaccine 3 weeks ago and tolerated it well. He happily reports remaining cigarette smoke free since 06/02/2024. Since last visit he lost 2 more close friends. I have lost 3 people and I among them my uncle who at 93 and 2 best friends; one of them being my personal [employer] that made me stressed out and sad a lot . His lower back is really sore and even brushing teeth sets it off. He no longer has better times- it hurts constantly. My severe low back pain is murdering me . AM stiffness the worst for the first 15-20 minutes Skin psoriasis appears generally stable. He is very pleased with bilateral hearing aids. No red, hot or swollen joints. No fevers, chills or night sweats. No intercurrent illnesses. No falls or injuries. He is not able to sleep in bed because he can hardly find a comfortable spot. He is not able to sleep well since retiring > 17 years ago. Reports ongoing worsening neck and shoulder, L>R pain that makes him unable to sleep through thenight. He is only sleeping in the recliner 2 hours at a time. He loves his new truck with heated seats that feels wonderful on his lower back. He no longer requires metformin. Stiffness never goes completely away. He could not keep up taking care of his property in [place] sold it that I thought I will neverhave to do . His monthly co-pay for Simponi oksana suddenly from $50 before up to 600 and he could not afford so applied for financial assistance and now his copayment is only $5 a month. No bowel or bladder incontinence. No saddle anesthesia but intermittent numbing and tingling in thelegs. Benedicto reports that Simponi appears a bit less effective for his skin though tolerable. His last injection was uneventful on 09/30/2024. He hurts the most in his lower back and admits that he can stand no longer than 15 minutes especially if standing on concrete-he has to sit down to alleviate his pain. He is using topical Arnica and reports that the pain at its worst goes up to 8- 9/10. It never leaves him. Sometimes just going few steps from a chair to the sink in the kitchen makes the back pain worse. My knees snap, crackle and pop, L>R No falls or injuries. He is hardly able to raise his arms above the shoulder level. He is using warm packs but admits that anything over head hurts terribly in my shoulders . He admits that after 13 months without cigarettes he is back to smoking after an argument with his younger son during summer 2020. He is taking pills to quit smoking and was able to decrease from 2 to the 1 pack of cigarettes per day. He tolerates well Simponi subcutaneous injections and finds it helpful. He usually injects it on the first of the month. His diabetes is well controlled. My low back pain is killing me -he cannot sleep through the night . He feels sore and stiff all the time. He is not able to flex L 4th PIP joint. He complains about severe pain in his left knee. He also has a lot of pain in his right groin. Otezla did not seem to work as well as Enbrel did. Interestingly he has almost no psoriatic patches on his right forearm and arm but still much worse psoriatic lesions on his left forearm. He reports that Enbrel injections were given to his right connie believes that it was working wonderfully for it. He happily reports that he quit smoking cigarettes on November 25, 2019 (on his 's birthday). Unfortunately he restarted smoking cigarettes 13 months later after frustrating argument with his youngerson. His pain medication is not as helpful as it was in the past . Over the years he has never overused pain medication though and there are no signs of diversion. His sleep pattern remains poor since his custodial. Medications: Current Outpatient Medications Medication Sig Dispense Refill Last Dispense ADULT LOW DOSE ASPIRIN ORAL Take 1 tablet by mouth daily. Unknown (patient-reported) amLODIPine (NORVASC) 10 MG tablet Take 1 tablet by mouth daily. Unknown (patient-reported) furosemide (LASIX) 40 MG tablet Take 40 mg by mouth daily. Unknown (patient-reported) golimumab (SIMPONI) 50 mg/0.5 mL pen Inject 0.5 mL (50 mg total) under the skin every 30 (thirty) days. 0.5 mL 11 Unknown (outside pharmacy) JARDIANCE 25 mg tablet Take 1 tablet by mouth daily. Unknown (patient-reported) lisinopril (PRINIVIL,ZESTRIL) 30 MG tablet Take 30 mg by mouth daily. Unknown (patient-reported) metFORMIN (GLUCOPHAGE-XR) 750 MG 24 hr tablet Take 750 mg by mouth daily. Unknown (patient-reported) pravastatin (PRAVACHOL) 10 MG tablet Take 10 mg by mouth daily. Unknown (patient-reported) [START ON 02/23/2025] oxyCODONE-acetaminophen (PERCOCET) 5-325 mg per tablet Take 1 tab every 6 hrs for pain 112 tablet 0 Unknown (outside pharmacy) No current facility-administered medications for this visit. Allergies: No Known Allergies Social History: reports that he quit smoking about 6 years ago. His smoking use included cigarettes. He started smoking about 61 years ago. He has a 13.8 pack-year smoking history. He has never used smokeless tobacco. He reports current alcohol use of about 12.0 standard drinks of alcohol per week. No interval changes in social and family history. ROS: Complete review of systems performed and negative except as in HPI above. Physical Exam: BP 130/62 (BP Location: Right arm, Patient Position: Sitting, Cuff Size: Large) Pulse 84 Ht 180.3 cm (5' 11 ) Wt 115.2 kg (254 lb) SpO2 97% BMI 35.43 kg/m?? A pleasant, elderly, obese male in no acute distress but uncomfortable . AO X 3. HEENT: NC, AT, normal EEN exam. Bilateral hearing aids in place Neck supple, symmetric, no lymphadenopathy or thyromegaly Cor: regular, no murmur or rub Lungs: clear to auscultation bilaterally Abd: Obese, soft, nontender. Ext: no edema, cyanosis or clubbing MSK: Moderately reduced range of motion in the shoulders at the end of abduction and rotation but no glenohumeral effusion, R>L. Left shoulder is weaker despite surgical procedure to correct his arthritis and tendinitis. Mild 5?? right elbow flexion contracture. Reduced wrist ROM, R>L. Bilateral Chilo's and Heberden's nodes. L 4th DIP red, enlarged bony contours and sore on gentle pressure, hard to bend L 2nd MCP T,S. Mild yellowing of nails, no pitting. Fabric Designer strength 4/5 bilaterally. Negative Tinel sign bilat. No tenderness along the cervical spine though creaking . Tenderness within cervico- thoracic junction without step-off or radiculopathy. Markedly reduced cervical spine extension and rotation bilaterally. No tenderness on thoracic spine but marked tenderness within lumbar region, no radiculopathy. Hips move poorly particularly on internal rotation. Tenderness to palpation over both trochanteric bursae. Bilateral knee coarse crepitus and grinding, L>R with 1+ popliteal fullness. Normal bilateral ankle, subtalar joint exam. No tenderness along the Achilles tendon or plantar fascia. Neuro: SLR, DTRs, normal Skin: dry, mildly thick on the palms. Faint erythematous rash with very mild silvery scaling on neck, chest, back, legs, arms, forearms, L>R and hands. Labs: Hospital Outpatient Visit on 02/10/2025 Component Date Value Ref Range Status WBC 02/10/2025 6.80 4.00 - 11.00 K/uL Final RBC 02/10/2025 4.93 4.50 - 5.90 M/uL Final HGB 02/10/2025 15.0 13.5 - 17.5 g/dL Final HCT 02/10/2025 44.3 41.0 - 53.0 % Final PLT 02/10/2025 243 150 - 450 K/uL Final MCV 02/10/2025 89.9 80.0 - 100.0 fL Final MCH 02/10/2025 30.4 27.0 - 31.0 pg Final MCHC 02/10/2025 33.9 32.0 - 36.0 g/dL Final RDW 02/10/2025 12.9 11.5 - 14.5 % Final MPV 02/10/2025 9.6 8.4 - 12.0 fL Final NRBC 02/10/2025 0.00 0.00 /100 WBCs Final ABSOLUTE NRBC 02/10/2025 0.00 0.00 K/uL Final DIFF METHOD 02/10/2025 Auto Final NEUTS 02/10/2025 45.4 (L) 48.0 - 76.0 % Final LYMPHS 02/10/2025 32.8 18.0 - 41.0 % Final MONOS 02/10/2025 12.4 (H) 4.0 - 11.0 % Final EOS 02/10/2025 7.8 (H) 0.0 - 5.0 % Final BASOS 02/10/2025 1.0 0.0 - 1.5 % Final Granulocytes, immature (%) 02/10/2025 0.6 0.0 - 0.9 % Final ABSOLUTE NEUTS 02/10/2025 3.09 1.92 - 7.60 K/uL Final ABSOLUTE LYMPHS 02/10/2025 2.23 0.72 - 4.10 K/uL Final ABSOLUTE MONOS 02/10/2025 0.84 0.16 - 1.10 K/uL Final ABSOLUTE EOS 02/10/2025 0.53 (H) 0.00 - 0.50 K/uL Final ABSOLUTE BASOS 02/10/2025 0.07 0.00 - 0.15 K/uL Final Granulocytes, immature 02/10/2025 0.04 0.00 - 0.09 K/uL Final ESR 02/10/2025 16 0 - 20 mm/h Final C REACTIVE PROTEIN 02/10/2025 <3.0 0.0 - 4.0 mg/L Final SODIUM 02/10/2025 143 133 - 146 mmol/L Final POTASSIUM 02/10/2025 4.8 3.3 - 5.1 mmol/L Final CHLORIDE 02/10/2025 106 96 - 108 mmol/L Final CO2 02/10/2025 23 21 - 35 mmol/L Final BUN 02/10/2025 26 (H) 6 - 19 mg/dL Final CREATININE 02/10/2025 1.60 (H) 0.5 - 1.5 mg/dL Final GLUCOSE 02/10/2025 172 (H) 70 - 99 mg/dL Final ALBUMIN 02/10/2025 4.1 3.9 - 4.8 g/dL Final TOTAL PROTEIN 02/10/2025 7.0 6.5 - 8.0 g/dL Final CALCIUM 02/10/2025 9.4 8.4 - 10.3 mg/dL Final ALKALINE PHOSPHATASE 02/10/2025 69 39 - 117 U/L Final TOTAL BILIRUBIN 02/10/2025 0.3 0.0 - 1.2 mg/dL Final AST 02/10/2025 15 0 - 37 U/L Final ALT 02/10/2025 19 0 - 40 U/L Final GLOBULIN 02/10/2025 2.9 1 - 4.8 g/dL Final EGFR 02/10/2025 44 (L) >59 mL/min/1.73m2 Final Estimated glomerular filtration rate calculated using the CKD-EPI refit equation. ANION GAP 02/10/2025 19 10 - 20 mmol/L Final Cervical and lumbar spine at [facility] in [place] from 05/21/2023 confirmed multilevel degenerative changes-see details in media section of [facility]. Assessment and Plan: 1. Psoriatic arthritis (Primary) Assessment & Plan: Monitoring labs stable as is his skin though joints stiff and sore particularly within the lumbosacral region and hips lately. Carefully continue every 30 days subcutaneous Simponi. [...] efficacy of therapy - standing orders in [facility]. Orders: - XR Hips with Pelvis (Bilateral) - Comprehensive metabolic panel - C-Reactive Protein - Sedimentation rate (ESR) - CBC and differential 2. Primary osteoarthritis involving multiple joints Assessment & Plan: Joint protection, energy conservation. Avoid falls, injuries, [...] considers interval imaging and subsequent neurosurgical consultation. Orders: - oxyCODONE-acetaminophen (PERCOCET) 5-325 mg per tablet Dispense: 112 tablet; Refill: 0 - XR Hips with Pelvis (Bilateral) 3. Chronic midline low back pain without sciatica Assessment & Plan: Avoid bending, stooping, heavy lifting, sudden turns. Regular core muscle strengthening exercises. Warm pack, topical cream versus patch as needed. Consider formal physical therapy, chiropractic manipulations versus acupuncture versus craniosacraltherapy etc. Watchful diet to bring weight closer into ideal range for his height. He is ready to get interval lower back imaging in an open MRI machine and consider surgical consultation due to progressive limitations and severe pain despite losing almost 70 pounds within the lastcouple of years. Orders: - oxyCODONE-acetaminophen (PERCOCET) 5-325 mg per tablet Dispense: 112 tablet; Refill: 0 4. Encounter for monitoring golimumab therapy Assessment & Plan: Carefully continue subcutaneous Simponi injections once every month as he continues the first day of each month. Hold the injection if running fever, feeling sick or taking antibiotics. Complete entire course of antibiotics and wait at least 48 hours after the last dose of antibiotic before getting monthly Simponi injection. Make sure to inform any new MD, PA, SOLO MUSICIAN about chronic immunosuppression particularly in emergency situations Orders: - Comprehensive metabolic panel - C-Reactive Protein - Sedimentation rate (ESR) - CBC and differential 5. residential current use of opiate analgesic Assessment & Plan: Take exactly as prescribed, try to limit frequency by employing non-for pharmacologic measures suchas topical creams, warm packs, patches, regular relaxation/mediation/positive imagery sessions etc. Build up regular exercise routine up to the goal of 30-45 minutes daily. Monitor for increasing shortness of breath, reduced respiratory drive, increasing constipation No signs of abuse or diversion. He is interested in exploring more aggressive opiates therapy as one of his friends mentioned to him both in addition to oxycodone he is prescribed morphine therefore I suggest him to consider formalpain specialist consultation to address it 6. On statin therapy Assessment & Plan: Monitor for muscle tenderness, swelling and weakness 7. Tobacco dependence Assessment & Plan: I have spent at least 3 minutes on encouraging him to work on complete smoking cessation by reducing number of cigarettes smoked daily by 1 cigarette every week and be ready for dealing with cravingsby stocking finger size healthy snacks such as small carrots, cucumbers, celery sticks etc. We reviewed the multiple ill effects of ongoing cigarette smoking habit including but not limited to increased risk of lung cancer, bladder cancer, stroke, heart attack. I have also mentioned that cigarette smoking reduces effectiveness of pharmacologic therapy for hisautoimmune mediated psoriatic arthritis. I provided him with [phone] phone number to help him keep on track in the process of quitting for good. He admits that he hopes to quit for good this time though admits to difficulty= repeatedly failing to stay cigarette smoke free. 8. Arthritis of both hips Assessment & Plan: Hip x-rays requested to delineate extent of involvement and consider best management strategy. 9. Class 2 severe obesity due to excess calories with serious comorbidity and body mass index (BMI)of 35.0 to 35.9 in adult Assessment & Plan: Portion control. Limit concentrated sugars, saturated fats and calories in the diet. Keep well-hydrated. If unable to achieve expected goal consider formal dietary/nutritional support. 10. Trochanteric bursitis of both hips Assessment & Plan: Is warm packs versus warm shower or bath prior to gentle, regular exercise routine-examples of exercises with pictures and detailed instructions printed for him and offered to consider warm pool therapy such as at [facility] in [place], [place] CONGRATULATIONS ON QUITTING CIGARETTE SMOKING OF 06/02/2024 AFTER ~60 years of smoking. Follow-up: Return in about 4 months (around 06/23/2025) for PLEASE PRINT INFO ON TROCHANTERIC BURSITIS EXERCISES & PAMPHLET ON BIMZALX. documented in this encounter Miscellaneous Notes * Assessment & Plan Note - Nickie Maria MD - 02/21/2025 1:07 PM EDT Associated Problem(s): Trochanteric bursitis of both hips Is warm packs versus warm shower or bath prior to gentle, regular exercise routine-examples of exercises with pictures and detailed instructions printed for him and offered to consider warm pool therapy such as at [facility] in [place], [place] * Assessment & Plan Note - Nickie Maria MD - 02/21/2025 1:05 PM EDT Associated Problem(s): Arthritis of both hips Hip x-rays requested to delineate extent of involvement and consider best management strategy. * Assessment & Plan Note - Nickie Maria MD - 02/21/2025 10:10 AM EDT Associated Problem(s): Class 2 severe obesity due to excess calories with serious comorbidity and body mass index (BMI) of 35.0 to 35.9 in adult Portion control. Limit concentrated sugars, saturated fats and calories in the diet. Keep well-hydrated. If unable to achieve expected goal consider formal dietary/nutritional support. * Assessment & Plan Note - Nickie Maria MD - 02/21/2025 9:59 AM EDT Associated Problem(s): Encounter for monitoring golimumab therapy Carefully continue subcutaneous Simponi injections once every month as he continues the first day of each month. Hold the injection if running fever, feeling sick or taking antibiotics. Complete entire course of antibiotics and wait at least 48 hours after the last dose of antibiotic before getting monthly Simponi injection. 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 Build up regular exercise routine up to the goal of 30-45 minutes daily. Monitor for increasing shortness of breath, reduced respiratory drive, increasing constipation No signs of abuse or diversion. He is interested in exploring more aggressive opiates therapy as one of his friends mentioned to him both in addition to oxycodone he is prescribed morphine therefore I suggest him to consider formalpain specialist consultation to address it * Assessment & Plan Note - Nickie Maria MD - 02/21/2025 9:59 AM EDT Associated Problem(s): Tobacco dependence (Resolved 02/21/2025) I have spent at least 3 minutes on encouraging him to work on complete smoking cessation by reducing number of cigarettes smoked daily by 1 cigarette every week and be ready for dealing with cravingsby stocking finger size healthy snacks such as small carrots, cucumbers, celery sticks etc. We reviewed the multiple ill effects of ongoing cigarette smoking habit including but not limited to increased risk of lung cancer, bladder cancer, stroke, heart attack. I have also mentioned that cigarette smoking reduces effectiveness of pharmacologic therapy for hisautoimmune mediated psoriatic arthritis. I provided him with [phone] phone number to help him keep on track in the process of quitting for good. He admits that he hopes to quit for good this time though admits to difficulty= repeatedly failing to stay cigarette smoke free. * Assessment & Plan Note - Nickie Maria MD - 02/21/2025 9:58 AM EDT Associated Problem(s): Chronic midline low back pain without sciatica Avoid bending, stooping, heavy lifting, sudden turns. Regular core muscle strengthening exercises. Warm pack, topical cream versus patch as needed. Consider formal physical therapy, chiropractic manipulations versus acupuncture versus craniosacraltherapy etc. Watchful diet to bring weight closer into ideal range for his height. He is ready to get interval lower back imaging in an open MRI machine and consider surgical consultation due to progressive limitations and severe pain despite losing almost 70 pounds within the lastcouple of years. * Assessment & Plan Note - Nickie Maria MD - 02/21/2025 9:58 AM EDT Associated Problem(s): Primary osteoarthritis involving multiple joints Joint protection, energy conservation. Avoid falls, injuries, [...] considers interval imaging and subsequent neurosurgical consultation. * Assessment & Plan Note - Nickie Maria MD - 02/21/2025 9:58 AM EDT Associated Problem(s): Psoriatic arthritis Monitoring labs stable as is his skin though joints stiff and sore particularly within the lumbosacral region and hips lately. Carefully continue every 30 days subcutaneous Simponi. [...] efficacy of therapy - standing orders in [facility]. documented in this encounter Plan of Treatment Upcoming Encounters Date Type Department Care Team (Late st Contact Info) Description 06/13/2025 8:00 AM EST Office Visit [facility] Rheumatology [address] [place] [address] [place] [address] Nickie Maria MD [address] [place] [address], [address] [place] [address] [email or web address] Scheduled Orders Name Type Priority Associated Diagnoses Orde r Schedule Comprehensive metabolic panel Lab Routine Psoriatic arthritis Encounter for monitoring golimumab therapy Every 3 months for 4 Occurrences starting 02/21/2025 until 02/21/2026 C-Reactive Protein Lab Routine Psoriatic arthritis Encounter for monitoring golimumab therapy Every 3 months for 4 Occurrences starting 02/21/2025 until 02/21/2026 Sedimentation rate (ESR) Lab Routine Psoriatic arthritis Encounter for monitoring golimumab therapy Every 3 months for 4 Occurrences starting 02/21/2025 until 02/21/2026 CBC and differential Lab Routine Psoriatic arthritis Encounter for monitoring golimumab therapy Every 3 months for 4 Occurrences starting 02/21/2025 until 02/21/2026 documented as of this encounter Procedures Procedure Name Priority Date/Time Associated Diagnosis Comments XR HIPS WITH PELVIS (BILATERAL) Routine 02/21/2025 9:53 AM EDT Psoriatic arthritis Primary osteoarthritis involving multiple joints documented in this encounter Visit Diagnoses Diagnosis Psoriatic arthritis- Primary Psoriatic arthropathy Primary osteoarthritis involving multiple joints Chronic midline low back pain without sciatica Encounter for monitoring golimumab 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 current use of opiate analgesic On statin therapy Tobacco dependence Tobacco use disorder Arthritis of both hips Class 2 severe obesity due to excess calories with serious comorbidity and body mass index (BMI) of 35.0 to 35.9 in adult Trochanteric bursitis of both hips documented in this encounter Care Teams Yardage Estimator Relationship Specialty Start Date End Date Armida Canchola MD [address] [place] [address] PCP - General Internal Medicine 06/07/24 documented as of this encounter Additional Source Comments The information contained in this document represents components of the legal health record. It is not the complete legal health record.[facility]
--- NOTE | 2025-02-21 11:36 | A.OFFPC_ITS ---
Vital Signs 02/21/25 11:38 Height 5 ft 11 in Weight 250 lb BMI 34.9 BP 136/64 Blood Pressure Location Lt brachial Position Sitting Respiration 19 Pulse 73 Pulse Source Pulse Oximeter Temp 98.0 F Temp Source Oral Pulse Oximetry (%) 97 Oxygen Delivery Method Room Air Intake Visit Reasons: 3 months f/u Intake Note: Pt is here today for 3 months follow up visit. Allergies bupropion (From Wellbutrin) Allergy (Unknown, Verified 02/21/25 11:40) n/a hydroxychloroquine (From Plaquenil) Allergy (Unknown, Verified 02/21/25 11:40) n/a indomethacin (Indocin) Allergy (Unknown, Verified 02/21/25 11:40) Abdominal Pain meloxicam (Mobic) Allergy (Unknown, Verified 02/21/25 11:40) n/a Medication List - Last Reconciled 02/21/25 by Armida Canchola MD amlodipine 10 mg PO DAILY aspirin (Adult Low Dose Aspirin) 81 mg PO DAILY empagliflozin 25 mg PO DAILY furosemide (Lasix) 40 mg PO DAILY golimumab mg subcut lisinopril 30 mg PO DAILY oxycodone-acetaminophen 5-325 mg 1 tab PO Q6H pravastatin 10 mg PO BEDTIME Tobacco use date assessed: 02/21/25 Fall risk assessment: No Falls in past year Last assessed Fall Risk: 02/21/25 Dental Screening Dental Screen Date: 08/02/24 HPI 3 months f/u HPI Details Pt presents for f/u DM 2, CKD 3, HTN, hyperlipid, stable on meds. Pt c/o body and lower back pain and stiffness. Pt is still waiting for MR of L spine to be scheduled at [facility] in [place]. Pt denies weakness in lower extremities. [facility] Medical History (Updated 11/23/24 @ 10:09 by Armida Canchola MD) Wears hearing aid in both ears Tubular adenoma of colon History of rectal fissure Foot pain Ear pain, left Ex-smoker Psoriatic arthritis Hyperlipidemia HTN (hypertension) DM type 2 (diabetes mellitus, type 2) Surgical History Hx of colonoscopy Hx of arthroscopic knee surgery Family History Father No problems noted. Mother No problems noted. Son No problems noted. Son No problems noted. Other Hx of arthroscopic knee surgery Social History Housing: House Patient Tobacco Use Status: Former Tobacco user Tobacco use type: Cigarette Cigarette Packs Per Day: 2 Cigarettes Per Day: 40 e-Cigarette/Vaping Use: Never Used service: Yes Current occupational status: retired Cognitive needs: No Hearing needs: No Vision needs: Yes Questionnaire Thrive Questionnaire Date Thrive assessed: 07/26/24 I am a: Patient What is your living situation today?: I have a steady place to live Within the past 12 months, did the food you bought not last and you didn't have the money to get more?: Never true Within the past 12 months, did you worry whether your food would run out before you got money to buy more?: Never true Do you have trouble paying for medicines?: No Do you have trouble getting transportation to medical appointments?: No Do you have trouble paying your heating and electricity bill?: No Do you have trouble taking care of your child, family member or friend?: No Do you have trouble with day-to-day activities such as bathing, preparing meals, shopping, managing finances, etc.?: No Are you currently unemployed and looking for a job?: No Are you interested in more education?: No Please select the resources that you would like help with: None Currently or been in a relationship where the following occur: No concerns reported THRIVE Score: 0 MIKE-7 AMB Questionnaire MIKE-7 Date MIKE - 7 assessed: 08/02/24 Source: Developed by Drs. Alec Wade, Araseli Jolly, Loco De Leon and colleagues, with an educational saranya from [employer]. Physical exam (Primary Care) Vital Signs: Last Vital Signs Temp 98.0 F 02/21/25 11:38 Pulse 73 02/21/25 11:38 Resp 19 02/21/25 11:38 BP 136/64 02/21/25 11:38 Pulse Ox 97 02/21/25 11:38 Oxygen Delivery Method Room Air 02/21/25 11:38 BMI result Body Mass Index 34.9 Tobacco/Smoking Status: Tobacco use Status Tobacco use date assessed 02/21/25 02/21/25 11:41 Patient Tobacco Use Status Former Tobacco user 02/21/25 11:37 Tobacco use type Cigarette 02/21/25 11:37 e-Cigarette/Vaping Use Never Used 02/21/25 11:37 Thrive Assessment: Date of Thrive Assessment Date Thrive assessed 07/26/24 02/21/25 11:37 Currently or been in a relationship where the following occur: No concerns reported Const General: no acute distress HENMT Head: Yes normal to inspection Face and sinus: Yes normal facial exam Throat: Yes posterior oropharynx normal Neck Neck: Yes no lymphadenopathy and Yes supple Resp Effort & Inspection: normal respiratory effort Auscultation: clear to auscultation bilaterally Cardio Rhythm: regular rhythm Heart sounds: S1 normal heart sound present and S2 normal heart sound present GI Inspection: Yes normal to inspection Palpation (GI): Soft to palpation Percussion: Yes normal to percussion Auscultation: normal bowel sounds Extrem General: Yes no clubbing, cyanosis or edema Coding Level of Care Code Est Pt Level 4 (78411) Diagnoses HTN (hypertension) I10 Hyperlipidemia E78.5 DM type 2 (diabetes mellitus, type 2) E11.9 Assessment & Plan Assessment & Plan (1) HTN (hypertension): Code(s): I10 - Essential (primary) hypertension Category: Medical Plan: cont meds (2) Hyperlipidemia: Code(s): E78.5 - Hyperlipidemia, unspecified Category: Medical Plan: cont statin (3) DM type 2 (diabetes mellitus, type 2): Comment: A1c is 6.3, 10/24 on Jardiance Code(s): E11.9 - Type 2 diabetes mellitus without complications Category: Medical Plan: A1C is 6.7, cont ADA, meds, increase physical activity, f/u 6 months Orders: Orders Comprehensive [place]. Panel Fast 6 Months E11.9 - Type 2 diabetes mellitus without complications, E78.5 - Hyperlipidemia, unspecified, I10 - Essential (primary) hypertension Hemoglobin A1c 6 Months E11.9 - Type 2 diabetes mellitus without complications, E78.5 - Hyperlipidemia, unspecified, I10 - Essential (primary) hypertension Complete Blood Count Auto Diff 6 Months E11.9 - Type 2 diabetes mellitus wit hout complications, E78.5 - Hyperlipidemia, unspecified, I10 - Essential (primary) hypertension Lipid Panel 6 Months E11.9 - Type 2 diabetes mellitus without complications, E78.5 - Hyperlipidemia, unspecified, I10 - Essential (primary) hypertension Microalbumin, Random (w Creat) 6 Months E11.9 - Type 2 diabetes mellitus without complications, E78.5 - Hyperlipidemia, unspecified, I10 - Essential (primary) hypertension
[2025-02-21 11:38] VITALS: BP 136/64; PULSE 73; RESP 19; TEMP 36.7; O2SAT 97; BMI 34.9
--- OUTSIDE RECORDS SUMMARY | 2025-02-21 14:16 | XMS_ITS | Clinical Summary ---
Author Organization [facility] Address [address] [place] [id number] Phone Care Team Providers Care Cloth Sander Name Role Phone Armida Canchola MD Primary Care Provider [phone] Allergies No known active allergies Medications amLODIPine (NORVASC) 10 MG tablet Take 1 tablet by mouth daily. Active lisinopril (PRINIVIL,ZESTRIL) 30 MG tablet Take 30 mg by mouth daily. Active ADULT LOW DOSE ASPIRIN ORAL Take 1 tablet by mouth daily. Active pravastatin (PRAVACHOL) 10 MG tablet Take 10 mg by mouth daily. Active JARDIANCE 25 mg tablet Take 1 tablet by mouth daily. 2 Active golimumab (SIMPONI) 50 mg/0.5 mL penIndications:Pso riatic arthritis Inject 0.5 mL (50 mg total) under the skin every 30 (thirty) days. 0.5 mL 11 5 Active metFORMIN (GLUCOPHAGE-XR) 750 MG 24 hr tablet Take 750 mg by mouth daily. 5 Active furosemide (LASIX) 40 MG tablet Take 40 mg by mouth daily. 5 Active oxyCODONE-acetamin ophen (PERCOCET) 5-325 mg per tabletIndications: Primary osteoarthritis involving multiple joints,Chronic midline low back pain without sciatica Take 1 tab every 6 hrs for pain 112 tablet 5 Active indapamide (LOZOL) 1.25 mg tablet Take 1.25 mg by mouth every morning. 02/22/20 25 Discontinu ed(No longer taking) oxyCODONE-acetamin ophen (PERCOCET) 5-325 mg per tabletIndications: Primary osteoarthritis involving multiple joints,Chronic midline low back pain without sciatica Take 1 tab every 6 hrs for pain 112 tablet 5 02/12/20 Discontinu ed(Reorder ) oxyCODONE-acetamin ophen (PERCOCET) 5-325 mg per tabletIndications: Primary osteoarthritis involving multiple joints,Chronic midline low back pain without sciatica Take 1 tab every 6 hrs for pain 112 tablet 5 02/22/20 25 Discontinu ed(Reorder ) Active Problems Problem Noted Date Diagnosed Date Arthritis of both hips 02/21/2025 Assessment & Plan (02/21/2025 1:05 PM EDT): Hip x-rays requested to delineate extent of involvement and consider best management strategy. Class 2 severe obesity due t o excess calories with serious comorbidity and body mass index (BMI) of 35.0 to 35.9 in adult 02/21/2025 Assessment & Plan (02/21/2025 10:10 AM EDT): Portion control. Limit concentrated sugars, saturated fats and calories in the diet. Keep well-hydrated. If unable to achieve expected goal consider formal dietary/nutritional support. Trochanteric bursitis of both hips 02/21/2025 Assessment & Plan (02/21/2025 1:07 PM EDT): Is warm packs versus warm shower or bath prior to gentle, regular exercise routine-examples of exercises with pictures and detailed instructions printed for him and offered to consider warm pool therapy such as at [facility] in [place], [place] Encounter for monitoring golimumab therapy 06/07 Assessment & Plan (02/21/2025 9:59 AM EDT): Carefully continue subcutaneous Simponi injections once every month as he continues the first day of each month. Hold the injection if running fever, feeling sick or taking antibiotics. Complete entire course of antibiotics and wait at least 48 hours after the last dose of antibiotic before getting monthly Simponi injection. Make sure to inform any new MD, PA, AGRONOMY INSTRUCTOR about chronic immunosuppression particularly in emergency situations Assessment & Plan (10/11/2024 9:01 AM EDT): [...] NP about chronic immunosuppression particularly in emergency situations [...] NP about chronic immunosuppression particularly in emergency situations Cold sensitivity 06/07/2024 Long-term use of immunosuppressant medication Assessment & [...] On statin therapy 05/18/2018 Assessment & Plan (02/21/2025 9:59 AM EDT): Monitor for muscle tenderness, swelling and weakness Assessment & Plan (10/11/2024 9:04 AM EDT): [...] 05/19/2017 Psoriatic arthritis 05/19/2017 Assessment & Plan (02/21/2025 1:04 PM EDT): Monitoring labs stable as is his [...] efficacy of therapy - standing orders in [facility]. Assessment & Plan (10/11/2024 9:00 AM EDT): [...] efficacy of therapy - standing orders in [facility]. Assessment & Plan (06/07/2024 8:39 AM EST): [...] efficacy of therapy - standing orders in [facility]. Assessment & Plan (01/26/2024 9:35 AM EDT): [...] efficacy of therapy - standing orders in [facility]. Assessment & Plan (09/22/2023 9:55 AM EDT): [...] efficacy of therapy - standing orders in [facility].Monitoring labs stable as is his skin though [...] efficacy of therapy - standing orders in [facility]. Assessment & Plan (05/20/2023 12:04 PM EST): [...] efficacy of therapy - standing orders in [facility]. Assessment & Plan (01/13/2023 8:50 AM EDT): [...] efficacy of therapy - standing orders in [facility]. Assessment & Plan (09/09/2022 8:35 AM EDT): [...] efficacy of therapy - standing orders in [facility]. Assessment & Plan (02/12/2022 11:16 AM EDT): [...] efficacy of therapy - standing orders in [facility]. Assessment & Plan (10/08/2021 8:05 AM EDT): [...] efficacy of therapy - standing orders in [facility]. Assessment & Plan (07/31/2021 1:02 PM EST): [...] efficacy of therapy - standing orders in [facility]. Assessment & Plan (05/13/2021 8:42 PM EST): [...] efficacy of therapy - standing orders in [facility]. Assessment & Plan (01/15/2021 8:50 AM EDT): [...] involving multiple joints 05/19/2017 Assessment & Plan (02/21/2025 9:58 AM EDT): Joint protection, energy conservation. Avoid [...] and subsequent neurosurgical consultation. Assessment & Plan (10/11/2024 9:00 AM EDT): [...] without sciatica 1 07/20/2016 Assessment & Plan (02/21/2025 9:58 AM EDT): Avoid bending, stooping, heavy lifting, [...] last couple of years. 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 Overweight (BMI 25.0-29.9) 01/26/2024 0 02/21/2025 Assessment & Plan (01/26/2024 9:39 AM EDT): Continue diligent portion control particularly in view of gaining 8 pounds from 207 in late September 2023 up to 215 today. Limit concentrated sugars, saturated fats and calories in the diet. Keep well-hydrated. If unable to achieve expected goal consider formal dietary/nutritional support. Class 1 obesity due to exces s [...] achieve expected goal consider formal dietary/nutritional support. 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 Monitor for excessive bruising and bleeding. Tobacco dependence 05/19/2017 Assessment & Plan (02/21/2025 9:59 AM EDT): I have spent at least [...] mediated psoriatic arthritis. I provided him with [phone]-NOW phone number to help him keep on track in the process of quitting for good. He admits that he hopes to quit for good this time though admits to difficulty= repeatedly failing to stay cigarette smoke free. Assessment & Plan (01/26/2024 9:37 AM EDT): [...] mediated psoriatic arthritis. I provided him with [phone]-NOW phone number to help him keep on [...] mediated psoriatic arthritis. I provided him with [phone]-NOW phone number to help him keep on [...] mediated psoriatic arthritis. I provided him with [phone]-NOW phone number to help him keep on [...] as small carrots, cucumbers, celery sticks etc. On etanercept therapy 05/19/20172020 Assessment & Plan [...] Encounters Date Type Department Care Team Description 02/21/2025 9:30 AM EDT Office Visit [facility] Rheumatology [address] [place] [address] Nickie Maria MD Psoriatic arthritis (Primary Dx); Primary osteoarthritis involving multiple joints; Chronic midline low back pain without sciatica; Encounter for monitoring golimumab therapy; group home current use of opiate analgesic; On statin therapy; Tobacco dependence; Arthritis of both hips; Class 2 severe obesity due to excess calories with serious comorbidity and body mass index (BMI) of 35.0 to 35.9 in adult; Trochanteric bursitis of both hips 02/11/2025 Refill [facility] Rheumatology [address] [place] [address] Jeri Burgos [facility] 02/10/2025 11:21 AM EDT - 02/10/2025 11:59 PM EDT Hospital Encounter [facility] [address] [place] [address] Nickie Maria MD Discharge Disposition: Home or Self Care 01/06/2025 Refill [facility] Rheumatology [address] [place] [address] Jeri Burgos [facility] 12/10/2024 Refill [facility] Rheumatology [address] [place] [address] Nickie Maria MD Medication Refill from Last 3 Months Social History Tobacco [...] Pulse 84 02/21/2025 9:29 AM EDT Temperature 36.6 C (97.8 F) 08/07/2020 8:11 AM EST Respiratory Rate - - Oxygen Saturation 97% 02/21/2025 9:29 AM EDT Inhaled Oxygen Concentration - - Weight 115.2 kg (254 lb) 02/21/2025 9:29 AM EDT Height 180.3 cm (5' 11 ) 02/21/2025 9:29 AM EDT Body Mass Index 35.43 02/21/2025 9:29 AM EDT Plan of Treatment Upcoming Encounters Date Type Department Care Team (Late st Contact Info) Description 06/13/2025 8:00 AM EST Office Visit [facility] Rheumatology [address] [place] [address] Nickie Maria MD [address] [facility], [address] [place] [address] [email or web address] Health Maintenance Due Date Last Done Comments DEPRESSION SCREENING 1957 HEPATITIS C SCREENING 12/16/1965 ZOSTER VACCINES (2 of 2) 04/18/2019 02/21/2019, 03/02 RSV VACCINE (1 - 1-dose 75+ series) 12/16/2022 LIPID PANEL 06/07/2024 06/07/2019 COVID-19 VACCINE (9 - Pfizer risk season) 2025 02/12/2024, 03/18/2023, 10/13/2022, Additional history exists BLOOD PRESSURE 08/21/2025 02/21/2025 CREATININE LEVEL 02/10/2026 02/10/2025, 07/2024, 01/19/2024, Additional history exists POTASSIUM LEVEL 02/10/2026 02/10/2025, 07/2024, 01/19/2024, Additional history exists Adult Td,Tdap Booster 02/17/2028 02/16/2018 SMOKING STATUS SCREENING (Every 5 Years) 02/21/2030 02/21/2025 PNEUMOCOCCAL VACCINES (50+ years) Completed 03/17/2017, 03/11/2016, 03/11/2016, Additional history exists INFLUENZA VACCINE Completed 02/04/2025, , 02/02/2023, Additional history exists HEPATITIS A VACCINES Aged [...] Psoriatic arthritis Primary osteoarthritis involving multiple joints COMPREHENSIVE METABOLIC PANEL Routine 02/10/2025 11:33 AM [...] EDT) SODIUM 143 133 - 146 mmol/L [facility] POTASSIUM 4.8 3.3 - 5.1 mmol/L [facility] CHLORIDE 106 96 - 108 mmol/L [facility] CO2 23 21 - 35 mmol/L [facility] BUN 26(H) 6 - 19 mg/dL [facility] CREATININE 1.60(H) 0.5 - 1.5 mg/dL [facility] GLUCOSE 172(H) 70 - 99 mg/dL [facility] ALBUMIN 4.1 3.9 - 4.8 g/dL [facility] TOTAL PROTEIN 7.0 6.5 - 8.0 g/dL [facility] CALCIUM 9.4 8.4 - 10.3 mg/dL [facility] ALKALINE PHOSPHATASE 69 39 - 117 U/L [facility] TOTAL BILIRUBIN 0.3 0.0 - 1.2 mg/dL [facility] AST 15 0 - 37 U/L [facility] ALT 19 0 - 40 U/L [facility] GLOBULIN 2.9 1 - 4.8 g/dL [facility] EGFR 44(L) >59 mL/min/1.7 3m2 [facility] Comment:Estimated glomerular filtration rate calculated using the CKD-EPI refit equation. ANION GAP 19 10 - 20 mmol/L [facility] Blood 02/10/2025 11:3 3 AM EDT 02/10/2025 11:39 AM EDT us Nickie Maria MD LAB BLOOD ORDERABLES Fin al Result Performing Organization Address City/[facility]/ZIP Co de Phone Number [address] [address] * Sedimentation rate (ESR) (02/10/2025 11:33 AM EDT) ESR 16 0 - 20 mm/h [facility] Blood 02/10/2025 11:3 3 AM EDT 02/10/2025 11:39 AM EDT us Nickie Maria MD LAB BLOOD ORDERABLES Fin al Result [address] [place] [address] * (ABNORMAL) CBC and differential (02/10/2025 11:33 AM EDT) WBC 6.80 4.00 - 11.00 K/uL [facility] RBC 4.93 4.50 - 5.90 M/uL [facility] HGB 15.0 13.5 - 17.5 g/dL [facility] HCT 44.3 41.0 - 53.0 % [facility] PLT 243 150 - 450 K/uL [facility] MCV 89.9 80.0 - 100.0 fL [facility] MCH 30.4 27.0 - 31.0 pg [facility] MCHC 33.9 32.0 - 36.0 g/dL [facility] RDW 12.9 11.5 - 14.5 % [facility] MPV 9.6 8.4 - 12.0 fL [facility] NRBC 0.00 0.00 /100 WBCs [facility] ABSOLUTE NRBC 0.00 0.00 K/uL [facility] DIFF METHOD Auto [facility] NEUTS 45.4(L) 48.0 - 76.0 % [facility] LYMPHS 32.8 18.0 - 41.0 % [facility] MONOS 12.4(H) 4.0 - 11.0 % [facility] EOS 7.8(H) 0.0 - 5.0 % [facility] BASOS 1.0 0.0 - 1.5 % [facility] Granulocytes, immature (%) 0.6 0.0 - 0.9 % [facility] ABSOLUTE NEUTS 3.09 1.92 - 7.60 K/uL [facility] ABSOLUTE LYMPHS 2.23 0.72 - 4.10 K/uL [facility] ABSOLUTE MONOS 0.84 0.16 - 1.10 K/uL [facility] ABSOLUTE EOS 0.53(H) 0.00 - 0.50 K/uL [facility] ABSOLUTE BASOS 0.07 0.00 - 0.15 K/uL [facility] Granulocytes, immature 0.04 0.00 - 0.09 K/uL [facility] Blood 02/10/2025 11:3 3 AM EDT 02/10/2025 11:39 AM EDT us Nickie Maria MD LAB BLOOD ORDERABLES Fin al Result Performing Organization Address City/[facility]/ZIP Co de Phone Number [address] [address] * C-Reactive Protein (02/10/2025 11:33 AM EDT) C REACTIVE PROTEIN <3.0 0.0 - 4.0 mg/L [facility] Blood 02/10/2025 11:3 3 AM EDT 02/10/2025 11:39 AM EDT us Nickie Maria MD LAB BLOOD ORDERABLES Fin al Result Performing Organization Address [facility] Co de Phone Number [address] [address] * (ABNORMAL) Lipid panel (06/07/2019 10:22 AM EST) HDL 48 mg/dL [facility] Comment: Interpretation <40 mg/dL: Low HDL cholesterol (major risk factor for CHD) Greater than or equal to 60 mg/dL: High HDL cholesterol ( negative risk factor for CHD) HDL - cholesterol is affected by a number of factors, e.g. smoking, excerise, hormones, sex and age. CHOLESTEROL 148 0 - 240 mg/dL [facility] TRIGLYCERIDES 120 30 - 160 mg/dL [facility] LDL 76 50 - 129 mg/dL [facility] Comment: LDL levels in terms of risk for coronary heart disease: <100 mg/dL: Optimal 100-129 mg/dL: Near or above optimal 130-159 mg/dL: Borderline high 160-189 mg/dL: High >190 mg/dL: Very High CARDIAC RISK RATIO 3.1(L) 3.4 - 5.0 [facility] Blood 06/07/2019 10:2 2 AM EST 06/07/2019 10:23 AM EST us Donny Calabrese MD LAB BLOOD ORDERABLES Final Result [address] [address] from Last 3 Months or Most Recently Relevant to Health Maintenance [place] [address] [address] [place] [address] [place] [address] [place] [address] [place] [address] [facility] Care Teams Cloth Sander Relationship Specialty Start Date End Date Armida Canchola MD 1959 [facility] [place] [address] PCP - General Internal Medicine 06/07/24 Additional Source Comments The information contained in this document represents components of the legal health record. It is not the complete legal health record.[facility]
--- OUTSIDE RECORDS SUMMARY | 2025-02-21 14:16 | XMS_ITS | Encounter Summary ---
Author Organization [facility] Address [address] [place] [address] [address] [place] [address] Phone Care Team Providers Care Professor Of History Name Role Phone Donny Calabrese MD Primary Care Provider [phone] Armida Canchola MD Primary Care Provider [phone] Encounter Details Date Type Department Care Team (Latest Contact Info) Description 09/15/2023 Transcribe Orders [facility] Laboratory [address] [place] [address] [place] [address] Nickie Maria MD [address] [facility] [address], [address] [place] [address] [email or web address] Psoriatic arthritis (Primary Dx); Long-term use of [...] Description 06/13/2025 8:00 AM EST Office Visit [facility] Rheumatology [address] [place] [address] Nickie Maria MD [address] [facility] [address], [address] [place] [address] [email or web address] documented as of this encounter Results * C-Reactive Protein (09/15/2023 11:28 AM EDT) Pathologist [facility] C REACTIVE PROTEIN <3.0 0.0 - 4.0 mg/L [facility] Blood 09/15/2023 11:2 8 AM EDT 09/15/2023 11:30 AM EDT us Nickie Maria MD LAB BLOOD ORDERABLES Fin al Result [address] [address] * Sedimentation rate (ESR) (09/15/2023 11:28 AM EDT) Pathologist [facility] ESR 9 0 - 20 mm/h [facility] Blood 09/15/2023 11:2 8 AM EDT 09/15/2023 11:30 AM EDT us Nickie Maria MD LAB BLOOD ORDERABLES Fin al Result [address] [address] * (ABNORMAL) CBC and differential (09/15/2023 11:28 AM EDT) WBC 10.33 4.00 - 11.00 K/uL [facility] RBC 4.87 3.90 - 5.69 M/uL [facility] HGB 14.8 12.4 - 17.3 g/dL [facility] HCT 44.6 37.0 - 51.0 % [facility] PLT 214 140 - 430 K/uL [facility] MCV 91.6 78.0 - 97.0 fL [facility] MCH 30.4 25.0 - 33.0 pg [facility] MCHC 33.2 32.0 - 36.0 g/dL [facility] RDW 13.1 11.0 - 15.0 % [facility] MPV 9.3 8.4 - 12.8 fl [facility] DIFF METHOD Auto [facility] NEUTS 61.8 43.0 - 75.0 % [facility] LYMPHS 25.9 18.2 - 47.4 % [facility] MONOS 9.1 4.00 - 11.00 % [facility] EOS 2.4 0.0 - 8.0 % [facility] BASOS 0.5 0.0 - 2.0 % [facility] Granulocytes, immature (%) 0.3 0.0 - 0.9 % [facility] ABSOLUTE NEUTS 6.38 1.80 - 7.70 K/uL [facility] ABSOLUTE LYMPHS 2.68 1.00 - 3.10 K/uL [facility] ABSOLUTE MONOS 0.94(H) 0.20 - 0.80 K/uL [facility] ABSOLUTE EOS 0.25 0.00 - 0.80 K/uL [facility] ABSOLUTE BASOS 0.05 0.00 - 0.09 K/uL [facility] Granulocytes, immature 0.03 0.00 - 0.05 K/uL [facility] Blood 09/15/2023 11:2 8 AM EDT 09/15/2023 11:30 AM EDT us Nickie Maria MD LAB BLOOD ORDERABLES Fin al Result [facility] [address] [place] [address] * (ABNORMAL) Comprehensive metabolic panel (09/15/2023 11:28 AM EDT) SODIUM 141 133 - 146 mmol/L [facility] POTASSIUM 4.3 3.3 - 5.1 mmol/L [facility] CHLORIDE 107 96 - 108 mmol/L [facility] CO2 20(L) 21 - 35 mmol/L [facility] BUN 29(H) 6 - 19 mg/dL [facility] CREATININE 1.40 0.5 - 1.5 mg/dL [facility] GLUCOSE 111(H) 70 - 99 mg/dL [facility] ALBUMIN 4.3 3.9 - 4.8 g/dL [facility] TOTAL PROTEIN 6.8 6.5 - 8.0 g/dL [facility] CALCIUM 9.1 8.4 - 10.3 mg/dL [facility] ALKALINE PHOSPHATASE 56 39 - 117 U/L [facility] TOTAL BILIRUBIN <0.2 0.0 - 1.2 mg/dL [facility] AST 24 0 - 37 U/L [facility] ALT 30 0 - 40 U/L [facility] GLOBULIN 2.5 1 - 4.8 g/dL [facility] EGFR 52(L) >59 mL/min/1.7 3m2 [facility] Comment:Estimated glomerular filtration rate calculated using the CKD-EPI refit equation. ANION GAP 18 10 - 20 mmol/L [facility] Blood 09/15/2023 11:2 8 AM EDT 09/15/2023 11:30 AM EDT us Nickie Maria MD LAB BLOOD ORDERABLES Fin al Result [facility] [address] [place] [address] documented in this encounter Visit Diagnoses Diagnosis Psoriatic arthritis- Primary Psoriatic arthropathy Long-term use of immunosuppressant medication documented in this encounter Care Teams Professor Of History Relationship Specialty Start Date End Date Donny Calabrese MD PCP - General Internal Medicine 05/12/23 06/06/24 Armida Canchola MD [facility] [address] [place], [place] [address] PCP - General Internal Medicine 06/07/24 documented as of this encounter Additional Source Comments The information contained in this document represents components of the legal health record. It is not the complete legal health record.[facility]
--- OUTSIDE RECORDS SUMMARY | 2025-02-21 14:16 | XMS_ITS | Encounter Summary ---
Author Organization 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 checked and last filled on: 01/26/25, 28 day supply , due 02/25/25 Last office visit: 10/11/2024 Next office visit:02/21/2025 Date of last urine toxicology screen: 10/11/24 Controlled Substance Agreement completed on: 10/11/24 documented in this encounter Plan of Treatment Upcoming Encounters Date Type Department Care Team (Late st Contact Info) Description 06/13/2025 8:00 AM EST Office Visit [facility] Rheumatology [address] [place] [address] Nickie Maria MD [address] [facility], [address] [place] [address] [email or web address] documented as of this encounter Visit Diagnoses Diagnosis Primary osteoarthritis involving multiple joints Chronic midline low back pain without sciatica documented in this encounter Care Teams Machinist Relationship Specialty Start Date End Date Armida Canchola MD [address] [place] [address] PCP - General Internal Medicine 06/07/24 documented as of this encounter Additional Source Comments The information contained in this document represents components of the legal health record. It is not the complete legal health record.[facility]
--- OUTSIDE RECORDS SUMMARY | 2025-02-21 14:16 | XMS_ITS | Patient Health Record ---
Author Organization [facility] Haley Mccloudley Address [address] [place] [address] Care Team Providers Care Supervisor [employer] Name Role Phone Armida Canchola MD Primary Care Provider Fabiana Grossman Unavailable [phone] Neel Lyons Unavailable [phone] Allergies Allergen (clinical drug ingredient) Drug/Non Drug [...] Referring Provider Last Name Sushant Referred Organization [facility] Salbador Referred Provider Fabiana Tan Referred Address [address] [facility],[place], [place],[address], Referred Provider Specialty Podiatry Referral Priority Routine [...] Risk Notes Problem Pain in right foot ([id number]) Pain in right foot (M79.671) Active confirmed Problem Pain in left foot ([id number]) Pain in left foot (M79.672) Active confirmed Problem Polyneuropathy due to type 2 diabetes mellitus (308914052) Type 2 diabetes mellitus with diabetic polyneuropathy (E11.42) Active confirmed Vital Signs Blood pressure diastolic 70 mm Hg 11/08/2024 Height 5 ft 11 in in 11/08/2024 Blood pressure systolic 120 mm Hg 11/08/2024 Weight 205 lbs 11/08/2024 BMI 28.59 kg/m2 11/08/2024 Procedures Procedure Date Ordered Date Performed Result Body Sit e 18511-PWSQPNM NAIL, 6 OR MORE 06/14/2024 N/A 92169-VMFU SKIN LESIONS, 2 TO 4 06/14/2024 N/A 88689-TDHCYAO NAIL, 6 OR MORE 09/06/2024 N/A 44522-ZCUY SKIN LESIONS, 2 TO 4 09/06/2024 N/A 96844-UGGKWPQ NAIL, 6 OR MORE 11/08/2024 N/A 58554-AQNR SKIN LESIONS, 2 TO 4 11/08/2024 N/A Encounters Encounter Location Date Provider Diagnosis [address] [address] 04/01/2024 Neel Lyons Tinea unguium B35.1 ; Other viral warts B07.8 ; Pain in left foot M79.672 ; Pain in right foot M79.671 ; Type 2 diabetes mellitus with diabetic polyneuropathy E11.42 ; Pain in right toe(s) M79.674 and Pain in left toe(s) M79.[address] [address] 06/14/2024 Fabiana Tan Type 2 diabetes mellitus with diabetic polyneuropathy E11.42 and Tinea unguium B35.[address] [address] 09/06/2024 Fabiana Tan Type 2 diabetes mellitus with diabetic polyneuropathy E11.42 and Tinea unguium B35.[address] [address] 11/08/2024 Fabiana Tan Type 2 diabetes mellitus with diabetic polyneuropathy E11.42 and Tinea unguium B35.1 [facility] [place] [address] [place] [address] 01/10/2025 Fabiana Tan Assessments Encounter Date Diagnosis (ICD Code) Assessment Notes Treatment Notes Treatment Clinical Notes Section Notes 04/01/2024 Tinea unguium (ICD-10 - B35.1) 06/14/2024 Type 2 diabetes mellitus with diabetic polyneuropathy (ICD-10 - E11.42) 06/14/2024 Tinea unguium (ICD-10 - B35.1) 09/06/2024 Type 2 diabetes mellitus with diabetic polyneuropathy (ICD-10 - E11.42) 09/06/2024 Tinea unguium (ICD-10 - B35.1) 11/08/2024 Type 2 diabetes mellitus with diabetic polyneuropathy (ICD-10 - E11.42) 11/08/2024 Tinea unguium (ICD-10 - B35.1) 04/01/2024 Other [...] X ray : Foot, right 3V 09/15/2013 18928-WQRRVUH NAIL, 6 OR MORE 12/13/2013 97504-IGPSMNR NAIL, 6 OR MORE 03/07/2014 46959-QEULYXT NAIL, 6 OR MORE 05/09/2014 27406-AYZLNCS NAIL, 6 OR MORE 08/01/2014 69881-UUVTOHE NAIL, 6 OR MORE 11/28/2014 26735-PMJOVKP NAIL, 6 OR MORE 12/09/2016 95829-SOFNQXC NAIL, 6 OR MORE 05/20/2016 55420-RSZMAZW NAIL, 6 OR MORE 08/05/2016 19999-VRHXKBK NAIL, 6 OR MORE 02/17/2017 30093-LJVHJCC NAIL, 6 OR MORE 04/21/2017 06375-AFZSFGA NAIL, 6 OR MORE 02/20/2015 01769-ZQZFJMH NAIL, 6 OR MORE 05/22/2015 42855-QZVQZKH NAIL, 6 OR MORE 08/07/2015 18805-NALIOZN NAIL, 6 OR MORE 10/16/2015 87882-URDAYFZ NAIL, 6 OR MORE 12/18/2015 79930-GMZGBDQ NAIL, 6 OR MORE 02/19/2016 60231-XQQRDOS NAIL, 6 OR MORE 02/18/2011 31110-NANOMKB NAIL, 6 OR MORE 05/20/2011 12719-IFFZNSV NAIL, 6 OR MORE 06/19/2011 05245-PMFACBQ NAIL, 6 OR MORE 07/29/2011 11491-SCDXEJF NAIL, 6 OR MORE 08/26/2011 73341-IUAAIVK NAIL, 6 OR MORE 11/06/2011 67279-LWGRAQR NAIL, 6 OR MORE 01/27/2012 94818-PAJQXGX NAIL, 6 OR MORE 04/20/2012 55902-CGQDLWK NAIL, 6 OR MORE 06/24/2012 78328-UDHROMM NAIL, 6 OR MORE 08/31/2012 68657-MXGUIYY NAIL, 6 OR MORE 01/13/2013 16559-HJSPRHH NAIL, 6 OR MORE 03/08/2013 89317-CMRFTEB NAIL, 6 OR MORE 06/16/2013 84449-HUNPHFW NAIL, 6 OR MORE 09/15/2013 61622-IHHVPSD NAIL, 6 OR MORE 04/20/2018 91378-DZAGMJE NAIL, 6 OR MORE 06/23/2017 08448-CWWVBWN NAIL, 6 OR MORE 08/25/2017 56948-FXCXTZZ NAIL, 6 OR MORE 11/10/2017 14993-NYZWRTN NAIL, 6 OR MORE 01/26/2018 45196-XVMHHDW NAIL, 6 OR MORE 06/14/2024 87227-TUKCHKH NAIL, 6 OR MORE 09/06/2024 26718-XMFINST NAIL, 6 OR MORE 11/08/2024 96970-Rzdk Destruction, 1-14 01/23/2015 70032-Daca Destruction, 1-14 01/26/2018 14426-Xeve Destruction, 1-14 11/10/2017 68201-Dzlh Destruction, 06-1512/08/2017 27870-Cdyf Destruction, 06-1508/25/2017 35567-Vxmz Destruction, 06-1510/06/2017 96617-Obxv Destruction, 06-1506/23/2017 97160-Znuj Destruction, 06-1507/28/2017 48340-Hofm Destruction, 06-1504/20/2018 44387-Fcax Destruction, 06-1509/15/2013 32110-Vefx Destruction, 06-1508/09/2013 29541-Aqiz Destruction, 06-1506/16/2013 05776-Jgay Destruction, 06-1507/12/2013 23827-Zpiu Destruction, 06-1502/15/2013 19775-Odaj Destruction, 06-1503/08/2013 12993-Msrk Destruction, 06-1504/07/2013 92499-Lmix Destruction, 06-1504/26/2013 39168-Dxdb Destruction, 06-1501/13/2013 77748-Meay Destruction, 06-1512/16/2012 26288-Scep Destruction, 06-1510/21/2012 31161-Mhws Destruction, 06-1511/18/2012 12945-Fnrq Destruction, 06-1508/31/2012 90514-Wzib Destruction, 06-1509/21/2012 73254-Xqkm Destruction, 06-1506/24/2012 90813-Wybx Destruction, 06-1507/27/2012 36260-Rvsj Destruction, 06-1504/20/2012 36500-Irmn Destruction, 06-1505/18/2012 04847-Soyo Destruction, 06-1502/24/2012 55338-Mflj Destruction, 06-1503/23/2012 62035-Hudu Destruction, 06-1501/27/2012 24314-Vrao Destruction, 06-1512/30/2011 31134-Uqly Destruction, 06-1511/06/2011 60863-Adyx Destruction, 06-1512/02/2011 48535-Pjri Destruction, 06-1509/25/2011 85231-Mzts Destruction, 06-1508/26/2011 17725-Xnpm Destruction, 06-1507/29/2011 54947-Ibof Destruction, 06-1506/19/2011 59280-Lfjf Destruction, 06-1505/20/2011 55540-Vyip Destruction, 06-1504/17/2011 73324-Evdc Destruction, 06-1502/18/2011 58272-Mafi Destruction, 06-1503/18/2011 08180-Gmge Destruction, 06-1502/19/2016 35855-Qbwx Destruction, 06-1503/25/2016 04678-Ostt Destruction, 06-1512/18/2015 64425-Fbar Destruction, 06-1501/08/2016 03805-Qhcr Destruction, 06-1510/16/2015 49190-Vhzj Destruction, 06-1508/07/2015 27986-Vidg Destruction, 06-1509/11/2015 02780-Srxe Destruction, 06-1505/22/2015 86310-Lbeb Destruction, 06-1507/03/2015 93263-Ntlo Destruction, 06-1503/20/2015 66589-Dajz Destruction, 06-1504/17/2015 45442-Vxcs Destruction, 06-1502/20/2015 64230-Jpaj Destruction, 06-1504/21/2017 56511-Pcyp Destruction, 06-1505/19/2017 39431-Ejyl Destruction, 06-1502/17/2017 74321-Ggnh Destruction, 06-1503/24/2017 93513-Gvim Destruction, 06-1508/05/2016 84291-Werk Destruction, 06-1509/02/2016 17089-Zuth Destruction, 06-1505/20/2016 83938-Tjua Destruction, 06-1506/24/2016 51743-Zheh Destruction, 06-1512/09/2016 74679-Cgxj Destruction, 06-1511/28/2014 90705-Hcxx Destruction, 06-1512/26/2014 13637-Jsml Destruction, 06-1508/29/2014 79493-Obuj Destruction, 06-1509/26/2014 98517-Oiga Destruction, 06-1510/31/2014 10533-Shez Destruction, 06-1508/01/2014 01280-Kwbz Destruction, 06-1506/06/2014 49941-Yfbn Destruction, -07/04/2014 24290-Hohd Destruction, -05/09/2014 62990-Ypwz Destruction, -04/04/2014 76898-Mabd Destruction, -03/07/2014 36615-Gqqx Destruction, -02/07/2014 93546-Qgoe Destruction, -12/13/2013 32372-Harm Destruction, 06-1501/10/2014 49008-Jyjv Destruction, 06-1510/04/2013 20428-Zpse Destruction, -11/08/2013 05447- Debride <25 sq cm 11/08/2013 09419- Debride <25 sq cm 10/04/2013 40142- Debride <25 sq cm 01/10/2014 64245- Debride <25 sq cm 12/13/2013 77770- Debride <25 sq cm 02/07/2014 90555- Debride <25 sq cm 03/07/2014 07454- Debride <25 sq cm 04/04/2014 57792- Debride <25 sq cm 05/09/2014 97560- Debride <25 sq cm 07/04/2014 28581- Debride <25 sq cm 06/06/2014 60087- Debride <25 sq cm 08/01/2014 26595- Debride <25 sq cm 08/29/2014 26321- Debride <25 sq cm 10/31/2014 94653- Debride <25 sq cm 09/26/2014 85702- Debride <25 sq cm 12/26/2014 48759- Debride <25 sq cm 01/23/2015 83678- Debride <25 sq cm 11/28/2014 57164- Debride <25 sq cm 02/20/2015 31742- Debride <25 sq cm 03/20/2015 54630- Debride <25 sq cm 03/18/2011 38349- Debride <25 sq cm 02/18/2011 36331- Debride <25 sq cm 04/17/2011 24752- Debride <25 sq cm 05/20/2011 35331- Debride <25 sq cm 06/19/2011 33801- Debride <25 sq cm 07/29/2011 60968- Debride <25 sq cm 08/26/2011 67727- Debride <25 sq cm 09/25/2011 42304- Debride <25 sq cm 12/02/2011 55012- Debride <25 sq cm 11/06/2011 44977- Debride <25 sq cm 12/30/2011 81057- Debride <25 sq cm 01/27/2012 28036- Debride <25 sq cm 03/23/2012 95694- Debride <25 sq cm 02/24/2012 60277- Debride <25 sq cm 05/18/2012 69949- Debride <25 sq cm 04/20/2012 21797- Debride <25 sq cm 07/27/2012 22863- Debride <25 sq cm 06/24/2012 62929- Debride <25 sq cm 09/21/2012 57448- Debride <25 sq cm 08/31/2012 52189- Debride <25 sq cm 11/18/2012 12390- Debride <25 sq cm 10/21/2012 93910- Debride <25 sq cm 12/16/2012 88015- Debride <25 sq cm 01/13/2013 99051- Debride <25 sq cm 04/26/2013 27660- Debride <25 sq cm 04/07/2013 03013- Debride <25 sq cm 02/15/2013 90715- Debride <25 sq cm 03/08/2013 97960- Debride <25 sq cm 07/12/2013 45120- Debride <25 sq cm 08/09/2013 58125- Debride <25 sq cm 06/16/2013 58249- Debride <25 sq cm 09/15/2013 57577-IENB SKIN LESIONS, OVER 4 02/18/20 17 90221-SNLY SKIN LESIONS, OVER 4 10/08/19 17 90246-KZNJ SKIN LESIONS, OVER 4 12/10/19 17 01885-DEJF SKIN LESIONS, OVER 4 04/21/20 17 66520-VKRD SKIN LESIONS, OVER 4 06/23/19 18 48228-GUSD SKIN LESIONS, OVER 4 06/29/19 19 85954-HNJD SKIN LESIONS, OVER 4 09/01/19 71963-BLFG SKIN LESIONS, OVER 4 11/03/19 62030-JHRF SKIN LESIONS, OVER 4 01/05/20 33790-AKFX SKIN LESIONS, OVER 4 03/29/20 19 70022-ELDU SKIN LESIONS, OVER 4 06/14/19 20079-CRDS SKIN LESIONS, OVER 4 08/16/19 93496-FAER SKIN LESIONS, OVER 4 11/01/19 17086-BBAZ SKIN LESIONS, OVER 4 01/24/20 73225-DEVQ SKIN LESIONS, OVER 4 04/24/20 44048-DOAQ SKIN LESIONS, OVER 4 07/10/19 52735-GQYI SKIN LESIONS, OVER 4 09/19/19 40718-YUGS SKIN LESIONS, OVER 4 11/28/19 17977-PTTF SKIN LESIONS, OVER 4 02/23/20 12589-TDHY SKIN LESIONS, OVER 4 07/02/19 88835-IBZJ SKIN LESIONS, OVER 4 09/04/19 54950-MGGF SKIN LESIONS, OVER 4 08/26/19 18 79521-RQWH SKIN LESIONS, OVER 4 11/11/19 18 37659-EGDL SKIN LESIONS, OVER 4 01/27/20 18 35698-EYKX SKIN LESIONS, OVER 4 04/20/20 18 61987-TPUG SKIN LESIONS, 2 TO 4 06/14/19 55518-GHZU SKIN LESIONS, 2 TO 4 11/09/19 55802-HKJG SKIN LESIONS, 2 TO 4 09/07/19 Next Appt Details Provider Name:Fabiana Woodwardmarie kay, 03/21/2025 09:00:00 AM, [address] [place], [address], Insurance Providers Payer Name Payer Address Payer Phone Subscriber Number Group Number Insured Name Patient Relationship to Insured Coverage Start Date Coverage End Date [facility] [address] [place] [address] [id number] Benedicto Ramirez Self - patient is the insured Medical (General) History Medical History History ICD Code psoriasis high blood pressure Arthritis type II diabetes Surgical History Surgery Date(Month/Year) Hospitalization History Reason Date(Month/Year)
== END 2025-02-21 12:21 | disposition home or self-care (01) ==
LOC: HO.HMCC 11:35
PROVIDERS: PCP Internal Medicine; Visit Provider Internal Medicine
DX: I10 Essential (primary) hypertension (principal); E78.5 Hyperlipidemia, unspecified; E11.9 Type 2 diabetes mellitus without complications

== ENCOUNTER 2025-04-15 09:21 | Outpatient (AMB) | payer BC, SELFPAY ==
[2025-04-15 09:45] VITALS: BMI 34.9
--- NOTE | 2025-04-15 09:45 | HO.SPINEOV ---
Vital Signs 04/15/25 09:45 Height 5 ft 11 in Weight 250 lb BMI 34.9 Intake Visit Reasons: LBP Intake Note: Mr. Scott is here toay c/o low back pain. MRI done at [facility]. Supervisor Of Communications Required: No Allergies bupropion (From Wellbutrin) Allergy (Unknown, Verified 04/15/25 09:45) n/a hydroxychloroquine (From Plaquenil) Allergy (Unknown, Verified 04/15/25 09:45) n/a indomethacin (Indocin) Allergy (Unknown, Verified 04/15/25 09:45) Abdominal Pain meloxicam (Mobic) Allergy (Unknown, Verified 04/15/25 09:45) n/a Assessment & Plan Assessment & Plan (1) Chronic lower back pain: Code(s): M54.50 - Low back pain, unspecified; G89.29 - Other chronic pain Category: Medical Plan Dear colleague Thank you for referring Benedicto Scott to the office today with a chief complaint of back pain. HPI: This 79-year-old male is having an 18 year history of low back pain and neck pain. The back pain is mostly present when standing or walking. He has been taking Percocet for more than 10 years. The pain basically started when he retired. He can not sleep in a bed. He has not slept in her bed for 18 years due to back pain and pain in other joints. PMH: Hypertension, diabetes, psoriatic arthritis, previous knee and shoulder surgeries Medications: [] Allergies: NKDA Social history: Former smoker, quit June 2024 Physical Exam: Pleasant male. Height 5'11 weight 250 lb. He ambulates with a cane. This pain on palpation of the left side of his back. Straight leg raise is negative. No motor deficits. Radiological Studies: MRI of the lumbar spine done at [facility] on 03/03/2025 shows mild lumbar spondylolisthesis. No significant spinal stenosis or nerve root compression. Impression/Plan: This patient is suffering from chronic back pain for which no surgical cause a seen on the MRI. The pain is most likely related to his psoriatic arthritis. Thank you for allowing me to participate in your patients care. total time spent was 50 minutes in counseling ,coordination of plan, personal review of imaging, surgical decision making and subsequent plan Iraj Ott MD, PhD Spine Fellowship Trained Neurosurgeon Director, [facility] [employer] Coding Level of Care Code New Pt Level 4 (15677) Diagnoses Chronic lower back pain M54.50; G89.29
--- OUTSIDE RECORDS SUMMARY | 2025-04-15 10:07 | XMS_ITS | Encounter Summary ---
Author Organization [facility] Address [address] [place] [address] Phone Care Team Providers Care Valet Service Attendant Name Role Phone Donny Calabrese MD Primary Care Provider [phone] Armida Canchola MD Primary Care Provider [phone] Encounter Details Date Type Department Care Team (Latest Contact Info) Description 09/15/2023 Transcribe Orders [facility] [address] [place] [address] Nickie Maria MD [address], [address] [place] [address] [email or web address] Psoriatic arthritis (Primary Dx); Long-term use of [...] Description 06/13/2025 8:00 AM EST Office Visit [facility] Rheumatology [address] [place] [address] Nickie Maria MD [address], [address] [place] [address] [email or web address] documented as of this encounter Results * C-Reactive Protein (09/15/2023 11:28 AM EDT) C REACTIVE PROTEIN <3.0 0.0 - 4.0 mg/L [facility] Blood 09/15/2023 11:2 8 AM EDT 09/15/2023 11:30 AM EDT us Nickie Maria MD LAB BLOOD BKR ORDERABLES Final Result [address] [address] * Sedimentation rate (ESR) (09/15/2023 11:28 AM EDT) ESR 9 0 - 20 mm/h [facility] Blood 09/15/2023 11:2 8 AM EDT 09/15/2023 11:30 AM EDT us Nickie Maria MD LAB BLOOD BKR ORDERABLES Final Result Performing Organization Address [facility]/ZIP Co de Phone Number [address] [address] * (ABNORMAL) CBC and differential (09/15/2023 11:28 AM EDT) WBC 10.33 4.00 - 11.00 K/uL [facility] RBC 4.87 3.90 - 5.69 M/uL [facility] HGB 14.8 12.4 - 17.3 g/dL [facility] HCT 44.6 37.0 - 51.0 % [facility] PLT 214 140 - 430 K/uL [facility] MCV 91.6 78.0 - 97.0 fL [facility] MCH 30.4 25.0 - 33.0 pg [facility] MCHC 33.2 32.0 - 36.0 g/dL [facility] RDW 13.1 11.0 - 15.0 % [facility] MPV 9.3 8.4 - 12.8 fl [facility] DIFF METHOD Auto [facility] NEUTS 61.8 43.0 - 75.0 % [facility] LYMPHS 25.9 18.2 - 47.4 % [facility] MONOS 9.1 4.00 - 11.00 % [facility] EOS 2.4 0.0 - 8.0 % [facility] BASOS 0.5 0.0 - 2.0 % [facility] Granulocytes, immature (%) 0.3 0.0 - 0.9 % [facility] ABSOLUTE NEUTS 6.38 1.80 - 7.70 K/uL [facility] ABSOLUTE LYMPHS 2.68 1.00 - 3.10 K/uL [facility] ABSOLUTE MONOS 0.94(H) 0.20 - 0.80 K/uL [facility] ABSOLUTE EOS 0.25 0.00 - 0.80 K/uL [facility] ABSOLUTE BASOS 0.05 0.00 - 0.09 K/uL [facility] Granulocytes, immature 0.03 0.00 - 0.05 K/uL [facility] Blood 09/15/2023 11:2 8 AM EDT 09/15/2023 11:30 AM EDT us Nickie Maria MD LAB BLOOD BKR ORDERABLES Final Result [facility] [address] [place] [address] * (ABNORMAL) Comprehensive metabolic panel (09/15/2023 11:28 AM EDT) SODIUM 141 133 - 146 mmol/L [facility] POTASSIUM 4.3 3.3 - 5.1 mmol/L [facility] CHLORIDE 107 96 - 108 mmol/L [facility] CO2 20(L) 21 - 35 mmol/L [facility] BUN 29(H) 6 - 19 mg/dL [facility] CREATININE 1.40 0.5 - 1.5 mg/dL [facility] GLUCOSE 111(H) 70 - 99 mg/dL [facility] ALBUMIN 4.3 3.9 - 4.8 g/dL [facility] TOTAL PROTEIN 6.8 6.5 - 8.0 g/dL [facility] CALCIUM 9.1 8.4 - 10.3 mg/dL [facility] ALKALINE PHOSPHATASE 56 39 - 117 U/L [facility] TOTAL BILIRUBIN <0.2 0.0 - 1.2 mg/dL [facility] AST 24 0 - 37 U/L [facility] ALT 30 0 - 40 U/L [facility] GLOBULIN 2.5 1 - 4.8 g/dL [facility] EGFR 52(L) >59 mL/min/1.7 3m2 [facility] Comment:Estimated glomerular filtration rate calculated using the CKD-EPI refit equation. ANION GAP 18 10 - 20 mmol/L [facility] Blood 09/15/2023 11:2 8 AM EDT 09/15/2023 11:30 AM EDT us Nickie Maria MD LAB BLOOD BKR ORDERABLES Final Result [facility] [address] [place] [address] documented in this encounter Visit Diagnoses Diagnosis Psoriatic arthritis- Primary Psoriatic arthropathy Long-term use of immunosuppressant medication documented in this encounter Care Teams Valet Service Attendant Relationship Specialty Start Date End Date Donny Calabrese MD PCP - General Internal Medicine 05/12/23 06/06/24 Armida Canchola MD [address] [place] [id number] PCP - General Internal Medicine 06/07/24 documented as of this encounter Additional Source Comments The information contained in this document represents components of the legal health record. It is not the complete legal health record.[facility]
--- OUTSIDE RECORDS SUMMARY | 2025-04-15 10:08 | XMS_ITS | Clinical Summary ---
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 Take 1 tab every 6 hrs for pain 112 tablet 5 03/23/20 25 Discontinu ed(Reorder ) Active Problems Problem [...] consider warm pool therapy such as at [facility] in [place], [place] Encounter for monitoring golimumab therapy 06/07 [...] sure to inform any new CONSTANCE BAKER, PATIENT TRANSPORTER about chronic immunosuppression particularly in emergency situations [...] sure to inform any new CONSTANCE BAKER, PATIENT TRANSPORTER about chronic immunosuppression particularly in emergency situations [...] sure to inform any new CONSTANCE BAKER PATIENT TRANSPORTER about chronic immunosuppression particularly in emergency situations. [...] sure to inform any new CONSTANCE BAKER, PATIENT TRANSPORTER about chronic immunosuppression particularly in emergency situations. [...] efficacy of therapy - standing orders in [facility]. Assessment & Plan (10/11/2024 9:00 [...] efficacy of therapy - standing orders in [facility]. Assessment & Plan (06/07/2024 8:39 [...] efficacy of therapy - standing orders in [facility]. Assessment & Plan (01/26/2024 9:35 [...] efficacy of therapy - standing orders in [facility]. Assessment & Plan (09/22/2023 9:55 [...] efficacy of therapy - standing orders in [facility].Monitoring labs stable as is his [...] efficacy of therapy - standing orders in [facility]. Assessment & Plan (05/20/2023 12:04 [...] efficacy of therapy - standing orders in [facility]. Assessment & Plan (01/13/2023 8:50 [...] efficacy of therapy - standing orders in [facility]. Assessment & Plan (09/09/2022 8:35 [...] efficacy of therapy - standing orders in [facility]. Assessment & Plan (02/12/2022 11:16 [...] efficacy of therapy - standing orders in [facility]. Assessment & Plan (10/08/2021 8:05 [...] efficacy of therapy - standing orders in [facility]. Assessment & Plan (07/31/2021 1:02 [...] efficacy of therapy - standing orders in [facility]. Assessment & Plan (05/13/2021 8:42 [...] efficacy of therapy - standing orders in [facility]. 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 detention (current) use of aspirin 09/20/2019 10/11/2024 Assessment [...] mediated psoriatic arthritis. I provided him with [phone] phone number to help him keep on [...] mediated psoriatic arthritis. I provided him with [phone] phone number to help him keep on [...] mediated psoriatic arthritis. I provided him with [phone] phone number to help him keep on [...] mediated psoriatic arthritis. I provided him with [phone] phone number to help him keep on [...] Encounters Date Type Department Care Team Description 03/23/2025 Refill [facility] Rheumatology [address] [place] [address] [place] [address] Jeri Burgos CMA 02/21/2025 9:30 AM EDT Office Visit [facility] Rheumatology [address] [place] [address] [place] [address] Nickie Maria MD Psoriatic arthritis (Primary Dx); Primary osteoarthritis involving multiple joints; Chronic midline low back pain without sciatica; Encounter for monitoring golimumab therapy; detention current use of opiate analgesic; On statin therapy; Tobacco dependence; Arthritis of both hips; Class 2 severe obesity due to excess calories with serious comorbidity and body mass index (BMI) of 35.0 to 35.9 in adult; Trochanteric bursitis of both hips 02/11/2025 Refill [facility] Rheumatology [address] [place] [address] [place] [address] Jeri Burgos CMA 02/10/2025 11:21 AM EDT - 02/10/2025 11:59 PM EDT Hospital Encounter [facility] [address] [place] [address] Nickie Maria MD Discharge Disposition: Home or Self Care from Last 3 Months Social History Tobacco [...] Description 06/13/2025 8:00 AM EST Office Visit [facility] Rheumatology [address] [place] [address] Nickie Maria MD [address], [address] [place] [address] Health Maintenance Due Date Last Done Comments DEPRESSION SCREENING 1957 HEPATITIS C SCREENING 12/16/1965 ZOSTER VACCINES (2 of 2) 04/18/2019 02/21/2019, 03/02 RSV VACCINE (1 - 1-dose 75+ series) 12/16/2022 LIPID PANEL 06/07/2024 06/07/2019 COVID-19 VACCINE ( season) 2025 02/12/2024, 03/18/2023, 10/13/2022, Additional history [...] on patient's age to complete this topic IPV VACCINES Aged Out No longer eligi ble [...] osteoarthritis involving multiple joints COMPREHENSIVE METABOLIC PANEL (CMP) Routine 02/10/2025 11:33 AM EDT Psoriatic arthritis Encounter for monitoring golimumab therapy C-REACTIVE PROTEIN (CRP) Routine 02/10/2025 11:33 AM EDT Psoriatic arthritis [...] EDT) SODIUM 143 133 - 146 mmol/L [facility] POTASSIUM 4.8 3.3 - 5.1 mmol/L [facility] CHLORIDE 106 96 - 108 mmol/L [facility] CO2 23 21 - 35 mmol/L [facility] BUN 26(H) 6 - 19 mg/dL [facility] CREATININE 1.60(H) 0.5 - 1.5 mg/dL [facility] GLUCOSE 172(H) 70 - 99 mg/dL [facility] ALBUMIN 4.1 3.9 - 4.8 g/dL [facility] TOTAL PROTEIN 7.0 6.5 - 8.0 g/dL [facility] CALCIUM 9.4 8.4 - 10.3 mg/dL [facility] ALKALINE PHOSPHATASE 69 39 - 117 U/L [facility] TOTAL BILIRUBIN 0.3 0.0 - 1.2 mg/dL [facility] AST 15 0 - 37 U/L [facility] ALT 19 0 - 40 U/L [facility] GLOBULIN 2.9 1 - 4.8 g/dL [facility] EGFR 44(L) >59 mL/min/1.7 3m2 [facility] Comment:Estimated glomerular filtration rate calculated using the CKD-EPI refit equation. ANION GAP 19 10 - 20 mmol/L [facility] Blood 02/10/2025 11:3 3 AM EDT 02/10/2025 11:39 AM EDT us Nickie Maria MD LAB BLOOD BKR ORDERABLES Final Result Performing Organization Address City/[facility]/ZIP Co de Phone Number [address] [address] * Sedimentation rate (ESR) (02/10/2025 11:33 AM EDT) ESR 16 0 - 20 mm/h [facility] Blood 02/10/2025 11:3 3 AM EDT 02/10/2025 11:39 AM EDT us Nickie Maria MD LAB BLOOD BKR ORDERABLES Final Result [address] [address] * (ABNORMAL) CBC and differential (02/10/2025 11:33 AM EDT) WBC 6.80 4.00 - 11.00 K/uL [facility] RBC 4.93 4.50 - 5.90 M/uL [facility] HGB 15.0 13.5 - 17.5 g/dL [facility] HCT 44.3 41.0 - 53.0 % [facility] PLT 243 150 - 450 K/uL [facility] MCV 89.9 80.0 - 100.0 fL [facility] MCH 30.4 27.0 - 31.0 pg [facility] MCHC 33.9 32.0 - 36.0 g/dL [facility] RDW 12.9 11.5 - 14.5 % [facility] MPV 9.6 8.4 - 12.0 fL [facility] NRBC 0.00 0.00 /100 WBCs [facility] ABSOLUTE NRBC 0.00 0.00 K/uL [facility] DIFF METHOD Auto [facility] NEUTS 45.4(L) 48.0 - 76.0 % [facility] LYMPHS 32.8 18.0 - 41.0 % [facility] MONOS 12.4(H) 4.0 - 11.0 % [facility] EOS 7.8(H) 0.0 - 5.0 % [facility] BASOS 1.0 0.0 - 1.5 % [facility] Granulocytes, immature (%) 0.6 0.0 - 0.9 % [facility] ABSOLUTE NEUTS 3.09 1.92 - 7.60 K/uL [facility] ABSOLUTE LYMPHS 2.23 0.72 - 4.10 K/uL [facility] ABSOLUTE MONOS 0.84 0.16 - 1.10 K/uL [facility] ABSOLUTE EOS 0.53(H) 0.00 - 0.50 K/uL [facility] ABSOLUTE BASOS 0.07 0.00 - 0.15 K/uL [facility] Granulocytes, immature 0.04 0.00 - 0.09 K/uL [facility] Blood 02/10/2025 11:3 3 AM EDT 02/10/2025 11:39 AM EDT us Nickie Maria MD LAB BLOOD BKR ORDERABLES Final Result [facility] [address] [place] [address] * C-Reactive Protein (02/10/2025 11:33 AM EDT) C REACTIVE PROTEIN <3.0 0.0 - 4.0 mg/L [facility] Blood 02/10/2025 11:3 3 AM EDT 02/10/2025 11:39 AM EDT us Nickie Maria MD LAB BLOOD BKR ORDERABLES Final Result Performing Organization Address City/[facility]/ZIP Co de Phone Number [address] [address] * (ABNORMAL) Lipid panel (06/07/2019 10:22 AM EST) HDL 48 mg/dL [facility] Comment: Interpretation <40 mg/dL: Low HDL cholesterol (major risk factor for CHD) Greater than or equal to 60 mg/dL: High HDL cholesterol ( negative risk factor for CHD) HDL - cholesterol is affected by a number of factors, e.g. smoking, excerise, hormones, sex and age. CHOLESTEROL 148 0 - 240 mg/dL [facility] TRIGLYCERIDES 120 30 - 160 mg/dL [facility] LDL 76 50 - 129 mg/dL [facility] Comment: LDL levels in terms of risk for coronary heart disease: <100 mg/dL: Optimal 100-129 mg/dL: Near or above optimal 130-159 mg/dL: Borderline high 160-189 mg/dL: High >190 mg/dL: Very High CARDIAC RISK RATIO 3.1(L) 3.4 - 5.0 [facility] Blood 06/07/2019 10:2 2 AM EST 06/07/2019 10:23 AM EST us Donny Calabrese MD LAB BLOOD BKR ORDERABLES F inal Result [address] [address] from Last 3 Months or Most Recently Relevant to Health Maintenance Insurance [address] [place] [address] [place] [address] [place] [address] [place] [address] [place] [address] [place] [address] [place] [address] [facility] Care Teams Set Decorator Relationship Specialty Start Date End Date Armida Canchola MD [address] [place] [address] PCP - General Internal Medicine 06/07/24 Additional Source Comments The information contained in this document represents components of the legal health record. It is not the complete legal health record.[facility]
== END 2025-04-15 10:51 | disposition home or self-care (01) ==
LOC: HO.HNS 09:21
PROVIDERS: PCP Internal Medicine; Visit Provider Neurological Surgery
DX: M54.50 Low back pain, unspecified (principal); G89.29 Other chronic pain
CPT/HCPCS: 99204